=== PATIENT | male | born 1945 | race Caucasian/White ===

== ENCOUNTER 2017-04-26 07:20 | Inpatient (IN) | payer MEDICARE, OTHER ==
[~2017-04-26] VITALS: Ht 172.7 cm; Wt 96.2 kg
[~2017-04-26 07:20] MED LIST: AMLO5TAB2 PO; GABA-536 PO; HYDR-548 PO; INSU100C7 SQ; LEVO175T2 PO; LORA10TA7 PO; METO50TA3 PO; TAMS0.4C34 PO
--- NOTE | 2017-04-26 07:20 | NUR ---
PT [id number] FROM HOME: WITNESSED SYNCOPY. BS IN FIELD 231. PLACED ON MONITOR. GOWNED PT . AWAITING MD ORDER
[2017-04-26] MEDS ORDERED: NALOXONE HCL 0.4 MG/ML AMPUL ONE (07:32)
[2017-04-26] MEDS ORDERED: ATOR80TA PO (07:33)
[2017-04-26] MEDS ORDERED: ALFU10TA10 PO (07:33)
[2017-04-26] MEDS ORDERED: AMIL5TAB9 PO (07:33)
[2017-04-26] MEDS ORDERED: ASPI-605 PO (07:33)
--- NOTE | 2017-04-26 07:38 | NUR ---
AMANDA #20 IV ACCESS. BLOOD SAMPLE COLLECTED SENT TO LAB
--- NOTE | 2017-04-26 07:40 | NUR ---
HAND FILER BALANCE WHEEL AT BEDSIDE
--- NOTE | 2017-04-26 07:40 | NUR ---
DR NAYLOR AT BEDSIDE FOR EVAL.
[2017-04-26] MEDS ORDERED: DOCU-170 PO (07:43)
[2017-04-26] MEDS ORDERED: CHOL200026 PO (07:43)
[2017-04-26] MEDS ORDERED: CALC60OI4 TP (07:43)
[2017-04-26] MEDS ORDERED: CARB15DR2 EACHEYE (07:43)
[2017-04-26] MEDS ORDERED: CALC3.8S NS (07:43)
[2017-04-26] MEDS ORDERED: POT473SP TP (07:43)
[2017-04-26] MEDS ORDERED: CLOP75TA2 PO (07:43)
[2017-04-26] MEDS ORDERED: [UNRECOGNIZED DRUG - CODE] TP (07:43)
--- NOTE | 2017-04-26 07:45 | NUR ---
DR JEONG PAGED
[2017-04-26] MEDS ORDERED: ATROPINE SULFATE INJ 1 MG/ML VIAL ONE (07:48)
[2017-04-26] MEDS ORDERED: IV NS 0.9% 1,000 ML ONE (07:48)
[2017-04-26] MEDS ORDERED: IV SET PRIMARY PUMP SET 1 EA INFUS.SET MC ONE ×2 (07:48→11:17)
[2017-04-26 07:50] LABS: ABG BASE EXCESS -0.5 mmol/L; ABG OXYGEN SATURATION 78.2 % (92.0-98.5); ABG PH 7.279 (7.350-7.450); ABG PO2 49.6 mmHg (75.0-100.0); COHb 1.5 % (0.5-1.5); MetHb 0.4 % (0.0-1.5); O2Hb 76.7 % (94.0-97.0); SITE, ABG LEFT ARM; VENT MODE, BG VBG VIA SIMPLE MASK
[2017-04-26 07:54] LABS: BASOPHILS % (AUTO) 0.5 % (0.0-2.0); EOSINOPHILS # (AUTO) 0.3 /CMM (0.0-0.7); EOSINOPHILS % (AUTO) 3.4 % (0.0-6.0); HEMATOCRIT 40 % (39-51); HEMOGLOBIN 13.4 g/dL (13.5-17.5); LYMPHOCYTES # (AUTO) 1.3 /CMM (0.8-4.8); LYMPHOCYTES % (AUTO) 14.2 % (20.0-44.0); MEAN CORPUSCULAR HEMOGLOBIN 32 PG (26.0-33.0); MEAN CORPUSCULAR HGB CONC 34 g/dl (31.0-36.0); MEAN CORPUSCULAR VOLUME 96 fL (80-96); MONOCYTES # (AUTO) 0.6 /CMM (0.1-1.30); MONOCYTES % (AUTO) 6.9 % (2.0-12.0); NEUTROPHILS # (AUTO) 6.6 /CMM (1.8-8.9); PLATELET COUNT (AUTO) 182 /CMM (150-450); RDW COEFFICIENT OF VARIATION 14.4 (11.5-15.0); RED BLOOD CELL COUNT(AUTO) 4.15 MIL/uL (4.5-6.0); WHITE BLOOD COUNT (AUTO) 8.8 K/uL (4.3-11.0)
[2017-04-26] MEDS ORDERED: IV NS 0.9% 1,000 ML BAG IV ONE (08:00)
[2017-04-26] MEDS ORDERED: NALOXONE HCL 0.4 MG/ML AMPUL IV ONE ×2 (08:00→13:00)
[2017-04-26] MEDS ORDERED: ATROPINE SULFATE INJ 1 MG/ML VIAL IV ONE (08:00)
[2017-04-26 08:04] LABS: CALCIUM, SERUM 10.1 mg/dL (8.5-10.1); CARBON DIOXIDE 29 mmol/L (21-32); CHLORIDE 103 mmol/L (98-107); CREATININE 2.2 mg/dL (0.6-1.3); GLUCOSE 260 mg/dL (74-106); POTASSIUM 5.2 mmol/L (3.5-5.1); SODIUM SERUM 142 mmol/L (136-145); UREA NITROGEN, BLOOD 50 mg/dL (7-18)
[2017-04-26 08:12] LABS: TROPONIN I < 0.017 ng/mL (0.00-0.056)
[2017-04-26 08:16] LABS: INR 1.01 (0.87-1.13); PROTHROMBIN TIME 10.8 SECS (9.5-12.7)
[2017-04-26 08:21] LABS: ALANINE AMINOTRANSFERASE 30 U/L (12-78); ALBUMIN 3.6 g/dL (3.4-5.0); ALKALINE PHOSPHATASE 168 U/L (46-116); ASPARTATE AMINOTRANSFERASE 45 U/L (15-37); BILIRUBIN,TOTAL 0.5 mg/dL (0.2-1.0)
--- NOTE | 2017-04-26 08:22 | NUR ---
PT TAKEN TO CT VIA JUDITH
--- NOTE | 2017-04-26 08:22 | NUR ---
HOLLIE ARTEAGA CAREGIVER [phone]
[2017-04-26 08:25] LABS: APPEARANCE,URINE SL CLOUDY (CLEAR); BLOOD, URINE 2+ Ery/uL (NEGATIVE); COLOR,URINE YELLOW (YELLOW); KETONES,URINE NEGATIVE (NEGATIVE); LEUKOCYTE ESTERASE ,URINE NEGATIVE (NEGATIVE); NITRITE, URINE NEGATIVE (NEGATIVE); PROTEIN,URINE 1+ mg/dl (NEGATIVE); UGLUCOSE NEGATIVE (NEGATIVE); UROBILINOGEN,URINE 0.2 EU/dL (0.2)
[2017-04-26 08:32] LABS: THYROID STIMULATING HORMONE 0.838 uIU/mL (0.358-3.74)
[2017-04-26 08:33] LABS: BILIRUBIN,URINE NEGATIVE (NEGATIVE)
[2017-04-26 08:35] LABS: BACTERIA,URINE Rare /HPF (None Seen); MUCUS,URINE Few /LPF (None Seen); RBC,URINE 0-3 /HPF (0-2); SQUAMOUS EPITHELIAL CELL,UR Few /HPF (None Seen); URINE AMORPHOUS URATE Few /HPF (None Seen); WBC,URINE 0-3 /HPF (0-3)
[2017-04-26] MEDS ORDERED: IV NS 0.9% 1,000 ML IV PRN (10:19)
--- NOTE | 2017-04-26 10:20 | NUR ---
CALLED TO GIVE REPORT PER MAKAYLA TECH RN WILL CALL ME BACK . WILL TRY AGAIN
--- NOTE | 2017-04-26 10:24 | NUR ---
TRANSFER PT VIA ACLS PROTOCOL. WILL GIVE REPORT TO KAYA RN AT BEDSIDE ROOM [address] KIRKPATRICK ADMITTING. DX SYNCOPE.
[2017-04-26] MEDS: TAMSULOSIN 0.4 MG CAP.SR.24H PO SCH (10:30)
[2017-04-26] MEDS ORDERED: COAL TAR TP SCH (10:30)
[2017-04-26] MEDS ORDERED: CALCIPOTRIENE TP SCH (10:30)
[2017-04-26 10:48] LABS: THYROID STIMULATING HORMONE 0.79 uIU/mL (0.358-3.74)
[2017-04-26] MEDS ORDERED: MAGNESIUM HYDROXIDE 30 ML UDC PO PRN (11:00)
[2017-04-26] MEDS ORDERED: ONDANSETRON HCL/PF 4 MG/2 ML VIAL IVP PRN (11:00)
[2017-04-26] MEDS ORDERED: ZOLPIDEM TARTRATE 5 MG TABLET PO PRN (11:00)
[2017-04-26] MEDS ORDERED: ENOXAPARIN SODIUM 40 MG/0.4 ML DISP.SYRIN SQ SCH (11:00)
[2017-04-26] MEDS: METOPROLOL TARTRATE 50 MG TABLET PO SCH ×2 (11:00→18:08)
[2017-04-26] MEDS ORDERED: MAG HYDROX/AL HYDROX/SIMETH 30 ML UDC PO PRN (11:00)
[2017-04-26] MEDS ORDERED: ACETAMINOPHEN 325 MG TABLET PO PRN (11:00)
--- NOTE | 2017-04-26 11:00 | NUR ---
sericulture teacher received pt from er stretcher, pt is lethargic, vs stable ao x1, pt is on 2l nc sat 96%, vs stable pt on monitor 1st degree av block hr 60s epi given for low hr held metoprolol p/md LOZA order, will follow md orders and continue to monitor, pt is on bed low position sr up x3 bed alarm data collection associate light w/ in reach.
[2017-04-26] MEDS ORDERED: SECONDARY IV SET 1 EA INFUS.SET MC ONE (11:17)
[2017-04-26] MEDS: AMLODIPINE BESYLATE 5 MG TABLET PO SCH (11:24)
[2017-04-26] MEDS: DOCUSATE SODIUM 250 MG CAPSULE PO SCH (11:25)
[2017-04-26] MEDS: CHOLECALCIFEROL 1,000 UNIT TABLET (VIT D3) PO SCH (11:25)
[2017-04-26] MEDS: ASPIRIN EC 81 MG TABLET.DR PO SCH (11:25)
[2017-04-26] MEDS: LORATADINE 10 MG TABLET PO SCH ×2 (11:25→18:07)
[2017-04-26] MEDS: LEVOTHYROXINE SODIUM 175 MCG TABLET PO SCH (11:25)
[2017-04-26] MEDS: CLOPIDOGREL BISULFATE 75 MG TABLET PO SCH (11:25)
[2017-04-26] MEDS: ENOXAPARIN SODIUM 30 MG/0.3 ML DISP.SYRIN SQ SCH (11:26)
[2017-04-26] MEDS: AMILORIDE HCL 5 MG TABLET PO SCH (11:26)
[2017-04-26] MEDS: INSULIN DETEMIR 100 UNIT/ML CARTRIDGE SQ SCH (11:27)
[2017-04-26 11:29] LABS: ABG BASE EXCESS 0.7 mmol/L; ABG OXYGEN SATURATION 93.4 % (92.0-98.5); ABG PO2 77.8 mmHg (75.0-100.0); AaDO2 54.6 mmHg; COHb 2.3 % (0.5-1.5); MetHb 0.5 % (0.0-1.5); O2Hb 90.8 % (94.0-97.0); SITE, ABG Right Radial; VENT MODE, BG 2L NASAL CANNULA
[2017-04-26] MEDS: IV 1/2NS 1000 ML 1,000 ML IV PRN (11:29)
[2017-04-26] MEDS ORDERED: NALOXONE HCL 2 MG in IV D5W 245 ML IV PRN (11:30)
[2017-04-26] MEDS: CALCITONIN,SALMON,SYNTHETIC 3.7 ML SPRAY.PUMP NS SCH (11:55)
[2017-04-26 12:00] VITALS: BP 165/75
[2017-04-26] MEDS ORDERED: Z GUARD REMEDY 4 OZ OINT TP PRN (12:30)
[2017-04-26] MEDS: GABAPENTIN 400 MG CAPSULE PO SCH ×2 (12:46→18:08)
[2017-04-26] MEDS: CARBOXYMETHYLCELLULOSE SODIUM 0.4 ML DROPERETTE EACHEYE SCH ×3 (13:00→21:00)
[2017-04-26] MEDS ORDERED: DEXTROSE 50%-WATER 50 ML DISP.SYRIN IV PRN (13:30)
[2017-04-26 16:00] VITALS: BP 103/55
[2017-04-26] MEDS ORDERED: ANASTROZOLE 1 MG TABLET PO SCH (17:00)
[2017-04-26] MEDS: BLOOD SUGAR DIAGNOSTIC 1 EACH STRIP IN SCH ×2 (18:08→22:53)
[2017-04-26] MEDS: INSULIN REGULAR, HUMAN 100 UNIT/ML 3 ML VIAL SQ PRN (18:09)
--- NOTE | 2017-04-26 19:20 | NUR ---
RN INITIAL NOTE RECEIVED PT IN NO ACUTE DISTRESS IN BED. PT IS A/O X 2 WITH PERIODS OF CONFUSION. PT IS ON O2 VIA NC @ 2LPM AND TOLERATING WELL WITH O2 SAT @ 98%. PT DOES NOT C/O ANY SOB, DIFFICULTY BREATHING OR PAIN AT THIS TIME. PT IS ON TELE WITH SB ON THE MONITOR. PT HAS F/C THAT IS CLEAN DRY INTACT AND PATENT WITH NAIN COLOR URINE DRAINING. PT HAS RAC 20G THAT IS CLEAN DRY INTACT AND PATENT WITH 1/2 NS @ 75ML/HR. PT HAS R HAND 20G THAT IS CLEAN DRY INTACT AND PATENT WITH SALINE LOCK. BED IN LOW LOCK POSITION WITH RIALS UP X 2. CALL LIGHT WITHIN REACH AND ALL SAFETY MEASURES ENSURED AND CARRIED OUT. WILL CONTINUE TO MONITOR FOR ANY CHANGES IN CONDITION.
[2017-04-26 20:37] VITALS: BP 129/58
[2017-04-27] VITALS: BP 116/56
[2017-04-27] MEDS: IV 1/2NS 1000 ML 1,000 ML IV PRN ×2 (03:46→20:28)
[2017-04-27 04:00] VITALS: BP 121/65
[2017-04-27] MEDS: PANTOPRAZOLE 40 MG TABLET.DR PO SCH (06:27)
[2017-04-27] MEDS: BLOOD SUGAR DIAGNOSTIC 1 EACH STRIP IN SCH ×4 (06:27→21:29)
[2017-04-27] MEDS: LEVOTHYROXINE SODIUM 175 MCG TABLET PO SCH (06:27)
--- NOTE | 2017-04-27 06:37 | NUR ---
RN CLOSING NOTE PT REMAINS IN NO ACUTE DISTRESS IN BED. PT DID NOT HAVE ANY SIGNIFICANT CHANGE IN CONDITION DURING SHIFT. ALL NEEDS MET ALL ORDERS CARRIED OUT. WILL CONTINUE TO MONITOR FOR ANY CHANGES IN CONDITION.
[2017-04-27 07:33] LABS: CALCIUM, SERUM 9.1 mg/dL (8.5-10.1); CARBON DIOXIDE 31 mmol/L (21-32); CHLORIDE 107 mmol/L (98-107); CREATININE 1.3 mg/dL (0.6-1.3); GLUCOSE 114 mg/dL (74-106); MAGNESIUM 1.7 mg/dL (1.8-2.4); PHOSPHORUS 3.6 mg/dL (2.5-4.9); POTASSIUM 4.4 mmol/L (3.5-5.1); SODIUM SERUM 145 mmol/L (136-145); UREA NITROGEN, BLOOD 38 mg/dL (7-18)
[2017-04-27 07:59] LABS: EOSINOPHILS # (AUTO) 0.7 /CMM (0.0-0.7); EOSINOPHILS % (AUTO) 8.4 % (0.0-6.0); HEMATOCRIT 35 % (39-51); HEMOGLOBIN 11.9 g/dL (13.5-17.5); LYMPHOCYTES # (AUTO) 1.2 /CMM (0.8-4.8); LYMPHOCYTES % (AUTO) 13.8 % (20.0-44.0); MEAN CORPUSCULAR HEMOGLOBIN 33 PG (26.0-33.0); MEAN CORPUSCULAR HGB CONC 34 g/dl (31.0-36.0); MEAN CORPUSCULAR VOLUME 96 fL (80-96); MONOCYTES # (AUTO) 0.9 /CMM (0.1-1.30); MONOCYTES % (AUTO) 10.5 % (2.0-12.0); NEUTROPHILS # (AUTO) 5.6 /CMM (1.8-8.9); NEUTROPHILS % (AUTO) 67.3 % (43.0-81.0); PLATELET COUNT (AUTO) 148 /CMM (150-450); RDW COEFFICIENT OF VARIATION 13.5 (11.5-15.0); RED BLOOD CELL COUNT(AUTO) 3.65 MIL/uL (4.5-6.0); WHITE BLOOD COUNT (AUTO) 8.4 K/uL (4.3-11.0)
[2017-04-27 08:00] VITALS: BP 135/69
[2017-04-27] MEDS: ASPIRIN EC 81 MG TABLET.DR PO SCH (08:22)
[2017-04-27] MEDS: CHOLECALCIFEROL 1,000 UNIT TABLET (VIT D3) PO SCH (08:22)
[2017-04-27] MEDS: DOCUSATE SODIUM 250 MG CAPSULE PO SCH (08:23)
[2017-04-27] MEDS: AMLODIPINE BESYLATE 5 MG TABLET PO SCH (08:23)
[2017-04-27] MEDS: ATORVASTATIN 40 MG TABLET PO SCH (08:23)
[2017-04-27] MEDS: GABAPENTIN 400 MG CAPSULE PO SCH ×3 (08:24→17:11)
[2017-04-27] MEDS: TAMSULOSIN 0.4 MG CAP.SR.24H PO SCH (08:24)
[2017-04-27] MEDS: LORATADINE 10 MG TABLET PO SCH ×2 (08:24→17:11)
[2017-04-27] MEDS: CLOPIDOGREL BISULFATE 75 MG TABLET PO SCH (08:24)
[2017-04-27] MEDS: METOPROLOL TARTRATE 50 MG TABLET PO SCH ×2 (09:00→17:11)
[2017-04-27] MEDS: CARBOXYMETHYLCELLULOSE SODIUM 0.4 ML DROPERETTE EACHEYE SCH ×4 (09:00→20:44)
[2017-04-27] MEDS: AMILORIDE HCL 5 MG TABLET PO SCH (10:13)
[2017-04-27] MEDS: CALCITONIN,SALMON,SYNTHETIC 3.7 ML SPRAY.PUMP NS SCH (10:14)
[2017-04-27] MEDS: INSULIN DETEMIR 100 UNIT/ML CARTRIDGE SQ SCH (10:15)
[2017-04-27] MEDS: LEVETIRACETAM (250 MG) 250 MG TABLET PO SCH ×2 (11:02→20:28)
[2017-04-27] MEDS: ENOXAPARIN SODIUM 30 MG/0.3 ML DISP.SYRIN SQ SCH (11:03)
[2017-04-27] MEDS ORDERED: SECONDARY IV SET 1 EA INFUS.SET MC ONE (11:57)
[2017-04-27 12:00] VITALS: BP 126/61
[2017-04-27] MEDS: Magnesium 1GM/D5W 100ML PREMIX 100 ML IV SCH ×2 (12:03→12:58)
[2017-04-27 16:00] VITALS: BP 116/60
[2017-04-27] MEDS: INSULIN REGULAR, HUMAN 100 UNIT/ML 3 ML VIAL SQ PRN ×2 (17:20→21:31)
--- NOTE | 2017-04-27 19:30 | NUR ---
MS RN INITIAL NOTES RECEIVED PATIENT AWAKE A/OX3, C/O 6/10 BLE PAIN, STATES TYLENOL ISN'T WORKING FOR HIM AND REQUESTS FOR STRONGER MEDICATION. DENIES SOB. RESPIRATIONS EVEN AND UNLABORED WITH 2LPMO2 VIA NC. SKIN WARM AND DRY TO TOUCH. NOTED WITH LEFT LOWER EXTREMITY RASH, PER PATIENT IT IS PSORIASIS. WITH F/C PATENT AND INTACT, DRAINING BY GRAVITY. HOB KEPT ELEVATED. SIDE RAILS UP AND LOCKED. BED KEPT AT LOWEST POSITION. CALL LIGHT KEPT WITHIN EASY REACH. WILL CONTINUE TO MONITOR.
[2017-04-27 20:00] VITALS: BP 126/53
[2017-04-27] MEDS ORDERED: HYDROCODONE/APAP 5/325MG 1 EACH TABLET ONE (20:17)
[2017-04-27] MEDS: HYDROCODONE/APAP 5/325MG 1 EACH TABLET PO PRN (20:28)
[2017-04-28 04:00] VITALS: BP 141/73
[2017-04-28 06:58] LABS: BASOPHILS % (AUTO) 0.3 % (0.0-2.0); EOSINOPHILS # (AUTO) 0.1 /CMM (0.0-0.7); EOSINOPHILS % (AUTO) 1.1 % (0.0-6.0); HEMATOCRIT 37 % (39-51); HEMOGLOBIN 12.4 g/dL (13.5-17.5); LYMPHOCYTES # (AUTO) 0.7 /CMM (0.8-4.8); LYMPHOCYTES % (AUTO) 6.6 % (20.0-44.0); MEAN CORPUSCULAR HEMOGLOBIN 33 PG (26.0-33.0); MEAN CORPUSCULAR HGB CONC 34 g/dl (31.0-36.0); MEAN CORPUSCULAR VOLUME 96 fL (80-96); MONOCYTES # (AUTO) 0.7 /CMM (0.1-1.30); MONOCYTES % (AUTO) 6.5 % (2.0-12.0); NEUTROPHILS # (AUTO) 9.6 /CMM (1.8-8.9); NEUTROPHILS % (AUTO) 85.5 % (43.0-81.0); PLATELET COUNT (AUTO) 158 /CMM (150-450); RDW COEFFICIENT OF VARIATION 14.4 (11.5-15.0); WHITE BLOOD COUNT (AUTO) 11.2 K/uL (4.3-11.0)
[2017-04-28] MEDS: BLOOD SUGAR DIAGNOSTIC 1 EACH STRIP IN SCH ×4 (07:00→22:19)
[2017-04-28] MEDS: INSULIN REGULAR, HUMAN 100 UNIT/ML 3 ML VIAL SQ PRN ×3 (07:03→22:20)
[2017-04-28 07:05] LABS: ALANINE AMINOTRANSFERASE 31 U/L (12-78); ALBUMIN 2.8 g/dL (3.4-5.0); ALKALINE PHOSPHATASE 153 U/L (46-116); ASPARTATE AMINOTRANSFERASE 44 U/L (15-37); BILIRUBIN,TOTAL 0.7 mg/dL (0.2-1.0); CALCIUM, SERUM 9.1 mg/dL (8.5-10.1); CARBON DIOXIDE 32 mmol/L (21-32); CHLORIDE 102 mmol/L (98-107); CREATININE 1.3 mg/dL (0.6-1.3); GLUCOSE 204 mg/dL (74-106); MAGNESIUM 1.6 mg/dL (1.8-2.4); PHOSPHORUS 2.7 mg/dL (2.5-4.9); POTASSIUM 4.5 mmol/L (3.5-5.1); SODIUM SERUM 140 mmol/L (136-145); TOTAL PROTEIN, SERUM 6.7 g/dL (6.4-8.2); UREA NITROGEN, BLOOD 30 mg/dL (7-18)
--- NOTE | 2017-04-28 07:05 | NUR ---
RN INITIAL NOTES RECEIVED PT AWAKE, A/OX1 WITH PERIODS OF CONFUSION. ON AT 2LPM VIA NC. NO RESPIRATORY DISTRESS NOTED. NO SOB NOTED. DENIES ANY PAIN. IV LINES IN PLACE. ON 11/25 NS AT 75ML/HR. FC IN PLACE. NO HEMATURIA NOR SEDIMENTS NOTED. BLE ELEVATED. PT COMFORTABLE. CALL LIGHT WITHIN REACH. WILL MONITOR.
--- NOTE | 2017-04-28 07:19 | NUR ---
MS RN CLOSING NOTES NO SIGNIFICANT CHANGES OVERNIGHT. MORE CONFUSED THIS MORNING, NOTED REMOVING CLOTHES, HANDS RESTLESS, REORIENTED, STATES HES FINE. NO RESPIRATORY DISTRESS NOTED, ON 2LPMO2 VIA NC. IVF RUNNING . WITH F/C PATENT AND INTACT, DRAINING BY GRAVITY. PATIENT KEPT CLEAN AND DRY. TURNED AND REPOSITIONED Q2 AND PRN. SIDE RAILS UP AND LOCKED. BED KEPT AT LOWEST POSITION. CALL LIGHT KEPT WITHIN EASY REACH. WILL ENDORSE CONTINUITY OF CARE TO AM NURSE.
[2017-04-28 08:00] VITALS: BP_SYST 151; BP_SYST 154; BP_DIAS 47; BP_DIAS 55
[2017-04-28] MEDS: AMILORIDE HCL 5 MG TABLET PO SCH (08:28)
[2017-04-28] MEDS: LORATADINE 10 MG TABLET PO SCH ×2 (08:29→16:11)
[2017-04-28] MEDS: ATORVASTATIN 40 MG TABLET PO SCH (08:29)
[2017-04-28] MEDS: LEVETIRACETAM (250 MG) 250 MG TABLET PO SCH ×2 (08:29→22:19)
[2017-04-28] MEDS: TAMSULOSIN 0.4 MG CAP.SR.24H PO SCH (08:29)
[2017-04-28] MEDS: CARBOXYMETHYLCELLULOSE SODIUM 0.4 ML DROPERETTE EACHEYE SCH ×4 (08:29→22:18)
[2017-04-28] MEDS: ASPIRIN EC 81 MG TABLET.DR PO SCH (08:29)
[2017-04-28] MEDS: CLOPIDOGREL BISULFATE 75 MG TABLET PO SCH (08:29)
[2017-04-28] MEDS: LEVOTHYROXINE SODIUM 175 MCG TABLET PO SCH (08:29)
[2017-04-28] MEDS: PANTOPRAZOLE 40 MG TABLET.DR PO SCH (08:29)
[2017-04-28] MEDS: AMLODIPINE BESYLATE 5 MG TABLET PO SCH (08:29)
[2017-04-28] MEDS: CHOLECALCIFEROL 1,000 UNIT TABLET (VIT D3) PO SCH (08:29)
[2017-04-28] MEDS: DOCUSATE SODIUM 250 MG CAPSULE PO SCH (08:30)
[2017-04-28] MEDS: CALCITONIN,SALMON,SYNTHETIC 3.7 ML SPRAY.PUMP NS SCH (08:30)
[2017-04-28] MEDS: GABAPENTIN 400 MG CAPSULE PO SCH ×3 (08:30→16:11)
[2017-04-28] MEDS: METOPROLOL TARTRATE 50 MG TABLET PO SCH ×2 (08:30→16:12)
[2017-04-28] MEDS: INSULIN DETEMIR 100 UNIT/ML CARTRIDGE SQ SCH (08:38)
[2017-04-28] MEDS ORDERED: SECONDARY IV SET 1 EA INFUS.SET MC ONE (11:10)
[2017-04-28] MEDS: ENOXAPARIN SODIUM 30 MG/0.3 ML DISP.SYRIN SQ SCH (11:25)
[2017-04-28] MEDS: Magnesium 1GM/D5W 100ML PREMIX 100 ML IV SCH ×2 (11:33→12:28)
[2017-04-28] MEDS: IV 1/2NS 1000 ML 1,000 ML IV PRN (11:33)
--- NOTE | 2017-04-28 12:05 | NUR ---
RN NOTES SEEN AND EXAMINED BY DR. KAYA KEYS. AWARE OF CURRENT LAB VALUES: WBC 11.2, HGB 12.4, HCT 37, PLATELET 158. SODIUM 140, POTASSIUM 4.5, BUN 30, CREA 1.3, MAGNESIUM 1.6, REPLACED. PT A/OX1-2 WITH PERIODS OF CONFUSION. MD ORDERED DC IVF, DC FC AND CXR TODAY. NOTED AND CARRIED OUT. PT AWARE.
--- NOTE | 2017-04-28 12:10 | NUR ---
RN NOTES FC REMOVED ORDERED BY DR. KAYA KEYS. WILL MONITOR FOR SIGNS OF BLADDER DISTENTION/URINARY RETENTION.
--- NOTE | 2017-04-28 12:46 | NUR ---
WOUND CARE CONSULT: PT PRESENTS WITH RED PATCHES OF SKIN ON LEFT LEG, GROIN, SACRAL/BUTTOCKS AREA AND ELBOWS, PRESENT ON ADMISSION. PT STATES HAS PSORIASIS. DEFER TO MD. PT ABLE TO ASSIST WITH TURNING AND REPOSITIONING IN BED. ALL SKIN PROTECTION MEASURES IN PLACE. DISCUSSED WITH NURSING STAFF. PT ON [facility] BED. WILL SEE PRN. Addendum: 04/28/17 at 1248 by CALEB CONWAY WNDNU Amended: Links added.
[2017-04-28 16:00] VITALS: BP 107/60
--- NOTE | 2017-04-28 19:15 | NUR ---
RN INITIAL NOTES RECEIVED PATIENT IN BED, PATIENT OBSERVED TO BE CONFUSED, ALERT TO NAME ONLY. PATIENT OBSERVED TO BE RESTLESS IN BED. REPOSITIONED PATIENT SAFELY IN BED, COMFORT ENSURED. BED ALARM IN PLACE, BED IN LOW AND LOCKED POSITION. PATIENT REORIENTED NEEDED. ENCOURAGED COMPLIANCE WITH O2 THERAPY, 2LPM OF O2 VIA NC, PATIENT IS OBSERVED TO BE TACHYPNEIC, SATURATION KEPT AT 97%, DENIES ANY DISCOMFORT AND PAIN, HOB ELEVATED TOLERATED. WILL CONTINUE TO MONITOR.
[2017-04-28 20:00] VITALS: BP 155/53
--- NOTE | 2017-04-28 20:30 | NUR ---
RN NOTES PATIENT RESTLESS IN BED, REPOSITIONED FOR SAFETY. PATIENT CONFUSED AND REQUIRING CONSTANT REORIENTATION. PATIENT INSISTING ON LOOKING FOR HIS SHOES AND GOING HOME. REORIENTED NEEDED, MINIMAL HELP. ROOM CHANGED CLOSE TO NURSE'S STATION FOR CLOSE MONITORING. WILL MONITOR.
[2017-04-28] MEDS: HYDROCODONE/APAP 5/325MG 1 EACH TABLET PO PRN (22:22)
--- NOTE | 2017-04-29 | NUR ---
RN NOTES PATIENT WAS MEDICATED WITH NORCO PRN ORDERED FOR C/O GENERALIZED PAIN, WITH HELP FOR THE PATIENT. ALSO WAS MEDICATED WITH AMBIEN PRN. PATIENT AT THIS TIME IS STILL AWAKE ALTHOUGH LETHARGIC, RESTLESS IN BED AND CONSTANTLY TALKING. ATTEMPTED TO REORIENT AND REDIRECT, MINIMAL HELP. AMBIEN WITH NO HELP. ON CLOSE VISUAL MONITORING. BED ALARM IN PLACE.
--- NOTE | 2017-04-29 03:27 | NUR ---
RN NOTES PATIENT ATTEMPTING TO GET OUT FROM BED, ASSISTED BACK TO BED WITH SAFETY AND COMFORT ENSURED. PATIENT REORIENTED AND REASSURED. NEEDS ANTICIPATED AND MET. ON CLOSE MONITORING BY STAFF AT ALL TIMES. BED ALARM IN PLACE.
[2017-04-29 04:00] VITALS: BP 165/77
--- NOTE | 2017-04-29 04:00 | NUR ---
RN NOTES PATIENT IN BED, AWAKE, ALERT TO NAME. PATIENT IS RESTLESS IN BED, CONSTANTLY TRYING TO MOVE HIS LEGS OFF THE BED, FREQUENTLY REPOSITIONED PATIENT FOR COMFORT AND SAFETY. PATIENT ALSO ALWAYS REMOVING HIS BLANKETS AND GOWN AND THROWING PILLOWS TO THE FLOOR. CONSTANT REORIENTATION PROVIDED, SAFETY AND COMFORT ENSURED. BED ALARM IN PLACE, BED IN LOW AND LOCKED POSITION. CLOSELY MONITORED BY STAFF AT ALL TIMES. PAGED [employer] FOR ORDERS.
[2017-04-29] MEDS ORDERED: LORAZEPAM INJ 2 MG/ML VIAL ONE (04:21)
[2017-04-29] MEDS ORDERED: LORAZEPAM INJ 2 MG/ML VIAL IV ONE (04:30)
--- NOTE | 2017-04-29 04:39 | NUR ---
RN NOTES PATIENT IN BED, AWAKE AND CONFUSED. ALERT TO NAME. PATIENT OBSERVED TO BE TALKING TO SELF. INQUIRED TO PATIENT WHO HE IS TALKING TO, PATIENT NOTED TO BE HALLUCINATING, POINTING AT THE CEILING AND STATES, "I AM TALKING TO THE 2 DESK LADIES AT [place]. I AM MAKING AN APPOINTMENT, EVERYTHING IS SET." PROVIDED PATIENT WITH REALITY ORIENTATION, PATIENT JUST SHRUGGED OFF AND LAUGHED. REORIENTED NEEDED. SAFETY AND COMFORT ENSURED. ATIVAN 1MG IV X1 GIVEN ORDERED. ON CLOSE MONITORING.
--- NOTE | 2017-04-29 06:52 | NUR ---
RN CLOSING NOTES PATIENT IN BED, AWAKE AND CONFUSED, ALERT TO NAME ONLY. PATIENT MANAGED TO SLEEP FOR APPROXIMATELY 1 HOUR POST ADMINISTRATION OF ATIVAN X1 ORDER. CONSTANT REORIENTATION AND REDIRECTION PROVIDED. REASSURANCE PROVIDED NEEDED. PATIENT KEPT CLEAN AND DRY. SAFETY AND COMFORT ENSURED. ON CLOSE MONITORING AT ALL TIMES. BED IN LOW AND LOCKED POSITION. BED ALARM IN PLACE. WILL ENDORSE ACCORDINGLY FOR CONTINUITY OF CARE. AM LABS DRAWN, ALL DUE MEDS GIVEN ORDERED.
[2017-04-29 07:08] LABS: BASOPHILS % (AUTO) 0.4 % (0.0-2.0); EOSINOPHILS # (AUTO) 0.2 /CMM (0.0-0.7); HEMATOCRIT 40 % (39-51); HEMOGLOBIN 13.8 g/dL (13.5-17.5); LYMPHOCYTES # (AUTO) 1.2 /CMM (0.8-4.8); MEAN CORPUSCULAR HEMOGLOBIN 33 PG (26.0-33.0); MEAN CORPUSCULAR HGB CONC 34 g/dl (31.0-36.0); MEAN CORPUSCULAR VOLUME 95 fL (80-96); MONOCYTES % (AUTO) 8.4 % (2.0-12.0); NEUTROPHILS # (AUTO) 9.2 /CMM (1.8-8.9); NEUTROPHILS % (AUTO) 79.2 % (43.0-81.0); PLATELET COUNT (AUTO) 176 /CMM (150-450); RDW COEFFICIENT OF VARIATION 14.5 (11.5-15.0); RED BLOOD CELL COUNT(AUTO) 4.24 MIL/uL (4.5-6.0); WHITE BLOOD COUNT (AUTO) 11.6 K/uL (4.3-11.0)
--- NOTE | 2017-04-29 07:15 | NUR ---
RN INITIAL NOTE PT RECEIVED IN BED, AWAKE, ALERT, CONFUSED. DENIES PAIN AT THIS TIME. RESPIRATIONS ARE EVEN AND UNLABORED. NO S/S OF RESPIRATORY DISTRESS OR SOB. SATING WELL ON 2L VIA NASAL CANULA. SKIN IS WARM AND DRY TO TOUCH. RIGHT HAND AND RIGHT AC IV SITE FLUSHED, PATENT. DRESSING C/D/I. SAFETY PRECAUTIONS IN PLACE. BED IN LOCKED, LOW POSITIONS WITH TWO SIDE RAILS UP. CALL LIGHT AND BELONGINGS WITHIN EASY REACH. SITTER AT BEDSIDE. WILL CONTINUE TO MONITOR.
[2017-04-29 08:00] VITALS: BP 156/88
[2017-04-29 08:23] LABS: CALCIUM, SERUM 10.1 mg/dL (8.5-10.1); CARBON DIOXIDE 31 mmol/L (21-32); CHLORIDE 102 mmol/L (98-107); CREATININE 1.1 mg/dL (0.6-1.3); GLUCOSE 168 mg/dL (74-106); MAGNESIUM 1.5 mg/dL (1.8-2.4); POTASSIUM 4.5 mmol/L (3.5-5.1); SODIUM SERUM 141 mmol/L (136-145); UREA NITROGEN, BLOOD 24 mg/dL (7-18)
[2017-04-29] MEDS: AMLODIPINE BESYLATE 5 MG TABLET PO SCH (08:47)
[2017-04-29] MEDS: CALCITONIN,SALMON,SYNTHETIC 3.7 ML SPRAY.PUMP NS SCH (08:47)
[2017-04-29] MEDS: CLOPIDOGREL BISULFATE 75 MG TABLET PO SCH (08:48)
[2017-04-29] MEDS: CHOLECALCIFEROL 1,000 UNIT TABLET (VIT D3) PO SCH (08:48)
[2017-04-29] MEDS: ATORVASTATIN 40 MG TABLET PO SCH (08:48)
[2017-04-29] MEDS: ASPIRIN EC 81 MG TABLET.DR PO SCH (08:48)
[2017-04-29] MEDS: LEVETIRACETAM (250 MG) 250 MG TABLET PO SCH ×2 (08:48→21:09)
[2017-04-29] MEDS: METOPROLOL TARTRATE 50 MG TABLET PO SCH ×2 (08:48→18:02)
[2017-04-29] MEDS: PANTOPRAZOLE 40 MG TABLET.DR PO SCH (08:49)
[2017-04-29] MEDS: DOCUSATE SODIUM 250 MG CAPSULE PO SCH (08:49)
[2017-04-29] MEDS: TAMSULOSIN 0.4 MG CAP.SR.24H PO SCH (08:49)
[2017-04-29] MEDS: GABAPENTIN 400 MG CAPSULE PO SCH ×3 (08:49→17:54)
[2017-04-29] MEDS: LEVOTHYROXINE SODIUM 175 MCG TABLET PO SCH (08:49)
[2017-04-29] MEDS: AMILORIDE HCL 5 MG TABLET PO SCH (08:49)
[2017-04-29] MEDS: INSULIN DETEMIR 100 UNIT/ML CARTRIDGE SQ SCH (08:53)
[2017-04-29] MEDS: LORATADINE 10 MG TABLET PO SCH ×2 (08:57→17:54)
[2017-04-29] MEDS: BLOOD SUGAR DIAGNOSTIC 1 EACH STRIP IN SCH ×4 (08:57→21:16)
[2017-04-29] MEDS: FUROSEMIDE 40 MG/4 ML VIAL IV SCH ×2 (08:57→17:54)
[2017-04-29] MEDS: CARBOXYMETHYLCELLULOSE SODIUM 0.4 ML DROPERETTE EACHEYE SCH ×4 (09:00→21:14)
[2017-04-29] MEDS ORDERED: IV SET PRIMARY PUMP SET 1 EA INFUS.SET MC ONE (09:10)
[2017-04-29] MEDS ORDERED: IV NS 0.9% 250 ML IV ONE (09:10)
[2017-04-29] MEDS ORDERED: SECONDARY IV SET 1 EA INFUS.SET MC ONE (09:10)
[2017-04-29] MEDS: Magnesium 1GM/D5W 100ML PREMIX 100 ML IV SCH ×2 (09:24→10:57)
[2017-04-29] MEDS: ENOXAPARIN SODIUM 30 MG/0.3 ML DISP.SYRIN SQ SCH (11:00)
[2017-04-29 12:00] VITALS: BP 120/60
[2017-04-29] MEDS: QUETIAPINE FUMARATE 25 MG TABLET PO SCH ×2 (12:17→17:54)
[2017-04-29] MEDS: INSULIN REGULAR, HUMAN 100 UNIT/ML 3 ML VIAL SQ PRN (12:22)
[2017-04-29] MEDS: HYDROCODONE/APAP 5/325MG 1 EACH TABLET PO PRN (14:21)
[2017-04-29] MEDS: IPRATROPIUM NEB FS 0.5 MG/2.5 ML AMPUL.NEB NEB SCH ×2 (15:00→20:13)
[2017-04-29] MEDS: ALBUTEROL FS 2.5 MG/0.5 ML VIAL.NEB NEB SCH ×2 (15:00→20:13)
[2017-04-29 16:00] VITALS: BP 135/75
--- NOTE | 2017-04-29 18:48 | NUR ---
RN CLOSING NOTE ALL MD ORDERS CARRIED OUT. PATIENT KEPT CLEAN AND DRY. SAFETY PRECAUTIONS IN PLACE AT ALL TIMES. REPORT WILL BE GIVEN TO PM RN FOR BERNA.
[2017-04-29 20:00] VITALS: BP 121/58
[2017-04-30] MEDS: HYDROCODONE/APAP 5/325MG 1 EACH TABLET PO PRN ×2 (00:21→09:08)
[2017-04-30] MEDS: IPRATROPIUM NEB FS 0.5 MG/2.5 ML AMPUL.NEB NEB SCH ×4 (01:07→19:17)
[2017-04-30 04:00] VITALS: BP 148/53
[2017-04-30] MEDS: ALBUTEROL FS 2.5 MG/0.5 ML VIAL.NEB NEB SCH ×3 (07:02→19:17)
[2017-04-30] MEDS: BLOOD SUGAR DIAGNOSTIC 1 EACH STRIP IN SCH ×4 (07:03→21:43)
[2017-04-30 07:18] LABS: BASOPHILS % (AUTO) 0.3 % (0.0-2.0); EOSINOPHILS # (AUTO) 0.2 /CMM (0.0-0.7); EOSINOPHILS % (AUTO) 2.1 % (0.0-6.0); HEMATOCRIT 38 % (39-51); LYMPHOCYTES # (AUTO) 0.8 /CMM (0.8-4.8); LYMPHOCYTES % (AUTO) 8.1 % (20.0-44.0); MEAN CORPUSCULAR HEMOGLOBIN 33 PG (26.0-33.0); MEAN CORPUSCULAR HGB CONC 34 g/dl (31.0-36.0); MEAN CORPUSCULAR VOLUME 96 fL (80-96); MONOCYTES # (AUTO) 0.9 /CMM (0.1-1.30); MONOCYTES % (AUTO) 9.7 % (2.0-12.0); NEUTROPHILS # (AUTO) 7.7 /CMM (1.8-8.9); NEUTROPHILS % (AUTO) 79.8 % (43.0-81.0); PLATELET COUNT (AUTO) 179 /CMM (150-450); RDW COEFFICIENT OF VARIATION 13.9 (11.5-15.0); RED BLOOD CELL COUNT(AUTO) 3.99 MIL/uL (4.5-6.0); WHITE BLOOD COUNT (AUTO) 9.6 K/uL (4.3-11.0)
--- NOTE | 2017-04-30 07:40 | NUR ---
RN M/S CLOSING NOTES NO SIGNIFICANT CHANGES OVERNIGHT, PT IS CONFUSED, WITH A SITTER AT BEDSIDE. CONSTANT REORIENTATION AND REDIRECTION PROVIDED. ALL SAFETY MEASURES MET. ASSISTED PT WITH ADLS WITH MAXIMUM ASSIST. BED LOCKED AND IN LOWEST POSITION. IV SITE IS PATENT, NO S/SX OF INFECTION/INFILTRATION NOTED. ALL MEDS GIVEN ORDERED AND PT TOLERATED IT WELL. ENDORSED TO AM NURSE FOR CONTINUITY OF CARE.
[2017-04-30 07:43] LABS: ALANINE AMINOTRANSFERASE 27 U/L (12-78); ALBUMIN 2.8 g/dL (3.4-5.0); ALKALINE PHOSPHATASE 131 U/L (46-116); ASPARTATE AMINOTRANSFERASE 28 U/L (15-37); CALCIUM, SERUM 9.6 mg/dL (8.5-10.1); CARBON DIOXIDE 28 mmol/L (21-32); CHLORIDE 102 mmol/L (98-107); CREATININE 1.6 mg/dL (0.6-1.3); GLUCOSE 150 mg/dL (74-106); MAGNESIUM 1.9 mg/dL (1.8-2.4); PHOSPHORUS 3.2 mg/dL (2.5-4.9); POTASSIUM 4.1 mmol/L (3.5-5.1); SODIUM SERUM 142 mmol/L (136-145); TOTAL PROTEIN, SERUM 7.3 g/dL (6.4-8.2); UREA NITROGEN, BLOOD 38 mg/dL (7-18)
[2017-04-30 08:00] VITALS: BP 147/70
[2017-04-30] MEDS: LEVOTHYROXINE SODIUM 175 MCG TABLET PO SCH (09:06)
[2017-04-30] MEDS: ATORVASTATIN 40 MG TABLET PO SCH (09:06)
[2017-04-30] MEDS: TAMSULOSIN 0.4 MG CAP.SR.24H PO SCH (09:06)
[2017-04-30] MEDS: GABAPENTIN 400 MG CAPSULE PO SCH ×3 (09:06→17:39)
[2017-04-30] MEDS: PANTOPRAZOLE 40 MG TABLET.DR PO SCH (09:06)
[2017-04-30] MEDS: METOPROLOL TARTRATE 50 MG TABLET PO SCH ×2 (09:07→17:39)
[2017-04-30] MEDS: DOCUSATE SODIUM 250 MG CAPSULE PO SCH (09:07)
[2017-04-30] MEDS: LORATADINE 10 MG TABLET PO SCH ×2 (09:07→17:39)
[2017-04-30] MEDS: ASPIRIN EC 81 MG TABLET.DR PO SCH (09:07)
[2017-04-30] MEDS: LEVETIRACETAM (250 MG) 250 MG TABLET PO SCH ×2 (09:07→21:43)
[2017-04-30] MEDS: CHOLECALCIFEROL 1,000 UNIT TABLET (VIT D3) PO SCH (09:08)
[2017-04-30] MEDS: AMLODIPINE BESYLATE 5 MG TABLET PO SCH (09:08)
[2017-04-30] MEDS: CLOPIDOGREL BISULFATE 75 MG TABLET PO SCH (09:08)
[2017-04-30] MEDS: QUETIAPINE FUMARATE 25 MG TABLET PO SCH ×2 (09:10→17:00)
[2017-04-30] MEDS: INSULIN DETEMIR 100 UNIT/ML CARTRIDGE SQ SCH (09:12)
[2017-04-30] MEDS: INSULIN REGULAR, HUMAN 100 UNIT/ML 3 ML VIAL SQ PRN ×4 (09:13→21:53)
[2017-04-30] MEDS: CALCITONIN,SALMON,SYNTHETIC 3.7 ML SPRAY.PUMP NS SCH (09:14)
[2017-04-30] MEDS: FUROSEMIDE 40 MG/4 ML VIAL IV SCH (09:14)
[2017-04-30] MEDS: Z GUARD REMEDY 2 OZ OINT TP PRN (11:58)
[2017-04-30] MEDS: AMILORIDE HCL 5 MG TABLET PO SCH (11:58)
[2017-04-30] MEDS: ENOXAPARIN SODIUM 30 MG/0.3 ML DISP.SYRIN SQ SCH (11:59)
[2017-04-30] MEDS: CARBOXYMETHYLCELLULOSE SODIUM 0.4 ML DROPERETTE EACHEYE SCH ×4 (12:13→21:43)
[2017-04-30 16:00] VITALS: BP 126/60
--- NOTE | 2017-04-30 19:30 | NUR ---
MS/RN OPENING NOTES PT ASLEEP, AROUSABLE TO NAME/TOUCH. ON 2LPM O2 VIA NC. PT IS CONFUSED AND IS DIFFICULT TO UNDERSTAND. BREATHING EVEN AND UNLABORED. NO S/S OF DISTRESS, SOB OR PAIN NOTED. SITTER AT BEDSIDE. IV TO RIGHT HAND PATENT AND INTACT. BED IN LOW/LOCKED POSITION WITH CALL LIGHT IN REACH. BED RAILS UPX2 AND ALARM ON. WILL CONTINUE TO MONITOR
[2017-04-30 20:00] VITALS: BP 132/63
--- NOTE | 2017-04-30 21:57 | NUR ---
MS/RN NOTES BLOOD XFFDR=646, 3 UNITS OF INSULIN ADMINISTERED PER SLIDING SCALE. SNACKS PROVIDED AT BEDSIDE. ENCOURAGED PO INTAKE PRIOR TO ADMINISTRATION. WILL MONITOR FOR S/S OR HYPOGLYCEMIA
[2017-05-01] MEDS: IPRATROPIUM NEB FS 0.5 MG/2.5 ML AMPUL.NEB NEB SCH ×4 (02:03→20:46)
[2017-05-01 04:00] VITALS: BP 125/66
[2017-05-01] MEDS: PANTOPRAZOLE 40 MG TABLET.DR PO SCH (06:40)
[2017-05-01] MEDS: LEVOTHYROXINE SODIUM 175 MCG TABLET PO SCH ×2 (06:41→08:13)
--- NOTE | 2017-05-01 06:59 | NUR ---
MS/RN CLOSING NOTES PT ASLEEP, AROUSABLE TO TOUGH/LIGHT PAIN. PT REMAINED CALM AND PLEASANT THROUGHOUT SHIFT. EXPERIENCED HALLUCINATIONS WHICH PATIENT WAS REACHING UP TO THE CEILING. REORIENTED PRN. REMAINS ON 2LPM O2 VIA NC, BREATHING EVEN AND UNLABORED. NO S/S OF DISTRESS NOTED. DENIES PAIN. IV TO RIGHT HAND PATENT AND INTACT. MADE PT COMFORTABLE THROUGHOUT SHIFT. ALL NEEDS MET AND ATTENDED. ENCOURAGED PO INTAKE WHILE AWAKE. BED IN LOW/LOCKED POSITION WITH CALL LIGHT IN REACH. SITTER AT BEDSIDE. BED ALARM ON AND SIDE RAILS UPX2. TURNED/REPOSITIONED Q2H, EXTREMITIES OFFLOADED. WILL ENDORSE TO AM SHIFT BERNA.
--- NOTE | 2017-05-01 07:00 | NUR ---
RN INITIAL NOTE REPORT RECEIVED FROM VALE CUENCA NURSE. PT A/O X1 SLEEPING COMFORTABLY IN BED. SITTER @ BEDSIDE. PT MS. NC 2L NO S/S SOB. R HAND #20G TKO. WILL CONTINUE TO MONITOR CLOSELY. ALL SAFETY MEASURES IN PLACE.
[2017-05-01 07:03] LABS: BASOPHILS % (AUTO) 0.3 % (0.0-2.0); EOSINOPHILS # (AUTO) 0.5 /CMM (0.0-0.7); EOSINOPHILS % (AUTO) 6.5 % (0.0-6.0); HEMATOCRIT 36 % (39-51); HEMOGLOBIN 12.1 g/dL (13.5-17.5); LYMPHOCYTES # (AUTO) 0.9 /CMM (0.8-4.8); LYMPHOCYTES % (AUTO) 10.8 % (20.0-44.0); MEAN CORPUSCULAR HEMOGLOBIN 33 PG (26.0-33.0); MEAN CORPUSCULAR HGB CONC 34 g/dl (31.0-36.0); MEAN CORPUSCULAR VOLUME 96 fL (80-96); MONOCYTES # (AUTO) 1.2 /CMM (0.1-1.30); MONOCYTES % (AUTO) 14.4 % (2.0-12.0); NEUTROPHILS # (AUTO) 5.5 /CMM (1.8-8.9); PLATELET COUNT (AUTO) 165 /CMM (150-450); RDW COEFFICIENT OF VARIATION 14.3 (11.5-15.0); RED BLOOD CELL COUNT(AUTO) 3.69 MIL/uL (4.5-6.0); WHITE BLOOD COUNT (AUTO) 8.1 K/uL (4.3-11.0)
[2017-05-01 07:32] LABS: CALCIUM, SERUM 9.6 mg/dL (8.5-10.1); CARBON DIOXIDE 33 mmol/L (21-32); CHLORIDE 105 mmol/L (98-107); CREATININE 1.9 mg/dL (0.6-1.3); GLUCOSE 142 mg/dL (74-106); MAGNESIUM 2.1 mg/dL (1.8-2.4); PHOSPHORUS 4.4 mg/dL (2.5-4.9); POTASSIUM 3.8 mmol/L (3.5-5.1); SODIUM SERUM 144 mmol/L (136-145); UREA NITROGEN, BLOOD 52 mg/dL (7-18)
[2017-05-01] MEDS: ALBUTEROL FS 2.5 MG/0.5 ML VIAL.NEB NEB SCH ×3 (07:35→20:46)
[2017-05-01 08:00] VITALS: BP 118/95
[2017-05-01] MEDS: BLOOD SUGAR DIAGNOSTIC 1 EACH STRIP IN SCH ×4 (08:11→21:41)
[2017-05-01] MEDS: LEVETIRACETAM (250 MG) 250 MG TABLET PO SCH ×2 (08:12→21:36)
[2017-05-01] MEDS: TAMSULOSIN 0.4 MG CAP.SR.24H PO SCH (08:13)
[2017-05-01] MEDS: DOCUSATE SODIUM 250 MG CAPSULE PO SCH (08:13)
[2017-05-01] MEDS: QUETIAPINE FUMARATE 25 MG TABLET PO SCH ×2 (08:13→17:18)
[2017-05-01] MEDS: GABAPENTIN 400 MG CAPSULE PO SCH ×3 (08:13→17:18)
[2017-05-01] MEDS: FUROSEMIDE 40 MG TABLET PO SCH (08:13)
[2017-05-01] MEDS: CHOLECALCIFEROL 1,000 UNIT TABLET (VIT D3) PO SCH (08:13)
[2017-05-01] MEDS: ATORVASTATIN 40 MG TABLET PO SCH (08:14)
[2017-05-01] MEDS: AMLODIPINE BESYLATE 5 MG TABLET PO SCH (08:14)
[2017-05-01] MEDS: CLOPIDOGREL BISULFATE 75 MG TABLET PO SCH (08:14)
[2017-05-01] MEDS: CALCITONIN,SALMON,SYNTHETIC 3.7 ML SPRAY.PUMP NS SCH (08:15)
[2017-05-01] MEDS: Z GUARD REMEDY 2 OZ OINT TP PRN (08:15)
[2017-05-01] MEDS: CARBOXYMETHYLCELLULOSE SODIUM 0.4 ML DROPERETTE EACHEYE SCH ×4 (08:16→21:37)
[2017-05-01] MEDS: AMILORIDE HCL 5 MG TABLET PO SCH (08:17)
[2017-05-01] MEDS: INSULIN REGULAR, HUMAN 100 UNIT/ML 3 ML VIAL SQ PRN ×3 (08:20→17:47)
[2017-05-01] MEDS: INSULIN DETEMIR 100 UNIT/ML CARTRIDGE SQ SCH (08:23)
[2017-05-01] MEDS: ASPIRIN EC 81 MG TABLET.DR PO SCH (08:25)
[2017-05-01] MEDS: LORATADINE 10 MG TABLET PO SCH ×2 (08:25→17:18)
[2017-05-01] MEDS: METOPROLOL TARTRATE 50 MG TABLET PO SCH ×2 (08:28→17:44)
--- NOTE | 2017-05-01 11:00 | NUR ---
RN NOTE PT SLEEPING COMFORTABLE SITTER @ BEDSIDE.
[2017-05-01] MEDS: ENOXAPARIN SODIUM 30 MG/0.3 ML DISP.SYRIN SQ SCH (11:18)
[2017-05-01 16:00] VITALS: BP 124/55
--- NOTE | 2017-05-01 19:00 | NUR ---
RN CLOSING NOTE REPORT GIVEN TO CATHIE NURSE FOR BERNA. PT A/O X1 SLEEPING COMFORTABLY IN BED. SITTER @ BEDSIDE. PT MS. NC 2L NO S/S SOB. R HAND #20G TKO. ALL MEDICATIONS GIVEN ALL ORDERS CARRIED. ALL SAFETY MEASURES IN PLACE
--- NOTE | 2017-05-01 19:31 | NUR ---
RN INITIAL NOTES RECEIVED PT ASLEEP ON NC @ 2L, WITH SITTER BY BED SIDE, APPEARS COMFORTABLE, NO SIGN OF FACIAL GRIMACING NOTED, CLEAN AND DRY, ALL NEEDS ATTENDED AT THIS TIME, CLEAN AND DRY.
[2017-05-01 20:00] VITALS: BP 133/60
[2017-05-02] VITALS: BP 135/66
[2017-05-02] MEDS: HYDROCODONE/APAP 5/325MG 1 EACH TABLET PO PRN (00:42)
[2017-05-02] MEDS: IPRATROPIUM NEB FS 0.5 MG/2.5 ML AMPUL.NEB NEB SCH ×3 (02:15→13:29)
[2017-05-02 04:00] VITALS: BP 133/60
[2017-05-02] MEDS: PANTOPRAZOLE 40 MG TABLET.DR PO SCH ×2 (06:45→08:16)
[2017-05-02] MEDS: BLOOD SUGAR DIAGNOSTIC 1 EACH STRIP IN SCH ×3 (06:53→17:30)
--- NOTE | 2017-05-02 07:00 | NUR ---
RN CLOSING NOTE ENDORSED PT TO AM NURSE FOR BERNA. PT A/O X1 SLEEPING COMFORTABLY IN BED. SITTER @ BEDSIDE. PT MS. NC 2L NO S/S SOB. R HAND #20G TKO. ALL MEDICATIONS GIVEN ALL ORDERS CARRIED. ALL SAFETY MEASURES IN PLACE
--- NOTE | 2017-05-02 07:15 | NUR ---
RN INITIAL NOTE PT RECEIVED IN BED, SLEEPING, ABLE TO AROUSE EASILY. PT IS CONFUSED. NO S/S OF PAIN OR DISCOMFORT. SATING WELL ON 2L NASAL CANULA. RESPIRATIONS ARE EVEN AND UNLABORED. NO S/S OF RESPIRATORY DISTRESS OR DISCOMFORT. SITTER AT BEDSIDE. RIGHT HAND IV SITE FLUSHED AND PATENT. SAFETY PRECAUTIONS IN PLACE, BED IN LOCKED LOW POSITION WITH TWO SIDE RAILS UP. CALL LIGHT WITHIN EASY REACH. WILL CONTINUE TO MONITOR CLOSELY.
[2017-05-02 08:00] VITALS: BP 115/60
[2017-05-02] MEDS: ALBUTEROL FS 2.5 MG/0.5 ML VIAL.NEB NEB SCH ×2 (08:00→13:29)
[2017-05-02] MEDS: CLOPIDOGREL BISULFATE 75 MG TABLET PO SCH (08:14)
[2017-05-02] MEDS: ATORVASTATIN 40 MG TABLET PO SCH (08:15)
[2017-05-02] MEDS: LEVETIRACETAM (250 MG) 250 MG TABLET PO SCH ×2 (08:15→20:39)
[2017-05-02] MEDS: DOCUSATE SODIUM 250 MG CAPSULE PO SCH (08:15)
[2017-05-02] MEDS: GABAPENTIN 400 MG CAPSULE PO SCH ×3 (08:15→17:00)
[2017-05-02] MEDS: CHOLECALCIFEROL 1,000 UNIT TABLET (VIT D3) PO SCH (08:15)
[2017-05-02] MEDS: CALCITONIN,SALMON,SYNTHETIC 3.7 ML SPRAY.PUMP NS SCH (08:16)
[2017-05-02] MEDS: LEVOTHYROXINE SODIUM 175 MCG TABLET PO SCH (08:16)
[2017-05-02] MEDS: ASPIRIN EC 81 MG TABLET.DR PO SCH (08:16)
[2017-05-02] MEDS: FUROSEMIDE 40 MG TABLET PO SCH (08:16)
[2017-05-02] MEDS: LORATADINE 10 MG TABLET PO SCH ×2 (08:16→17:00)
[2017-05-02] MEDS: METOPROLOL TARTRATE 50 MG TABLET PO SCH ×2 (08:17→17:00)
[2017-05-02] MEDS: AMLODIPINE BESYLATE 5 MG TABLET PO SCH (08:17)
[2017-05-02] MEDS: TAMSULOSIN 0.4 MG CAP.SR.24H PO SCH (08:17)
[2017-05-02] MEDS: AMILORIDE HCL 5 MG TABLET PO SCH (08:17)
[2017-05-02] MEDS: QUETIAPINE FUMARATE 25 MG TABLET PO SCH ×2 (08:18→17:00)
[2017-05-02] MEDS ORDERED: IV NS 0.9% 250 ML IV ONE (08:32)
[2017-05-02] MEDS: INSULIN DETEMIR 100 UNIT/ML CARTRIDGE SQ SCH (08:42)
[2017-05-02] MEDS: CARBOXYMETHYLCELLULOSE SODIUM 0.4 ML DROPERETTE EACHEYE SCH ×4 (09:00→20:44)
[2017-05-02] MEDS: ENOXAPARIN SODIUM 30 MG/0.3 ML DISP.SYRIN SQ SCH (11:03)
[2017-05-02 12:00] VITALS: BP 130/51
[2017-05-02] MEDS: INSULIN REGULAR, HUMAN 100 UNIT/ML 3 ML VIAL SQ PRN (13:18)
[2017-05-02 16:00] VITALS: BP 128/65
[2017-05-02] MEDS ORDERED: LEVE250T2 PO (16:10)
[2017-05-02] MEDS ORDERED: IPRA0.2S9 NEB (16:10)
[2017-05-02] MEDS ORDERED: ALBU2.5V13 NEB (16:10)
[2017-05-02] MEDS ORDERED: QUET25TA PO (16:10)
--- NOTE | 2017-05-02 17:00 | NUR ---
RN NOTE PATIENT BEING DISCHARGED TO [facility]. REPORT CALLED IN TO [facility]. ETA FOR CABLE INSTALLER REPAIRER IS FIVE THIRTY. HELD F[facility]
--- NOTE | 2017-05-02 19:13 | NUR ---
RN CLOSING NOTE ALL MD ORDERS CARRIED OUT. PATIENT KEPT CLEAN AND DRY. REPORT WILL BE GIVEN TO PM RN FOR BERNA
--- NOTE | 2017-05-02 19:30 | NUR ---
MS RN INITIAL NOTES RECEIVED PATIENT A/OX2, ABLE TO MAKE NEEDS KNOWN, WITH PERIODS OF CONFUSION. DENIES PAIN OR DISCOMFORT. RESPIRATIONS EVEN AND UNLABORED ON 2LPMO2 VIA NC. DENIES SOB. SKIN WARM AND DRY TO TOUCH. PER REPORT PATIENT TO BE D/C TO [facility] AND ALL D/C PAPER WORK DONE, REPORT GIVEN, AND TEACHINGS PROVIDED. PENDING TRANSPORT. HOB ELEVATED. SIDE RAILS UP AND LOCKED. BED KEPT AT LOWEST POSITION. CALL LIGHT KEPT WITHIN EASY REACH. WILL CONTINUE TO MONITOR.
--- NOTE | 2017-05-02 20:44 | NUR ---
MS RN NOTES EMT AT BEDSIDE FOR TRANSFER. PATIENT IN STABLE CONDITION. VS: 133/74,97.8, 20, 74, 20 SPO2 97% ON 2LPMO2 VIA NC. ALL BELONGINGS WITH PATIENT. IV LINE REMOVED, NO COMPLICATIONS NOTED. ID BAND REMOVED.
== END 2017-05-02 23:13 | DRG 682 ==
LOC: ER 07:24 → TELE1 10:34 → MEDSG1 04-27 10:06
DX: N17.0 Acute kidney failure with tubular necrosis (principal); J96.01 Acute respiratory failure with hypoxia; G92 Toxic encephalopathy; J96.02 Acute respiratory failure with hypercapnia; E87.4 Mixed disorder of acid-base balance; N18.9 Chronic kidney disease, unspecified; Z86.73 Personal history of transient ischemic attack (TIA), and cerebral infarction without residual deficits; Z95.1 Presence of aortocoronary bypass graft; E78.5 Hyperlipidemia, unspecified; E83.42 Hypomagnesemia; E87.5 Hyperkalemia; G40.909 Epilepsy, unspecified, not intractable, without status epilepticus; I25.10 Atherosclerotic heart disease of native coronary artery without angina pectoris; E11.9 Type 2 diabetes mellitus without complications; K21.9 Gastro-esophageal reflux disease without esophagitis; I95.89 Other hypotension; R00.1 Bradycardia, unspecified; T40.4X5A Adverse effect of other synthetic narcotics, initial encounter; Y92.009 Unspecified place in unspecified non-institutional (private) residence as the place of occurrence of the external cause; R55 Syncope and collapse; I12.9 Hypertensive chronic kidney disease with stage 1 through stage 4 chronic kidney disease, or unspecified chronic kidney disease; F29 Unspecified psychosis not due to a substance or known physiological condition
CPT/HCPCS: 36415; 36600; 70450-TC; 71010-TC; 80048-TC; 80053-TC; 80061-TC; 81000-TC; 82306; 82962-TC; 83605-TC; 83735-TC; 84100-TC; 84439-TC; 84443-TC; 84484-TC; 85025-TC; 85730-TC; 87040-TC; 87081-TC; 93307-TC; 94799-TC; 97001-TC; 97110-TC; 97112-TC; 97530-TC; A4606; J0461; J1650; J1815; J1940; J2060; J2310; J3475; J3490; J7030; J7050; J7060; Z7610

== ENCOUNTER 2017-11-20 12:39 | Inpatient (IN) | payer MEDICARE ==
[~2017-11-20] VITALS: Ht 182.9 cm; Wt 90.7 kg
[~2017-11-20 12:39] MED LIST changes: +ALBU2.5V13 NEB; +AMIL5TAB9 PO; +ASPI-605 PO; +ATOR80TA PO; +CALC3.8S NS; +CALC60OI4 TP; +CARB15DR2 EACHEYE; +CHOL200026 PO; +CLOP75TA15 PO; +DOCU100C36 PO; +IPRA0.2S9 NEB; +LEVE250T2 PO; +METO50TA16 PO; -METO50TA3 PO; +POT473SP TP; +QUET25TA PO; +[UNRECOGNIZED DRUG - CODE] TP
--- NOTE | 2017-11-20 12:45 | NUR ---
BBPA FROM HOME: LOW BLOOD PRESSURE. NAD NOTED, VSS, RESP EVEN AND UNLABORED. WAITING FOR MD SOSA.
[2017-11-20] MEDS ORDERED: MORPHINE SULFATE INJ 4 MG/ML DISP.SYRIN ONE ×3 (13:25→14:21)
[2017-11-20] MEDS ORDERED: CEFTRIAXONE 1GM BAG (ER ONLY) 50 ML IV ONE (13:30)
[2017-11-20] MEDS ORDERED: MORPHINE SULFATE INJ 2 MG/ML DISP.SYRIN IV ONE ×2 (13:30→14:30)
[2017-11-20] MEDS ORDERED: VANCOMYCIN 1 GM in IV D5W 250 ML IV ONE (13:30)
[2017-11-20] MEDS ORDERED: IV NS 0.9% 1,000 ML BAG IV ONE (13:30)
[2017-11-20 13:31] LABS: BASOPHILS % (AUTO) 0.5 % (0.0-2.0); EOSINOPHILS # (AUTO) 0.1 /CMM (0.0-0.7); EOSINOPHILS % (AUTO) 1.5 % (0.0-6.0); HEMATOCRIT 32 % (39-51); LYMPHOCYTES # (AUTO) 0.7 /CMM (0.8-4.8); LYMPHOCYTES % (AUTO) 8.5 % (20.0-44.0); MEAN CORPUSCULAR HEMOGLOBIN 32 PG (26.0-33.0); MEAN CORPUSCULAR HGB CONC 35 g/dl (31.0-36.0); MEAN CORPUSCULAR VOLUME 93 fL (80-96); MONOCYTES # (AUTO) 0.5 /CMM (0.1-1.30); MONOCYTES % (AUTO) 5.8 % (2.0-12.0); NEUTROPHILS # (AUTO) 6.9 /CMM (1.8-8.9); NEUTROPHILS % (AUTO) 83.7 % (43.0-81.0); PLATELET COUNT (AUTO) 120 /CMM (150-450); RDW COEFFICIENT OF VARIATION 15.9 (11.5-15.0); RED BLOOD CELL COUNT(AUTO) 3.43 MIL/uL (4.5-6.0); WHITE BLOOD COUNT (AUTO) 8.2 K/uL (4.3-11.0)
[2017-11-20 13:48] LABS: INR 1.06 (0.87-1.13)
[2017-11-20 13:52] LABS: ALANINE AMINOTRANSFERASE 42 U/L (12-78); ALBUMIN 2.7 g/dL (3.4-5.0); ALKALINE PHOSPHATASE 128 U/L (46-116); ASPARTATE AMINOTRANSFERASE 44 U/L (15-37); BILIRUBIN,DIRECT 0.4 mg/dL (0.0-0.2); CALCIUM, SERUM 9.3 mg/dL (8.5-10.1); CHLORIDE 100 mmol/L (98-107); CREATININE 1.7 mg/dL (0.6-1.3); GLUCOSE 119 mg/dL (74-106); POTASSIUM 3.5 mmol/L (3.5-5.1); SODIUM SERUM 141 mmol/L (136-145); TOTAL PROTEIN, SERUM 5.9 g/dL (6.4-8.2); UREA NITROGEN, BLOOD 33 mg/dL (7-18)
[2017-11-20 13:53] LABS: CARBON DIOXIDE 40 mmol/L (21-32)
[2017-11-20] MEDS ORDERED: Z GUARD REMEDY 2 OZ OINT TP STA (14:02)
--- NOTE | 2017-11-20 14:22 | NUR ---
CALLED NURSING SUP. FOR TELE BED
--- NOTE | 2017-11-20 14:23 | NUR ---
EPIC PAGED, ADMINISTRATIVE SERVICES DIRECTOR
--- NOTE | 2017-11-20 15:28 | NUR ---
TELE [id number]
[2017-11-20] MEDS ORDERED: IV NS 0.9% 1,000 ML IV PRN (16:05)
[2017-11-20] MEDS ORDERED: HYDROCODONE/APAP 5/325MG 1 EACH TABLET PO PRN (16:30)
[2017-11-20] MEDS ORDERED: MAG HYDROX/AL HYDROX/SIMETH 30 ML UDC PO PRN (16:30)
[2017-11-20] MEDS ORDERED: MAGNESIUM HYDROXIDE 30 ML UDC PO PRN (16:30)
[2017-11-20] MEDS ORDERED: ONDANSETRON HCL/PF 4 MG/2 ML VIAL IVP PRN (16:30)
[2017-11-20] MEDS ORDERED: ACETAMINOPHEN 325 MG TABLET PO PRN (16:30)
[2017-11-20] MEDS ORDERED: ZOLPIDEM TARTRATE 5 MG TABLET PO PRN (16:30)
--- NOTE | 2017-11-20 16:30 | NUR ---
HYDRO PLANT SITE MANAGER OPENING NOTES. RECEIVED PT A&0X3 WITH CARER AT BEDSIDE. PT WITH O2 VIA NC AT 3L/PM, NO REPORTED SOB, LUNGS AUSCULTATED DIMINISHED IN LOWER LOBES WITH UPPER CONGESTION AND RHONCHI. PT WITHOUT S/S OF RESP DISTRESS. PT REPORTING 9/10 PAIN TO SACRAL WOUNDS. WOUNDS DOCUMENTED, PHOTOGRAPHED AND CHARTED, CLEANED AND MEPELEX APPLIED AND WOUND CONSULT REQUESTED. PT WITH IVC AT L AC INTACT AND OPERATIONAL. PT BRIEFED ON TODAY'S POC AND IS WITHOUT CONCERN OR COMPLAINT AT THIS TIME. WILL CONTINUE TO MONITOR CLOSELY.
[2017-11-20] MEDS ORDERED: METOPROLOL TARTRATE 50 MG TABLET PO SCH (17:00)
[2017-11-20] MEDS ORDERED: GABAPENTIN 400 MG CAPSULE PO SCH (17:00)
[2017-11-20] MEDS ORDERED: MORPHINE SULFATE INJ 2 MG/ML DISP.SYRIN IV PRN (17:00)
[2017-11-20 17:51] VITALS: BP 96/63
--- NOTE | 2017-11-20 18:38 | NUR ---
TOE STAPLER CLOSING NOTES PT A&0X3 RESTING IN BED BUT EASILY AWOKEN BY NAME. TELE: AFIB. PT WITH O2 VIA NC AT 3L/PM, SOME SOB ON EXERTION. PT OTHERWISE WITHOUT S/S OF RESP DISTRESS. PT REPORTING PAIN TO SACRAL WOUNDS AND AWAITING MEDICATION VERIFICATION FROM PHARMACY. PT WITH IVC AT L AC INTACT AND OPERATIONAL. BED IN LOWEST LOCKED POSITION WITH HANDRAILSX3 AND CALL STILES WITHIN REACH. DAY DAY NURSE DUTIES ATTENDED TO, PT IS WITHOUT CONCERN OR COMPLAINT AT THIS TIME. WILL ENDORSE TO NIGHT NURSE.
--- NOTE | 2017-11-20 19:40 | NUR ---
HEAD PIECE ASSEMBLER NOTE: PATIENT RESTING IN BED, NO ACUTE DISTRESS NOTED. BREATHING EVEN AND UNLABORED, NO SOB NOTED. IV TO LAC IN PLACE. BED LOCKED AND IN LOWEST POSITION, CALL LIGHT IN REACH. WILL CONTINUE TO MONITOR.
[2017-11-20] MEDS ORDERED: ATORVASTATIN 40 MG TABLET PO SCH (20:00)
[2017-11-20 20:41] VITALS: BP 104/72
[2017-11-20] MEDS: IPRATROPIUM NEB FS 0.5 MG/2.5 ML AMPUL.NEB NEB SCH (20:50)
[2017-11-20] MEDS: ALBUTEROL FS 2.5 MG/0.5 ML VIAL.NEB NEB SCH (20:51)
[2017-11-20] MEDS ORDERED: PIPERACILLIN /TAZOBACTAM 4.5 G in IV D5W 50 ML IV SCH (21:00)
[2017-11-20] MEDS: METOPROLOL TARTRATE 50 MG TABLET PO SCH (21:00)
--- NOTE | 2017-11-20 21:20 | NUR ---
STAGE BUILDER NOTE: PATIENT SITTING UP IN BED, NO ACUTE DISTRESS NOTED. REPORT GIVEN TO MAYE HART TO CONTINUE WITH PLAN OF CARE.
--- NOTE | 2017-11-20 21:30 | NUR ---
TELERN AWAKE, BACK PAIN RE POSITIONED. NO SOB, V/S MONITORED. WILL NEED TO START PATIENT ON IVF AND OTHER MEDS.SR ON THE MONITOR. ALL NEEDS MADE.
[2017-11-20] MEDS: QUETIAPINE FUMARATE 25 MG TABLET PO SCH (22:24)
[2017-11-20] MEDS: LEVETIRACETAM (250 MG) 250 MG TABLET PO SCH (22:24)
[2017-11-20] MEDS: ATORVASTATIN 40 MG TABLET PO SCH (22:25)
[2017-11-20] MEDS: GABAPENTIN 400 MG CAPSULE PO SCH (22:25)
[2017-11-20] MEDS: INSULIN DETEMIR 100 UNIT/ML CARTRIDGE SQ SCH (22:33)
[2017-11-20] MEDS: Z GUARD REMEDY 2 OZ OINT TP PRN (22:53)
[2017-11-20] MEDS: PIPERACILLIN /TAZOBACTAM 3.375 G in IV D5W 50 ML IV SCH (23:11)
[2017-11-20] MEDS: HYDROCODONE/APAP 10/325MG 1 EA TABLET PO SCH (23:13)
--- NOTE | 2017-11-20 23:30 | NUR ---
TELERN PERINEAL REDNESS, STATED BURNING AND ITCHING. REMEDY CREAM APPLIED OVER AFFECTED AREAS. REPOSITIONED FOR COMFORT. BS WAS 150, LEVEMIR GIVEN, REFUSED TO HAVE SNACKS.
[2017-11-21] VITALS: BP 101/53
[2017-11-21] MEDS ORDERED: DEXTROSE 50%-WATER 50 ML DISP.SYRIN IV PRN
[2017-11-21] MEDS: HYDROCODONE/APAP 10/325MG 1 EA TABLET PO SCH ×3 (00:30→12:17)
[2017-11-21] MEDS: IPRATROPIUM NEB FS 0.5 MG/2.5 ML AMPUL.NEB NEB SCH ×4 (01:40→19:54)
[2017-11-21 04:56] VITALS: BP 101/58
--- NOTE | 2017-11-21 05:20 | NUR ---
MSRN SLEPT WELL REMAINS SR ON THE MONITOR. CLOSELY MONITORED.
[2017-11-21] MEDS: PIPERACILLIN /TAZOBACTAM 3.375 G in IV D5W 50 ML IV SCH ×4 (06:05→23:28)
--- NOTE | 2017-11-21 06:07 | NUR ---
TELERN ZOSYN ADMINISTERED. NORCO NOT GIVEN PATIENT ASLEEPING. EASILY AROUSABLE, 97% ON 3L02
--- NOTE | 2017-11-21 06:25 | NUR ---
TELERN BS 116. NO COVERAGE
[2017-11-21 06:40] LABS: BASOPHILS % (AUTO) 0.4 % (0.0-2.0); EOSINOPHILS # (AUTO) 0.2 /CMM (0.0-0.7); EOSINOPHILS % (AUTO) 3.1 % (0.0-6.0); HEMATOCRIT 28 % (39-51); HEMOGLOBIN 9.1 g/dL (13.5-17.5); LYMPHOCYTES # (AUTO) 0.5 /CMM (0.8-4.8); MEAN CORPUSCULAR HEMOGLOBIN 30 PG (26.0-33.0); MEAN CORPUSCULAR HGB CONC 33 g/dl (31.0-36.0); MEAN CORPUSCULAR VOLUME 93 fL (80-96); MONOCYTES # (AUTO) 0.3 /CMM (0.1-1.30); MONOCYTES % (AUTO) 5.3 % (2.0-12.0); NEUTROPHILS # (AUTO) 4.9 /CMM (1.8-8.9); NEUTROPHILS % (AUTO) 83.2 % (43.0-81.0); PLATELET COUNT (AUTO) 94 /CMM (150-450); RDW COEFFICIENT OF VARIATION 16.4 (11.5-15.0); WHITE BLOOD COUNT (AUTO) 5.9 K/uL (4.3-11.0)
[2017-11-21 07:08] LABS: TROPONIN I 0.058 ng/mL (0.00-0.056)
--- NOTE | 2017-11-21 07:15 | NUR ---
MS RN OPENING NOTES RECEIVED PT FROM NIGHTSHIFT NURSE IN STABLE CONDITION. PT IS A/O 2-3. NO SOB OR SIGNS OF DISTRESS NOTED. BREATHING IS EVEN AND UNLABORED. PT IS ON 3L VIA NC AND SATING WELL @95%. PT FATOUMATA ANY PAIN AT THIS TIME. IV NOTED TO BE PATENT AND INTACT. NO REDNESS OR SIGNS OF DISTRESS NOTED. BED IN LOW LOCKED POSITION, SIDE RAILS UP X3, CALL LIGHT WITHIN REACH. WILL CONTINUE TO MONITOR
[2017-11-21 07:19] LABS: CHOLESTEROL 143 mg/dL (<200); HDL CHOLESTEROL 53 mg/dL (40-60); LDL 75 mg/dL (0-99); TRIGLYCERIDES 91 mg/dL (30-150)
[2017-11-21 07:23] LABS: ALANINE AMINOTRANSFERASE 39 U/L (12-78); ALBUMIN 2.2 g/dL (3.4-5.0); ALKALINE PHOSPHATASE 101 U/L (46-116); ASPARTATE AMINOTRANSFERASE 33 U/L (15-37); BILIRUBIN,TOTAL 0.5 mg/dL (0.2-1.0); CALCIUM, SERUM 8.1 mg/dL (8.5-10.1); CARBON DIOXIDE 32 mmol/L (21-32); CHLORIDE 108 mmol/L (98-107); CREATININE 1.4 mg/dL (0.6-1.3); GLUCOSE 112 mg/dL (74-106); POTASSIUM 3.6 mmol/L (3.5-5.1); SODIUM SERUM 145 mmol/L (136-145); TOTAL PROTEIN, SERUM 5.2 g/dL (6.4-8.2); UREA NITROGEN, BLOOD 29 mg/dL (7-18)
[2017-11-21 07:34] LABS: MAGNESIUM 1.1 mg/dL (1.8-2.4)
[2017-11-21] MEDS: ALBUTEROL FS 2.5 MG/0.5 ML VIAL.NEB NEB SCH ×3 (07:35→19:53)
[2017-11-21 08:00] VITALS: BP 98/57
--- NOTE | 2017-11-21 08:00 | NUR ---
MS RN NOTES PT'S MG IS 1.1. DR. NULL NOTIFIED. 5G OF MG WAS ORDERED. WILL ADMINISTER MEDICATION
[2017-11-21] MEDS: BLOOD SUGAR DIAGNOSTIC 1 EACH STRIP IN SCH ×4 (08:54→21:36)
[2017-11-21] MEDS ORDERED: Medication Not On Formulary EA (Atorvastatin Calcium (Lipitor) 1 TAB) PO SCH (09:00)
[2017-11-21] MEDS: METOPROLOL TARTRATE 50 MG TABLET PO SCH ×2 (09:00→17:00)
[2017-11-21] MEDS: AMLODIPINE BESYLATE 5 MG TABLET PO SCH (09:00)
[2017-11-21] MEDS: AMILORIDE HCL 5 MG TABLET PO SCH (09:00)
--- NOTE | 2017-11-21 10:18 | NUR ---
WOUND CARE CONSULT: PT PRESENTS WITH RASH TO GROIN AND PERINEUM AND STAGE 3 ULCERS TO SACRUM AND BILAT BUTTOCKS, PRESENT ON ADMISSION. RECOMMENDATIONS MADE FOR SKIN PROTECTION AND WOUND CARE. DISCUSSED WITH NURSING STAFF. RECOMMEND SURGICAL CONSULT. PT ON NARCISO ISOFLEX LOW AIRLOSS BED. ALL SKIN PROTECTION MEASURES IN PLACE. WILL SEE PRN. ZARAGOZA IN AGREEMENT WITH PLAN OF CARE. Addendum: 11/21/17 at 1023 by CALEB CONAWY WNDNU Amended: Links added.
[2017-11-21] MEDS ORDERED: Magnesium 1GM/D5W 100ML PREMIX PIGGYBACK IV ONE (10:30)
[2017-11-21] MEDS: ATORVASTATIN 40 MG TABLET PO SCH (10:36)
[2017-11-21] MEDS: Magnesium 1GM/D5W 100ML PREMIX 100 ML IV SCH ×5 (10:36→15:41)
[2017-11-21] MEDS: QUETIAPINE FUMARATE 25 MG TABLET PO SCH ×2 (10:37→17:26)
[2017-11-21] MEDS: LEVETIRACETAM (250 MG) 250 MG TABLET PO SCH ×2 (10:37→21:33)
[2017-11-21] MEDS: TAMSULOSIN 0.4 MG CAP.SR.24H PO SCH (10:37)
[2017-11-21] MEDS: LEVOTHYROXINE SODIUM 175 MCG TABLET PO SCH (10:37)
[2017-11-21] MEDS: LORATADINE 10 MG TABLET PO SCH (10:37)
[2017-11-21] MEDS: GABAPENTIN 400 MG CAPSULE PO SCH ×3 (10:38→17:00)
[2017-11-21] MEDS: DOCUSATE SODIUM 100 MG CAPSULE PO SCH (10:38)
[2017-11-21] MEDS: ASPIRIN EC 81 MG TABLET.DR PO SCH (10:38)
[2017-11-21] MEDS: CLOPIDOGREL BISULFATE 75 MG TABLET PO SCH (10:38)
[2017-11-21] MEDS: CALCITONIN,SALMON,SYNTHETIC 3.7 ML SPRAY.PUMP NS SCH (10:39)
[2017-11-21] MEDS: HYDROGEL DRESSING 90 GM TUBE TP SCH (11:34)
[2017-11-21] MEDS: CLOTRIMAZOLE 1% 15 GM TUBE TP SCH ×2 (11:34→17:26)
[2017-11-21] MEDS: INSULIN REGULAR, HUMAN 100 UNIT/ML 3 ML VIAL SQ PRN ×3 (12:14→21:43)
--- NOTE | 2017-11-21 15:03 | NUR ---
MS RN NOTES PER DR. NULL, "CHANGE PT'S SCHEDULED NORCO DOSE FROM 10-325 TO 5-325". WILL CARRY OUT ORDER
[2017-11-21 16:00] VITALS: BP 107/60
[2017-11-21 16:11] LABS: EOSINOPHILS % (MANUAL) 1 % (0-4); LYMPHOCYTES % (MANUAL) 8 % (16-48); MONOCYTES % (MANUAL) 2 % (0-11.0); NEUTROPHILS % (MANUAL) 89 (42-76)
[2017-11-21] MEDS: HYDROCODONE/APAP 5/325MG 1 EACH TABLET PO SCH ×2 (17:27→23:30)
--- NOTE | 2017-11-21 18:51 | NUR ---
MS RN CLOSING NOTES PT REMAINS IN STABLE CONDITION .MAGNESIUM REPLACED DURING SHIFT. PT WAS KEPT CLEAN AND DRY THROUGHOUT SHIFT. HE WAS REPOSITIONED PER PROTOCOL. WOUND AND SKIN CARE RENDERED ORDERED. ALL NEEDS WERE MET DURING SHIFT AND ORDERS CARRIED OUT ACCORDINGLY. WILL ENDORSE TO NIGHTSHIFT NURSE FOR BERNA
--- NOTE | 2017-11-21 19:00 | NUR ---
RN NOTES A/O X 3, IN BED RESTING COMFORTABLY PT IN STABLE CONDITION, NO S/S OF DISTRESS. SAFETY MEASURES ARE IN PLACE, CALL LIGHT IS IN REACH. WILL CONTINUE TO MONITOR.
[2017-11-21 20:00] VITALS: BP 101/53
[2017-11-21] MEDS: INSULIN DETEMIR 100 UNIT/ML CARTRIDGE SQ SCH (21:39)
[2017-11-22] MEDS: IPRATROPIUM NEB FS 0.5 MG/2.5 ML AMPUL.NEB NEB SCH ×5 (01:15→19:56)
[2017-11-22] MEDS: HYDROCODONE/APAP 5/325MG 1 EACH TABLET PO SCH ×3 (05:01→18:10)
[2017-11-22] MEDS: PIPERACILLIN /TAZOBACTAM 3.375 G in IV D5W 50 ML IV SCH ×3 (05:01→18:15)
[2017-11-22] MEDS: BLOOD SUGAR DIAGNOSTIC 1 EACH STRIP IN SCH ×4 (05:03→20:57)
[2017-11-22] MEDS: INSULIN REGULAR, HUMAN 100 UNIT/ML 3 ML VIAL SQ PRN ×3 (05:06→20:52)
[2017-11-22 06:27] LABS: BASOPHILS % (AUTO) 0.4 % (0.0-2.0); EOSINOPHILS # (AUTO) 0.2 /CMM (0.0-0.7); EOSINOPHILS % (AUTO) 2.9 % (0.0-6.0); HEMATOCRIT 29 % (39-51); HEMOGLOBIN 9.7 g/dL (13.5-17.5); LYMPHOCYTES # (AUTO) 0.5 /CMM (0.8-4.8); LYMPHOCYTES % (AUTO) 7.8 % (20.0-44.0); MEAN CORPUSCULAR HEMOGLOBIN 31 PG (26.0-33.0); MEAN CORPUSCULAR HGB CONC 34 g/dl (31.0-36.0); MEAN CORPUSCULAR VOLUME 92 fL (80-96); MONOCYTES # (AUTO) 0.4 /CMM (0.1-1.30); MONOCYTES % (AUTO) 6.8 % (2.0-12.0); NEUTROPHILS # (AUTO) 4.8 /CMM (1.8-8.9); NEUTROPHILS % (AUTO) 82.1 % (43.0-81.0); PLATELET COUNT (AUTO) 86 /CMM (150-450); RDW COEFFICIENT OF VARIATION 16.5 (11.5-15.0); RED BLOOD CELL COUNT(AUTO) 3.12 MIL/uL (4.5-6.0); WHITE BLOOD COUNT (AUTO) 5.9 K/uL (4.3-11.0)
--- NOTE | 2017-11-22 06:27 | NUR ---
MS RN CLOSING NOTES COMFORTABLY ASLEEP IN BED AND EASILY AWAKEN, ON 2LPM VIA NC 02 SAT 96% RESPIRATIONS EVEN AND UNLABORED. NOT IN S/S DISTRESS. STABLE CONDITION. KEPT CLEAN AND DRY AND COMFORTABLE, GOOD SKIN CARE PROVIDED. ALL NURSING CARE RENDERED. NEEDS ATTENDED AND ANTICIPATED, FREQUENT VISUAL CHECK DONE FOR SAFETY EVERY 2 HOURS. ASSISTED REPOSITION Q2H. ON LOW BED AT ALL TIMES TO ENSURE SAFETY. SAFE HAZARD FREE ENVIRONMENT PROVIDED. CALL LIGHT WITHIN EASY TO REACH. WILL ENDORSE NEXT SHIFT CONTINUITY OF CARE.
[2017-11-22 06:39] LABS: CALCIUM, SERUM 8.4 mg/dL (8.5-10.1); CARBON DIOXIDE 35 mmol/L (21-32); CHLORIDE 103 mmol/L (98-107); CREATININE 1.2 mg/dL (0.6-1.3); GLUCOSE 163 mg/dL (74-106); MAGNESIUM 1.8 mg/dL (1.8-2.4); PHOSPHORUS 2.2 mg/dL (2.5-4.9); POTASSIUM 3.9 mmol/L (3.5-5.1); SODIUM SERUM 139 mmol/L (136-145); UREA NITROGEN, BLOOD 22 mg/dL (7-18)
[2017-11-22] MEDS: ALBUTEROL FS 2.5 MG/0.5 ML VIAL.NEB NEB SCH ×4 (07:35→19:56)
[2017-11-22 08:00] VITALS: BP 97/57
--- NOTE | 2017-11-22 08:00 | NUR ---
MS RN RECEIVED ON BED, AWAKE,ALERT,ORIENTED X4,NOT IN ANY FORM OF DISTRESS,RESPIRATION EVEN AND UNLABORED,NO SOB NOTED, LUNGS ARE CLEAR,ABDOMEN SOFT,POSITIVE BOWEL SOUNDS, DENIES PAIN AT THIS TIME, WILL MONITOR PATIENT.
[2017-11-22] MEDS: AMILORIDE HCL 5 MG TABLET PO SCH (09:00)
[2017-11-22] MEDS: METOPROLOL TARTRATE 50 MG TABLET PO SCH ×2 (09:00→17:00)
[2017-11-22] MEDS: HYDROGEL DRESSING 90 GM TUBE TP SCH (09:00)
[2017-11-22] MEDS: AMLODIPINE BESYLATE 5 MG TABLET PO SCH (09:00)
--- NOTE | 2017-11-22 09:30 | NUR ---
MS VILLAVICENCIO BREAKFAST SERVED,DUE MEDS GIVEN, TOLERATED WELL.
[2017-11-22 09:46] LABS: IRON, SERUM 21 ug/dl (50-175); TOTAL IRON BINDING CAPACITY 186 ug/dl (250-450)
[2017-11-22 09:50] LABS: FERRITIN 221 ng/mL (8-388)
--- NOTE | 2017-11-22 10:00 | NUR ---
MS RN WAS SEEN BY DR. CHAKA Cha/ ORDERS MADE AND CARIED OUT.
[2017-11-22] MEDS: LORATADINE 10 MG TABLET PO SCH (10:30)
[2017-11-22] MEDS: LEVOTHYROXINE SODIUM 175 MCG TABLET PO SCH (10:30)
[2017-11-22] MEDS: ATORVASTATIN 40 MG TABLET PO SCH (10:30)
[2017-11-22] MEDS: QUETIAPINE FUMARATE 25 MG TABLET PO SCH ×2 (10:31→18:09)
[2017-11-22] MEDS: ASPIRIN EC 81 MG TABLET.DR PO SCH (10:31)
[2017-11-22] MEDS: LEVETIRACETAM (250 MG) 250 MG TABLET PO SCH ×2 (10:31→20:57)
[2017-11-22] MEDS: CLOPIDOGREL BISULFATE 75 MG TABLET PO SCH (10:31)
[2017-11-22] MEDS: POTASSIUM CHLORIDE 20 MEQ TAB.PRT.SR PO SCH ×3 (10:31→18:08)
[2017-11-22] MEDS: GABAPENTIN 400 MG CAPSULE PO SCH ×3 (10:31→18:08)
[2017-11-22] MEDS: DOCUSATE SODIUM 100 MG CAPSULE PO SCH (10:32)
[2017-11-22] MEDS: FUROSEMIDE 40 MG/4 ML VIAL IV SCH ×3 (10:32→18:13)
[2017-11-22] MEDS: TAMSULOSIN 0.4 MG CAP.SR.24H PO SCH (10:34)
[2017-11-22] MEDS: CLOTRIMAZOLE 1% 15 GM TUBE TP SCH ×2 (10:35→18:15)
[2017-11-22] MEDS: HYDROGEL DRESSING 90 GM TUBE TP PRN (10:35)
[2017-11-22] MEDS: CALCITONIN,SALMON,SYNTHETIC 3.7 ML SPRAY.PUMP NS SCH (10:56)
--- NOTE | 2017-11-22 11:00 | NUR ---
MS VILLAVICENCIO WAS SEEN BY [place]OUND CITY CLERK, W/ ORDERS MADE AND CARRIED OUT
[2017-11-22 11:34] LABS: BAND % (MANUAL) 1 % (0.0-5.0); EOSINOPHILS % (MANUAL) 1 % (0-4); LYMPHOCYTES % (MANUAL) 10 % (16-48); MONOCYTES % (MANUAL) 3 % (0-11.0); NEUTROPHILS % (MANUAL) 85 (42-76)
--- NOTE | 2017-11-22 12:00 | NUR ---
MS RN REFUSED BS AT LUNCH TIME, PT ALREADY EAT.
[2017-11-22] MEDS ORDERED: K PHOS NEUTRAL 250 MG TABLET PO ONE ×3 (13:30→19:00)
[2017-11-22 16:00] VITALS: BP 106/59
--- NOTE | 2017-11-22 18:00 | NUR ---
MS VILLAVICENCIO BS - 233 - 4 UNITS OF REGULAR INSULIN GIVEN.
--- NOTE | 2017-11-22 19:22 | NUR ---
MS RN ON BED, NO CHANGE OF CONDITION.
[2017-11-22 20:00] VITALS: BP 107/55
[2017-11-22] MEDS: INSULIN DETEMIR 100 UNIT/ML CARTRIDGE SQ SCH (20:54)
[2017-11-23] MEDS: PIPERACILLIN /TAZOBACTAM 3.375 G in IV D5W 50 ML IV SCH ×4 (00:02→17:33)
[2017-11-23] MEDS: HYDROCODONE/APAP 5/325MG 1 EACH TABLET PO SCH ×4 (00:27→17:29)
[2017-11-23] MEDS: IPRATROPIUM NEB FS 0.5 MG/2.5 ML AMPUL.NEB NEB SCH ×4 (01:54→20:17)
[2017-11-23 06:35] LABS: BASOPHILS % (AUTO) 0.4 % (0.0-2.0); EOSINOPHILS # (AUTO) 0.1 /CMM (0.0-0.7); EOSINOPHILS % (AUTO) 2.9 % (0.0-6.0); HEMATOCRIT 31 % (39-51); HEMOGLOBIN 10.6 g/dL (13.5-17.5); LYMPHOCYTES # (AUTO) 0.5 /CMM (0.8-4.8); LYMPHOCYTES % (AUTO) 9.7 % (20.0-44.0); MEAN CORPUSCULAR HEMOGLOBIN 32 PG (26.0-33.0); MEAN CORPUSCULAR HGB CONC 34 g/dl (31.0-36.0); MEAN CORPUSCULAR VOLUME 93 fL (80-96); MONOCYTES # (AUTO) 0.5 /CMM (0.1-1.30); MONOCYTES % (AUTO) 9.8 % (2.0-12.0); NEUTROPHILS # (AUTO) 3.9 /CMM (1.8-8.9); NEUTROPHILS % (AUTO) 77.2 % (43.0-81.0); PLATELET COUNT (AUTO) 97 /CMM (150-450); RDW COEFFICIENT OF VARIATION 16.2 (11.5-15.0); RED BLOOD CELL COUNT(AUTO) 3.33 MIL/uL (4.5-6.0)
[2017-11-23] MEDS: BLOOD SUGAR DIAGNOSTIC 1 EACH STRIP IN SCH ×4 (06:48→22:01)
[2017-11-23 06:58] LABS: ALANINE AMINOTRANSFERASE 33 U/L (12-78); ALBUMIN 2.2 g/dL (3.4-5.0); ALKALINE PHOSPHATASE 130 U/L (46-116); ASPARTATE AMINOTRANSFERASE 28 U/L (15-37); BILIRUBIN,TOTAL 0.6 mg/dL (0.2-1.0); CALCIUM, SERUM 8.4 mg/dL (8.5-10.1); CARBON DIOXIDE 37 mmol/L (21-32); CHLORIDE 101 mmol/L (98-107); CREATININE 1.3 mg/dL (0.6-1.3); GLUCOSE 109 mg/dL (74-106); MAGNESIUM 1.3 mg/dL (1.8-2.4); PHOSPHORUS 3.1 mg/dL (2.5-4.9); POTASSIUM 3.6 mmol/L (3.5-5.1); SODIUM SERUM 143 mmol/L (136-145); TOTAL PROTEIN, SERUM 5.7 g/dL (6.4-8.2); UREA NITROGEN, BLOOD 20 mg/dL (7-18)
[2017-11-23 08:00] VITALS: BP 107/68
--- NOTE | 2017-11-23 08:00 | NUR ---
MS RN RECEIVED ON BED, AWAKE,ALERT,ORIENTED X4,NOT IN ANY FORM OF DISTRESS, RESPIRATIONS EVEN AND UNLABORED,NO SOB NOTED.LUNGS ARE DIMINISHED NO SOB NOTED, WILL MONITOR PATIENT'S CONDITION.
[2017-11-23] MEDS: ALBUTEROL FS 2.5 MG/0.5 ML VIAL.NEB NEB SCH ×3 (08:38→20:17)
[2017-11-23] MEDS: AMILORIDE HCL 5 MG TABLET PO SCH (09:00)
[2017-11-23] MEDS: HYDROGEL DRESSING 90 GM TUBE TP SCH (09:00)
[2017-11-23] MEDS: METOPROLOL TARTRATE 50 MG TABLET PO SCH ×2 (09:00→17:00)
[2017-11-23] MEDS: AMLODIPINE BESYLATE 5 MG TABLET PO SCH (09:00)
--- NOTE | 2017-11-23 09:30 | NUR ---
MS VILLAVICENCIO BREAKFAST SERVED,DUE MEDS GIVEN,TOLERATED WELL.
[2017-11-23] MEDS: GABAPENTIN 400 MG CAPSULE PO SCH ×3 (09:54→17:28)
[2017-11-23] MEDS: ASPIRIN EC 81 MG TABLET.DR PO SCH (09:54)
[2017-11-23] MEDS: ATORVASTATIN 40 MG TABLET PO SCH (09:54)
[2017-11-23] MEDS: LEVOTHYROXINE SODIUM 175 MCG TABLET PO SCH (09:54)
[2017-11-23] MEDS: LORATADINE 10 MG TABLET PO SCH (09:54)
[2017-11-23] MEDS: CLOPIDOGREL BISULFATE 75 MG TABLET PO SCH (09:54)
[2017-11-23] MEDS: TAMSULOSIN 0.4 MG CAP.SR.24H PO SCH (09:54)
[2017-11-23] MEDS: LEVETIRACETAM (250 MG) 250 MG TABLET PO SCH ×2 (09:54→22:02)
[2017-11-23] MEDS: DOCUSATE SODIUM 100 MG CAPSULE PO SCH (09:54)
[2017-11-23] MEDS: QUETIAPINE FUMARATE 25 MG TABLET PO SCH ×2 (09:55→17:00)
[2017-11-23] MEDS: CLOTRIMAZOLE 1% 15 GM TUBE TP SCH ×2 (09:55→17:30)
[2017-11-23] MEDS: HYDROGEL DRESSING 90 GM TUBE TP PRN (09:55)
[2017-11-23] MEDS: Z GUARD REMEDY 2 OZ OINT TP PRN (09:55)
[2017-11-23] MEDS: Magnesium 1GM/D5W 100ML PREMIX 100 ML IV SCH ×2 (09:57→13:35)
[2017-11-23] MEDS: CALCITONIN,SALMON,SYNTHETIC 3.7 ML SPRAY.PUMP NS SCH (09:59)
[2017-11-23 11:48] LABS: EOSINOPHILS % (MANUAL) 7 % (0-4); LYMPHOCYTES % (MANUAL) 4 % (16-48); MONOCYTES % (MANUAL) 3 % (0-11.0); NEUTROPHILS % (MANUAL) 86 (42-76)
[2017-11-23] MEDS: INSULIN REGULAR, HUMAN 100 UNIT/ML 3 ML VIAL SQ PRN ×3 (13:39→22:08)
[2017-11-23 16:00] VITALS: BP 91/56
--- NOTE | 2017-11-23 16:20 | NUR ---
MS RN PM CARE DONE W/ JIGMAN, CHANGED DRESSING TO BOTH BUTTOKS
[2017-11-23] MEDS: FUROSEMIDE 20 MG/2 ML VIAL IV SCH (17:28)
--- NOTE | 2017-11-23 18:00 | NUR ---
MS VILLAVICENCIO BS - 178 -M 3 UNITS GIVEN SQ.
--- NOTE | 2017-11-23 19:09 | NUR ---
MS RN ON BED, NO DISTRESS NOTED,ALL NEEDS ATTENDED.
--- NOTE | 2017-11-23 19:35 | NUR ---
MS RN OPENING NOTES RECEIVED PATIENT RESTING IN BED, A & O X 3, TALKATIVE, NO C/O SOB, IN SEMI DOS SANTOS POSITION. HAS C/O MILD PAIN TO THE BACK, TOLERABLE @ THIS TIME & PER PT WOULD LET THE NURSE KNOW WHEN PAIN MED IS NEEDED. NO FEVER @ THIS TIME. IV ACCESS TO LAC, SL, INTACT PATENT. CALL LIGHT WITHIN REACH. BED IN LOW LOCKED POSITION. WILL CONTINUE TO MONITOR CLOSELY.
[2017-11-23 20:11] VITALS: BP 88/46
[2017-11-23 20:45] VITALS: BP 103/62
[2017-11-23] MEDS: INSULIN DETEMIR 100 UNIT/ML CARTRIDGE SQ SCH (22:04)
[2017-11-24] MEDS: HYDROCODONE/APAP 5/325MG 1 EACH TABLET PO SCH ×3 (00:50→12:11)
[2017-11-24] MEDS: PIPERACILLIN /TAZOBACTAM 3.375 G in IV D5W 50 ML IV SCH ×4 (00:52→17:38)
[2017-11-24] MEDS: IPRATROPIUM NEB FS 0.5 MG/2.5 ML AMPUL.NEB NEB SCH ×4 (01:32→19:29)
[2017-11-24 04:00] VITALS: BP 96/58
[2017-11-24 06:20] LABS: BASOPHILS % (AUTO) 0.4 % (0.0-2.0); EOSINOPHILS # (AUTO) 0.2 /CMM (0.0-0.7); EOSINOPHILS % (AUTO) 3.8 % (0.0-6.0); HEMATOCRIT 29 % (39-51); LYMPHOCYTES # (AUTO) 0.5 /CMM (0.8-4.8); LYMPHOCYTES % (AUTO) 11.6 % (20.0-44.0); MEAN CORPUSCULAR HEMOGLOBIN 32 PG (26.0-33.0); MEAN CORPUSCULAR HGB CONC 35 g/dl (31.0-36.0); MEAN CORPUSCULAR VOLUME 91 fL (80-96); MONOCYTES # (AUTO) 0.5 /CMM (0.1-1.30); MONOCYTES % (AUTO) 11.1 % (2.0-12.0); NEUTROPHILS % (AUTO) 73.1 % (43.0-81.0); PLATELET COUNT (AUTO) 123 /CMM (150-450); RDW COEFFICIENT OF VARIATION 16.3 (11.5-15.0); RED BLOOD CELL COUNT(AUTO) 3.13 MIL/uL (4.5-6.0); WHITE BLOOD COUNT (AUTO) 4.2 K/uL (4.3-11.0)
[2017-11-24 07:04] LABS: CALCIUM, SERUM 8.9 mg/dL (8.5-10.1); CARBON DIOXIDE 38 mmol/L (21-32); CHLORIDE 97 mmol/L (98-107); CREATININE 1.3 mg/dL (0.6-1.3); GLUCOSE 137 mg/dL (74-106); MAGNESIUM 1.6 mg/dL (1.8-2.4); PHOSPHORUS 2.7 mg/dL (2.5-4.9); POTASSIUM 3.7 mmol/L (3.5-5.1); SODIUM SERUM 137 mmol/L (136-145); UREA NITROGEN, BLOOD 20 mg/dL (7-18)
[2017-11-24] MEDS: BLOOD SUGAR DIAGNOSTIC 1 EACH STRIP IN SCH ×4 (07:10→21:53)
[2017-11-24] MEDS: INSULIN REGULAR, HUMAN 100 UNIT/ML 3 ML VIAL SQ PRN ×4 (07:15→22:44)
--- NOTE | 2017-11-24 07:30 | NUR ---
MS RN CLOSING NOTES PT SLEPT INTERMITTENTLY, A & O X 3, TALKATIVE, NO C/O SOB, IN SEMI DOS SANTOS POSITION. HAD C/O PAIN TO THE BACK, SCHEDULED NORCO GIVEN & WAS EFFECTIVE. NO FEVER @ THIS TIME. IV ACCESS TO LAC, SL, INTACT PATENT. CALL LIGHT WITHIN REACH. BED IN LOW LOCKED POSITION. ASSISTED WITH ALL ADL'S, KEPT CLEAN & DRY. TURNED/REPOSITIONED PER PROTOCOL. ENDORSED TO AM RN FOR CONTINUITY OF CARE.
[2017-11-24 08:00] VITALS: BP 98/51
[2017-11-24] MEDS: AMILORIDE HCL 5 MG TABLET PO SCH (09:00)
[2017-11-24] MEDS: METOPROLOL TARTRATE 50 MG TABLET PO SCH ×2 (09:00→16:12)
[2017-11-24] MEDS: AMLODIPINE BESYLATE 5 MG TABLET PO SCH (09:00)
[2017-11-24] MEDS: CLOTRIMAZOLE 1% 15 GM TUBE TP SCH ×2 (09:01→16:12)
[2017-11-24] MEDS: HYDROGEL DRESSING 90 GM TUBE TP SCH (09:01)
[2017-11-24] MEDS: LEVETIRACETAM (250 MG) 250 MG TABLET PO SCH ×2 (09:02→21:46)
[2017-11-24] MEDS: ATORVASTATIN 40 MG TABLET PO SCH (09:02)
[2017-11-24] MEDS: FUROSEMIDE 20 MG/2 ML VIAL IV SCH ×2 (09:03→16:11)
[2017-11-24] MEDS: CLOPIDOGREL BISULFATE 75 MG TABLET PO SCH (09:03)
[2017-11-24] MEDS: QUETIAPINE FUMARATE 25 MG TABLET PO SCH ×2 (09:03→16:11)
[2017-11-24] MEDS: LEVOTHYROXINE SODIUM 175 MCG TABLET PO SCH (09:03)
[2017-11-24] MEDS: LORATADINE 10 MG TABLET PO SCH (09:03)
[2017-11-24] MEDS: TAMSULOSIN 0.4 MG CAP.SR.24H PO SCH (09:03)
[2017-11-24] MEDS: ASPIRIN EC 81 MG TABLET.DR PO SCH (09:03)
[2017-11-24] MEDS: GABAPENTIN 400 MG CAPSULE PO SCH ×3 (09:03→16:11)
[2017-11-24] MEDS: CALCITONIN,SALMON,SYNTHETIC 3.7 ML SPRAY.PUMP NS SCH (09:03)
[2017-11-24] MEDS: ALBUTEROL FS 2.5 MG/0.5 ML VIAL.NEB NEB SCH ×3 (09:07→19:29)
[2017-11-24] MEDS: DOCUSATE SODIUM 250 MG CAPSULE PO SCH (09:45)
[2017-11-24] MEDS ORDERED: POTASSIUM CHLORIDE 20 MEQ POWDER PACKET PO ONE (12:30)
[2017-11-24] MEDS: Magnesium 1GM/D5W 100ML PREMIX 100 ML IV SCH ×2 (12:43→14:01)
[2017-11-24 16:00] VITALS: BP 96/50
--- NOTE | 2017-11-24 18:48 | NUR ---
RN NOTES PATIENT ALERT AND ORIENTED X3, WITH EPISODE OF FORGETFULNESS AND SLIGHT CONFUSION, ABLE TO RE-ORIENT PATIENT. BREATHING EVEN AND UNLABORED, NO S/SX OF DISTRESS NOTED, NEEDS ATTENDED AND MET, WOUND TREATMENT RENDERED, TURNED AND REPOSITIONED EVERY FEW HOURS PATIENT PERMITS, ALL DUE MEDS GIVEN EXCEPT FOR BP MEDS, HELD D/T LOW BP. CALL LIGHT WITHIN REACH, BED ALARM ON, SAFETY MEASURES IN PLACED, WILL ENDORSE TO MANAGER NURSING HOME FOR BERNA.
--- NOTE | 2017-11-24 19:30 | NUR ---
PROBATION AND PATROL AGENT NOTE, RECEIVED PATIENT AWAKE AND IN BED, NO S/S OR COMPLAINTS OF PAIN AT THIS TIME. PATIENT BREATHING IS UNLABORED WITH EQUAL RISE AND FALL OF THE CHEST. PATIENT IS ALERT AND ORIENTED X 3 ON 2 LITERS OF O2 VIA NASAL CANNULA WITH A SPOO2 95%. PATIENT HAS LEFT AC 20 GAUGE SALINE LOCK THAT IS INTACT, PATENT, AND FLUSHING WELL WITH NO S/S OF INFILTRATION. PATIENT ASSISTED WITH TURNING AND REPOSITIONING Q2HR AND PRN FOR COMFORT AND CIRCULATION. PATIENT HAS NO NEEDS AT THIS TIME. PATIENT EDUCATED ON THE USE OF THE CALL LIGHT. PATIENT BED SIDE RAILS UP X 2 FOR SAFETY. PATIENT BED IS LOCKED AND LOW WILL CONTINUE TO MONITOR AND MAINTAIN SAFETY Q15 MIN WITH THE HELP OF STAFF.
[2017-11-24 20:00] VITALS: BP 114/58
[2017-11-24 20:57] VITALS: BP 114/58
--- NOTE | 2017-11-24 21:53 | NUR ---
CAR PARKER NOTE, PERFORMED ACCU CHECK ON PATIENT WITH A BLOOD SUGAR RESULT OF 185. GAVE 3 UNITS OF REGULAR INSULIN PER SLIDING SCALE AND 20 UNITS OF LEVEMIR ORDERED. PATIENT HAD PUDDING AND GRAM CRACKER A SNACK. WILL CONTINUE TO MONITOR THIS PATIENT.
[2017-11-24] MEDS: INSULIN DETEMIR 100 UNIT/ML CARTRIDGE SQ SCH (22:43)
[2017-11-25] MEDS: PIPERACILLIN /TAZOBACTAM 3.375 G in IV D5W 50 ML IV SCH ×5 (00:43→23:02)
[2017-11-25] MEDS: IPRATROPIUM NEB FS 0.5 MG/2.5 ML AMPUL.NEB NEB SCH ×4 (01:30→20:11)
--- NOTE | 2017-11-25 02:00 | NUR ---
AUTOMOTIVE ACCESSORY INSTALLER NOTE, PATIENT IS A SLEEP IN BED EASILY AROUSES, ALL SCHEDULED PM MEDS GIVEN. PATIENT HAS NO S/S OR COMPLAINT OF PAIN AT THIS TIME. PATIENT IS DISPLAYING NO S/S OF APPARENT DISTRESS AT THIS TIME. PATIENT BREATHING IS UNLABORED WITH EQUAL RISE AND FALL OF THE CHEST. ALL PATIENT NEEDS ANTICIPATED AND MET. PATIENT KEPT CLEAN, DRY, AND COMFORTABLE. PATIENT BED IS LOW AND LOCKED, CALL LIGHT IN REACH WITH TWO SIDE RAILS UP FOR SAFETY. WILL CONTINUE TO MONITOR AND MAINTAIN SAFETY FOR THIS PATIENT.
[2017-11-25] MEDS: BLOOD SUGAR DIAGNOSTIC 1 EACH STRIP IN SCH ×4 (06:42→22:00)
[2017-11-25] MEDS: INSULIN REGULAR, HUMAN 100 UNIT/ML 3 ML VIAL SQ PRN ×3 (06:46→17:32)
[2017-11-25 06:50] LABS: BASOPHILS % (AUTO) 0.6 % (0.0-2.0); EOSINOPHILS # (AUTO) 0.1 /CMM (0.0-0.7); EOSINOPHILS % (AUTO) 3.1 % (0.0-6.0); HEMATOCRIT 27 % (39-51); HEMOGLOBIN 9.4 g/dL (13.5-17.5); LYMPHOCYTES # (AUTO) 0.4 /CMM (0.8-4.8); LYMPHOCYTES % (AUTO) 10.6 % (20.0-44.0); MEAN CORPUSCULAR HEMOGLOBIN 32 PG (26.0-33.0); MEAN CORPUSCULAR HGB CONC 35 g/dl (31.0-36.0); MEAN CORPUSCULAR VOLUME 92 fL (80-96); MONOCYTES # (AUTO) 0.5 /CMM (0.1-1.30); MONOCYTES % (AUTO) 14.3 % (2.0-12.0); NEUTROPHILS # (AUTO) 2.7 /CMM (1.8-8.9); NEUTROPHILS % (AUTO) 71.4 % (43.0-81.0); PLATELET COUNT (AUTO) 141 /CMM (150-450); RDW COEFFICIENT OF VARIATION 16.4 (11.5-15.0); RED BLOOD CELL COUNT(AUTO) 2.95 MIL/uL (4.5-6.0); WHITE BLOOD COUNT (AUTO) 3.7 K/uL (4.3-11.0)
--- NOTE | 2017-11-25 06:54 | NUR ---
ROCKET ENGINE MECHANIC NOTE, PATIENT AWAKE AND IN BED, NO S/S OR COMPLAINTS OF PAIN AT THIS TIME. PATIENT BREATHING IS UNLABORED WITH EQUAL RISE AND FALL OF THE CHEST. PATIENT IS ALERT AND ORIENTED X 3 ON 2 LITERS OF O2 VIA NASAL CANNULA WITH A SPOO2 95%. PATIENT HAS LEFT AC 20 GAUGE SALINE LOCK THAT IS INTACT, PATENT, AND FLUSHING WELL WITH NO S/S OF INFILTRATION. PATIENT ASSISTED WITH TURNING AND REPOSITIONING Q2HR AND PRN FOR COMFORT AND CIRCULATION. ALL PATIENTS NEEDS ANTICIPATED AND MET. PATIENT BED SIDE RAILS UP X 2 FOR SAFETY. PATIENT BED IS LOCKED AND LOW WILL ENDORSE TO AM SHIFT NURSE FOR CONTINUATION OF CARE.
[2017-11-25 07:36] LABS: CALCIUM, SERUM 9.2 mg/dL (8.5-10.1); CHLORIDE 95 mmol/L (98-107); CREATININE 1.4 mg/dL (0.6-1.3); GLUCOSE 224 mg/dL (74-106); MAGNESIUM 1.6 mg/dL (1.8-2.4); PHOSPHORUS 2.3 mg/dL (2.5-4.9); POTASSIUM 3.7 mmol/L (3.5-5.1); SODIUM SERUM 135 mmol/L (136-145); UREA NITROGEN, BLOOD 20 mg/dL (7-18)
[2017-11-25 07:46] LABS: CARBON DIOXIDE 40 mmol/L (21-32)
[2017-11-25 08:00] VITALS: BP 92/52
[2017-11-25] MEDS: ALBUTEROL FS 2.5 MG/0.5 ML VIAL.NEB NEB SCH ×3 (08:08→20:11)
[2017-11-25] MEDS: METOPROLOL TARTRATE 50 MG TABLET PO SCH ×2 (09:00→17:00)
[2017-11-25] MEDS: AMLODIPINE BESYLATE 5 MG TABLET PO SCH (09:00)
[2017-11-25] MEDS: AMILORIDE HCL 5 MG TABLET PO SCH (09:00)
[2017-11-25] MEDS: CLOTRIMAZOLE 1% 15 GM TUBE TP SCH ×2 (09:00→17:00)
[2017-11-25] MEDS: FUROSEMIDE 20 MG/2 ML VIAL IV SCH (09:00)
[2017-11-25] MEDS: CALCITONIN,SALMON,SYNTHETIC 3.7 ML SPRAY.PUMP NS SCH (09:18)
[2017-11-25] MEDS: LEVOTHYROXINE SODIUM 175 MCG TABLET PO SCH (09:19)
[2017-11-25] MEDS: LEVETIRACETAM (250 MG) 250 MG TABLET PO SCH ×2 (09:19→20:56)
[2017-11-25] MEDS: ATORVASTATIN 40 MG TABLET PO SCH (09:19)
[2017-11-25] MEDS: QUETIAPINE FUMARATE 25 MG TABLET PO SCH ×2 (09:19→17:53)
[2017-11-25] MEDS: CLOPIDOGREL BISULFATE 75 MG TABLET PO SCH (09:20)
[2017-11-25] MEDS: DOCUSATE SODIUM 250 MG CAPSULE PO SCH (09:20)
[2017-11-25] MEDS: LORATADINE 10 MG TABLET PO SCH (09:21)
[2017-11-25] MEDS: GABAPENTIN 400 MG CAPSULE PO SCH ×3 (09:21→17:53)
[2017-11-25] MEDS: TAMSULOSIN 0.4 MG CAP.SR.24H PO SCH (09:21)
[2017-11-25] MEDS: ASPIRIN EC 81 MG TABLET.DR PO SCH (09:22)
[2017-11-25] MEDS ORDERED: Magnesium 1GM/D5W 100ML PREMIX 100 ML IV SCH ×2 (10:30→14:00)
--- NOTE | 2017-11-25 10:40 | NUR ---
- Dr. Goodman said " OK ' after he was told of holding the anti-HTN meds due to decreased blood pressure, BP: 92/82, PHARMACY Darlin Rosa was also informed.
[2017-11-25] MEDS ORDERED: SOD FERRIC GLUC 125 MG in IV NS 0.9% 100 ML IV SCH (14:00)
[2017-11-25] MEDS: HYDROGEL DRESSING 90 GM TUBE TP SCH (14:42)
--- NOTE | 2017-11-25 14:52 | NUR ---
PATIENT just had physical therapy of range of motion done at bedside , continously on O2 at 3l/min, non-labored respirations, also had breathing treatments this AM , able to eat & tolerate meals , & was cooperative with ADLS.
[2017-11-25] MEDS ORDERED: K PHOS NEUTRAL 250 MG TABLET PO ONE (15:30)
[2017-11-25 16:00] VITALS: BP 102/50
--- NOTE | 2017-11-25 19:20 | NUR ---
RN OPENING NOTES PT AWAKE AND RESTING IN BED. NO COMPLAINTS OF PAIN, DISTRESS OR SOB. PT HAS A L AC #20, PATENT AND INTACT. PT IS ON 2L OF O2. SAFETY PRECAUTIONS IN PLACE. BED IN LOWEST POSITION, LOCKED, AND X2 SIDERAILS UP. CALL LIGHT WITHIN REACH. WILL CONTINUE TO MONITOR PATIENT.
[2017-11-25 20:00] VITALS: BP 118/57
[2017-11-25] MEDS: INSULIN DETEMIR 100 UNIT/ML CARTRIDGE SQ SCH (23:08)
[2017-11-26] MEDS: IPRATROPIUM NEB FS 0.5 MG/2.5 ML AMPUL.NEB NEB SCH ×2 (03:44→08:56)
[2017-11-26] MEDS: PIPERACILLIN /TAZOBACTAM 3.375 G in IV D5W 50 ML IV SCH (05:48)
[2017-11-26 06:48] LABS: BASOPHILS % (AUTO) 0.4 % (0.0-2.0); EOSINOPHILS % (AUTO) 1.1 % (0.0-6.0); HEMATOCRIT 26 % (39-51); HEMOGLOBIN 8.9 g/dL (13.5-17.5); LYMPHOCYTES # (AUTO) 0.5 /CMM (0.8-4.8); LYMPHOCYTES % (AUTO) 15.1 % (20.0-44.0); MEAN CORPUSCULAR HEMOGLOBIN 32 PG (26.0-33.0); MEAN CORPUSCULAR HGB CONC 34 g/dl (31.0-36.0); MEAN CORPUSCULAR VOLUME 93 fL (80-96); MONOCYTES # (AUTO) 0.6 /CMM (0.1-1.30); MONOCYTES % (AUTO) 18.1 % (2.0-12.0); NEUTROPHILS # (AUTO) 2.1 /CMM (1.8-8.9); NEUTROPHILS % (AUTO) 65.3 % (43.0-81.0); PLATELET COUNT (AUTO) 175 /CMM (150-450); RDW COEFFICIENT OF VARIATION 17.6 (11.5-15.0); RED BLOOD CELL COUNT(AUTO) 2.78 MIL/uL (4.5-6.0); WHITE BLOOD COUNT (AUTO) 3.2 K/uL (4.3-11.0)
[2017-11-26] MEDS: BLOOD SUGAR DIAGNOSTIC 1 EACH STRIP IN SCH (06:54)
[2017-11-26 07:03] LABS: CALCIUM, SERUM 8.9 mg/dL (8.5-10.1); CARBON DIOXIDE 39 mmol/L (21-32); CHLORIDE 98 mmol/L (98-107); CREATININE 1.1 mg/dL (0.6-1.3); GLUCOSE 88 mg/dL (74-106); POTASSIUM 3.3 mmol/L (3.5-5.1); SODIUM SERUM 141 mmol/L (136-145); UREA NITROGEN, BLOOD 15 mg/dL (7-18)
--- NOTE | 2017-11-26 07:38 | NUR ---
MS RN OPENING NOTE RECEIVED BEDSIDE SBAR REPORT ON THE PATIENT. PATIENT IS A/O X3,FORGETFUL, AWAKE AND RESPONSIVE TO NAME AND TOUCH. PATIENT IS IN BED. BED IS LOCKED IN LOWEST POSITION, SIDE RAILS UP X3, BED ALARM IS ON. CALL LIGHT WITHIN REACH. EDUCATED TO USE THE CALL LIGHT TO CALL FOR ASSISTANCE. PATIENT DENIES PAIN/DISCOMFORT AT THIS TIME. CHEST IS RISING EQUALLY BILATERALLY. SPO2 97% ON RA. ALL NEEDS ARE MET AT THIS TIME. WILL CONTINUE TO ASSESS/MONITOR THROUGHOUT THE SHIFT.
--- NOTE | 2017-11-26 07:39 | NUR ---
RN CLOSING NOTES PT IS SLEEPING IN BED. EASILY AROUSABLE. NO COMPLAINTS OF PAIN, DISTRESS OR SOB OVERNIGHT. PT HAS A L AC #20, PATENT AND INTACT. PT IS ON 2L OF O2. SAFETY PRECAUTIONS IN PLACE. BED IN LOWEST POSITION, LOCKED, AND X2 SIDERAILS UP. CALL LIGHT WITHIN REACH. WILL ENDORSE TO DAY SHIFT NURSE FOR CONTINUITY OF CARE.
[2017-11-26 08:00] VITALS: BP 118/57
--- NOTE | 2017-11-26 08:26 | NUR ---
RN NOTES MEDICATIONS REMOVED BY MAYE HUGHES AND GIVEN TO MAYE WELSH TO ADMINISTER. MAYE HUGHES DID NOT ADMINISTER MEDICATIONS BUT REMOVED FROM [facility] BY ACCIDENT DUE TO PATIENT ASSIGNMENT CONFUSION. WILL NOTIFY PHARMACY.
[2017-11-26] MEDS: ALBUTEROL FS 2.5 MG/0.5 ML VIAL.NEB NEB SCH (08:56)
[2017-11-26 09:00] VITALS: BP 90/50
[2017-11-26] MEDS: AMLODIPINE BESYLATE 5 MG TABLET PO SCH (09:00)
[2017-11-26] MEDS: METOPROLOL TARTRATE 50 MG TABLET PO SCH (09:00)
[2017-11-26] MEDS ORDERED: FUROSEMIDE 20 MG TABLET PO SCH (09:00)
[2017-11-26] MEDS: CLOPIDOGREL BISULFATE 75 MG TABLET PO SCH (09:42)
[2017-11-26] MEDS: TAMSULOSIN 0.4 MG CAP.SR.24H PO SCH (09:45)
[2017-11-26] MEDS: LEVETIRACETAM (250 MG) 250 MG TABLET PO SCH (09:45)
[2017-11-26] MEDS: LEVOTHYROXINE SODIUM 175 MCG TABLET PO SCH (09:45)
[2017-11-26] MEDS: ATORVASTATIN 40 MG TABLET PO SCH (09:45)
[2017-11-26] MEDS: DOCUSATE SODIUM 250 MG CAPSULE PO SCH (09:45)
[2017-11-26] MEDS: GABAPENTIN 400 MG CAPSULE PO SCH (09:45)
[2017-11-26] MEDS: LORATADINE 10 MG TABLET PO SCH (09:46)
[2017-11-26] MEDS: QUETIAPINE FUMARATE 25 MG TABLET PO SCH (09:46)
[2017-11-26] MEDS: AMILORIDE HCL 5 MG TABLET PO SCH (09:48)
[2017-11-26] MEDS: ASPIRIN EC 81 MG TABLET.DR PO SCH (09:50)
[2017-11-26] MEDS: CALCITONIN,SALMON,SYNTHETIC 3.7 ML SPRAY.PUMP NS SCH (09:54)
[2017-11-26] MEDS: HYDROGEL DRESSING 90 GM TUBE TP SCH (09:55)
[2017-11-26] MEDS: CLOTRIMAZOLE 1% 15 GM TUBE TP SCH (09:55)
[2017-11-26] MEDS ORDERED: ATOR40TA PO (10:14)
[2017-11-26] MEDS ORDERED: FURO20TA4 PO (10:14)
[2017-11-26] MEDS ORDERED: POTASSIUM CHLORIDE 20 MEQ TAB.PRT.SR PO SCH (11:30)
--- NOTE | 2017-11-26 11:55 | NUR ---
PATIENT IS BEING DISCHARGED TO [place]. TELEPHONE SBAR GIVEN TO MAYE SILVA AT [place].
--- NOTE | 2017-11-26 12:48 | NUR ---
DISCHARGE EDUCATION PROVIDED. IC CATHETER REMOVED WITH THE TIP INTACT. OCLUSIVE DRESSING APPLIED. WOUND CAER PROVIDED ORDERED. SKIN ASSESSMENT COMPLETED. PICTURES TAKEN AND PLACED INTO [facility] CHART. ALL BELONGING ACCOUNTED FOR. PATIENT LEFT THE UNIT IN STABLE CONDITION ACCOMPANIED BY THE AMBULANCE STAFF.
== END 2017-11-26 12:50 | DRG 871 ==
LOC: ER 12:40 → TELE 15:35 → MED 11-21 08:10
PROVIDERS: ADMIT Internal Medicine; ATTEND Internal Medicine
DX: A41.9 Sepsis, unspecified organism (principal); N17.0 Acute kidney failure with tubular necrosis; I21.A1 Myocardial infarction type 2; I50.33 Acute on chronic diastolic (congestive) heart failure; E44.0 Moderate protein-calorie malnutrition; E87.3 Alkalosis; L89.153 Pressure ulcer of sacral region, stage 3; J96.10 Chronic respiratory failure, unspecified whether with hypoxia or hypercapnia; L89.93 Pressure ulcer of unspecified site, stage 3; R53.2 Functional quadriplegia; L89.323 Pressure ulcer of left buttock, stage 3; L89.313 Pressure ulcer of right buttock, stage 3; L03.119 Cellulitis of unspecified part of limb; I95.9 Hypotension, unspecified; D69.2 Other nonthrombocytopenic purpura; D69.6 Thrombocytopenia, unspecified; Z88.8 Allergy status to other drugs, medicaments and biological substances; D63.8 Anemia in other chronic diseases classified elsewhere; Z95.1 Presence of aortocoronary bypass graft; Z86.73 Personal history of transient ischemic attack (TIA), and cerebral infarction without residual deficits; Z79.4 Long term (current) use of insulin; K21.9 Gastro-esophageal reflux disease without esophagitis; I25.10 Atherosclerotic heart disease of native coronary artery without angina pectoris; Z79.899 Other long term (current) drug therapy; E03.9 Hypothyroidism, unspecified; E11.9 Type 2 diabetes mellitus without complications; E78.5 Hyperlipidemia, unspecified; E83.42 Hypomagnesemia; F03.90 Unspecified dementia, unspecified severity, without behavioral disturbance, psychotic disturbance, mood disturbance, and anxiety; G62.9 Polyneuropathy, unspecified; L89.621 Pressure ulcer of left heel, stage 1; L89.611 Pressure ulcer of right heel, stage 1; E61.1 Iron deficiency; L98.9 Disorder of the skin and subcutaneous tissue, unspecified; I70.0 Atherosclerosis of aorta; I35.0 Nonrheumatic aortic (valve) stenosis; I48.91 Unspecified atrial fibrillation; Z79.82 Long term (current) use of aspirin; L30.4 Erythema intertrigo; I11.0 Hypertensive heart disease with heart failure; E66.9 Obesity, unspecified; Z68.27 Body mass index [BMI] 27.0-27.9, adult
CPT/HCPCS: 36415; 71010-TC; 80048-TC; 80053-TC; 80061-TC; 80076-TC; 82728-TC; 82962-TC; 83540-TC; 83605-TC; 83735-TC; 84100-TC; 84484-TC; 85025-TC; 85730-TC; 87040-TC; 87081-TC; 93307-TC; 94799-TC; 97110-TC; A4606; A6248; J0696; J1815; J1940; J2270; J2543; J2916; J3370; J3475; J7030; J7050; J7060; Z7610

== ENCOUNTER 2017-12-08 09:08 | Inpatient (IN) | payer MEDICARE ==
[~2017-12-08] VITALS: Ht 180.3 cm; Wt 94.3 kg
[~2017-12-08 09:08] MED LIST changes: +ATOR40TA PO; -ATOR80TA PO; +FURO20TA4 PO
[2017-12-08 09:30] LABS: BASOPHILS # (AUTO) 0.1 /CMM (0.0-0.2); BASOPHILS % (AUTO) 0.4 % (0.0-2.0); EOSINOPHILS % (AUTO) 0.1 % (0.0-6.0); HEMATOCRIT 29 % (39-51); HEMOGLOBIN 9.5 g/dL (13.5-17.5); LYMPHOCYTES # (AUTO) 0.8 /CMM (0.8-4.8); LYMPHOCYTES % (AUTO) 6.4 % (20.0-44.0); MEAN CORPUSCULAR HEMOGLOBIN 31 PG (26.0-33.0); MEAN CORPUSCULAR HGB CONC 33 g/dl (31.0-36.0); MEAN CORPUSCULAR VOLUME 93 fL (80-96); MONOCYTES # (AUTO) 1.6 /CMM (0.1-1.30); MONOCYTES % (AUTO) 12.2 % (2.0-12.0); NEUTROPHILS # (AUTO) 10.7 /CMM (1.8-8.9); NEUTROPHILS % (AUTO) 80.9 % (43.0-81.0); PLATELET COUNT (AUTO) 272 /CMM (150-450); RDW COEFFICIENT OF VARIATION 17.6 (11.5-15.0); RED BLOOD CELL COUNT(AUTO) 3.09 MIL/uL (4.5-6.0); WHITE BLOOD COUNT (AUTO) 13.2 K/uL (4.3-11.0)
[2017-12-08] MEDS ORDERED: IV NS 0.9% 1,000 ML BAG IV ONE (09:30)
[2017-12-08 09:41] LABS: CALCIUM, SERUM 9.4 mg/dL (8.5-10.1); CARBON DIOXIDE 36 mmol/L (21-32); CHLORIDE 98 mmol/L (98-107); CREATININE 1.5 mg/dL (0.6-1.3); GLUCOSE 131 mg/dL (74-106); POTASSIUM 5.7 mmol/L (3.5-5.1); SODIUM SERUM 136 mmol/L (136-145); UREA NITROGEN, BLOOD 52 mg/dL (7-18)
[2017-12-08] MEDS ORDERED: FURO-145 PO (09:41)
[2017-12-08] MEDS ORDERED: ACET-868 PO (09:41)
[2017-12-08] MEDS ORDERED: ALBU2.5V13 IH (09:41)
[2017-12-08] MEDS ORDERED: MULT-213 PO (09:41)
[2017-12-08] MEDS ORDERED: LEVE250T4 PO (09:41)
[2017-12-08] MEDS ORDERED: ASCO500T10 PO (09:41)
[2017-12-08] MEDS ORDERED: INSU100V3 SQ (09:41)
[2017-12-08] MEDS ORDERED: ZINC220T PO (09:41)
[2017-12-08] MEDS ORDERED: CRAN425C6 PO (09:41)
[2017-12-08] MEDS ORDERED: QUET25TA PO (09:41)
[2017-12-08] MEDS ORDERED: BISA10SU8 RC (09:41)
[2017-12-08] MEDS ORDERED: MAGN400O6 PO (09:41)
[2017-12-08] MEDS ORDERED: IPRA0.2S49 IH (09:41)
[2017-12-08] MEDS ORDERED: NA P133E RC (09:41)
[2017-12-08] MEDS ORDERED: ATOR40TA PO (09:41)
[2017-12-08 09:45] LABS: INR 1.14 (0.87-1.13)
[2017-12-08 09:46] LABS: ALANINE AMINOTRANSFERASE 1325 U/L (12-78); ALBUMIN 2.2 g/dL (3.4-5.0); ALKALINE PHOSPHATASE 333 U/L (46-116); ASPARTATE AMINOTRANSFERASE 580 U/L (15-37); BILIRUBIN,DIRECT 0.8 mg/dL (0.0-0.2); BILIRUBIN,TOTAL 1.2 mg/dL (0.2-1.0); TOTAL PROTEIN, SERUM 6.8 g/dL (6.4-8.2)
[2017-12-08 09:50] LABS: TROPONIN I < 0.017 ng/mL (0.00-0.056)
[2017-12-08] MEDS ORDERED: IPRATROPIUM NEB FS 0.5 MG/2.5 ML AMPUL.NEB ONE (09:55)
[2017-12-08] MEDS ORDERED: ALBUTEROL FS 2.5 MG/3 ML VIAL.NEB ONE (09:55)
[2017-12-08] MEDS ORDERED: IPRATROPIUM NEB FS 0.5 MG/2.5 ML AMPUL.NEB NEB ONE (10:00)
[2017-12-08] MEDS ORDERED: ALBUTEROL FS 2.5 MG/3 ML VIAL.NEB CONTNEB ONE (10:00)
[2017-12-08 10:19] LABS: APPEARANCE,URINE Slightly Cloudy (CLEAR); BILIRUBIN,URINE Negative (NEGATIVE); BLOOD, URINE Trace-intact Ery/uL (NEGATIVE); KETONES,URINE Negative (NEGATIVE); LEUKOCYTE ESTERASE ,URINE Trace (NEGATIVE); NITRITE, URINE Negative (NEGATIVE); PH,URINE 5.5 (5.0-8.0); PROTEIN,URINE 30 mg/dl (NEGATIVE); UGLUCOSE Negative (NEGATIVE)
[2017-12-08 10:21] LABS: COLOR,URINE Dark Yellow (YELLOW)
[2017-12-08] MEDS ORDERED: CEFTRIAXONE 1GM BAG (ER ONLY) 50 ML IV ONE (10:30)
[2017-12-08] MEDS ORDERED: AZITHROMYCIN 500 MG in IV D5W 250 ML IV ONE (10:30)
[2017-12-08 10:36] LABS: BACTERIA,URINE None seen /HPF (None Seen); SQUAMOUS EPITHELIAL CELL,UR Few /HPF (None Seen)
[2017-12-08 10:37] LABS: URINE AMORPHOUS URATE Moderate /HPF (None Seen)
[2017-12-08 11:40] VITALS: BP 101/56
[2017-12-08] MEDS ORDERED: ONDANSETRON HCL/PF 4 MG/2 ML VIAL IVP PRN (14:30)
[2017-12-08] MEDS ORDERED: PIPERACILLIN /TAZOBACTAM 4.5 G in IV D5W 50 ML IV SCH (14:30)
[2017-12-08] MEDS ORDERED: Z GUARD REMEDY 2 OZ OINT TP PRN (14:30)
[2017-12-08] MEDS ORDERED: FEE PK DOSING 1 MIN EA MC ONE (14:35)
[2017-12-08 15:00] VITALS: BP 101/59
[2017-12-08 16:00] VITALS: BP 101/51
[2017-12-08] MEDS: PANTOPRAZOLE 40 MG VIAL IV SCH (16:41)
[2017-12-08] MEDS: VANCOMYCIN 1 GM in IV D5W 250 ML IV SCH (16:42)
[2017-12-08] MEDS: ALBUTEROL FS 2.5 MG/0.5 ML VIAL.NEB NEB SCH ×3 (16:58→23:52)
[2017-12-08] MEDS: IPRATROPIUM NEB FS 0.5 MG/2.5 ML AMPUL.NEB NEB SCH ×3 (16:58→23:52)
[2017-12-08] MEDS ORDERED: HYDROGEL DRESSING 90 GM TUBE TP PRN (17:00)
[2017-12-08] MEDS ORDERED: Z GUARD REMEDY 4 OZ OINT TP PRN (17:00)
[2017-12-08] MEDS: PIPERACILLIN /TAZOBACTAM 3.375 G in IV D5W 50 ML IV SCH ×2 (18:01→22:10)
[2017-12-08 20:00] VITALS: BP 104/70
[2017-12-08 20:07] VITALS: BP 104/70
[2017-12-08] MEDS ORDERED: LACTULOSE 10 G/15 ML UDC (PYXIS) PO PRN (21:00)
[2017-12-08] MEDS ORDERED: SODIUM POLYSTYRENE SULFONATE 15 G/60 ML BOTTLE PO ONE (21:00)
[2017-12-08] MEDS: Z GUARD REMEDY 2 OZ OINT TP SCH (22:10)
[2017-12-08 23:42] VITALS: BP 96/56
[2017-12-09] VITALS (7 sets, daily range): BP systolic 95–107; BP diastolic 49–59
[2017-12-09] MEDS: IPRATROPIUM NEB FS 0.5 MG/2.5 ML AMPUL.NEB NEB SCH ×6 (03:28→23:30)
[2017-12-09] MEDS: ALBUTEROL FS 2.5 MG/0.5 ML VIAL.NEB NEB SCH ×6 (03:28→23:30)
[2017-12-09] MEDS: PIPERACILLIN /TAZOBACTAM 3.375 G in IV D5W 50 ML IV SCH ×4 (05:30→22:05)
[2017-12-09 07:08] LABS: BASOPHILS # (AUTO) 0.1 /CMM (0.0-0.2); BASOPHILS % (AUTO) 0.6 % (0.0-2.0); EOSINOPHILS % (AUTO) 0.3 % (0.0-6.0); HEMATOCRIT 27 % (39-51); HEMOGLOBIN 9.1 g/dL (13.5-17.5); LYMPHOCYTES # (AUTO) 0.5 /CMM (0.8-4.8); MEAN CORPUSCULAR HEMOGLOBIN 32 PG (26.0-33.0); MEAN CORPUSCULAR HGB CONC 33 g/dl (31.0-36.0); MEAN CORPUSCULAR VOLUME 96 fL (80-96); MONOCYTES # (AUTO) 0.8 /CMM (0.1-1.30); NEUTROPHILS # (AUTO) 8.3 /CMM (1.8-8.9); NEUTROPHILS % (AUTO) 86.1 % (43.0-81.0); PLATELET COUNT (AUTO) 208 /CMM (150-450); RDW COEFFICIENT OF VARIATION 19.3 (11.5-15.0); RED BLOOD CELL COUNT(AUTO) 2.83 MIL/uL (4.5-6.0); WHITE BLOOD COUNT (AUTO) 9.6 K/uL (4.3-11.0)
[2017-12-09 07:11] LABS: INR 1.15 (0.87-1.13)
[2017-12-09 07:13] LABS: ALANINE AMINOTRANSFERASE 945 U/L (12-78); ALBUMIN 2.1 g/dL (3.4-5.0); ALKALINE PHOSPHATASE 280 U/L (46-116); ASPARTATE AMINOTRANSFERASE 283 U/L (15-37); B-TYPE NATRIURETIC PEPTIDE 3219 PG/ML (0-125); BILIRUBIN,TOTAL 1.1 mg/dL (0.2-1.0); CALCIUM, SERUM 9.3 mg/dL (8.5-10.1); CARBON DIOXIDE 35 mmol/L (21-32); CHLORIDE 101 mmol/L (98-107); CREATININE 1.5 mg/dL (0.6-1.3); GLUCOSE 126 mg/dL (74-106); MAGNESIUM 1.6 mg/dL (1.8-2.4); PHOSPHORUS 3.5 mg/dL (2.5-4.9); POTASSIUM 4.9 mmol/L (3.5-5.1); SODIUM SERUM 142 mmol/L (136-145); TOTAL PROTEIN, SERUM 6.5 g/dL (6.4-8.2); UREA NITROGEN, BLOOD 37 mg/dL (7-18)
[2017-12-09 07:17] LABS: CHOLESTEROL 111 mg/dL (<200); HDL CHOLESTEROL 29 mg/dL (40-60); LDL 80 mg/dL (0-99); THYROID STIMULATING HORMONE 3.854 uIU/mL (0.358-3.74); TRIGLYCERIDES 78 mg/dL (30-150)
[2017-12-09 07:42] LABS: IRON, SERUM 20 ug/dl (50-175); TOTAL IRON BINDING CAPACITY 191 ug/dl (250-450)
[2017-12-09] MEDS: VANCOMYCIN 1 GM in IV D5W 250 ML IV SCH (08:56)
[2017-12-09] MEDS: PANTOPRAZOLE 40 MG VIAL IV SCH (08:56)
[2017-12-09] MEDS: HYDROGEL DRESSING 90 GM TUBE TP SCH (08:58)
[2017-12-09] MEDS: Z GUARD REMEDY 2 OZ OINT TP SCH ×2 (08:59→20:41)
[2017-12-09] MEDS: Magnesium 1GM/D5W 100ML PREMIX 100 ML IV SCH ×2 (10:40→10:41)
[2017-12-09] MEDS: IV NS 0.9% 1,000 ML IV SCH (17:43)
[2017-12-09] MEDS: ACETAMINOPHEN 325 MG TABLET PO PRN (22:03)
[2017-12-10] VITALS (7 sets, daily range): BP systolic 100–116; BP diastolic 55–71
[2017-12-10] MEDS: VANCOMYCIN 1 GM in IV D5W 250 ML IV SCH ×2 (02:53→21:35)
[2017-12-10] MEDS: PIPERACILLIN /TAZOBACTAM 3.375 G in IV D5W 50 ML IV SCH ×4 (05:20→23:47)
[2017-12-10] MEDS: IV NS 0.9% 1,000 ML IV SCH ×2 (05:20→20:23)
[2017-12-10 07:55] LABS: CALCIUM, SERUM 9.4 mg/dL (8.5-10.1); CARBON DIOXIDE 36 mmol/L (21-32); CHLORIDE 99 mmol/L (98-107); CREATININE 1.3 mg/dL (0.6-1.3); GLUCOSE 183 mg/dL (74-106); MAGNESIUM 1.9 mg/dL (1.8-2.4); POTASSIUM 4.5 mmol/L (3.5-5.1); SODIUM SERUM 138 mmol/L (136-145); UREA NITROGEN, BLOOD 28 mg/dL (7-18)
[2017-12-10] MEDS: ALBUTEROL FS 2.5 MG/0.5 ML VIAL.NEB NEB SCH ×5 (08:19→23:30)
[2017-12-10] MEDS: IPRATROPIUM NEB FS 0.5 MG/2.5 ML AMPUL.NEB NEB SCH ×5 (08:19→23:30)
[2017-12-10] MEDS: PANTOPRAZOLE 40 MG VIAL IV SCH (08:54)
[2017-12-10] MEDS: HYDROGEL DRESSING 90 GM TUBE TP SCH (08:56)
[2017-12-10] MEDS: Z GUARD REMEDY 2 OZ OINT TP SCH ×2 (08:57→20:24)
[2017-12-10] MEDS: ASCORBIC ACID 500 MG TABLET PO SCH ×2 (11:28→17:27)
[2017-12-10] MEDS: MULTIVITAMINS,THERAGRAN 1 UDTAB TABLET PO SCH (11:28)
[2017-12-10 14:13] LABS: ALBUMIN 2.1 g/dL (3.4-5.0); BILIRUBIN,DIRECT 0.5 mg/dL (0.0-0.2); BILIRUBIN,TOTAL 0.9 mg/dL (0.2-1.0); TOTAL PROTEIN, SERUM 6.5 g/dL (6.4-8.2)
[2017-12-11] MEDS: ACETAMINOPHEN 325 MG TABLET PO PRN ×3 (01:48→23:46)
[2017-12-11] MEDS: ALBUTEROL FS 2.5 MG/0.5 ML VIAL.NEB NEB SCH ×6 (03:30→23:54)
[2017-12-11] MEDS: IPRATROPIUM NEB FS 0.5 MG/2.5 ML AMPUL.NEB NEB SCH ×6 (03:30→23:54)
[2017-12-11 04:00] VITALS: BP 130/100
[2017-12-11] MEDS: PIPERACILLIN /TAZOBACTAM 3.375 G in IV D5W 50 ML IV SCH ×4 (04:26→23:46)
[2017-12-11 07:24] LABS: BASOPHILS % (AUTO) 0.3 % (0.0-2.0); EOSINOPHILS # (AUTO) 0.1 /CMM (0.0-0.7); EOSINOPHILS % (AUTO) 0.7 % (0.0-6.0); HEMATOCRIT 27 % (39-51); HEMOGLOBIN 9.1 g/dL (13.5-17.5); LYMPHOCYTES # (AUTO) 0.9 /CMM (0.8-4.8); LYMPHOCYTES % (AUTO) 9.2 % (20.0-44.0); MEAN CORPUSCULAR HEMOGLOBIN 31 PG (26.0-33.0); MEAN CORPUSCULAR HGB CONC 33 g/dl (31.0-36.0); MEAN CORPUSCULAR VOLUME 94 fL (80-96); MONOCYTES # (AUTO) 0.9 /CMM (0.1-1.30); MONOCYTES % (AUTO) 8.9 % (2.0-12.0); NEUTROPHILS # (AUTO) 8.2 /CMM (1.8-8.9); NEUTROPHILS % (AUTO) 80.9 % (43.0-81.0); PLATELET COUNT (AUTO) 209 /CMM (150-450); RDW COEFFICIENT OF VARIATION 18.7 (11.5-15.0); RED BLOOD CELL COUNT(AUTO) 2.91 MIL/uL (4.5-6.0); WHITE BLOOD COUNT (AUTO) 10.1 K/uL (4.3-11.0)
[2017-12-11 07:40] LABS: ALANINE AMINOTRANSFERASE 559 U/L (12-78); ALBUMIN 2.2 g/dL (3.4-5.0); ALKALINE PHOSPHATASE 242 U/L (46-116); ASPARTATE AMINOTRANSFERASE 67 U/L (15-37); BILIRUBIN,DIRECT 0.6 mg/dL (0.0-0.2); BILIRUBIN,TOTAL 0.9 mg/dL (0.2-1.0); CALCIUM, SERUM 9.2 mg/dL (8.5-10.1); CARBON DIOXIDE 31 mmol/L (21-32); CHLORIDE 99 mmol/L (98-107); CREATININE 1.3 mg/dL (0.6-1.3); GLUCOSE 218 mg/dL (74-106); POTASSIUM 4.5 mmol/L (3.5-5.1); SODIUM SERUM 137 mmol/L (136-145); TOTAL PROTEIN, SERUM 6.7 g/dL (6.4-8.2); UREA NITROGEN, BLOOD 21 mg/dL (7-18)
[2017-12-11 08:00] VITALS: BP 91/73
[2017-12-11] MEDS: HYDROGEL DRESSING 90 GM TUBE TP SCH (08:42)
[2017-12-11] MEDS: MULTIVITAMINS,THERAGRAN 1 UDTAB TABLET PO SCH (08:42)
[2017-12-11] MEDS: PANTOPRAZOLE 40 MG VIAL IV SCH (08:42)
[2017-12-11] MEDS: ASCORBIC ACID 500 MG TABLET PO SCH ×2 (08:42→16:59)
[2017-12-11] MEDS: Z GUARD REMEDY 2 OZ OINT TP SCH ×2 (08:43→21:10)
[2017-12-11] MEDS: IV NS 0.9% 1,000 ML IV SCH (08:43)
[2017-12-11 14:00] VITALS: BP 111/65
[2017-12-11] MEDS: VANCOMYCIN 1 GM in IV D5W 250 ML IV SCH (14:14)
[2017-12-11 16:00] VITALS: BP_SYST 111; BP_SYST 132; BP_DIAS 65; BP_DIAS 72
[2017-12-11 20:00] VITALS: BP 132/80
[2017-12-12] MEDS: ALBUTEROL FS 2.5 MG/0.5 ML VIAL.NEB NEB SCH ×6 (03:25→23:12)
[2017-12-12] MEDS: IPRATROPIUM NEB FS 0.5 MG/2.5 ML AMPUL.NEB NEB SCH ×6 (03:25→23:12)
[2017-12-12 04:00] VITALS: BP_SYST 124; BP_SYST 128; BP_DIAS 70; BP_DIAS 74
[2017-12-12] MEDS: ACETAMINOPHEN 325 MG TABLET PO PRN ×3 (04:49→19:50)
[2017-12-12] MEDS: PIPERACILLIN /TAZOBACTAM 3.375 G in IV D5W 50 ML IV SCH ×4 (04:49→22:59)
[2017-12-12 07:35] LABS: BASOPHILS % (AUTO) 0.2 % (0.0-2.0); EOSINOPHILS # (AUTO) 0.1 /CMM (0.0-0.7); EOSINOPHILS % (AUTO) 0.8 % (0.0-6.0); HEMATOCRIT 28 % (39-51); HEMOGLOBIN 9.2 g/dL (13.5-17.5); LYMPHOCYTES # (AUTO) 0.8 /CMM (0.8-4.8); LYMPHOCYTES % (AUTO) 6.6 % (20.0-44.0); MEAN CORPUSCULAR HEMOGLOBIN 31 PG (26.0-33.0); MEAN CORPUSCULAR HGB CONC 33 g/dl (31.0-36.0); MEAN CORPUSCULAR VOLUME 95 fL (80-96); NEUTROPHILS # (AUTO) 9.5 /CMM (1.8-8.9); NEUTROPHILS % (AUTO) 83.4 % (43.0-81.0); PLATELET COUNT (AUTO) 194 /CMM (150-450); RDW COEFFICIENT OF VARIATION 19.1 (11.5-15.0); WHITE BLOOD COUNT (AUTO) 11.4 K/uL (4.3-11.0)
[2017-12-12 07:55] LABS: CALCIUM, SERUM 9.4 mg/dL (8.5-10.1); CARBON DIOXIDE 30 mmol/L (21-32); CHLORIDE 100 mmol/L (98-107); CREATININE 1.1 mg/dL (0.6-1.3); GLUCOSE 212 mg/dL (74-106); POTASSIUM 4.3 mmol/L (3.5-5.1); SODIUM SERUM 138 mmol/L (136-145); UREA NITROGEN, BLOOD 18 mg/dL (7-18)
[2017-12-12 08:00] VITALS: BP_SYST 122; BP_DIAS 87; BP_DIAS 97
[2017-12-12 08:04] LABS: ALBUMIN 2.3 g/dL (3.4-5.0); BILIRUBIN,DIRECT 0.5 mg/dL (0.0-0.2)
[2017-12-12] MEDS: PANTOPRAZOLE 40 MG VIAL IV SCH (08:14)
[2017-12-12] MEDS: ASCORBIC ACID 500 MG TABLET PO SCH ×2 (08:14→16:31)
[2017-12-12] MEDS: MULTIVITAMINS,THERAGRAN 1 UDTAB TABLET PO SCH (08:14)
[2017-12-12] MEDS: VANCOMYCIN 1 GM in IV D5W 250 ML IV SCH (08:15)
[2017-12-12] MEDS: Z GUARD REMEDY 2 OZ OINT TP SCH ×2 (08:16→21:58)
[2017-12-12] MEDS: HYDROGEL DRESSING 90 GM TUBE TP SCH (08:16)
[2017-12-12 16:00] VITALS: BP 128/74
[2017-12-12 20:00] VITALS: BP_SYST 148; BP_SYST 159; BP_DIAS 80
[2017-12-13] VITALS: BP 138/80
[2017-12-13] MEDS: IPRATROPIUM NEB FS 0.5 MG/2.5 ML AMPUL.NEB NEB SCH ×4 (02:31→16:35)
[2017-12-13] MEDS: ALBUTEROL FS 2.5 MG/0.5 ML VIAL.NEB NEB SCH ×4 (02:31→16:34)
[2017-12-13] MEDS: VANCOMYCIN 1 GM in IV D5W 250 ML IV SCH (03:00)
[2017-12-13 04:00] VITALS: BP 132/79
[2017-12-13] MEDS: PIPERACILLIN /TAZOBACTAM 3.375 G in IV D5W 50 ML IV SCH ×3 (04:26→16:07)
[2017-12-13 06:49] LABS: BASOPHILS # (AUTO) 0.1 /CMM (0.0-0.2); BASOPHILS % (AUTO) 0.5 % (0.0-2.0); EOSINOPHILS # (AUTO) 0.2 /CMM (0.0-0.7); EOSINOPHILS % (AUTO) 1.8 % (0.0-6.0); HEMATOCRIT 27 % (39-51); HEMOGLOBIN 8.9 g/dL (13.5-17.5); LYMPHOCYTES % (AUTO) 9.5 % (20.0-44.0); MEAN CORPUSCULAR HEMOGLOBIN 31 PG (26.0-33.0); MEAN CORPUSCULAR HGB CONC 33 g/dl (31.0-36.0); MEAN CORPUSCULAR VOLUME 94 fL (80-96); MONOCYTES % (AUTO) 9.8 % (2.0-12.0); NEUTROPHILS # (AUTO) 8.2 /CMM (1.8-8.9); NEUTROPHILS % (AUTO) 78.4 % (43.0-81.0); PLATELET COUNT (AUTO) 195 /CMM (150-450); RDW COEFFICIENT OF VARIATION 19.6 (11.5-15.0); RED BLOOD CELL COUNT(AUTO) 2.92 MIL/uL (4.5-6.0); WHITE BLOOD COUNT (AUTO) 10.5 K/uL (4.3-11.0)
[2017-12-13 08:00] VITALS: BP 133/83
[2017-12-13] MEDS: ASCORBIC ACID 500 MG TABLET PO SCH ×2 (08:01→16:07)
[2017-12-13] MEDS: MULTIVITAMINS,THERAGRAN 1 UDTAB TABLET PO SCH (08:01)
[2017-12-13] MEDS: PANTOPRAZOLE 40 MG VIAL IV SCH (08:01)
[2017-12-13] MEDS: HYDROGEL DRESSING 90 GM TUBE TP SCH (08:02)
[2017-12-13] MEDS: Z GUARD REMEDY 2 OZ OINT TP SCH (08:02)
[2017-12-13 08:13] LABS: CALCIUM, SERUM 9.2 mg/dL (8.5-10.1); CARBON DIOXIDE 32 mmol/L (21-32); CHLORIDE 99 mmol/L (98-107); CREATININE 1.4 mg/dL (0.6-1.3); GLUCOSE 235 mg/dL (74-106); POTASSIUM 4.2 mmol/L (3.5-5.1); SODIUM SERUM 137 mmol/L (136-145); UREA NITROGEN, BLOOD 22 mg/dL (7-18)
[2017-12-13 08:22] LABS: ALBUMIN 2.2 g/dL (3.4-5.0); BILIRUBIN,DIRECT 0.4 mg/dL (0.0-0.2); BILIRUBIN,TOTAL 0.9 mg/dL (0.2-1.0); TOTAL PROTEIN, SERUM 6.7 g/dL (6.4-8.2)
[2017-12-13] MEDS ORDERED: HYDROCODONE/APAP 5/325MG 1 EACH TABLET PO PRN (11:30)
[2017-12-13] MEDS ORDERED: VANCOMYCIN 1 GM in IV D5W 250 ML IV SCH ×2 (12:00→18:00)
[2017-12-13 16:00] VITALS: BP 130/73
== END 2017-12-13 18:17 | disposition home health service (06) | DRG 853 ==
LOC: ER 09:10 → TELE 11:11 → TELE1 16:05 → TELE-TD 19:07 → MEDSG1 12-10 10:44
PROVIDERS: ADMIT Internal Medicine; ATTEND Internal Medicine
PROC: 0JB70ZZ Excision of Back Subcutaneous Tissue and Fascia, Open Approach (ICD-10-PCS; principal; 2017-12-11)
PROC: 0JB90ZZ Excision of Buttock Subcutaneous Tissue and Fascia, Open Approach (ICD-10-PCS; 2017-12-11)
PROC: 0JB90ZZ Excision of Buttock Subcutaneous Tissue and Fascia, Open Approach (ICD-10-PCS; 2017-12-11)
DX: A41.9 Sepsis, unspecified organism (principal); J15.6 Pneumonia due to other Gram-negative bacteria; N17.0 Acute kidney failure with tubular necrosis; K72.00 Acute and subacute hepatic failure without coma; E43 Unspecified severe protein-calorie malnutrition; L89.153 Pressure ulcer of sacral region, stage 3; G92 Toxic encephalopathy; L89.323 Pressure ulcer of left buttock, stage 3; L89.313 Pressure ulcer of right buttock, stage 3; D69.2 Other nonthrombocytopenic purpura; E11.42 Type 2 diabetes mellitus with diabetic polyneuropathy; R53.2 Functional quadriplegia; D69.6 Thrombocytopenia, unspecified; E88.09 Other disorders of plasma-protein metabolism, not elsewhere classified; D63.8 Anemia in other chronic diseases classified elsewhere; E78.5 Hyperlipidemia, unspecified; F03.90 Unspecified dementia, unspecified severity, without behavioral disturbance, psychotic disturbance, mood disturbance, and anxiety; G40.909 Epilepsy, unspecified, not intractable, without status epilepticus; I10 Essential (primary) hypertension; I25.10 Atherosclerotic heart disease of native coronary artery without angina pectoris; K21.9 Gastro-esophageal reflux disease without esophagitis; Z79.4 Long term (current) use of insulin; Z86.73 Personal history of transient ischemic attack (TIA), and cerebral infarction without residual deficits; Z95.1 Presence of aortocoronary bypass graft; M62.50 Muscle wasting and atrophy, not elsewhere classified, unspecified site; L89.621 Pressure ulcer of left heel, stage 1; L89.611 Pressure ulcer of right heel, stage 1; R74.0 Nonspecific elevation of levels of transaminase and lactic acid dehydrogenase [LDH]; M21.371 Foot drop, right foot; Z68.29 Body mass index [BMI] 29.0-29.9, adult; Z79.899 Other long term (current) drug therapy
CPT/HCPCS: 36415; 70450-TC; 71045-TC; 76705-TC; 78226; 80048-TC; 80053-TC; 80061-TC; 80076-TC; 80202-TC; 81000-TC; 82140-TC; 83540-TC; 83605-TC; 83735-TC; 83880; 84100-TC; 84443-TC; 84484-TC; 85025-TC; 85610-TC; 85730-TC; 87040-TC; 87081-TC; 87086-TC; 92611-TC; 94799-TC; A4606; A6248; A6402; A9537; C9113; J0456; J0696; J2543; J3370; J3475; J7030; J7050; J7060; Z7610

== ENCOUNTER 2017-12-16 15:33 | Inpatient (IN) | payer MEDICARE ==
[~2017-12-16] VITALS: Ht 180.3 cm; Wt 91.2 kg
[~2017-12-16 15:33] MED LIST changes: +ACET-868 PO; +ALBU2.5V13 IH; -ALBU2.5V13 NEB; +ASCO500T10 PO; +BISA10SU8 RC; -CALC3.8S NS; -CALC60OI4 TP; -CARB15DR2 EACHEYE; +CRAN425C6 PO; +FURO-145 PO; -FURO20TA4 PO; +INSU100V3 SQ; +IPRA0.2S49 IH; -IPRA0.2S9 NEB; -LEVE250T2 PO; +LEVE250T4 PO; +MAGN400O6 PO; -METO50TA16 PO; +MULT-213 PO; +NA P133E RC; -POT473SP TP; -TAMS0.4C34 PO; +ZINC220T PO; -[UNRECOGNIZED DRUG - CODE] TP
--- NOTE | 2017-12-16 15:48 | NUR ---
MARCOS FROM HOME DT LOW BLOOD PRESSURE. PATIENT RECEIVED AWAKE AND ALERT. NO APPARENT DISTRESS. SKIN IS WARM TO TOUCH AND NON DIAPHORETIC,. AFEBRILE. IV NS 500 GIVEN IN FIELD. GOWNED PT AND PLACED ON TELE MONITOR. VSS
[2017-12-16] MEDS ORDERED: IV NS 0.9% 500 ML BAG IV ONE (16:00)
--- NOTE | 2017-12-16 16:15 | NUR ---
SLEEP MANAGER AT BEDSIDE, BLOOD KAYALE SENT TO LAB
[2017-12-16 16:24] LABS: BASOPHILS # (AUTO) 0.1 /CMM (0.0-0.2); BASOPHILS % (AUTO) 0.6 % (0.0-2.0); EOSINOPHILS # (AUTO) 0.1 /CMM (0.0-0.7); HEMATOCRIT 27 % (39-51); HEMOGLOBIN 8.9 g/dL (13.5-17.5); LYMPHOCYTES # (AUTO) 1.2 /CMM (0.8-4.8); LYMPHOCYTES % (AUTO) 8.4 % (20.0-44.0); MEAN CORPUSCULAR HEMOGLOBIN 30 PG (26.0-33.0); MEAN CORPUSCULAR HGB CONC 33 g/dl (31.0-36.0); MEAN CORPUSCULAR VOLUME 94 fL (80-96); MONOCYTES # (AUTO) 0.5 /CMM (0.1-1.30); MONOCYTES % (AUTO) 3.5 % (2.0-12.0); NEUTROPHILS # (AUTO) 12.2 /CMM (1.8-8.9); NEUTROPHILS % (AUTO) 86.5 % (43.0-81.0); PLATELET COUNT (AUTO) 237 /CMM (150-450); RDW COEFFICIENT OF VARIATION 18.6 (11.5-15.0); RED BLOOD CELL COUNT(AUTO) 2.91 MIL/uL (4.5-6.0); WHITE BLOOD COUNT (AUTO) 14.1 K/uL (4.3-11.0)
[2017-12-16 16:28] LABS: APPEARANCE,URINE Cloudy (CLEAR); BILIRUBIN,URINE LARGE (NEGATIVE); BLOOD, URINE Large Ery/uL (NEGATIVE); COLOR,URINE Red (YELLOW); KETONES,URINE 15 (NEGATIVE); LEUKOCYTE ESTERASE ,URINE Large (NEGATIVE); NITRITE, URINE Positive (NEGATIVE); PROTEIN,URINE >=300 mg/dl (NEGATIVE); UGLUCOSE 100 MG/DL mg/dL (NEGATIVE)
[2017-12-16 16:34] LABS: CALCIUM, SERUM 9.3 mg/dL (8.5-10.1); CARBON DIOXIDE 30 mmol/L (21-32); CHLORIDE 104 mmol/L (98-107); CREATININE 3.4 mg/dL (0.6-1.3); GLUCOSE 107 mg/dL (74-106); POTASSIUM 4.9 mmol/L (3.5-5.1); SODIUM SERUM 141 mmol/L (136-145); UREA NITROGEN, BLOOD 45 mg/dL (7-18)
[2017-12-16 16:40] LABS: ALANINE AMINOTRANSFERASE 166 U/L (12-78); ALBUMIN 2.4 g/dL (3.4-5.0); ALKALINE PHOSPHATASE 192 U/L (46-116); ASPARTATE AMINOTRANSFERASE 27 U/L (15-37); BILIRUBIN,DIRECT 0.5 mg/dL (0.0-0.2); BILIRUBIN,TOTAL 1.1 mg/dL (0.2-1.0); TOTAL PROTEIN, SERUM 6.5 g/dL (6.4-8.2)
--- NOTE | 2017-12-16 16:41 | NUR ---
MD ALBERT AT BEDSIDE.
[2017-12-16 16:44] LABS: INR 1.38 (0.85-1.15)
[2017-12-16 16:58] LABS: RBC,URINE TOO NUMEROUS TO COUN /HPF (0-2); WBC,URINE 21-50 /HPF (0-3)
[2017-12-16 16:59] LABS: BACTERIA,URINE Few /HPF (None Seen); SQUAMOUS EPITHELIAL CELL,UR Moderate /HPF (None Seen)
[2017-12-16] MEDS ORDERED: IV NS 0.9% 1,000 ML BAG IV ONE ×2 (17:00→18:30)
--- NOTE | 2017-12-16 17:49 | NUR ---
ICU 251
--- NOTE | 2017-12-16 17:50 | NUR ---
PT ACCIDENTALLY PULLED OUT IV ACCESS. NEW IV ACCESS PLACED, REFUSES SECOND ACCESS.
--- NOTE | 2017-12-16 18:28 | NUR ---
[facility] FOR [place]
[2017-12-16] MEDS ORDERED: PIPERACILLIN /TAZOBACTAM 3.375 G in IV D5W 50 ML IV ONE (18:30)
[2017-12-16] MEDS ORDERED: LEVOFLOXACIN 750 MG /D5W 150ML 150 ML IV ONE ×2 (18:30→18:58)
--- NOTE | 2017-12-16 19:02 | NUR ---
PATIENT ACCIDENTALLY PULLED OUT FIRST IV-- IV INSERTED ON RIGHT WRSIT 20. REFUSED SECND LINE
--- NOTE | 2017-12-16 19:02 | NUR ---
TRANSPORTED PT TO ICU
--- NOTE | 2017-12-16 19:20 | NUR ---
SUPERVISOR GAS METER REPAIR RCD PT FROM ER WITH DX SEPSIS; PT IS A/Ox2 WITH UNCLEAR SPEECH AND LEFT SIDED WEAKNESS; HX OF CVA. AFIB ON MONITOR. BP 90s. LEVAQUIN INFUSING FROM ER TO RIGHT FOREARM 20 G. DIEZ CATH WITH SCANT AMOUNT OF BLOOD TINGED URINE. SACRAL EXCORIATION NOTED; APPLIED ZGUARD AND MEPILEX; INITIATED WOUND CARE CONSULT.
[2017-12-16] MEDS ORDERED: ONDANSETRON HCL/PF 4 MG/2 ML VIAL IVP PRN (19:30)
--- NOTE | 2017-12-16 19:45 | NUR ---
PORTER SAMPLE CASE DR SESAY AT BEDSIDE EVALUATING PT. ORDERS RECEIVED.
[2017-12-16 20:00] VITALS: BP 113/58
[2017-12-16] MEDS ORDERED: NA PHOS,M-B/NA PHOS,DI-BA 1 EA ENEMA RC PRN (20:00)
[2017-12-16] MEDS ORDERED: INSULIN REGULAR, HUMAN 100 UNIT/ML 3 ML VIAL SQ PRN (20:00)
[2017-12-16] MEDS ORDERED: BISACODYL SUPP (10 MG) 10 MG/SUPP.RECT SUPP.RECT RC PRN (20:00)
[2017-12-16] MEDS ORDERED: IV NS 0.9% 1,000 ML BAG IV PRN (20:30)
[2017-12-16 21:00] VITALS: BP 115/69
[2017-12-16] MEDS ORDERED: CEFTRIAXONE 1 G in IV D5W 50 ML IV SCH (21:00)
[2017-12-16] MEDS: MEROPENEM 500 MG in IV NS 0.9% 50 ML IV SCH (21:02)
[2017-12-16] MEDS: Z GUARD REMEDY 2 OZ OINT TP PRN (21:02)
[2017-12-16] MEDS: IV NS 0.9% 1,000 ML IV PRN (21:03)
[2017-12-16] MEDS: LEVETIRACETAM (250 MG) 250 MG TABLET PO SCH (21:07)
--- NOTE | 2017-12-16 21:08 | NUR ---
STEM SHAPER BLOOD SUGAR 66; NO COVERAGE NEEDED. ORANGE JUICE AND SNACK GIVEN TO PT.
[2017-12-16] MEDS ORDERED: DEXTROSE 50%-WATER 50 ML DISP.SYRIN IV PRN (21:30)
[2017-12-16] MEDS: BLOOD SUGAR DIAGNOSTIC 1 EACH STRIP IN SCH (21:35)
[2017-12-16 21:39] LABS: ALBUMIN 2.2 g/dL (3.4-5.0); BILIRUBIN,DIRECT 0.4 mg/dL (0.0-0.2); BILIRUBIN,TOTAL 1.1 mg/dL (0.2-1.0); TOTAL PROTEIN, SERUM 6.7 g/dL (6.4-8.2)
[2017-12-16 22:00] VITALS: BP 99/53
[2017-12-16 23:00] VITALS: BP 111/54
[2017-12-16] MEDS ORDERED: IPRATROPIUM NEB FS 0.5 MG/2.5 ML AMPUL.NEB IH SCH (23:30)
[2017-12-16] MEDS: ALBUTEROL FS 2.5 MG/0.5 ML VIAL.NEB IH SCH (23:32)
[2017-12-16] MEDS: IPRATROPIUM NEB FS 0.5 MG/2.5 ML AMPUL.NEB IH SCH (23:32)
[2017-12-17] VITALS (15 sets, daily range): BP systolic 92–117; BP diastolic 20–75
[2017-12-17] MEDS ORDERED: HYDROCODONE/APAP 10/325MG 1 EA TABLET PO SCH
[2017-12-17] MEDS: IPRATROPIUM NEB FS 0.5 MG/2.5 ML AMPUL.NEB IH SCH ×6 (03:18→23:59)
[2017-12-17] MEDS: ALBUTEROL FS 2.5 MG/0.5 ML VIAL.NEB IH SCH ×6 (03:18→23:59)
[2017-12-17 05:06] LABS: BASOPHILS % (AUTO) 0.3 % (0.0-2.0); EOSINOPHILS # (AUTO) 0.4 /CMM (0.0-0.7); EOSINOPHILS % (AUTO) 2.8 % (0.0-6.0); HEMATOCRIT 31 % (39-51); HEMOGLOBIN 9.9 g/dL (13.5-17.5); LYMPHOCYTES # (AUTO) 1.5 /CMM (0.8-4.8); LYMPHOCYTES % (AUTO) 11.4 % (20.0-44.0); MEAN CORPUSCULAR HEMOGLOBIN 31 PG (26.0-33.0); MEAN CORPUSCULAR HGB CONC 32 g/dl (31.0-36.0); MEAN CORPUSCULAR VOLUME 96 fL (80-96); MONOCYTES # (AUTO) 0.5 /CMM (0.1-1.30); MONOCYTES % (AUTO) 3.9 % (2.0-12.0); NEUTROPHILS # (AUTO) 10.4 /CMM (1.8-8.9); NEUTROPHILS % (AUTO) 81.6 % (43.0-81.0); PLATELET COUNT (AUTO) 259 /CMM (150-450); RDW COEFFICIENT OF VARIATION 20.2 (11.5-15.0); RED BLOOD CELL COUNT(AUTO) 3.18 MIL/uL (4.5-6.0); WHITE BLOOD COUNT (AUTO) 12.7 K/uL (4.3-11.0)
[2017-12-17 05:31] LABS: CHOLESTEROL 125 mg/dL (<200); HDL CHOLESTEROL 38 mg/dL (40-60); LDL 80 mg/dL (0-99); TRIGLYCERIDES 105 mg/dL (30-150)
[2017-12-17 05:33] LABS: CALCIUM, SERUM 9.4 mg/dL (8.5-10.1); CARBON DIOXIDE 29 mmol/L (21-32); CHLORIDE 104 mmol/L (98-107); CREATININE 3.3 mg/dL (0.6-1.3); GLUCOSE 101 mg/dL (74-106); MAGNESIUM 2.1 mg/dL (1.8-2.4); PHOSPHORUS 4.1 mg/dL (2.5-4.9); POTASSIUM 5.2 mmol/L (3.5-5.1); SODIUM SERUM 140 mmol/L (136-145); UREA NITROGEN, BLOOD 40 mg/dL (7-18)
--- NOTE | 2017-12-17 07:45 | NUR ---
ICU/RN - Initial Notes Received pt in bed, alert and oriented x1-2. Reorientation provided to time and place. Garbled speech noted. On o2 @ 5lpm via nasal cannula. On tele reading Afib 90s. IV patent and intact with IVF infusing well. Mason catheter intact draining urine to gravity, hematuria noted. Safety and comfort measures in place. Will continue to monitor pt closely.
--- NOTE | 2017-12-17 08:12 | NUR ---
WOUND CARE CONSULT: PT PRESENTS WITH STAGE 3 ULCERS TO SACRUM AND BILATERAL BUTTOCKS WELL RASH TO BUTTOCKS, ALL PRESENT ON ADMISSION. SOME PURPLISH DISCOLORATION TO RT LATERAL LOWER LEG NOTED WITH PEELING SKIN TO BILATERAL FEET, PRESENT ON ADMISSION. RECOMMENDATIONS MADE FOR WOUND CARE AND SKIN PROTECTION. DISCUSSED WITH NURSING STAFF. FIRST STEP MATTRESS ORDERED. RECOMMEND SURGICAL CONSULT. ALL SKIN PROTECTION MEASURES IN PLACE. WILL SEE PRN. ZARAGOZA IN AGREEMENT WITH PLAN OF CARE. Addendum: 12/17/17 at 0814 by CALEB CONWAY WNDNU Amended: Links added.
[2017-12-17] MEDS: MEROPENEM 500 MG in IV NS 0.9% 50 ML IV SCH ×2 (08:18→21:11)
[2017-12-17] MEDS: ASCORBIC ACID 500 MG TABLET PO SCH (08:18)
[2017-12-17] MEDS: LEVOTHYROXINE SODIUM 175 MCG TABLET PO SCH (08:19)
[2017-12-17] MEDS: LEVETIRACETAM (250 MG) 250 MG TABLET PO SCH ×2 (08:19→21:11)
[2017-12-17] MEDS: GABAPENTIN 400 MG CAPSULE PO SCH ×3 (08:19→17:05)
[2017-12-17] MEDS: AMLODIPINE BESYLATE 5 MG TABLET PO SCH (08:19)
[2017-12-17] MEDS: CLOPIDOGREL BISULFATE 75 MG TABLET PO SCH (08:19)
[2017-12-17] MEDS: CHOLECALCIFEROL 1,000 UNIT TABLET (VIT D3) PO SCH (08:19)
[2017-12-17] MEDS: ASPIRIN EC 81 MG TABLET.DR PO SCH (08:19)
[2017-12-17] MEDS: QUETIAPINE FUMARATE 25 MG TABLET PO SCH ×2 (08:19→16:58)
[2017-12-17] MEDS: FUROSEMIDE 20 MG TABLET PO SCH (08:19)
[2017-12-17] MEDS: DOCUSATE SODIUM 100 MG CAPSULE PO SCH ×2 (08:19→16:58)
[2017-12-17] MEDS: MULTIVIT, IRON, MIN NO. 8, FA 1 TAB PO SCH (08:19)
[2017-12-17] MEDS: LORATADINE 10 MG TABLET PO SCH ×2 (08:19→16:59)
[2017-12-17] MEDS: ZINC SULFATE 220 MG CAPSULE PO SCH (08:22)
[2017-12-17] MEDS: BLOOD SUGAR DIAGNOSTIC 1 EACH STRIP IN SCH ×4 (08:26→21:15)
[2017-12-17] MEDS: INSULIN DETEMIR 100 UNIT/ML CARTRIDGE SQ SCH (08:28)
[2017-12-17] MEDS ORDERED: HYDROGEL DRESSING 90 GM TUBE TP PRN (08:30)
[2017-12-17] MEDS: IV NS 0.9% 1,000 ML IV PRN (08:38)
[2017-12-17] MEDS ORDERED: Medication Not On Formulary EA (Cranberry Extract (Cranberry) 425 MG) PO SCH (09:00)
[2017-12-17] MEDS ORDERED: IV NS 0.9% 1,000 ML BAG IV SCH (09:00)
--- NOTE | 2017-12-17 09:00 | NUR ---
ICU/RN - Notes Susana held, pt's glucose level 66 earlier, and small appetite noted, ate only 30% of breakfast.
[2017-12-17] MEDS ORDERED: HYDROGEL DRESSING 90 GM TUBE TP SCH (09:30)
[2017-12-17] MEDS ORDERED: CLOTRIMAZOLE 1% 15 GM TUBE TP SCH (09:30)
--- NOTE | 2017-12-17 11:30 | NUR ---
ICU/RN - Notes Dr Goodman at bedside for evaluation. Per MD, pt cleared for MAKAYLA status.
[2017-12-17] MEDS: INSULIN REGULAR, HUMAN 100 UNIT/ML 3 ML VIAL SQ PRN ×2 (11:41→21:14)
[2017-12-17] MEDS: AMILORIDE HCL 5 MG TABLET PO SCH (11:41)
--- NOTE | 2017-12-17 12:10 | NUR ---
ICU/RN - Notes Pt transferred to [facility] via ACLS protocol in stable condition. Report given to Jennifer VILLAVICENCIO for continuity of care. All belongings taken with pt.
--- NOTE | 2017-12-17 12:24 | NUR ---
ICU/RN - Notes Pt's chikis Deluna called and message left notifying of transfer.
--- NOTE | 2017-12-17 12:30 | NUR ---
MAKAYLA VILLAVICENCIO INITIAL NOTE PT TRANSFERED VIA GURNEY RECEIVED REPORT FROM RICHARD VILLAVICENCIO. WILL CONTINUE TO MONITOR PATIENT CLOSELY. ALL SAFETY MEASURES IN PLACE.
[2017-12-17] MEDS ORDERED: IBUPROFEN 600 MG TABLET PO ONE (14:21)
[2017-12-17] MEDS ORDERED: HYDROCODONE/APAP 5/325MG 1 EACH TABLET ONE (14:21)
--- NOTE | 2017-12-17 19:55 | NUR ---
MAKAYLA RN OPENING NOTES RECEIVED REPORT FROM ELVIN VILLAVICENCIO. PATIENT A/A/O X1-2, ABLE TO MAKE SOME NEEDS KNOWN. BREATHING EVEN & UNLABORED W/ O2 @ 5L VIA NC. NO SOB OR DIFFICULTY BREATHING NOTED. ON TELE W/ CONTROLLED A-FIB, HR 99-100. RIGHT FOREARM IV #20 INTACT & W/ DRESSING CDI & IVF NS @ 100 ML/HR. DIEZ CATH DRAINING NAIN-COLORED URINE W/ SOME HEMATURIA. PATIENT RESTING COMFORTABLY IN BED. SAFETY MEASURES IN PLACE. WILL CONTINUE TO MONITOR CLOSELY.
[2017-12-17] MEDS: ATORVASTATIN 40 MG TABLET PO SCH (21:11)
[2017-12-18] VITALS (7 sets, daily range): BP systolic 90–147; BP diastolic 56–67
[2017-12-18] MEDS: IPRATROPIUM NEB FS 0.5 MG/2.5 ML AMPUL.NEB IH SCH ×6 (03:08→23:23)
[2017-12-18] MEDS: ALBUTEROL FS 2.5 MG/0.5 ML VIAL.NEB IH SCH ×6 (03:08→23:23)
[2017-12-18] MEDS: ACETAMINOPHEN 325 MG TABLET PO PRN ×2 (05:47→18:13)
[2017-12-18 06:32] LABS: BASOPHILS % (AUTO) 0.4 % (0.0-2.0); EOSINOPHILS # (AUTO) 0.4 /CMM (0.0-0.7); EOSINOPHILS % (AUTO) 3.7 % (0.0-6.0); HEMATOCRIT 28 % (39-51); LYMPHOCYTES # (AUTO) 1.3 /CMM (0.8-4.8); LYMPHOCYTES % (AUTO) 12.1 % (20.0-44.0); MEAN CORPUSCULAR HEMOGLOBIN 31 PG (26.0-33.0); MEAN CORPUSCULAR HGB CONC 32 g/dl (31.0-36.0); MEAN CORPUSCULAR VOLUME 97 fL (80-96); MONOCYTES # (AUTO) 0.8 /CMM (0.1-1.30); MONOCYTES % (AUTO) 7.5 % (2.0-12.0); NEUTROPHILS # (AUTO) 8.1 /CMM (1.8-8.9); NEUTROPHILS % (AUTO) 76.3 % (43.0-81.0); PLATELET COUNT (AUTO) 225 /CMM (150-450); RDW COEFFICIENT OF VARIATION 20.7 (11.5-15.0); RED BLOOD CELL COUNT(AUTO) 2.89 MIL/uL (4.5-6.0); WHITE BLOOD COUNT (AUTO) 10.6 K/uL (4.3-11.0)
[2017-12-18 07:11] LABS: CARBON DIOXIDE 28 mmol/L (21-32); CHLORIDE 108 mmol/L (98-107); CREATININE 2.5 mg/dL (0.6-1.3); GLUCOSE 139 mg/dL (74-106); POTASSIUM 4.5 mmol/L (3.5-5.1); SODIUM SERUM 144 mmol/L (136-145); UREA NITROGEN, BLOOD 41 mg/dL (7-18)
--- NOTE | 2017-12-18 07:41 | NUR ---
MAKAYLA RN NOTE PATIENT IN BED , RESTING COMFORTABLY IN BED , ON TELE MONITOR AFIB , CONTROLLED , WITH DIEZ CATH TO GRAVITY ,WITH YELLOW COLOR URINE , RT FA HL INTACT NO S[INFECTION NOTED , ON IVF ORDERED , BED IN LOWEST AND LOCKED POSITION , NO SOB NOTED ,ON 3L NC ,WILL CONT TO MONITOR CLOSELY,ON TELE MONITOR SR 77 WITH PAC , NOT IN DISTRESS AT THIS TIME .ON G TUBE FEEDING ORDERED, LT FA HL INTACT, ON IVF ORDERED ,WILL CONT TO MONITOR CLOSELY WITH TRACH TO VENT SETTING ORDERED Y Addendum: 12/18/17 at 0749 by MARISSA GRIMALDO RN WRONG CHART WRONG PATIENT Addendum: 12/18/17 at 0751 by MARISSA GRIMALDO RN PATIENT IN BED ,RESTING COMFORTABLY IN BED , ON TELE MONITOR AFIB CONTROLLED , WITH DIEZ V CATH TO GRAVITY WITH YELLOW COLOR URINE RT FA HL INTACT , ON IVF ORDERED, BED IN LOWEST AND LOCKED POSITION , WILL CONT TO MONITOR CLOSELY
[2017-12-18] MEDS: GABAPENTIN 400 MG CAPSULE PO SCH ×3 (09:26→16:42)
[2017-12-18] MEDS: DOCUSATE SODIUM 100 MG CAPSULE PO SCH ×2 (09:26→16:41)
[2017-12-18] MEDS: MEROPENEM 500 MG in IV NS 0.9% 50 ML IV SCH ×2 (09:26→23:42)
[2017-12-18] MEDS: LORATADINE 10 MG TABLET PO SCH ×2 (09:27→16:42)
[2017-12-18] MEDS: FUROSEMIDE 20 MG TABLET PO SCH (09:27)
[2017-12-18] MEDS: CHOLECALCIFEROL 1,000 UNIT TABLET (VIT D3) PO SCH (09:27)
[2017-12-18] MEDS: ZINC SULFATE 220 MG CAPSULE PO SCH (09:27)
[2017-12-18] MEDS: LEVETIRACETAM (250 MG) 250 MG TABLET PO SCH ×2 (09:27→23:42)
[2017-12-18] MEDS: AMILORIDE HCL 5 MG TABLET PO SCH (09:27)
[2017-12-18] MEDS: QUETIAPINE FUMARATE 25 MG TABLET PO SCH ×2 (09:28→16:42)
[2017-12-18] MEDS: MULTIVIT, IRON, MIN NO. 8, FA 1 TAB PO SCH (09:28)
[2017-12-18] MEDS: ASPIRIN EC 81 MG TABLET.DR PO SCH (09:28)
[2017-12-18] MEDS: CLOPIDOGREL BISULFATE 75 MG TABLET PO SCH (09:29)
[2017-12-18] MEDS: ASCORBIC ACID 500 MG TABLET PO SCH (09:29)
[2017-12-18] MEDS: AMLODIPINE BESYLATE 5 MG TABLET PO SCH (09:29)
[2017-12-18] MEDS: INSULIN REGULAR, HUMAN 100 UNIT/ML 3 ML VIAL SQ PRN ×4 (09:38→23:52)
[2017-12-18] MEDS: INSULIN DETEMIR 100 UNIT/ML CARTRIDGE SQ SCH (09:44)
[2017-12-18] MEDS: IV NS 0.9% 1,000 ML IV PRN ×2 (09:45→23:53)
[2017-12-18] MEDS: LEVOTHYROXINE SODIUM 175 MCG TABLET PO SCH (09:47)
[2017-12-18] MEDS: BLOOD SUGAR DIAGNOSTIC 1 EACH STRIP IN SCH ×4 (09:48→23:42)
--- NOTE | 2017-12-18 12:00 | NUR ---
MAKAYLA RN NOTE ALL NEEDS ATTENDED ASSISTED TO HAVE LUNCH ,NOT IN ACUTE DISTRESS, CONT ON IVF ORDERED, KEEP CLEAN DRY , REPOSITION Q 2 HOUR
--- NOTE | 2017-12-18 13:21 | NUR ---
MAKAYLA RN NOTE SEEN BY DR SESAY NEW ORDER WITH LABS GIVEN , WILL F\U
--- NOTE | 2017-12-18 15:00 | NUR ---
MAKAYLA RN NOTE ALL NEEDS ATTENDED, KEEP CLEAN DRY CONT ,ON IVF ORDERED, TURN REPOSITION, WILL CONT TO MONITOR CLOSELY
--- NOTE | 2017-12-18 18:59 | NUR ---
MAKAYLA RN NOTE PATIENT WANTS TO SPEAK TO SCHOOL LIBRARIAN ABOUT FINANCIAL , ORDER REQUESTED TO CASE MANGER , ALSO SEEN BY OPAL RN ID WITH ORDER CHEST X RAY
--- NOTE | 2017-12-18 19:40 | NUR ---
MAKAYLA RN INITIAL NOTE PT RECEIVED SLEEPING IN BED. NOTED TO BE LETHARGIC BUT AROUSABLE TO NAME. A/O X2 AND ABLE TO VERBALIZE SOME NEEDS. ON 3L OF O2 VIA NC AND SATURATING 94%. BREATHING REGULAR AND UNLABORED. TELE- A-FIB CONTROLLED 98. HOB ELEVATED. IV RFA #20 CLEAN AND PATENT WITH FLUIDS INFUSING. DIEZ CATHETER IN PLACE AND DRAINING BY GRAVITY. CALL LIGHT WITHIN REACH. WILL CONTINUE TO MONITOR.
[2017-12-18] MEDS: ATORVASTATIN 40 MG TABLET PO SCH (23:42)
[2017-12-18] MEDS: HYDROCODONE/APAP 5/325MG 1 EACH TABLET PO PRN (23:53)
[2017-12-19] VITALS: BP 108/67
[2017-12-19] MEDS: ALBUTEROL FS 2.5 MG/0.5 ML VIAL.NEB IH SCH ×6 (03:28→23:38)
[2017-12-19] MEDS: IPRATROPIUM NEB FS 0.5 MG/2.5 ML AMPUL.NEB IH SCH ×6 (03:29→23:38)
[2017-12-19 04:00] VITALS: BP_SYST 106; BP_SYST 116; BP_DIAS 67; BP_DIAS 69
[2017-12-19 07:28] LABS: BASOPHILS # (AUTO) 0.1 /CMM (0.0-0.2); BASOPHILS % (AUTO) 0.5 % (0.0-2.0); EOSINOPHILS # (AUTO) 0.3 /CMM (0.0-0.7); EOSINOPHILS % (AUTO) 3.1 % (0.0-6.0); HEMATOCRIT 29 % (39-51); HEMOGLOBIN 9.4 g/dL (13.5-17.5); LYMPHOCYTES # (AUTO) 1.4 /CMM (0.8-4.8); LYMPHOCYTES % (AUTO) 12.8 % (20.0-44.0); MEAN CORPUSCULAR HEMOGLOBIN 31 PG (26.0-33.0); MEAN CORPUSCULAR HGB CONC 32 g/dl (31.0-36.0); MEAN CORPUSCULAR VOLUME 96 fL (80-96); MONOCYTES # (AUTO) 0.9 /CMM (0.1-1.30); NEUTROPHILS # (AUTO) 8.2 /CMM (1.8-8.9); NEUTROPHILS % (AUTO) 75.6 % (43.0-81.0); PLATELET COUNT (AUTO) 237 /CMM (150-450); RDW COEFFICIENT OF VARIATION 20.1 (11.5-15.0); RED BLOOD CELL COUNT(AUTO) 3.01 MIL/uL (4.5-6.0); WHITE BLOOD COUNT (AUTO) 10.9 K/uL (4.3-11.0)
--- NOTE | 2017-12-19 07:32 | NUR ---
MAKAYLA RN CLOSING NOTE PT REMAINED STABLE DURING SHIFT. NO ACUTE DISTRESS NOTED. ALL DUE MEDS GIVEN ORDERED. KEPT CLEAN AND DRY. CURRENTLY ON 3L OF O2 AND SATURATING WELL. HOB ELEVATION. ALL NEEDS ATTENDED TO AND MET PROMPTLY. CALL LIGHT WITHIN REACH. WILL ENDORSE TO NEXT SHIFT FOR CONTINUITY OF CARE.
[2017-12-19 07:38] LABS: CALCIUM, SERUM 9.1 mg/dL (8.5-10.1); CHLORIDE 108 mmol/L (98-107); CREATININE 1.6 mg/dL (0.6-1.3); GLUCOSE 170 mg/dL (74-106); POTASSIUM 4.8 mmol/L (3.5-5.1); SODIUM SERUM 143 mmol/L (136-145); UREA NITROGEN, BLOOD 35 mg/dL (7-18)
[2017-12-19 07:47] LABS: CARBON DIOXIDE 28 mmol/L (21-32)
[2017-12-19 08:00] VITALS: BP 133/67
--- NOTE | 2017-12-19 08:10 | NUR ---
RN NOTES: PATIENT RECEIVED ALERT AWAKE ORIENTED. ABLE TO MAKE NEEDS KNOWN. RESPONSIVE TO VERBAL & TACTILE STIMULI. ON TELE MONITOR A-FIB CONTROLLED. ON OXYGEN 3LPM VIA NC, NO BREATHING DIFFICULTY NOTED. IV SITE INTACT, RUNNING WITH IV FLUIDS ORDERED. F/C INTACT, DRAINING WITH GRAVITY. CONTINUE TO MONITOR. SAFETY MEASURES OBSERVED. CALL LIGHT WITHIN REACH.
[2017-12-19] MEDS: BLOOD SUGAR DIAGNOSTIC 1 EACH STRIP IN SCH ×4 (09:51→21:29)
[2017-12-19] MEDS: MULTIVIT, IRON, MIN NO. 8, FA 1 TAB PO SCH (09:52)
[2017-12-19] MEDS: GABAPENTIN 400 MG CAPSULE PO SCH ×3 (09:52→16:41)
[2017-12-19] MEDS: ZINC SULFATE 220 MG CAPSULE PO SCH (09:52)
[2017-12-19] MEDS: ASPIRIN EC 81 MG TABLET.DR PO SCH (09:52)
[2017-12-19] MEDS: QUETIAPINE FUMARATE 25 MG TABLET PO SCH ×2 (09:52→16:42)
[2017-12-19] MEDS: CHOLECALCIFEROL 1,000 UNIT TABLET (VIT D3) PO SCH (09:52)
[2017-12-19] MEDS: ASCORBIC ACID 500 MG TABLET PO SCH (09:52)
[2017-12-19] MEDS: LORATADINE 10 MG TABLET PO SCH ×2 (09:52→16:41)
[2017-12-19] MEDS: MEROPENEM 500 MG in IV NS 0.9% 50 ML IV SCH (09:52)
[2017-12-19] MEDS: LEVETIRACETAM (250 MG) 250 MG TABLET PO SCH ×2 (09:52→21:00)
[2017-12-19] MEDS: CLOPIDOGREL BISULFATE 75 MG TABLET PO SCH (09:52)
[2017-12-19] MEDS: DOCUSATE SODIUM 100 MG CAPSULE PO SCH ×2 (09:52→16:41)
[2017-12-19] MEDS: AMILORIDE HCL 5 MG TABLET PO SCH (09:52)
[2017-12-19] MEDS: AMLODIPINE BESYLATE 5 MG TABLET PO SCH (09:53)
[2017-12-19] MEDS: INSULIN DETEMIR 100 UNIT/ML CARTRIDGE SQ SCH (09:54)
[2017-12-19] MEDS: LEVOTHYROXINE SODIUM 175 MCG TABLET PO SCH (09:56)
[2017-12-19] MEDS: HYDROCODONE/APAP 5/325MG 1 EACH TABLET PO PRN ×2 (10:57→17:06)
--- NOTE | 2017-12-19 11:43 | NUR ---
RN NOTES: (INSULIN COVERAGE) RECEIVED REPORT REGARDING INSULIN VIAL NOT AVAILABLE, INSPECTOR CRYSTAL RN CALLED PHARMACY TO REPLACE. 3 TIMES FOLLOWED UP WITH PHARMACY REGARDING INSULIN VIAL DELIVERY. AT 1125: LAST TIME SPOKE WITH RENÉE AT PHARMACY, ACC. TO HER ITS REPLACED ALREADY. EXPLAINED HER AGAIN THAT I AM NOT ABLE TO FIND IN PATIENT CASEATE AND CHECKED IN MEDICATION ROOM. REQUEST TO SEND NEW VIAL. WILL CONTINUE TO MONITOR, AM DOSE IS MISSED. WILL MONITOR & ADMINISTER AFTERNOON DOSE, ITS TOO LATE TO ADMINISTER AM DOSE NOW. WILL CONTINUE TO MONITOR.
[2017-12-19 12:00] VITALS: BP 147/69
[2017-12-19] MEDS: INSULIN REGULAR, HUMAN 100 UNIT/ML 3 ML VIAL SQ PRN ×3 (12:16→21:35)
[2017-12-19] MEDS: IV NS 0.9% 1,000 ML IV PRN (14:14)
--- NOTE | 2017-12-19 15:04 | NUR ---
Social service consult requested by MAYE Barillas for financial and insurance related issues. SANJUANA consulted with social work case manager Ernie who informed SANJUANA that Ines spoke with pt. Pt. was recently admitted to [facility] and discharged back home. Prior to previous admission, pt. was residing at [facility]. According to social work case manager Ernie pt. was readmitted in not good condition and will require SNF placement instead of going home with caregiver.
[2017-12-19 16:00] VITALS: BP 106/69
[2017-12-19 20:00] VITALS: BP 131/69
[2017-12-19] MEDS: ATORVASTATIN 40 MG TABLET PO SCH (21:00)
[2017-12-19] MEDS: CEFEPIME 1 GM in IV D5W 50 ML IV SCH (21:00)
[2017-12-20] VITALS: BP 119/62
[2017-12-20] MEDS: ALBUTEROL FS 2.5 MG/0.5 ML VIAL.NEB IH SCH ×5 (03:20→23:31)
[2017-12-20] MEDS: IPRATROPIUM NEB FS 0.5 MG/2.5 ML AMPUL.NEB IH SCH ×5 (03:20→23:31)
[2017-12-20 04:00] VITALS: BP 122/68
[2017-12-20] MEDS: IV NS 0.9% 1,000 ML IV PRN (06:51)
--- NOTE | 2017-12-20 07:01 | NUR ---
MAKAYLA RN CLOSING NOTE PT ENDORSED SLEEPING IN BED. NOTED TO BE LETHARGIC BUT AROUSABLE TO NAME. A/O X2 AND ABLE TO VERBALIZE SOME NEEDS. ON 3L OF O2 VIA NC AND SATURATING 94%. BREATHING REGULAR AND UNLABORED. TELE- A-FIB CONTROLLED 95. HOB ELEVATED. IV RFA #20 CLEAN AND PATENT WITH FLUIDS INFUSING. DIEZ CATHETER IN PLACE AND DRAINING BY GRAVITY. CALL LIGHT WITHIN REACH. WILL CONTINUE TO MONITOR.
--- NOTE | 2017-12-20 07:30 | NUR ---
MAKAYLA RN INITIAL NOTE RECEIVED SLEEPING IN BED. A/X 3 ABLE TO VERBALIZE NEEDS. ON 3L OF O2 VIA NC AND SATURATING 94%. BREATHING REGULAR AND UNLABORED. TELE- A-FIB CONTROLLED 91. HOB ELEVATED. IV RFA #20 CLEAN AND PATENT WITH FLUIDS INFUSING. DIEZ CATHETER IN PLACE AND DRAINING BY GRAVITY. CALL LIGHT WITHIN REACH. WILL CONTINUE TO MONITOR.
[2017-12-20 08:00] VITALS: BP 126/62
[2017-12-20] MEDS: BLOOD SUGAR DIAGNOSTIC 1 EACH STRIP IN SCH ×4 (08:42→21:43)
[2017-12-20] MEDS: CEFEPIME 1 GM in IV D5W 50 ML IV SCH ×2 (08:45→21:43)
[2017-12-20] MEDS: INSULIN REGULAR, HUMAN 100 UNIT/ML 3 ML VIAL SQ PRN ×3 (08:46→21:51)
[2017-12-20] MEDS: INSULIN DETEMIR 100 UNIT/ML CARTRIDGE SQ SCH (09:00)
[2017-12-20] MEDS: MULTIVIT, IRON, MIN NO. 8, FA 1 TAB PO SCH (09:29)
[2017-12-20] MEDS: ZINC SULFATE 220 MG CAPSULE PO SCH (09:29)
[2017-12-20] MEDS: GABAPENTIN 400 MG CAPSULE PO SCH ×3 (09:29→16:30)
[2017-12-20] MEDS: DOCUSATE SODIUM 100 MG CAPSULE PO SCH ×2 (09:29→16:30)
[2017-12-20] MEDS: QUETIAPINE FUMARATE 25 MG TABLET PO SCH ×2 (09:29→16:30)
[2017-12-20] MEDS: CHOLECALCIFEROL 1,000 UNIT TABLET (VIT D3) PO SCH (09:29)
[2017-12-20] MEDS: AMLODIPINE BESYLATE 5 MG TABLET PO SCH (09:29)
[2017-12-20] MEDS: CLOPIDOGREL BISULFATE 75 MG TABLET PO SCH (09:30)
[2017-12-20] MEDS: ASCORBIC ACID 500 MG TABLET PO SCH (09:30)
[2017-12-20] MEDS: AMILORIDE HCL 5 MG TABLET PO SCH (09:30)
[2017-12-20] MEDS: ASPIRIN EC 81 MG TABLET.DR PO SCH (09:30)
[2017-12-20] MEDS: LORATADINE 10 MG TABLET PO SCH ×2 (09:30→16:30)
[2017-12-20] MEDS: LEVETIRACETAM (250 MG) 250 MG TABLET PO SCH ×2 (09:30→21:43)
--- NOTE | 2017-12-20 09:30 | NUR ---
MAKAYLA RN NOTES OATIENT DESATURATING DURING EATING, RT CALLED O2 ADJUSTED, PATIENT IS MOUTH BREATHER AND ASPIRATION RISK AT THIS TIME, INSULIN FOR 0900 HELD DUE TO POOR FOOD INTAKE AND DESATURATION. DR SESAY MADE AWARE.
[2017-12-20] MEDS: LEVOTHYROXINE SODIUM 175 MCG TABLET PO SCH (09:33)
--- NOTE | 2017-12-20 09:53 | NUR ---
PT SEEMS TO BE DESATURATING AFTER RECEIVING BREAKFAST AND ORALLY MEDICATION. SPO2 84% ON N/C. PT PLACED ON SIMPLE MASK. BLOCKER AND POLISHER GOLD WHEEL MARTIR NOTIFIED.
[2017-12-20 12:00] VITALS: BP 130/69
[2017-12-20 16:00] VITALS: BP 131/71
--- NOTE | 2017-12-20 16:31 | NUR ---
MOLD YARD CRANE OPERATOR NOTES PATIENT ON NON REBREATHER MASK CURRENTLY AT RISK FOR ASPIRATING MEDICATION. MD MADE AWARE.
--- NOTE | 2017-12-20 18:50 | NUR ---
COLOR DRUM WORKER NOTES PATIENT RESTING IN BED, NONBREATHER MASK ON, INSULIN NOT GIVEN DUE TO NOT BEING ABLE TO EAT FOR ASPIRATION RISK.
[2017-12-20 20:00] VITALS: BP 124/67
--- NOTE | 2017-12-20 20:44 | NUR ---
MS RN INITIAL NOTE RECEIVED SLEEPING IN BED. A/X 3 ABLE TO VERBALIZE NEEDS. ON 3L OF O2 VIA NC AND SATURATING 93%. BREATHING REGULAR AND UNLABORED. MS NOW. HOB ELEVATED. IV RFA #20 CLEAN AND PATENT WITH FLUIDS INFUSING. DIEZ CATHETER IN PLACE AND DRAINING BY GRAVITY. CALL LIGHT WITHIN REACH. WILL CONTINUE TO MONITOR.
[2017-12-20] MEDS: ATORVASTATIN 40 MG TABLET PO SCH (21:43)
--- NOTE | 2017-12-20 21:50 | NUR ---
2150 NOTED PT DESATURATING DOWN TO 70 TO 80% ON MASK, HOB ELEVATED PT AOX2 WITH EPISODE OF CONFUSION, SINCE ADMITION. ABG ORDERED START PH 7.256. OBTAINED BIPAP 18/8, RR 16, 40% TOLERATING WELL O2 SAT @ 92-93%. PT APPEARS COMFORTABLE NO SIGN OF LABORED BREATHING AT THIS TIME.
--- NOTE | 2017-12-20 22:25 | NUR ---
RN NOTE PATIENT IS HYPOXEMIC ON FACIAL MASK WITH INCREASING CONFUSION. SATURATION NOTED TO BE 80s. STAT ABG DONE, RESULTS FOLLOWS: pH=7.254, pCO2=65, p02=62.6, HCO3=28.1. SPOKE AND NOTIFIED AYDEE SOTO TO BE INITIATED. ORDER NOTED AND CARRIED OUT. RT AT BEDSIDE. PRIMARY NURSE AWARE.
--- NOTE | 2017-12-20 22:39 | NUR ---
AT 2150 pt went into respiratory distress, ABG was done results reported to MD, per MDS orders BIPAP was started, settings 11/07, rr16, 40%. PT is stable tolerating current settings, no sob or distress noted. Addendum: 12/20/17 at 2241 by JULISSA TROTTER RT Amended: Links added.
[2017-12-21] VITALS: BP 126/70
[2017-12-21] MEDS: IPRATROPIUM NEB FS 0.5 MG/2.5 ML AMPUL.NEB IH SCH ×6 (03:53→23:55)
[2017-12-21] MEDS: ALBUTEROL FS 2.5 MG/0.5 ML VIAL.NEB IH SCH ×6 (03:53→23:55)
[2017-12-21 04:00] VITALS: BP 114/77
--- NOTE | 2017-12-21 06:22 | NUR ---
RN MAKAYLA NOTES PT ON BIPAP 18/8, RR 16 AND FIO2 OF 40% WELL EVELIO, O2 SAT MAINTAINED @ 95%, HOB ELEVATED, NO EPISODE OF DISTRESS. KEPT CLEAN AND DRY, ALL NEEDS MET, CL IN REACH OF PT.
[2017-12-21 07:23] LABS: BASOPHILS % (AUTO) 0.2 % (0.0-2.0); EOSINOPHILS # (AUTO) 0.1 /CMM (0.0-0.7); EOSINOPHILS % (AUTO) 1.2 % (0.0-6.0); HEMATOCRIT 31 % (39-51); HEMOGLOBIN 9.8 g/dL (13.5-17.5); LYMPHOCYTES % (AUTO) 8.5 % (20.0-44.0); MEAN CORPUSCULAR HEMOGLOBIN 31 PG (26.0-33.0); MEAN CORPUSCULAR HGB CONC 32 g/dl (31.0-36.0); MEAN CORPUSCULAR VOLUME 97 fL (80-96); MONOCYTES # (AUTO) 0.7 /CMM (0.1-1.30); MONOCYTES % (AUTO) 5.7 % (2.0-12.0); NEUTROPHILS # (AUTO) 9.8 /CMM (1.8-8.9); NEUTROPHILS % (AUTO) 84.4 % (43.0-81.0); PLATELET COUNT (AUTO) 197 /CMM (150-450); RDW COEFFICIENT OF VARIATION 21.8 (11.5-15.0); RED BLOOD CELL COUNT(AUTO) 3.15 MIL/uL (4.5-6.0); WHITE BLOOD COUNT (AUTO) 11.6 K/uL (4.3-11.0)
[2017-12-21 07:26] LABS: CALCIUM, SERUM 9.9 mg/dL (8.5-10.1); CARBON DIOXIDE 31 mmol/L (21-32); CHLORIDE 110 mmol/L (98-107); CREATININE 1.1 mg/dL (0.6-1.3); GLUCOSE 130 mg/dL (74-106); POTASSIUM 5.8 mmol/L (3.5-5.1); SODIUM SERUM 144 mmol/L (136-145); UREA NITROGEN, BLOOD 31 mg/dL (7-18)
--- NOTE | 2017-12-21 07:30 | NUR ---
rn note received pt on mask 8 l/min, saturation 97%, aox2, no distress, has weak cough, throat congested, lungs diminished, clear, on tele monitor AFIB uncontrooled up to 120s, IV R forearm running NS at 70 ml/h, liriano catheter dringin yellow urine. bed in locked and low position, on kci mattress, call light within reach. Will monitor.
[2017-12-21 08:00] VITALS: BP 131/66
[2017-12-21] MEDS: CEFEPIME 1 GM in IV D5W 50 ML IV SCH ×2 (08:21→21:02)
[2017-12-21] MEDS: ASPIRIN EC 81 MG TABLET.DR PO SCH (08:23)
--- NOTE | 2017-12-21 08:45 | NUR ---
RN NOTE PT DURING BREAKFAST PUREED DIET BEGAN COUGHING, AND O2 SATURATION BEGAN DECREASING TO LOW 80s, FEEDING STOPPED. PT WAS SUCTIONED OROPHARYNX AREA, MASK WAS PLACED BACK AND SATURATION WENT BACK TO 90S. PT HAS DIFFICULTY CLEARING THROAT DUE TO WEAK COUGH. PT WAS ABLE TO DRINK WATER WITHOUT DIFFICULTY, IMPROTANT MEDS WERE GIVEN AND THE REST HELD. INSULIN LEVEMIR 20 UNITS WERE HELD DUE TO PT BEING NPO FROM NOW ON. WILL NOTIFY MD. WILL MONITOR PT CLOSELY.
[2017-12-21] MEDS: CLOPIDOGREL BISULFATE 75 MG TABLET PO SCH (08:50)
[2017-12-21] MEDS: LEVOTHYROXINE SODIUM 175 MCG TABLET PO SCH (08:51)
[2017-12-21] MEDS: BLOOD SUGAR DIAGNOSTIC 1 EACH STRIP IN SCH ×4 (08:51→21:02)
[2017-12-21] MEDS: AMLODIPINE BESYLATE 5 MG TABLET PO SCH (08:51)
[2017-12-21] MEDS: AMILORIDE HCL 5 MG TABLET PO SCH (08:51)
[2017-12-21] MEDS: ZINC SULFATE 220 MG CAPSULE PO SCH (09:00)
[2017-12-21] MEDS: QUETIAPINE FUMARATE 25 MG TABLET PO SCH ×2 (09:00→17:00)
[2017-12-21] MEDS: CHOLECALCIFEROL 1,000 UNIT TABLET (VIT D3) PO SCH (09:00)
[2017-12-21] MEDS: DOCUSATE SODIUM 100 MG CAPSULE PO SCH ×2 (09:00→17:44)
[2017-12-21] MEDS: MULTIVIT, IRON, MIN NO. 8, FA 1 TAB PO SCH (09:00)
[2017-12-21] MEDS: GABAPENTIN 400 MG CAPSULE PO SCH ×3 (09:00→17:44)
[2017-12-21] MEDS: LORATADINE 10 MG TABLET PO SCH ×2 (09:00→17:44)
[2017-12-21] MEDS: INSULIN DETEMIR 100 UNIT/ML CARTRIDGE SQ SCH (09:00)
[2017-12-21] MEDS: ASCORBIC ACID 500 MG TABLET PO SCH (09:00)
[2017-12-21] MEDS: INSULIN REGULAR, HUMAN 100 UNIT/ML 3 ML VIAL SQ PRN ×4 (09:14→21:11)
[2017-12-21] MEDS: LEVETIRACETAM (250 MG) 250 MG TABLET PO SCH ×3 (09:19→23:04)
[2017-12-21 12:00] VITALS: BP 126/72
[2017-12-21] MEDS ORDERED: SODIUM POLYSTYRENE SULFONATE 15 G/60 ML BOTTLE PO ONE (14:00)
[2017-12-21 16:00] VITALS: BP 135/76
--- NOTE | 2017-12-21 19:00 | NUR ---
RN NOTE PT WAS ABLE TO TOLERATE PO INTAKE AND SWALLOW MEDS WHOLE. AROUND 1700 PT BECAME SOB AND DESATURATED. RT CALLED, HE GAVE BREATHING TREATMENT AND PUT PT ON PARTIAL NONREBREATHER MASK. MEDS GIVEN ORDERED. SEROQUEL HELD NOT TO SEDATE PT TOO MUCH. PT IS CALM. VS STABLE. WILL ENDORSE TO BAKERY DECORATOR.
--- NOTE | 2017-12-21 19:25 | NUR ---
MAKAYLA RN INITIAL NOTE RECEIVED PT RESTING IN BED. A/O X 2 WITH FORGETFULNESS. ABLE TO VERBALIZE NEEDS. ON NON REBREATHER MASK WITH OS 15LPM, SATURATING 95%. BREATHING REGULAR AND UNLABORED. TELE- A-FIB CONTROLLED 94. HOB ELEVATED. IV L HAND, INTACT PATENT WITH FLUIDS INFUSING. DIEZ CATHETER IN PLACE AND DRAINING BY GRAVITY WITH TEA COLOR URINE. CALL LIGHT WITHIN REACH. WILL CONTINUE TO MONITOR
[2017-12-21 20:00] VITALS: BP 132/78
--- NOTE | 2017-12-21 20:25 | NUR ---
pt returned to bipap on previous settings as charted due to decreased spo2 increased rr and increased hr pt slightly agitated at this time, otherwise tolerating bipap settings. bipap plugged into red outlet, Addendum: 12/21/17 at 2026 by MARCO NYE Amended: Links added.
[2017-12-21] MEDS: ATORVASTATIN 40 MG TABLET PO SCH ×2 (21:03→23:02)
[2017-12-21] MEDS: HYDROCODONE/APAP 5/325MG 1 EACH TABLET PO PRN (21:10)
[2017-12-21] MEDS ORDERED: DOXYCYCLINE 100 MG VIAL ONE (21:41)
[2017-12-21] MEDS: DOXYCYCLINE 100 MG in IV D5W 100 ML IV SCH (22:12)
[2017-12-21] MEDS: IV NS 0.9% 1,000 ML IV PRN (22:19)
--- NOTE | 2017-12-21 23:30 | NUR ---
MAKAYLA RN NOTES PATIENT REQUESTED TO GET PAIN MED FOR BACK PAIN & ON PUREED DIET. CRUSHED PRN & SCHEDULED MEDS MIXED WITH APPLE SAUCE & ATTEMPTED TO GIVE TO THE PT BUT HE REFUSED TO TAKE CRUSHED MEDS @ THAT TIME. EXPLAINED HIM RISKS & BENEFITS OF TAKING WHOLE MEDS, BUT ONLY WANTED TO TAKE WHOLE PILLS. CN MADE AWARE & SHE ALSO TRIED TO TALK TO THE PT BUT HE INSISTED TO TAKE WHOLE PILLS BUT REFUSED TO TAKE PAIN MED, STATED HE DOESN'T HAVE PAIN @ THAT TIME. WASTED CRUSHED MEDS WITH CN. ASSESSED BY GIVING SMALL SIPS OF WATER, TOLERATED WELL. WHOLE PILLS GIVEN, SWALLOWED WELL. IN UPRIGHT POSITION. ABLE TO MAKE NEEDS KNOWN. CONTINUING TO MONITOR CLOSELY.
[2017-12-22] VITALS: BP 150/81
[2017-12-22 04:00] VITALS: BP 134/78
[2017-12-22] MEDS: ALBUTEROL FS 2.5 MG/0.5 ML VIAL.NEB IH SCH ×6 (04:19→23:09)
[2017-12-22] MEDS: IPRATROPIUM NEB FS 0.5 MG/2.5 ML AMPUL.NEB IH SCH ×6 (04:19→23:09)
--- NOTE | 2017-12-22 06:45 | NUR ---
MAKAYLA RN CLOSING NOTES PATIENT SLEPT INTERMITTENTLY, A & O X 2 WITH SLIGHT FORGETFULNESS. ON TELE MONITORING WITH A-FIB 107. HAS F/C IN PLACE, DRAINING TEA COLOR URINE WITH SEDIMENTS. IV ACCESS TO L HAND, INTACT, PATENT RUNNING WITH NS @ 70 ML/HR. REMAINED ON BIPAP SETTINGS ORDERED, TOLERATED WELL, SATTING 92-95 %. IN SEMI DOS SANTOS POSITION. ON BED REST. GETS ANXIOUS @ TIMES WITH ADL'S. HAS ORDER FOR MIDLINE, RIG SUPERINTENDENT AWARE, WILL BE DONE IN AM. ALL NEEDS ATTENDED TO & MET. CALL LIGHT WITHIN REACH. BED IN LOW LOCKED POSITION. WILL ENDORSE TO AM RN FOR BERNA.
[2017-12-22 07:25] LABS: BASOPHILS % (AUTO) 0.1 % (0.0-2.0); EOSINOPHILS # (AUTO) 0.2 /CMM (0.0-0.7); EOSINOPHILS % (AUTO) 1.5 % (0.0-6.0); HEMATOCRIT 29 % (39-51); HEMOGLOBIN 9.4 g/dL (13.5-17.5); LYMPHOCYTES % (AUTO) 8.9 % (20.0-44.0); MEAN CORPUSCULAR HEMOGLOBIN 31 PG (26.0-33.0); MEAN CORPUSCULAR HGB CONC 32 g/dl (31.0-36.0); MEAN CORPUSCULAR VOLUME 96 fL (80-96); MONOCYTES # (AUTO) 0.7 /CMM (0.1-1.30); MONOCYTES % (AUTO) 6.9 % (2.0-12.0); NEUTROPHILS # (AUTO) 8.9 /CMM (1.8-8.9); NEUTROPHILS % (AUTO) 82.6 % (43.0-81.0); PLATELET COUNT (AUTO) 191 /CMM (150-450); RDW COEFFICIENT OF VARIATION 21.7 (11.5-15.0); RED BLOOD CELL COUNT(AUTO) 2.99 MIL/uL (4.5-6.0); WHITE BLOOD COUNT (AUTO) 10.8 K/uL (4.3-11.0)
--- NOTE | 2017-12-22 07:51 | NUR ---
MS RN NOTES PATIENT IN BED, SLEEPING, AROUSES EASILY. BIPAP IN PLACE. ON TELE MONITOR AFIB HR 107, SATING 93%. BREATHING NON LABORED. IVC IN LEFT HAND G24 WITH NS INFUSING AT 70ML/HR, FOR MIDLINE INSERTION PER REPORT. DIEZ CATH IN PLACE, URINE CLEAR AND YELLOW. ON FADIA MATTRESS, WILL CONT TO REPOSITION. CALL LIGHT WITHIN REACH. WILL CONT TO MONITOR.
[2017-12-22 08:00] VITALS: BP 119/71
--- NOTE | 2017-12-22 08:00 | NUR ---
RT PLACED PT ON NASAL CANNULA 6L TO EAT BREAKFAST LEFT ON 1H HR AFTER BREAKFAST PLACED BACK ON BIPAP AT 1030 EVELIO WELL PT COMFORTABLE ASLEEP
[2017-12-22 08:06] LABS: CALCIUM, SERUM 9.9 mg/dL (8.5-10.1); CARBON DIOXIDE 30 mmol/L (21-32); CHLORIDE 108 mmol/L (98-107); CREATININE 1.1 mg/dL (0.6-1.3); GLUCOSE 153 mg/dL (74-106); SODIUM SERUM 144 mmol/L (136-145); UREA NITROGEN, BLOOD 28 mg/dL (7-18)
[2017-12-22] MEDS: BLOOD SUGAR DIAGNOSTIC 1 EACH STRIP IN SCH ×4 (08:20→22:19)
[2017-12-22] MEDS: ASPIRIN EC 81 MG TABLET.DR PO SCH (08:28)
[2017-12-22] MEDS: QUETIAPINE FUMARATE 25 MG TABLET PO SCH ×2 (08:28→17:10)
[2017-12-22] MEDS: LORATADINE 10 MG TABLET PO SCH ×2 (08:29→17:10)
[2017-12-22] MEDS: AMILORIDE HCL 5 MG TABLET PO SCH (08:29)
[2017-12-22] MEDS: CLOPIDOGREL BISULFATE 75 MG TABLET PO SCH (08:30)
[2017-12-22] MEDS: LEVETIRACETAM (250 MG) 250 MG TABLET PO SCH ×2 (08:30→21:09)
[2017-12-22] MEDS: MULTIVIT, IRON, MIN NO. 8, FA 1 TAB PO SCH (08:30)
[2017-12-22] MEDS: ZINC SULFATE 220 MG CAPSULE PO SCH (08:30)
[2017-12-22] MEDS: DOCUSATE SODIUM 100 MG CAPSULE PO SCH ×2 (08:30→17:10)
[2017-12-22] MEDS: ASCORBIC ACID 500 MG TABLET PO SCH (08:30)
[2017-12-22] MEDS: AMLODIPINE BESYLATE 5 MG TABLET PO SCH (08:30)
[2017-12-22] MEDS: CHOLECALCIFEROL 1,000 UNIT TABLET (VIT D3) PO SCH (08:30)
[2017-12-22] MEDS: GABAPENTIN 400 MG CAPSULE PO SCH ×3 (08:30→17:10)
[2017-12-22] MEDS: LEVOTHYROXINE SODIUM 175 MCG TABLET PO SCH (08:30)
[2017-12-22] MEDS: INSULIN REGULAR, HUMAN 100 UNIT/ML 3 ML VIAL SQ PRN ×4 (08:37→22:59)
[2017-12-22] MEDS: CEFEPIME 1 GM in IV D5W 50 ML IV SCH ×2 (09:17→20:19)
[2017-12-22] MEDS: INSULIN DETEMIR 100 UNIT/ML CARTRIDGE SQ SCH (09:20)
[2017-12-22] MEDS: DOXYCYCLINE 100 MG in IV D5W 100 ML IV SCH ×2 (09:59→21:09)
--- NOTE | 2017-12-22 11:00 | NUR ---
PATIENT CURRENTLY ON PUREED DIET, ABLE TO SWALLOW MEDICATIONS IN TABLET FORM WITHOUT EPISODE OF COUGHING IN UPRIGHT POSITION. DR. SESAY INFORMED, CONT TO MONITOR.
[2017-12-22 16:00] VITALS: BP_SYST 119; BP_SYST 137; BP_DIAS 71; BP_DIAS 86
[2017-12-22] MEDS: IV NS 0.9% 1,000 ML IV PRN (18:08)
--- NOTE | 2017-12-22 18:29 | NUR ---
MS RN CLOSING NOTES PATIENT IN BED, A/O X2 WITH CONFUSION. ON OXYGEN AT 15L SIMPLE MASK, BEING FOLLOW BY RT DURING THE SHIFT. IVC IN RFA G20 WITH IVF NS INFUSING AT 70ML/HR, BLOOD SUGAR MONITORED WITH ISS COVERAGE GIVEN. DIEZ CATH INTACT, ON ANTIBIOTIC IV. NO C/O BLADDER DISCOMFORT. TURN AND REPOSITION, ON FADIA MATTRESS. CALL LIGHT WITHIN REACH. DC PLANNING, CM TO ARRANGE FOR SNF PLACEMENT. Addendum: 12/22/17 at 1851 by EEF PHIPPS RN CONT BELOW: WILL ENDORSE TO ONCOMING RN.
--- NOTE | 2017-12-22 19:10 | NUR ---
RN OPENING NOTES RECEIVED PATIENT IN BED, ALERT AND ORIENTED X 2, VERBALLY RESPONSIVE, NO SOB, BREATHING EVEN AND UNLABORED, NO C/O PAIN AT THIS TIME, IN NO ACUTE DISTRESS. PATEINT CONTINUES TO RECEIVE IV HYDRATION ORDERED. ALL PATIENT'S NEEDS ATTENDED TO AT THIS TIME, CALL LIGHT PLACED WITHIN EASY REACH. BED LOCKED IN PLACE. WILL CONTINUE TO MONITOR PT.
[2017-12-22 20:00] VITALS: BP 134/81
--- NOTE | 2017-12-22 20:03 | NUR ---
PT PLACED ON BIPAP AT THIS TIME, NO RESPIRATORY DISTRESS NOTED. MAYE WINTERS NOTIFIED. BREATHING TX GIVEN PER MD'S ORDERED.
--- NOTE | 2017-12-22 20:30 | NUR ---
RN NOTES: RT NOVOA AT BEDSIDE, BIPAP APPLIED TO PATIENT WITH FF SETTINGS: IPAP: 18, EPAP: 8, FIO2: 50%. Addendum: 12/24/17 at 0046 by VEE CASTILLO RN PLS DISREGARD, WRONG DATE OF DOCUMENTATION.
[2017-12-22] MEDS: ATORVASTATIN 40 MG TABLET PO SCH (21:09)
[2017-12-23] MEDS: IPRATROPIUM NEB FS 0.5 MG/2.5 ML AMPUL.NEB IH SCH ×6 (02:58→23:17)
[2017-12-23] MEDS: ALBUTEROL FS 2.5 MG/0.5 ML VIAL.NEB IH SCH ×6 (02:58→23:17)
--- NOTE | 2017-12-23 06:32 | NUR ---
RN CLOSING NOTES PATIENT IN BED, CONTINUES TO WEAR BIPAP WITH O2 SAT @ 95%. ASLEEP BUT EASILY AROUSABLE, VERBALLY RESPONSIVE, NOTED WITH NO SOB, BREATHING EVEN AND UNLABORED. ALL PATIENT'S NEEDS ATTENDED TO AT THIS TIME, CALL LIGHT PLACED WITHIN EASY REACH. IVF INFUSING ORDERED. WILL CONTINUE TO MONITOR PATIENT AND ENDORSE TO AM SHIFT NURSE FOR CONTINUITY OF CARE.
--- NOTE | 2017-12-23 07:15 | NUR ---
MS RN OPENING NOTE AAO4. BIPAP. RESTING CALMLY. RFA 20G INFUSING NS @70ML/HR. ARM BRUISING PLAVIX. SACRAL REDNESS. BLOOD SUGARS AC/HS LEVEMIR. PLACEMENT D/C TODAY? CONT IV ABX CEFEPIME, DOXY. AFEBRILE. DIEZ CLOUDY YELLOW ADEQUATE AMT. BED IN LOW LOCKED POSITION. SIDE RAILS UP X 2. CALL LIGHT IN REACH. WILL CONT TO MONITOR.
[2017-12-23 07:43] LABS: BASOPHILS % (AUTO) 0.3 % (0.0-2.0); EOSINOPHILS # (AUTO) 0.3 /CMM (0.0-0.7); HEMATOCRIT 28 % (39-51); LYMPHOCYTES # (AUTO) 1.5 /CMM (0.8-4.8); LYMPHOCYTES % (AUTO) 13.6 % (20.0-44.0); MEAN CORPUSCULAR HEMOGLOBIN 31 PG (26.0-33.0); MEAN CORPUSCULAR HGB CONC 33 g/dl (31.0-36.0); MEAN CORPUSCULAR VOLUME 97 fL (80-96); MONOCYTES # (AUTO) 0.9 /CMM (0.1-1.30); MONOCYTES % (AUTO) 8.4 % (2.0-12.0); NEUTROPHILS # (AUTO) 8.1 /CMM (1.8-8.9); NEUTROPHILS % (AUTO) 74.7 % (43.0-81.0); PLATELET COUNT (AUTO) 176 /CMM (150-450); RDW COEFFICIENT OF VARIATION 21.1 (11.5-15.0); RED BLOOD CELL COUNT(AUTO) 2.87 MIL/uL (4.5-6.0); WHITE BLOOD COUNT (AUTO) 10.8 K/uL (4.3-11.0)
[2017-12-23 08:00] VITALS: BP 126/74
[2017-12-23 08:05] LABS: CALCIUM, SERUM 9.1 mg/dL (8.5-10.1); CARBON DIOXIDE 31 mmol/L (21-32); CHLORIDE 110 mmol/L (98-107); GLUCOSE 144 mg/dL (74-106); POTASSIUM 4.4 mmol/L (3.5-5.1); SODIUM SERUM 147 mmol/L (136-145); UREA NITROGEN, BLOOD 26 mg/dL (7-18)
[2017-12-23] MEDS: BLOOD SUGAR DIAGNOSTIC 1 EACH STRIP IN SCH ×4 (08:24→21:21)
[2017-12-23] MEDS: QUETIAPINE FUMARATE 25 MG TABLET PO SCH ×2 (08:26→16:54)
[2017-12-23] MEDS: LEVOTHYROXINE SODIUM 175 MCG TABLET PO SCH (08:27)
[2017-12-23] MEDS: GABAPENTIN 400 MG CAPSULE PO SCH ×3 (08:28→16:54)
[2017-12-23] MEDS: ASPIRIN EC 81 MG TABLET.DR PO SCH (08:28)
[2017-12-23] MEDS: MULTIVIT, IRON, MIN NO. 8, FA 1 TAB PO SCH (08:28)
[2017-12-23] MEDS: LORATADINE 10 MG TABLET PO SCH ×2 (08:28→16:54)
[2017-12-23] MEDS: LEVETIRACETAM (250 MG) 250 MG TABLET PO SCH ×3 (08:29→21:20)
[2017-12-23] MEDS: ASCORBIC ACID 500 MG TABLET PO SCH (08:29)
[2017-12-23] MEDS: CHOLECALCIFEROL 1,000 UNIT TABLET (VIT D3) PO SCH (08:29)
[2017-12-23] MEDS: ZINC SULFATE 220 MG CAPSULE PO SCH (08:29)
[2017-12-23] MEDS: AMILORIDE HCL 5 MG TABLET PO SCH (08:29)
[2017-12-23] MEDS: CLOPIDOGREL BISULFATE 75 MG TABLET PO SCH (08:30)
[2017-12-23] MEDS: INSULIN DETEMIR 100 UNIT/ML CARTRIDGE SQ SCH (08:30)
[2017-12-23] MEDS: AMLODIPINE BESYLATE 5 MG TABLET PO SCH (08:30)
[2017-12-23] MEDS: INSULIN REGULAR, HUMAN 100 UNIT/ML 3 ML VIAL SQ PRN ×3 (08:31→17:04)
[2017-12-23] MEDS: DOCUSATE SODIUM 100 MG CAPSULE PO SCH ×2 (08:32→16:55)
[2017-12-23] MEDS: CEFEPIME 1 GM in IV D5W 50 ML IV SCH ×2 (08:33→20:32)
[2017-12-23] MEDS: DOXYCYCLINE 100 MG in IV D5W 100 ML IV SCH ×2 (08:33→21:20)
[2017-12-23 16:00] VITALS: BP 107/68
[2017-12-23] MEDS: LACTOBACILLUS RHAMNOSUS GG 1 EACH CAP.SPRINK PO SCH (16:54)
--- NOTE | 2017-12-23 18:05 | NUR ---
MS RN CLOSING NOTE HOB ELEVATED. NO ACUTE EVENTS. SIMPLE FACE MASK 6L/ PER MIN O2 SATS 93%. NS IVF RFA 20G 70ML/HR. DIEZ 450ML CLOUDY ORANGE URINE. AFEBRILE. BLOOD SUGARS 160'S. CALL LIGHT IN REACH. WILL CONT TO MONITOR AND ENDORSE TO ERIS RN.
--- NOTE | 2017-12-23 19:30 | NUR ---
MS RN OPENING NOTES: PATIENT IN BED, AOX2, OPENS EYES SPONTANEOUSLY, ABLE TO FOLLOW COMMANDS. ON O2 VIA SIMPLE FACE MASK AT 8 LPM, BREATHING EVEN AND UNLABORED. APPEARS CALM AND IN NO DISTRESS, BUT SAYS "WORN OUT" WHEN ASKED HOW HE FEELS. NOTED MILD WEAKNESS OVER CHRISTINE UPPER EXTREMITIES AND LEFT LOWER EXT. SEVERE WEAKNESS OVER RLE. PIV OVER RFA G 20 INTACT AND PATENT, INFUSING WELL WITH NS RUNNING AT 70 ML/HR. PROVIDED FOR COMFORT AND SAFETY. BED IN LOWEST AND LOCKED POSITION, SIDERAILS UP X 3. WILL CONT TO MONITOR.
[2017-12-23 20:00] VITALS: BP 119/81
--- NOTE | 2017-12-23 20:30 | NUR ---
RN NOTES: RT NOVOA AT BEDSIDE, BIPAP APPLIED TO PATIENT WITH FF SETTINGS: IPAP: 18, EPAP: 8, FIO2: 50%.
[2017-12-23] MEDS: ATORVASTATIN 40 MG TABLET PO SCH ×2 (21:20→22:00)
[2017-12-23 21:42] VITALS: BP 102/63
--- NOTE | 2017-12-23 21:42 | NUR ---
PATIENT APPEARS LESS RESPONSIVE, EYES NOT OPENING SPONTANEOUSLY, UNABLE TO FF COMMANDS, EXTREMITIES NOT MOVING. PUPILS EQUALLY REACTIVE TO LIGHT. BLLOD SUGAR CHECKED AT 140 MG/DL. O2 SAT AT 92 %, HR: 102 BP : 102/63. NOT APPEARING TO BE SOB, ON BIPAP STILL. RECTAL TEMP TAKEN: 97.9. RT AT BEDSIDE AT THIS TIME. ENROLLMENT ELIGIBILITY REPRESENTATIVE INFORMED, PATIENT ASSESSED. STAT ABG DRAWN. PATIENT STILL APPEARS LETHARGIC, BUT ABLE TO MAKE INCOHERENT SOUNDS. EXTRMITIES NOT MOVING ACTIVELY. RAPID RESPONSE CALLED.
--- NOTE | 2017-12-23 21:50 | NUR ---
PATIENT AFIB, RATE 98 ON TELE MONITOR.
[2017-12-23 21:52] LABS: ABG BASE EXCESS 4.9 mmol/L; ABG OXYGEN SATURATION 91.9 % (92.0-98.5); ABG PCO2 57.8 mmHg (35.0-45.0); ABG PH 7.353 (7.350-7.450); ABG PO2 67.4 mmHg (75.0-100.0); AaDO2 151.3 mmHg; COHb 0.2 % (0.5-1.5); MetHb 0.5 % (0.0-1.5); O2Hb 91.3 % (94.0-97.0); PEEP,BG 8 cm H2O; SITE, ABG Right Radial; VENT MODE, BG BIPAP
[2017-12-23 21:55] VITALS: BP 97/61
--- NOTE | 2017-12-23 21:55 | NUR ---
RR TEAM IN ROOM.
[2017-12-23 22:00] VITALS: BP 102/63
--- NOTE | 2017-12-23 22:00 | NUR ---
DR DOTSON CALLED, INFORMED RE RAPID REPONSE, GAVE HISTORY AND RECENT MEDS GIVEN, WELL CURRENT LOC AND VS. ABG RESULT RELAYED. PER MD, UPGRADE PATIENT TO TELE, DRAW KEPPRA LEVEL, AND CHANGE KEPPRA PO TO KEPPRA IV 250 MG Q 12 HRS. NOTED AND CARRIED OUT.
--- NOTE | 2017-12-23 22:16 | NUR ---
PATIENT AWAKE NOW, ABLE TO RESPOND WHEN NAME WAS CALLED, EYES OPEN SPONTANEOUSLY.
[2017-12-23] MEDS ORDERED: LEVETIRACETAM (500MG) 500 MG/5 ML VIAL IV ONE (22:20)
--- NOTE | 2017-12-23 22:20 | NUR ---
RN NOTES: PER CARL OF LAB, BEVERLY GRANADO IS A SEND OUT, SPECIMEN WILL BE PICKED UP EDISON AT 1600 PM, AND WILL TAKE 4 DAYS FOR RESULTS TO BE AVAILABLE.
[2017-12-23] MEDS ORDERED: LEVETIRACETAM (500MG) 250 MG in IV NS 0.9% 100 ML IV SCH (22:30)
--- NOTE | 2017-12-23 22:36 | NUR ---
BS: 140 MG/DL, NO COVERAGE GIVEN AT THIS TIME SINCE PATIENT STILL APPEARS WEAK, MIGHT NOT BE ABLE TO TOLERATE PO INTAKE AT THIS TIME. KEPT ON BIPAP.
--- NOTE | 2017-12-23 22:48 | NUR ---
DR DOTSON AT BEDSIDE TO ASSESS PATIENT.
[2017-12-23] MEDS ORDERED: ENOXAPARIN SODIUM 40 MG/0.4 ML DISP.SYRIN SQ SCH (23:00)
[2017-12-23] MEDS ORDERED: ENOXAPARIN SODIUM 40 MG/0.4 ML DISP.SYRIN SQ ONE (23:27)
--- NOTE | 2017-12-23 23:59 | NUR ---
RN NOTES: MAYE LION AT BEDSIDE, MIDLINE INSERTED OVER R UPPER ARM.
[2017-12-24] VITALS: BP 92/55
--- NOTE | 2017-12-24 01:00 | NUR ---
RN NOTES: FREQUENT CHECKS MADE TO MONITOR FOR LOC CHANGES, PATIENT ASLEEP, BREATHING EVEN AND UNLABORED, ON BIPAP, O2 SAT AT 95%. AWAKENS TO NAME BEING CALLED. ABLE TO SQUEEZE WITH BOTH HANDS WEAKLY.
[2017-12-24] MEDS: IPRATROPIUM NEB FS 0.5 MG/2.5 ML AMPUL.NEB IH SCH ×6 (03:30→23:19)
[2017-12-24] MEDS: ALBUTEROL FS 2.5 MG/0.5 ML VIAL.NEB IH SCH ×6 (03:30→23:18)
[2017-12-24 04:00] VITALS: BP 102/65
[2017-12-24] MEDS: IV NS 0.9% 1,000 ML IV PRN (04:44)
--- NOTE | 2017-12-24 06:39 | NUR ---
DASHBOARD DEVELOPER CLOSING NOTES: PATIENT IN BED, AWAKE, AOX2, ABLE TO MAKE NEEDS KNOWN, ON O2 VIA BIPAP (IPAP: 18, EPAP: 8 , FIO2: 40%). BREATHING EVEN AND UNLABORED. O2 SAT CONTINUOUSLY BEING MONITORED, O2 SAT AT 92-95%. ON TELE MONITORING: AFIB AT RATE OF 90S. SKIN STILL FEELS COOL TO TOUCH, ROOM MADE WARM AND WARM BLANKETS GIVEN. FAUSTO MIDLINE INTACT AND PATENT, INFUSING WELL WITH NS RUNNING AT 70 ML/HR. DUE MEDS GIVEN, FREQ NEURO CHECKS DONE, PROVIDED FOR COMFORT AND SAFETY. BED IN LOWEST AND LOCKED POSITION, SIDERAILS UP X 3. WILL ENDORSE TO AM RN FOR BERNA.
--- NOTE | 2017-12-24 07:10 | NUR ---
ENGINE INSTALLER OPENING NOTE AAO3. HOB ELEVATED SIMPLE MASK 6L 90% O2 SATS. NO DISTRESS NOTED. FAUSTO MIDLINE INFUSING NS @ 70ML/HR. DIEZ ORANGE SEDIMENT ADEQUATE AMT. SACRAL REDNESS, SPECIALTY BED MEPILEX Z GUARD OINTMENT. LOVENOX, KEPPRA STARTED NOC SEIZURE? DR. MENDIOLA NEURO TO CONSULT. AFIB 90-105 AT PRESENT. BED IN LOW LOCKED POSITION. CALL LIGHT IN REACH. WILL CONT TO MONITOR CLOSELY.
[2017-12-24] MEDS: BLOOD SUGAR DIAGNOSTIC 1 EACH STRIP IN SCH ×4 (07:30→22:06)
[2017-12-24 07:41] LABS: BASOPHILS % (AUTO) 0.5 % (0.0-2.0); EOSINOPHILS # (AUTO) 0.4 /CMM (0.0-0.7); EOSINOPHILS % (AUTO) 5.9 % (0.0-6.0); HEMATOCRIT 28 % (39-51); HEMOGLOBIN 9.1 g/dL (13.5-17.5); LYMPHOCYTES # (AUTO) 0.9 /CMM (0.8-4.8); LYMPHOCYTES % (AUTO) 15.3 % (20.0-44.0); MEAN CORPUSCULAR HEMOGLOBIN 31 PG (26.0-33.0); MEAN CORPUSCULAR HGB CONC 32 g/dl (31.0-36.0); MEAN CORPUSCULAR VOLUME 96 fL (80-96); MONOCYTES # (AUTO) 0.5 /CMM (0.1-1.30); MONOCYTES % (AUTO) 8.4 % (2.0-12.0); NEUTROPHILS # (AUTO) 4.2 /CMM (1.8-8.9); NEUTROPHILS % (AUTO) 69.9 % (43.0-81.0); PLATELET COUNT (AUTO) 141 /CMM (150-450); RDW COEFFICIENT OF VARIATION 20.9 (11.5-15.0); RED BLOOD CELL COUNT(AUTO) 2.93 MIL/uL (4.5-6.0); WHITE BLOOD COUNT (AUTO) 6.1 K/uL (4.3-11.0)
[2017-12-24 07:53] LABS: CALCIUM, SERUM 9.3 mg/dL (8.5-10.1); CARBON DIOXIDE 31 mmol/L (21-32); CHLORIDE 111 mmol/L (98-107); GLUCOSE 97 mg/dL (74-106); MAGNESIUM 1.5 mg/dL (1.8-2.4); PHOSPHORUS 2.3 mg/dL (2.5-4.9); POTASSIUM 4.5 mmol/L (3.5-5.1); SODIUM SERUM 149 mmol/L (136-145); UREA NITROGEN, BLOOD 26 mg/dL (7-18)
[2017-12-24 08:00] VITALS: BP 99/73
[2017-12-24] MEDS: DOXYCYCLINE 100 MG in IV D5W 100 ML IV SCH ×2 (08:20→21:22)
[2017-12-24] MEDS: LEVOTHYROXINE SODIUM 175 MCG TABLET PO SCH (08:20)
[2017-12-24] MEDS: LORATADINE 10 MG TABLET PO SCH ×2 (08:20→15:54)
[2017-12-24] MEDS: LEVETIRACETAM (250 MG) 250 MG TABLET PO SCH ×2 (08:20→21:22)
[2017-12-24] MEDS: CEFEPIME 1 GM in IV D5W 50 ML IV SCH ×2 (08:20→21:22)
[2017-12-24] MEDS: ASPIRIN EC 81 MG TABLET.DR PO SCH (08:20)
[2017-12-24] MEDS: LACTOBACILLUS RHAMNOSUS GG 1 EACH CAP.SPRINK PO SCH ×2 (08:20→15:53)
[2017-12-24] MEDS: QUETIAPINE FUMARATE 25 MG TABLET PO SCH ×2 (08:21→15:53)
[2017-12-24] MEDS: GABAPENTIN 400 MG CAPSULE PO SCH ×3 (08:21→15:53)
[2017-12-24] MEDS: AMILORIDE HCL 5 MG TABLET PO SCH (08:21)
[2017-12-24] MEDS: MULTIVIT, IRON, MIN NO. 8, FA 1 TAB PO SCH (08:21)
[2017-12-24] MEDS: CHOLECALCIFEROL 1,000 UNIT TABLET (VIT D3) PO SCH (08:21)
[2017-12-24] MEDS: ASCORBIC ACID 500 MG TABLET PO SCH (08:21)
[2017-12-24] MEDS: CLOPIDOGREL BISULFATE 75 MG TABLET PO SCH (08:21)
[2017-12-24] MEDS: ZINC SULFATE 220 MG CAPSULE PO SCH (08:21)
[2017-12-24] MEDS: AMLODIPINE BESYLATE 5 MG TABLET PO SCH (08:22)
[2017-12-24] MEDS: DOCUSATE SODIUM 100 MG CAPSULE PO SCH ×2 (08:22→15:49)
[2017-12-24] MEDS: INSULIN DETEMIR 100 UNIT/ML CARTRIDGE SQ SCH (08:23)
--- NOTE | 2017-12-24 10:30 | NUR ---
RT NOTE PLACED PATIENT BACK ON BIPAP AT THIS TIME. SP02 @ 85%. RN, AWARE. INCREASED FI02 TO 50%. MASK IS SECURED AND PATIENT STABLE.
[2017-12-24] MEDS: Magnesium 1GM/D5W 100ML PREMIX 100 ML IV SCH ×2 (10:56→11:42)
[2017-12-24] MEDS: INSULIN REGULAR, HUMAN 100 UNIT/ML 3 ML VIAL SQ PRN ×3 (11:49→22:04)
[2017-12-24 12:00] VITALS: BP 115/84
[2017-12-24] MEDS: HYDROCODONE/APAP 5/325MG 1 EACH TABLET PO PRN (13:57)
[2017-12-24] MEDS ORDERED: K PHOS NEUTRAL 250 MG TABLET PO ONE (14:30)
[2017-12-24] MEDS: IV D5W 1,000 ML IV PRN (15:54)
--- NOTE | 2017-12-24 17:13 | NUR ---
RT NOTE PATIENT REMAINS ON BIPAP 11/07, BUR 16, 50%, MASK IS SECURED. CONTINUOUS PULSE OX AT BEDSIDE, FUNCTIONING WELL. NO SOB NOTED. Addendum: 12/24/17 at 1716 by TAMARA CAMPO RT Amended: Links added.
--- NOTE | 2017-12-24 18:28 | NUR ---
BUSINESS ADMINISTRATOR CLOSING NOTE AAO3. BIPAP ALTERNATING W/ 6L NC FOR MEALS. 50% MEALS EATEN. FAUSTO MIDLINE INTACT PATENT. RG PATENT. NO ACUTE EVENTS. TELE AFIB 90-115. WILL ENDORSE TO ERIS VILLAVICENCIO.
--- NOTE | 2017-12-24 19:06 | NUR ---
RT NOTE PATIENT REMAINS ON BIPAP 18/8, BUR 16, 50%, MASK IS SECURED. CONTINUOUS PULSE OX AT BEDSIDE, FUNCTIONING WELL. ALARMS ARE AUDIBLE. NO SOB NOTED. WILL CONT TO MONITOR PATIENT.
--- NOTE | 2017-12-24 19:58 | NUR ---
RN OPENING NOTE RECEIVED PATIENT IN THE BED AWAKE, ORIENTED X 2, SO2 93%, PATIENT ON BIPAP 18/8, BUR 16, 50%, MASK IS SECURED. CONTINUOUS PULSE OX AT BEDSIDE, FUNCTIONING WELL. NO SOB NOTED, DIEZ CATH IS SECURE AND DRAINING YELLOW URINE, RIGHT UPPER MIDLINE AND RIGHT FOREARM 20 GAUGE, NO PAIN OR DISCOMFORT NOTED, BED IN THE LOW POSITION, CALL LIGHT WITHIN REACH, SIDE RAILS UP X 2, WILL CONTINUE TO MONITOR PATIENT
[2017-12-24 20:00] VITALS: BP 130/70
[2017-12-24] MEDS: ENOXAPARIN SODIUM 40 MG/0.4 ML DISP.SYRIN SQ SCH (21:23)
[2017-12-24] MEDS: ATORVASTATIN 40 MG TABLET PO SCH (21:57)
[2017-12-25] VITALS (21 sets, daily range): BP systolic 104–143; BP diastolic 62–82
[2017-12-25] MEDS: IPRATROPIUM NEB FS 0.5 MG/2.5 ML AMPUL.NEB IH SCH ×6 (04:01→23:38)
[2017-12-25] MEDS: ALBUTEROL FS 2.5 MG/0.5 ML VIAL.NEB IH SCH ×6 (04:01→23:38)
--- NOTE | 2017-12-25 07:33 | NUR ---
RN CLOSING NOTES: PATIENT IS AWAKE, A/OX2, SLEPT WELL DURING THE NIGHT, ON O2 VIA BIPAP (IPAP: 18, EPAP: 8 , FIO2: 50%). NO RESPIRATORY DISTRESS NOTED, SO2 96%. O2 SATURATION IS MONITORED BY THE MACHINE ON TELE MONITORING: AFIB AT RATE OF 95. NO PAIN OR DISCOMFORT NOTED, PROVIDED 3 BLANKETS PER PATIENT REQUEST, AFEBRILE. FAUSTO MIDLINE INTACT AND PATENT, INFUSING WELL WITH D5W RUNNING AT 50ML/HR. DUE MEDS GIVEN, FREQ NEURO CHECKS DONE, ALL NEEDS WERE MET, BED IN THE LOCK POSITION, SIDE RAILS UP X 2, BED IN THE LOWEST POSITION, SIDE RAILS UP X 2, ALL BELONGINGS WITHIN REACH BED, ENDORSED MORNING RN FOR BERNA
[2017-12-25 07:48] LABS: BASOPHILS # (AUTO) 0.1 /CMM (0.0-0.2); BASOPHILS % (AUTO) 1.1 % (0.0-2.0); EOSINOPHILS # (AUTO) 0.3 /CMM (0.0-0.7); EOSINOPHILS % (AUTO) 5.2 % (0.0-6.0); HEMATOCRIT 27 % (39-51); HEMOGLOBIN 8.9 g/dL (13.5-17.5); LYMPHOCYTES # (AUTO) 1.2 /CMM (0.8-4.8); LYMPHOCYTES % (AUTO) 18.5 % (20.0-44.0); MEAN CORPUSCULAR HEMOGLOBIN 31 PG (26.0-33.0); MEAN CORPUSCULAR HGB CONC 33 g/dl (31.0-36.0); MEAN CORPUSCULAR VOLUME 96 fL (80-96); MONOCYTES # (AUTO) 0.6 /CMM (0.1-1.30); MONOCYTES % (AUTO) 8.7 % (2.0-12.0); NEUTROPHILS # (AUTO) 4.5 /CMM (1.8-8.9); NEUTROPHILS % (AUTO) 66.5 % (43.0-81.0); PLATELET COUNT (AUTO) 142 /CMM (150-450); RDW COEFFICIENT OF VARIATION 21.3 (11.5-15.0); RED BLOOD CELL COUNT(AUTO) 2.85 MIL/uL (4.5-6.0); WHITE BLOOD COUNT (AUTO) 6.7 K/uL (4.3-11.0)
--- NOTE | 2017-12-25 08:00 | NUR ---
INSOLE BEVELER NOTE PATENT IN BED ALL NEEDS ATTENDED WITH BIPAP MACHINE AT THIS TIME , WITH DIEZ CATH TO GRAVITY WITH YELLOW COLOR URINE RT AT BEDSIDE FED BY ORDER FILLER, RT UPPER ARM MID LINE IN PLACE ON IVF ORDERED BED IN LOWEST AND LOCKED POSITION , WILL CONT TO MONITOR CLOSELY
--- NOTE | 2017-12-25 08:12 | NUR ---
RT PLACED PT ON 6LPM O2 VIA N/C. PATIENT IS AWAKE AND VERBALLY RESPONSIVE. PT STATES NOT BEING IN ANY DISTRESS. WILL CONTINUE TO MONITOR THE PATIENT CLOSELY.
--- NOTE | 2017-12-25 08:15 | NUR ---
CAMP NURSE NOTE SEEN BY RT PLACED ON 6L NC ,O2 SAT 96% ,ABG DONE BY RT
[2017-12-25 08:50] LABS: CALCIUM, SERUM 9.6 mg/dL (8.5-10.1); CARBON DIOXIDE 32 mmol/L (21-32); CHLORIDE 108 mmol/L (98-107); GLUCOSE 133 mg/dL (74-106); MAGNESIUM 1.5 mg/dL (1.8-2.4); PHOSPHORUS 2.5 mg/dL (2.5-4.9); POTASSIUM 4.2 mmol/L (3.5-5.1); SODIUM SERUM 143 mmol/L (136-145); UREA NITROGEN, BLOOD 28 mg/dL (7-18)
[2017-12-25] MEDS: LEVETIRACETAM (250 MG) 250 MG TABLET PO SCH ×2 (09:30→21:56)
[2017-12-25] MEDS: CLOPIDOGREL BISULFATE 75 MG TABLET PO SCH (09:30)
[2017-12-25] MEDS: LORATADINE 10 MG TABLET PO SCH ×2 (09:32→16:26)
[2017-12-25] MEDS: LEVOTHYROXINE SODIUM 175 MCG TABLET PO SCH (09:32)
[2017-12-25] MEDS: AMLODIPINE BESYLATE 5 MG TABLET PO SCH (09:33)
[2017-12-25] MEDS: ZINC SULFATE 220 MG CAPSULE PO SCH (09:34)
[2017-12-25] MEDS: ASPIRIN EC 81 MG TABLET.DR PO SCH (09:34)
[2017-12-25] MEDS: AMILORIDE HCL 5 MG TABLET PO SCH (09:34)
[2017-12-25] MEDS: QUETIAPINE FUMARATE 25 MG TABLET PO SCH ×2 (09:35→16:26)
[2017-12-25] MEDS: MULTIVIT, IRON, MIN NO. 8, FA 1 TAB PO SCH (09:36)
[2017-12-25] MEDS: ASCORBIC ACID 500 MG TABLET PO SCH (09:36)
[2017-12-25] MEDS: CHOLECALCIFEROL 1,000 UNIT TABLET (VIT D3) PO SCH (09:36)
[2017-12-25 09:37] LABS: ABG BASE EXCESS 1.2 mmol/L; ABG OXYGEN SATURATION 87.7 % (92.0-98.5); ABG PH 7.307 (7.350-7.450); ABG PO2 61.7 mmHg (75.0-100.0); AaDO2 185.9 mmHg; COHb 0.7 % (0.5-1.5); MetHb 0.2 % (0.0-1.5); O2Hb 86.9 % (94.0-97.0); SITE, ABG Left Radial; VENT MODE, BG NC AT 6LPM
[2017-12-25] MEDS: CEFEPIME 1 GM in IV D5W 50 ML IV SCH (09:39)
[2017-12-25] MEDS: LACTOBACILLUS RHAMNOSUS GG 1 EACH CAP.SPRINK PO SCH ×2 (10:01→16:26)
[2017-12-25] MEDS: GABAPENTIN 400 MG CAPSULE PO SCH ×3 (10:02→16:26)
[2017-12-25] MEDS: INSULIN DETEMIR 100 UNIT/ML CARTRIDGE SQ SCH (10:03)
[2017-12-25] MEDS: INSULIN REGULAR, HUMAN 100 UNIT/ML 3 ML VIAL SQ PRN ×4 (10:04→23:03)
[2017-12-25] MEDS: DOCUSATE SODIUM 100 MG CAPSULE PO SCH ×2 (10:04→16:26)
[2017-12-25] MEDS: BLOOD SUGAR DIAGNOSTIC 1 EACH STRIP IN SCH ×4 (10:07→22:56)
[2017-12-25] MEDS: DOXYCYCLINE 100 MG in IV D5W 100 ML IV SCH ×2 (10:41→22:34)
--- NOTE | 2017-12-25 10:58 | NUR ---
CAREER GUIDANCE TECHNICIAN NOTE SEEN BY DR RAVEN RODGERS TO TO ABG AT 1300 RT AWARE .ALSO CHANGED TO SIMPLE MASK 8L ,SAT 91% WILL MONITOR CLOSELY
--- NOTE | 2017-12-25 12:52 | NUR ---
LAUNDRY HOUSEKEEPING AIDE NOTE SEEN BY ST AT BEDSIDE ABUNDIO BORJA Addendum: 12/25/17 at 1315 by MARISSA GRIMALDO RN RT AT BEDSIDE ROMAIN OSORIO
[2017-12-25 13:25] LABS: ABG BASE EXCESS 4.3 mmol/L; ABG OXYGEN SATURATION 81.9 % (92.0-98.5); ABG PCO2 69.3 mmHg (35.0-45.0); ABG PH 7.287 (7.350-7.450); ABG PO2 53.5 mmHg (75.0-100.0); AaDO2 188.5 mmHg; COHb 0.6 % (0.5-1.5); MetHb 0.5 % (0.0-1.5); SITE, ABG Right Radial; VENT MODE, BG SIMPLE MASK
--- NOTE | 2017-12-25 14:42 | NUR ---
HUMAN RESOURCES TRAINER NOTE PER DR CARBAJAL OK TO TRANSFER TO ICU DR CARBAJAL AWARE OF ABG RESULT Addendum: 12/25/17 at 1640 by MARISSA GRIMALDO RN [id number] CARBAJAL TRANSFER TO ICU WITH BIPAP 15/5 ACOSTA NYE AWARE
--- NOTE | 2017-12-25 15:00 | NUR ---
STONE LAYER NOTE TRANSFERRED TO ICU WITH ACLS PROTOCOL REPORT GIVEN TO MANJINDER Addendum: 12/25/17 at 1641 by MARISSA GRIMALDO RN SPOKE WITH MANJINDER RN NOTIFIED THAT PER DR RAVEN BARRIOS RATE1 03/28
--- NOTE | 2017-12-25 15:07 | NUR ---
DR. CARBAJAL NOW ON THE UNIT (ICU) ADJUSTS THE BIPAP SETTINGS TO 22/10 BACKUP RATE 18 50% FIO2, ABG IN 1 HOUR.
--- NOTE | 2017-12-25 15:10 | NUR ---
RT PLACED PT ON BiPAP / BUR 18, FiO2 50% PER DR. CARBAJAL. MANJINDER RN AWARE OF SETTINGS. PT REMAINS STABLE. SpO2 90-91%. WILL CONTINUE TO MONITOR THE PATIENT CLOSELY FOR ANY CHANGE OF CONDITION.
[2017-12-25] MEDS ORDERED: Magnesium 1GM/D5W 100ML PREMIX PIGGYBACK IV ONE (16:00)
[2017-12-25] MEDS: GUAIFENESIN LA 600 MG TABLET.SA PO SCH ×2 (16:25→22:39)
[2017-12-25] MEDS: methylPREDNISolone SOD SUCC 125 MG/2ML VIAL IV SCH (16:26)
[2017-12-25 16:27] LABS: ABG BASE EXCESS 2.5 mmol/L; ABG PCO2 56.5 mmHg (35.0-45.0); ABG PH 7.331 (7.350-7.450); AaDO2 230.9 mmHg; COHb 0.5 % (0.5-1.5); MetHb 0.4 % (0.0-1.5); O2Hb 88.2 % (94.0-97.0); SITE, ABG Right Radial; VENT MODE, BG BIPAP 22/10
[2017-12-25] MEDS: ACETYLCYSTEINE 10% SOLN 400 MG/4 ML VIAL NEB SCH ×2 (16:30→23:30)
[2017-12-25] MEDS: IV D5W 1,000 ML IV PRN (16:45)
--- NOTE | 2017-12-25 17:28 | NUR ---
DR. CARBAJAL SHOWN THE FOLLOW UP ABG, NO NEW ORDERS KEEP CURRENT BIPAP SETTINGS, OKAY TO TAKE OFF FOR MEDICATIONS AND MEALS IF PT CAN SUSTAIN SPO2 AT LEAST 90%. PT AGREES TO BIPAP AT THIS TIME, TOOK 1700 MEDICATIONS WITH NON REBREATHER IN PLACE. SATS DROP TO 85% AND THEN BACK UP TO 90-95% WITH NON REBREATHER BUT BREATHS ARE SHALLOW.
--- NOTE | 2017-12-25 18:24 | NUR ---
MUCOMYST TX NOT GIVEN. RT UNAWARE OF TX.
--- NOTE | 2017-12-25 19:30 | NUR ---
ALTERATION HAND: RECEIVED PT A/O X 3, ON BIPAP WT SETTINGS ORDERED. NO ACUTE DISTRESS, NO EVIDENCE OF DISCOMFORT OR C/O PAIN. COOPERATIVE WT PLAN OF CARE. UNCONTROLLED A. FIB ON QUALITY CONTROL SPECIALIST WT HR IN LOW 100s. AFEBRILE FAUSTO MIDLINE INFUSING D5W AT 50ML/HR. F/C PATENT AND INTACT DRAINING YELLOW URINE BY GRAVITY. HOB AT 45 DEGREES. SAFETY PRECAUTION NOTED. WILL CONTINUE TO MONITOR.
--- NOTE | 2017-12-25 21:39 | NUR ---
Received pt on bipap, pt stable on current settings, no SOB or respiratory distress noted, bipap is plugged into red outlet, alarms audible and on. Ambu bag at bedside, will continue monitoring per MDS orders. Addendum: 12/25/17 at 2139 by JULISSA TROTTER RT Amended: Links added.
[2017-12-25] MEDS: CEFEPIME 1 GM in IV NS 0.9% 50 ML IV SCH (21:55)
[2017-12-25] MEDS: ATORVASTATIN 40 MG TABLET PO SCH (21:56)
[2017-12-25] MEDS: ENOXAPARIN SODIUM 40 MG/0.4 ML DISP.SYRIN SQ SCH (21:58)
--- NOTE | 2017-12-25 22:30 | NUR ---
EQUITY HOLDER: ABLE TO TAKE WHOLE PILLS (ONE AT A TIME) WT THIN LIQUIDS. NO S/S OF ASPIRATION. HOB ON HIGH DOS SANTOS'S AT ALL TIMES.
[2017-12-26] VITALS (31 sets, daily range): BP systolic 94–151; BP diastolic 45–100
[2017-12-26] MEDS: IPRATROPIUM NEB FS 0.5 MG/2.5 ML AMPUL.NEB IH SCH ×6 (03:24→23:08)
[2017-12-26] MEDS: ALBUTEROL FS 2.5 MG/0.5 ML VIAL.NEB IH SCH ×6 (03:24→23:08)
--- NOTE | 2017-12-26 04:00 | NUR ---
AIDS NURSE: BED BATH GIVEN AND TOLERATED WELL. STILL ON BIPAP WT SAME SETTINGS WT NO ACUTE DISTRESS. NO C/O PAIN OR EVIDENCE OF DISCOMFORT. WILL CONTINUE TO MONITOR.
[2017-12-26 04:45] LABS: BASOPHILS % (AUTO) 0.1 % (0.0-2.0); HEMATOCRIT 28 % (39-51); HEMOGLOBIN 9.1 g/dL (13.5-17.5); LYMPHOCYTES # (AUTO) 0.3 /CMM (0.8-4.8); LYMPHOCYTES % (AUTO) 9.5 % (20.0-44.0); MEAN CORPUSCULAR HEMOGLOBIN 31 PG (26.0-33.0); MEAN CORPUSCULAR HGB CONC 33 g/dl (31.0-36.0); MEAN CORPUSCULAR VOLUME 95 fL (80-96); MONOCYTES % (AUTO) 0.8 % (2.0-12.0); NEUTROPHILS # (AUTO) 2.9 /CMM (1.8-8.9); NEUTROPHILS % (AUTO) 89.6 % (43.0-81.0); PLATELET COUNT (AUTO) 150 /CMM (150-450); RDW COEFFICIENT OF VARIATION 21.1 (11.5-15.0); RED BLOOD CELL COUNT(AUTO) 2.92 MIL/uL (4.5-6.0); WHITE BLOOD COUNT (AUTO) 3.2 K/uL (4.3-11.0)
[2017-12-26 04:58] LABS: CALCIUM, SERUM 9.8 mg/dL (8.5-10.1); CARBON DIOXIDE 33 mmol/L (21-32); CHLORIDE 104 mmol/L (98-107); CREATININE 1.2 mg/dL (0.6-1.3); GLUCOSE 282 mg/dL (74-106); MAGNESIUM 1.5 mg/dL (1.8-2.4); POTASSIUM 4.9 mmol/L (3.5-5.1); SODIUM SERUM 140 mmol/L (136-145); UREA NITROGEN, BLOOD 29 mg/dL (7-18)
--- NOTE | 2017-12-26 06:45 | NUR ---
THERAPIST PHYS: REMAINED A/O X 3. CONTINUE ON BIPAP AND TOLERATING WELL. NO ACUTE DISTRESS, NO C/O PAIN. ALL NEEDS MET. HOB ON HIGH-DOS SANTOS'S AT ALL TIMES.
[2017-12-26] MEDS: ACETYLCYSTEINE 10% SOLN 400 MG/4 ML VIAL NEB SCH ×3 (07:35→23:08)
--- NOTE | 2017-12-26 07:45 | NUR ---
ICU/RN: Pt received in bed, on BiPAP, tolerating current settings, A&Ox3, follows commands with bilat lower ext weakness. RFA IV HL leaking d/c'd, pressure applied. FAUSTO ML flushed, patent and intact with good blood return. FC draining well to gravity. Alarm sounds audible. Will cont to monitor pt.
--- NOTE | 2017-12-26 08:09 | NUR ---
RT NOTE PT FOUND ON BIPAP. SETTINGS PRESCRIBED ST 14/09 50%. ALARMS SET PER PROTOCOL AND AUDIBLE. BIPAP PLUGGED IN TO RED OUTLET. AMBU BAG AT BED SIDE. NO DISTRESS NOTED. WILL CONTINUE TO MONITOR. Addendum: 12/26/17 at 0812 by JOSE TAMEZ RT Amended: Links added.
[2017-12-26] MEDS: methylPREDNISolone SOD SUCC 125 MG/2ML VIAL IV SCH ×2 (08:22→16:36)
[2017-12-26] MEDS: BLOOD SUGAR DIAGNOSTIC 1 EACH STRIP IN SCH ×4 (08:22→21:55)
[2017-12-26] MEDS: CHOLECALCIFEROL 1,000 UNIT TABLET (VIT D3) PO SCH (08:22)
[2017-12-26] MEDS: ASCORBIC ACID 500 MG TABLET PO SCH (08:23)
[2017-12-26] MEDS: LACTOBACILLUS RHAMNOSUS GG 1 EACH CAP.SPRINK PO SCH ×2 (08:23→16:36)
[2017-12-26] MEDS: ZINC SULFATE 220 MG CAPSULE PO SCH (08:23)
[2017-12-26] MEDS: MULTIVIT, IRON, MIN NO. 8, FA 1 TAB PO SCH (08:23)
[2017-12-26] MEDS: QUETIAPINE FUMARATE 25 MG TABLET PO SCH ×2 (08:23→16:36)
[2017-12-26] MEDS: LORATADINE 10 MG TABLET PO SCH ×2 (08:23→16:36)
[2017-12-26] MEDS: DOCUSATE SODIUM 100 MG CAPSULE PO SCH ×2 (08:23→16:36)
[2017-12-26] MEDS: GUAIFENESIN LA 600 MG TABLET.SA PO SCH ×2 (08:23→21:51)
[2017-12-26] MEDS: LEVETIRACETAM (250 MG) 250 MG TABLET PO SCH ×2 (08:23→21:51)
[2017-12-26] MEDS: ASPIRIN EC 81 MG TABLET.DR PO SCH (08:23)
[2017-12-26] MEDS: GABAPENTIN 400 MG CAPSULE PO SCH ×3 (08:23→16:36)
[2017-12-26] MEDS: LEVOTHYROXINE SODIUM 175 MCG TABLET PO SCH (08:23)
[2017-12-26] MEDS: CLOPIDOGREL BISULFATE 75 MG TABLET PO SCH (08:23)
[2017-12-26] MEDS: AMLODIPINE BESYLATE 5 MG TABLET PO SCH (08:24)
[2017-12-26] MEDS: CEFEPIME 1 GM in IV NS 0.9% 50 ML IV SCH ×2 (08:27→20:02)
[2017-12-26] MEDS: INSULIN DETEMIR 100 UNIT/ML CARTRIDGE SQ SCH (08:29)
--- NOTE | 2017-12-26 09:07 | NUR ---
RT NOTE PT PLACED ON NRB AT 15 L FLOW. PT AWAKE AND ALERT. NO DISTRESS NOTED. RN NOTIFIED. WILL CONTINUE TO MONITOR.
[2017-12-26] MEDS: DOXYCYCLINE 100 MG in IV D5W 100 ML IV SCH ×2 (09:10→21:51)
[2017-12-26 09:38] LABS: ABG OXYGEN SATURATION 97.1 % (92.0-98.5); ABG PH 7.335 (7.350-7.450); ABG PO2 125.5 mmHg (75.0-100.0); AaDO2 385.1 mmHg; COHb 0.3 % (0.5-1.5); MetHb 1.2 % (0.0-1.5); O2Hb 95.6 % (94.0-97.0); SITE, ABG Left Radial; VENT MODE, BG NRB 15L
[2017-12-26] MEDS: INSULIN REGULAR, HUMAN 100 UNIT/ML 3 ML VIAL SQ PRN ×4 (10:23→21:57)
[2017-12-26] MEDS ORDERED: FUROSEMIDE 40 MG/4 ML VIAL IV ONE (10:30)
--- NOTE | 2017-12-26 10:40 | NUR ---
ICU/RN: Placed pt on O2 via NC at 6L/min, pt with labored breathing, c/o difficulty catching breath, O2 sat at 82%. Placed on FM at 12L/min; O2 sat maintained at 88-90% pt states increased comfort. Dr Alexander at bedside and aware.
[2017-12-26] MEDS: Magnesium 1GM/D5W 100ML PREMIX 100 ML IV SCH ×2 (11:12→12:31)
[2017-12-26] MEDS: AMILORIDE HCL 5 MG TABLET PO SCH (11:12)
[2017-12-26] MEDS: Z GUARD REMEDY 2 OZ OINT TP PRN (12:04)
[2017-12-26] MEDS: FUROSEMIDE 40 MG/4 ML VIAL IV SCH ×2 (13:19→19:58)
[2017-12-26 14:13] LABS: ABG BASE EXCESS 3.6 mmol/L; ABG OXYGEN SATURATION 90.5 % (92.0-98.5); ABG PCO2 65.1 mmHg (35.0-45.0); ABG PH 7.298 (7.350-7.450); AaDO2 213.3 mmHg; COHb 0.3 % (0.5-1.5); MetHb 0.3 % (0.0-1.5); SITE, ABG Left Radial; VENT MODE, BG SM 10L
--- NOTE | 2017-12-26 15:20 | NUR ---
ICU/RN: Dr Arrington at bedside, updated on status, labs and urine output. New orders noted and carried out.
--- NOTE | 2017-12-26 19:15 | NUR ---
ICU/RN: Pt sitting in bed high fowlers, pt did not tolerate dinner and started coughing while being fed by DENTAL EQUIPMENT REPAIRER. Suction equipment at bedside. O2 sat maintained greater than 88% per MD order. Denies pain and discomfort. FC draining well to gravity. Care endorsed to PM RN for BERNA.
--- NOTE | 2017-12-26 19:40 | NUR ---
PENS AND PENCILS REPAIRER NOTE PATIENT RECEIVED ON FACE MASK AT 8LPM, PATIENT OBSERVED WITH INCREASED WORK OF BREATHING AND COUGHING EPISODES, REFUSED DEEP SUCTIONING. PATIENT ABLE TO EXPECTORATE SMALL TO MODERATE AMOUNT OF THICK, FROTHY WHITE SPUTUM. PATIENT ALSO NOTED TO HAVE DESATURATED IN THE HIGH 80s, PATIENT'S O2 TITRATED TO 10LPM PER PATIENT'S TOLERANCE. CLOSELY MONITORED. PATIENT IS ALERT AND ORIENTED X2-3, ORIENTED NEEDED. AFIB IN THE MONITOR WITH HR AT 105. FAUSTO MIDLINE, FLUSHED AND INTACT, GOOD BLOOD RETURN. F/C INTACT AND DRAINING WELL WITH YELLOW URINE. SAFETY AND COMFORT ENSURED. BED IN LOW AND LOCKED POSITION. WILL COORDINATE WITH RT ACCORDINGLY FOR BIPAP USE.
--- NOTE | 2017-12-26 20:10 | NUR ---
MAINTENANCE SHOP LABORER NOTE RT AT BEDSIDE. CPT PERFORMED FOR THE PATIENT. PATIENT TOLERATED PROCEDURE WELL. PATIENT PLACED ON BIPAP FOR OBSERVED SUSTAINED DESATURATION. PATIENT'S SATURATION IMPROVED TO 94-96%. SAFETY AND COMFORT ENSURED. ON CLOSE MONITORING.
[2017-12-26] MEDS: ATORVASTATIN 40 MG TABLET PO SCH (21:51)
[2017-12-26] MEDS: ENOXAPARIN SODIUM 40 MG/0.4 ML DISP.SYRIN SQ SCH (21:52)
--- NOTE | 2017-12-26 22:30 | NUR ---
BOX STAMPER NOTE ATTEMPTED TO PLACE PATIENT ON FACE MASK AT 12LPM TO GIVE PO HS MEDS. PATIENT ABLE TO SWALLOW, ASPIRATION PRECAUTION OBSERVED AT ALL TIMES, HOWEVER PATIENT DESATURATES TO THE 80s EASILY WITH FACE MASK. NO COUGHING EPISODE NOTED WITH PO MEDS GIVEN. PATIENT PLACED BACK ON BIPAP IMMEDIATELY FOR RESPIRATORY SUPPORT, WITH HELP. CLOSELY MONITORED.
[2017-12-27] VITALS (32 sets, daily range): BP systolic 94–142; BP diastolic 33–76
[2017-12-27] MEDS: FUROSEMIDE 40 MG/4 ML VIAL IV SCH (01:41)
[2017-12-27] MEDS: ALBUTEROL FS 2.5 MG/0.5 ML VIAL.NEB IH SCH ×6 (03:51→23:02)
[2017-12-27] MEDS: IPRATROPIUM NEB FS 0.5 MG/2.5 ML AMPUL.NEB IH SCH ×6 (03:51→23:02)
[2017-12-27 05:07] LABS: HEMATOCRIT 26 % (39-51); HEMOGLOBIN 8.5 g/dL (13.5-17.5); LYMPHOCYTES # (AUTO) 0.3 /CMM (0.8-4.8); LYMPHOCYTES % (AUTO) 8.7 % (20.0-44.0); MEAN CORPUSCULAR HEMOGLOBIN 31 PG (26.0-33.0); MEAN CORPUSCULAR HGB CONC 33 g/dl (31.0-36.0); MEAN CORPUSCULAR VOLUME 95 fL (80-96); MONOCYTES # (AUTO) 0.2 /CMM (0.1-1.30); MONOCYTES % (AUTO) 4.8 % (2.0-12.0); NEUTROPHILS # (AUTO) 3.4 /CMM (1.8-8.9); NEUTROPHILS % (AUTO) 86.5 % (43.0-81.0); PLATELET COUNT (AUTO) 141 /CMM (150-450); RDW COEFFICIENT OF VARIATION 21.9 (11.5-15.0); RED BLOOD CELL COUNT(AUTO) 2.71 MIL/uL (4.5-6.0)
[2017-12-27 05:18] LABS: CALCIUM, SERUM 9.4 mg/dL (8.5-10.1); CARBON DIOXIDE 33 mmol/L (21-32); CHLORIDE 104 mmol/L (98-107); CREATININE 1.2 mg/dL (0.6-1.3); GLUCOSE 208 mg/dL (74-106); MAGNESIUM 1.7 mg/dL (1.8-2.4); PHOSPHORUS 2.8 mg/dL (2.5-4.9); POTASSIUM 4.6 mmol/L (3.5-5.1); SODIUM SERUM 143 mmol/L (136-145); UREA NITROGEN, BLOOD 31 mg/dL (7-18)
--- NOTE | 2017-12-27 06:29 | NUR ---
ICU CLOSING NOTE PATIENT WITH NO CHANGE IN CONDITION OBSERVED OVERNIGHT. PATIENT KEPT ON BIPAP OVERNIGHT WITH GOOD HELP, SATURATION >94% WITH NO DISTRESS. EASILY AROUSABLE WITH VERBAL AND TACTILE STIMULI, REMAINS ALERT AND ORIENTED. F/C INTACT. DIURESING WELL. WOUND CARE RENDERED. ALL DUE MEDS GIVEN ORDERED. SAFETY AND COMFORT ENSURED. BED IN LOW AND LOCKED POSITION. WILL ENDORSE ACCORDINGLY FOR CONTINUITY OF CARE.
[2017-12-27] MEDS: ACETYLCYSTEINE 10% SOLN 400 MG/4 ML VIAL NEB SCH ×3 (07:35→23:30)
[2017-12-27] MEDS: AMILORIDE HCL 5 MG TABLET PO SCH (08:23)
[2017-12-27] MEDS: CEFEPIME 1 GM in IV NS 0.9% 50 ML IV SCH ×2 (08:23→21:01)
[2017-12-27] MEDS: ZINC SULFATE 220 MG CAPSULE PO SCH (08:24)
[2017-12-27] MEDS: ASPIRIN EC 81 MG TABLET.DR PO SCH (08:24)
[2017-12-27] MEDS: LACTOBACILLUS RHAMNOSUS GG 1 EACH CAP.SPRINK PO SCH ×2 (08:24→17:16)
[2017-12-27] MEDS: methylPREDNISolone SOD SUCC 125 MG/2ML VIAL IV SCH ×2 (08:24→17:17)
[2017-12-27] MEDS: QUETIAPINE FUMARATE 25 MG TABLET PO SCH ×2 (08:24→17:17)
[2017-12-27] MEDS: CHOLECALCIFEROL 1,000 UNIT TABLET (VIT D3) PO SCH (08:24)
[2017-12-27] MEDS: MULTIVIT, IRON, MIN NO. 8, FA 1 TAB PO SCH (08:24)
[2017-12-27] MEDS: LEVETIRACETAM (250 MG) 250 MG TABLET PO SCH ×2 (08:24→21:01)
[2017-12-27] MEDS: AMLODIPINE BESYLATE 5 MG TABLET PO SCH (08:24)
[2017-12-27] MEDS: GABAPENTIN 400 MG CAPSULE PO SCH ×3 (08:24→17:17)
[2017-12-27] MEDS: LEVOTHYROXINE SODIUM 175 MCG TABLET PO SCH (08:24)
[2017-12-27] MEDS: GUAIFENESIN LA 600 MG TABLET.SA PO SCH ×2 (08:24→21:01)
[2017-12-27] MEDS: LORATADINE 10 MG TABLET PO SCH ×2 (08:24→17:17)
[2017-12-27] MEDS: ASCORBIC ACID 500 MG TABLET PO SCH (08:24)
[2017-12-27] MEDS: DOCUSATE SODIUM 100 MG CAPSULE PO SCH ×2 (08:24→17:17)
[2017-12-27] MEDS: CLOPIDOGREL BISULFATE 75 MG TABLET PO SCH (08:24)
[2017-12-27] MEDS: BLOOD SUGAR DIAGNOSTIC 1 EACH STRIP IN SCH ×4 (08:25→21:08)
[2017-12-27] MEDS: INSULIN DETEMIR 100 UNIT/ML CARTRIDGE SQ SCH (08:26)
[2017-12-27] MEDS: INSULIN REGULAR, HUMAN 100 UNIT/ML 3 ML VIAL SQ PRN ×4 (08:26→21:08)
--- NOTE | 2017-12-27 09:00 | NUR ---
ICU/RN: Placed pt on NC at 6L/min, pt desaturated to 70-80's. Placed back on simple mask with improvement in saturation to 94%. HOB elevated. Will cont to monitor pt
--- NOTE | 2017-12-27 09:34 | NUR ---
ICU/RN: Dr Arrington rounds; labs, resp status dw . Per ok to downgrade to [facility] if cleared by pulmonology.
[2017-12-27] MEDS: DOXYCYCLINE 100 MG in IV D5W 100 ML IV SCH ×2 (09:35→22:03)
[2017-12-27] MEDS: ACETAMINOPHEN 325 MG TABLET PO PRN (09:37)
[2017-12-27 12:22] LABS: ABG BASE EXCESS 3.1 mmol/L; ABG OXYGEN SATURATION 92.1 % (92.0-98.5); ABG PCO2 63.6 mmHg (35.0-45.0); ABG PH 7.303 (7.350-7.450); ABG PO2 74.5 mmHg (75.0-100.0); COHb 0.5 % (0.5-1.5); MetHb 0.3 % (0.0-1.5); O2Hb 91.4 % (94.0-97.0); SITE, ABG Right Radial; VENT MODE, BG SIMPLE MASK
[2017-12-27] MEDS: Magnesium 1GM/D5W 100ML PREMIX 100 ML IV SCH ×2 (12:33→13:44)
--- NOTE | 2017-12-27 12:45 | NUR ---
ICU/RN: Dr Sunny mccall. ABG results dw . Per , cont to monitor pt in ICU. Pt currently back on [place]. Pt educated and verbalized understanding.
--- NOTE | 2017-12-27 15:00 | NUR ---
ICU/RN: Pt placed on BiPAP on ordered settings; noted with periods of desaturation on NC. FIO2 at 35%. Addendum: 12/27/17 at 1907 by BERONICA WING RN pt with periods of apnea during sleep - applied to keep O2 sat>88%
--- NOTE | 2017-12-27 19:30 | NUR ---
LIVE STUDY MANAGER NOTE RECEIVED PATIENT ON 6LPM OF O2 VIA NC, PATIENT WITH NO DISTRESS. ALERT AND ORIENTED X3. PATIENT DENIES ANY PAIN AND DISCOMFORT. SATURATION AT 95%. AFIB AT 89. F/C INTACT, DRAINING WITH CLOUDY, YELLOW URINE. FAUSTO MIDLINE INTACT AND PATENT. SAFETY AND COMFORT ENSURED. WILL CONTINUE TO MONITOR.
--- NOTE | 2017-12-27 21:00 | NUR ---
MARTIAL ARTS INSTRUCTOR NOTE PATIENT NOTED TO BE DESATURATING AT 88-89%, ASSESSED THE PATIENT AND PATIENT IS OBSERVED TO BE RESTING AND FALLING ASLEEP. PATIENT COMPLIANT WITH USE OF BIPAP FOR HX OF SLEEP APNEA, COORDINATED WITH RT. PATIENT PLACED ON BIPAP WITH SETTINGS OF 22/10, RATE 18, FiO2 35%. PATIENT'S SATURATION WENT UP TO 94%. PATIENT WITH NO DISTRESS. WILL MONITOR.
[2017-12-27] MEDS: ATORVASTATIN 40 MG TABLET PO SCH (21:01)
[2017-12-27] MEDS: ENOXAPARIN SODIUM 40 MG/0.4 ML DISP.SYRIN SQ SCH (21:02)
[2017-12-28] VITALS (20 sets, daily range): BP systolic 91–131; BP diastolic 49–74
[2017-12-28] MEDS: MAGNESIUM HYDROXIDE 30 ML UDC PO PRN (02:23)
--- NOTE | 2017-12-28 02:41 | NUR ---
ICU NOTE PATIENT REQUESTED FOR LAXATIVE, PATIENT C/O CONSTIPATION. NO BM FOR 3 DAYS, MOM ADMINISTERED. Addendum: 12/28/17 at 0518 by CLIFFORD HERNANDEZ RN STILL WITH NO BM. PATIENT IS AWAKE, REFUSED TO BE TURNED AND REPOSITIONED. REFUSED AM CARE/BEDBATH. EXPLAINED RISKS AND BENEFITS, PATIENT STRONGLY REFUSES, SAYS HE IS COMFORTABLE AT THIS TIME. PATIENT'S RIGHTS OBSERVED.
[2017-12-28] MEDS: IPRATROPIUM NEB FS 0.5 MG/2.5 ML AMPUL.NEB IH SCH ×6 (02:47→23:37)
[2017-12-28] MEDS: ALBUTEROL FS 2.5 MG/0.5 ML VIAL.NEB IH SCH ×6 (02:47→23:37)
[2017-12-28 05:02] LABS: HEMATOCRIT 26 % (39-51); HEMOGLOBIN 8.5 g/dL (13.5-17.5); LYMPHOCYTES # (AUTO) 0.4 /CMM (0.8-4.8); LYMPHOCYTES % (AUTO) 7.3 % (20.0-44.0); MEAN CORPUSCULAR HEMOGLOBIN 31 PG (26.0-33.0); MEAN CORPUSCULAR HGB CONC 33 g/dl (31.0-36.0); MEAN CORPUSCULAR VOLUME 94 fL (80-96); MONOCYTES # (AUTO) 0.3 /CMM (0.1-1.30); MONOCYTES % (AUTO) 5.6 % (2.0-12.0); NEUTROPHILS # (AUTO) 4.3 /CMM (1.8-8.9); NEUTROPHILS % (AUTO) 87.1 % (43.0-81.0); PLATELET COUNT (AUTO) 146 /CMM (150-450); RDW COEFFICIENT OF VARIATION 21.3 (11.5-15.0); RED BLOOD CELL COUNT(AUTO) 2.75 MIL/uL (4.5-6.0); WHITE BLOOD COUNT (AUTO) 4.9 K/uL (4.3-11.0)
[2017-12-28 05:24] LABS: CALCIUM, SERUM 9.5 mg/dL (8.5-10.1); CARBON DIOXIDE 31 mmol/L (21-32); CHLORIDE 101 mmol/L (98-107); CREATININE 1.2 mg/dL (0.6-1.3); GLUCOSE 222 mg/dL (74-106); MAGNESIUM 1.8 mg/dL (1.8-2.4); POTASSIUM 4.5 mmol/L (3.5-5.1); SODIUM SERUM 139 mmol/L (136-145); UREA NITROGEN, BLOOD 34 mg/dL (7-18)
--- NOTE | 2017-12-28 06:27 | NUR ---
PLATINUMSMITH NOTE NO ACUTE CHANGE IN CONDITION OBSERVED OVERNIGHT. ON NOCTURNAL BIPAP, PATIEN'S O2 SATURATION KEPT AT 94%. PATIENT IN NO DISTRESS. NO BM STILL, MOM GIVEN PRN. PATIENT RESTING COMFORTABLY IN BED. NEEDS ANTICIPATED AND MET. SAFETY AND COMFORT ENSURED. CALL LIGHT IN REACH. WILL ENDORSE ACCORDINGLY FOR CONTINUITY OF CARE.
[2017-12-28] MEDS: ACETYLCYSTEINE 10% SOLN 400 MG/4 ML VIAL NEB SCH ×3 (07:35→23:30)
--- NOTE | 2017-12-28 07:40 | NUR ---
RN INITIAL NOTE PATIENT RECEIVED RESTING IN BED, TRANSFER CARE FROM MELYSSA: ICU NURSE. PATIENT IS AWAKE, ALERT AND ORIENTED. ABLE TO MAKE NEEDS KNOWN. NO S/S OF PAIN OR DISCOMFORT. PATIENT ABLE TO MAKE NEEDS KNOWN. AFIB ON TELE MONITOR. HEART RATE: 96. RESPIRATIONS ARE EVEN AND UNLABORED. SATING WELL ON 5L NASAL CANULA. DIEZ CATHETER DRAINING TO GRAVITY. SKIN IS WARM AND DRY TO TOUCH. IV SITE FLUSHED, PATENT. SAFETY PRECAUTIONS IMPLEMENTED: BED IN LOCKED, LOW POSITION WITH TWO SIDE RAILS UP. CALL LIGHT AND BELONGINGS WITHIN EASY REACH. WILL CONTINUE TO MONITOR.
[2017-12-28] MEDS: BLOOD SUGAR DIAGNOSTIC 1 EACH STRIP IN SCH ×4 (07:53→21:16)
[2017-12-28] MEDS: INSULIN REGULAR, HUMAN 100 UNIT/ML 3 ML VIAL SQ PRN ×4 (08:00→21:26)
[2017-12-28] MEDS: LEVOTHYROXINE SODIUM 175 MCG TABLET PO SCH (08:19)
[2017-12-28] MEDS: LACTOBACILLUS RHAMNOSUS GG 1 EACH CAP.SPRINK PO SCH ×2 (09:00→18:06)
[2017-12-28] MEDS: AMLODIPINE BESYLATE 5 MG TABLET PO SCH (09:00)
[2017-12-28] MEDS: LEVETIRACETAM (250 MG) 250 MG TABLET PO SCH ×2 (09:01→21:11)
[2017-12-28] MEDS: CHOLECALCIFEROL 1,000 UNIT TABLET (VIT D3) PO SCH (09:01)
[2017-12-28] MEDS: GABAPENTIN 400 MG CAPSULE PO SCH ×3 (09:01→18:06)
[2017-12-28] MEDS: ASCORBIC ACID 500 MG TABLET PO SCH (09:02)
[2017-12-28] MEDS: MULTIVIT, IRON, MIN NO. 8, FA 1 TAB PO SCH (09:02)
[2017-12-28] MEDS: methylPREDNISolone SOD SUCC 125 MG/2ML VIAL IV SCH ×2 (09:02→18:07)
[2017-12-28] MEDS: GUAIFENESIN LA 600 MG TABLET.SA PO SCH ×2 (09:02→21:11)
[2017-12-28] MEDS: ASPIRIN EC 81 MG TABLET.DR PO SCH (09:02)
[2017-12-28] MEDS: QUETIAPINE FUMARATE 25 MG TABLET PO SCH ×2 (09:02→18:06)
[2017-12-28] MEDS: DOCUSATE SODIUM 100 MG CAPSULE PO SCH ×2 (09:02→18:06)
[2017-12-28] MEDS: LORATADINE 10 MG TABLET PO SCH ×2 (09:02→18:06)
[2017-12-28] MEDS: CLOPIDOGREL BISULFATE 75 MG TABLET PO SCH (09:03)
[2017-12-28] MEDS: INSULIN DETEMIR 100 UNIT/ML CARTRIDGE SQ SCH (09:05)
[2017-12-28] MEDS: ZINC SULFATE 220 MG CAPSULE PO SCH (09:05)
[2017-12-28] MEDS: AMILORIDE HCL 5 MG TABLET PO SCH (09:07)
[2017-12-28] MEDS: CEFEPIME 1 GM in IV NS 0.9% 50 ML IV SCH ×2 (09:08→20:14)
--- NOTE | 2017-12-28 09:37 | NUR ---
RT NOTE PT PLACED ON NC AT 4L FLOW. PT AWAKE AND ALERT. NO DISTRESS NOTED. AYDEE BARRAGAN AT BED SIDE. Addendum: 12/28/17 at 0938 by JOSE TAMEZ RT Amended: Links added.
[2017-12-28] MEDS: ACETAMINOPHEN 325 MG TABLET PO PRN ×2 (10:27→18:30)
[2017-12-28] MEDS: DOXYCYCLINE 100 MG in IV D5W 100 ML IV SCH ×2 (10:28→21:11)
--- NOTE | 2017-12-28 12:00 | NUR ---
DIGITAL FORENSIC EXAMINER CLOSING NOTE PATIENT TRANSFERRED TO [facility] FLOOR. REPORT CALLED IN TO YURIDIA. CALLED KITCHEN TO HAVE FOOD SENT TO NEW LOCATION.
--- NOTE | 2017-12-28 12:15 | NUR ---
TD RN NOTES RECEIVED PT ENDORSED BY CECY VILLAVICENCIO. ON NASAL CANNULA 5L. SATURATING 92%. WILL CONTINUE TO MONITOR PT CLOSELY.
--- NOTE | 2017-12-28 18:55 | NUR ---
TD RN NOTES PATIENT STILL ON [facility] VENT SETTING SATURATING WELL. PATIENT WAS AFIB DOCTOR NOTIFIED, DR HOYOS ORDERED AMIODARONE DRIP PER PROTOCOL, CONVERTED AROUND 10 06 TO SR HR 72. PATIENT ON DIALYSIS, VITAL SIGNS ARE STABLE UPON ENDORSING TO THE PM NURSE. DUE MEDS GIVEN. HEAD OF BED ELEVATED. SIDE RAILS UP. WILL ENDORSED PT TO PM NURSE. Addendum: 12/28/17 at 1858 by YURIDIA MAZARIEGOS RN WRONG PT.
--- NOTE | 2017-12-28 18:59 | NUR ---
TD RN NOTES NO ACUTE CHANGES NOTED DURING THE SHIFT. ON NC 8LPM, SATURATING WELL AROUND 97%. ON TELE MONITOR AFIB CONTROLLED. IV ACCESS ON FAUSTO MIDLINE. DUE MEDS GIVEN. SIDE RAILS UP. HEAD OF BED ELEVATED. WILL ENDORSED TO THE PM NURSE FOR BERNA.
--- NOTE | 2017-12-28 19:30 | NUR ---
MAKAYLA RN INITIAL NOTES RECEIVED PATIENT AWAKE A/OX4, ABLE TO MAKE NEEDS KNOWN. STATES HE'S FEELING MUCH BETTER. DENIES OB. STATES HE HAS 6/10 SACRAL PAIN, BUT TOLERABLE. RESPIRATIONS EVEN AND UNLABORED, ON 8LPMO2 VIA NC. ON TELE MONITOR AFIB UNCONTROLLED 103. SKIN WARM AND DRY TO TOUCH. WITH FAUSTO MIDLINE PATENT AND INTACT, DRAINING BY GRAVITY. WITH F/C PATENT AND INTACT, DRAINING BY GRAVITY. HOB ELEVATED. SIDE RAILS UP AND LOCKED. BED KEPT AT LOWEST POSITION. CALL LIGHT KEPT WITHIN EASY REACH. WILL CONTINUE TO MONITOR.
[2017-12-28] MEDS: ATORVASTATIN 40 MG TABLET PO SCH (21:11)
[2017-12-28] MEDS: ENOXAPARIN SODIUM 40 MG/0.4 ML DISP.SYRIN SQ SCH (21:12)
--- NOTE | 2017-12-28 21:30 | NUR ---
MAKAYLA RN NOTES PATIENT PLACED ON BIPAP
--- NOTE | 2017-12-28 21:44 | NUR ---
PT PLACED ON NOC BIPAP. RN NOTIFIED. WILL CONTINUE TO MONITOR. Addendum: 12/28/17 at 2145 by YURIDIA PEREZ RT Amended: Links added.
--- NOTE | 2017-12-28 23:27 | NUR ---
MAKAYLA RN NOTES PATIENT IN STABLE CONDITION. CONTINUITY OF CARE ENDORSED TO
--- NOTE | 2017-12-28 23:30 | NUR ---
RN NOTES RECEIVED PATIENT AND REPORT FROM MAYE KAUR
[2017-12-29] VITALS: BP 119/51
[2017-12-29] MEDS: ALBUTEROL FS 2.5 MG/0.5 ML VIAL.NEB IH SCH ×6 (03:14→23:47)
[2017-12-29] MEDS: IPRATROPIUM NEB FS 0.5 MG/2.5 ML AMPUL.NEB IH SCH ×6 (03:14→23:47)
[2017-12-29 04:00] VITALS: BP 123/72
[2017-12-29] MEDS: ACETAMINOPHEN 325 MG TABLET PO PRN (04:34)
--- NOTE | 2017-12-29 05:44 | NUR ---
PT TAKEN OFF BIPAP AND PLACED ON 3L NC. RN NOTIFIED Addendum: 12/29/17 at 0545 by YURIDIA PEREZ RT Amended: Links added.
[2017-12-29 06:44] LABS: HEMATOCRIT 29 % (39-51); HEMOGLOBIN 9.2 g/dL (13.5-17.5); LYMPHOCYTES # (AUTO) 0.3 /CMM (0.8-4.8); LYMPHOCYTES % (AUTO) 3.6 % (20.0-44.0); MEAN CORPUSCULAR HEMOGLOBIN 31 PG (26.0-33.0); MEAN CORPUSCULAR HGB CONC 32 g/dl (31.0-36.0); MEAN CORPUSCULAR VOLUME 96 fL (80-96); MONOCYTES # (AUTO) 0.4 /CMM (0.1-1.30); MONOCYTES % (AUTO) 4.8 % (2.0-12.0); NEUTROPHILS # (AUTO) 6.8 /CMM (1.8-8.9); NEUTROPHILS % (AUTO) 91.6 % (43.0-81.0); PLATELET COUNT (AUTO) 183 /CMM (150-450); RDW COEFFICIENT OF VARIATION 22.6 (11.5-15.0); RED BLOOD CELL COUNT(AUTO) 2.99 MIL/uL (4.5-6.0); WHITE BLOOD COUNT (AUTO) 7.4 K/uL (4.3-11.0)
[2017-12-29 06:54] LABS: CALCIUM, SERUM 10.1 mg/dL (8.5-10.1); CARBON DIOXIDE 32 mmol/L (21-32); CHLORIDE 101 mmol/L (98-107); CREATININE 1.4 mg/dL (0.6-1.3); GLUCOSE 253 mg/dL (74-106); PHOSPHORUS 2.8 mg/dL (2.5-4.9); POTASSIUM 5.1 mmol/L (3.5-5.1); SODIUM SERUM 140 mmol/L (136-145); UREA NITROGEN, BLOOD 39 mg/dL (7-18)
[2017-12-29 07:13] LABS: BAND % (MANUAL) 1 % (0.0-5.0); LYMPHOCYTES % (MANUAL) 8 % (16-48); MONOCYTES % (MANUAL) 3 % (0-11.0); NEUTROPHILS % (MANUAL) 88 (42-76)
[2017-12-29] MEDS: ACETYLCYSTEINE 10% SOLN 400 MG/4 ML VIAL NEB SCH ×3 (07:27→23:30)
--- NOTE | 2017-12-29 07:30 | NUR ---
MAKAYLA RN AM NOTES PATIENT IN BED, AAO X 4, ON 5L O2 NC, PER MARINE PIPEFITTER HELPER, PT WAS TAKEN OFF FROM BIPAP, ABLE TO MAKE NEEDS KNOWN. NOT IN ANY DISTRESS, BREATHING UNLABORED, TELEMETRY READS AFIB CONTROLLED HR 97 , NO S/S OF PAIN OR DISCOMFORT. FAUSTO MIDLINE FLUSHES WELL, SITE CLEAR. DIEZ CATHETER DRAINING TO GRAVITY. SKIN IS WARM AND DRY TO TOUCH. SEE NURSING FLOWSHEET FOR SKIN ISSUES, SAFETY PRECAUTIONS IMPLEMENTED: BED IN LOCKED, LOW POSITION WITH TWO SIDE RAILS UP. CALL LIGHT AND BELONGINGS WITHIN EASY REACH. WILL CONTINUE TO MONITOR.
[2017-12-29 08:00] VITALS: BP 115/66
[2017-12-29] MEDS: LEVOTHYROXINE SODIUM 175 MCG TABLET PO SCH (08:16)
[2017-12-29] MEDS: BLOOD SUGAR DIAGNOSTIC 1 EACH STRIP IN SCH ×4 (08:16→21:54)
--- NOTE | 2017-12-29 08:16 | NUR ---
MAKAYLA RN NOTES ACCUCHECK DONE. BS 254 MG/DL, HUM R 6 UNITS GIVEN PER SS.
[2017-12-29] MEDS: CEFEPIME 1 GM in IV NS 0.9% 50 ML IV SCH (08:23)
[2017-12-29] MEDS: methylPREDNISolone SOD SUCC 125 MG/2ML VIAL IV SCH ×2 (09:01→16:51)
[2017-12-29] MEDS: QUETIAPINE FUMARATE 25 MG TABLET PO SCH ×2 (09:02→16:51)
[2017-12-29] MEDS: ASPIRIN EC 81 MG TABLET.DR PO SCH (09:02)
[2017-12-29] MEDS: LORATADINE 10 MG TABLET PO SCH ×2 (09:02→16:51)
[2017-12-29] MEDS: LEVETIRACETAM (250 MG) 250 MG TABLET PO SCH ×2 (09:02→21:41)
[2017-12-29] MEDS: MULTIVIT, IRON, MIN NO. 8, FA 1 TAB PO SCH (09:02)
[2017-12-29] MEDS: AMILORIDE HCL 5 MG TABLET PO SCH (09:02)
[2017-12-29] MEDS: ZINC SULFATE 220 MG CAPSULE PO SCH (09:02)
[2017-12-29] MEDS: LACTOBACILLUS RHAMNOSUS GG 1 EACH CAP.SPRINK PO SCH ×2 (09:02→16:50)
[2017-12-29] MEDS: ASCORBIC ACID 500 MG TABLET PO SCH (09:02)
[2017-12-29] MEDS: GABAPENTIN 400 MG CAPSULE PO SCH ×3 (09:02→16:50)
[2017-12-29] MEDS: GUAIFENESIN LA 600 MG TABLET.SA PO SCH ×2 (09:02→21:41)
[2017-12-29] MEDS: AMLODIPINE BESYLATE 5 MG TABLET PO SCH (09:03)
[2017-12-29] MEDS: DOCUSATE SODIUM 100 MG CAPSULE PO SCH ×2 (09:03→16:51)
[2017-12-29] MEDS: CLOPIDOGREL BISULFATE 75 MG TABLET PO SCH (09:03)
[2017-12-29] MEDS: INSULIN REGULAR, HUMAN 100 UNIT/ML 3 ML VIAL SQ PRN ×4 (09:04→22:03)
[2017-12-29] MEDS: INSULIN DETEMIR 100 UNIT/ML CARTRIDGE SQ SCH (09:05)
[2017-12-29] MEDS: CHOLECALCIFEROL 1,000 UNIT TABLET (VIT D3) PO SCH (09:23)
--- NOTE | 2017-12-29 09:30 | NUR ---
MAKAYLA RN NOTES DUE MEDS GIVE. MAXIPIME IV ADMINISTERED AT 0823
[2017-12-29] MEDS: DOXYCYCLINE 100 MG in IV D5W 100 ML IV SCH (10:02)
--- NOTE | 2017-12-29 10:02 | NUR ---
MAKAYLA VILLAVICENCIO OTES VIBRAMYCIN IV STARTED.
[2017-12-29 12:00] VITALS: BP 136/72
--- NOTE | 2017-12-29 12:22 | NUR ---
MAKAYLA RN NOTES ACCUCHECK DONE. BS 274 MG/DL, HUM R 6 UNITS GIVEN PER SS.
--- NOTE | 2017-12-29 13:08 | NUR ---
MAKAYLA RN NOTES PER DR. KIRKPATRICK TO KEEP O2 SAT AT 90 % AND ABOVE.
[2017-12-29 16:00] VITALS: BP 113/57
--- NOTE | 2017-12-29 16:59 | NUR ---
HUB BANDER NOTES ACCUCHECK DONE. BS 259 MG/DL, HUM R 6 UNITS GIVEN PER SS.
--- NOTE | 2017-12-29 18:31 | NUR ---
MAK[facility] RN CLOSING NOTES PATIENT IN BED, AAO X 4, ON 8L O2 MASK, TO KEEP O2 SAT [address] KIRKPATR[address] BIPAP AT [facility]. ABLE TO MAKE NEEDS KNOWN. NOT IN ANY DISTRESS, BREATHING UNLABORED, TELEMETRY READS AFIB CONTROLLED HR 101 , NO S/S OF PAIN OR DISCOMFORT. FAUSTO MIDLINE FLUSHES WELL, SITE CLEAR. DIEZ CATHETER CHANGED, DRAINING TO GRAVITY TOTAL OUTPUT OF 1100 ML.. SKIN IS WARM AND DRY TO TOUCH. SAFETY PRECAUTIONS IMPLEMENTED: BED IN LOCKED, LOW POSITION WITH TWO SIDE RAILS UP. CALL LIGHT AND BELONGINGS WITHIN EASY REACH. TURNED AND REPOSITIONED. PRESCRIBED WOUND TREATMENT AND PM CARE DONE. ALL NEEDS MET. NO OTHER SIGNIFICANT CHANGE IN CONDITION. WILL ENDORSE TO NEXT SHIFT FOR BERNA.
[2017-12-29 20:00] VITALS: BP 136/72
--- NOTE | 2017-12-29 20:00 | NUR ---
MAKAYLA RN NOTE PT IN BED ASLEEP, ON BIPAP. TOLERATING IT WELL, EASILY AROUSABLE. NO DISTRESS OR DISCOMFORT NOTED. DENIES PAIN. FAUSTO MIDLINE INTACT AND PATENT. NO S/S OF INFILTRATION NOTED. NO S/S OF HYPO OR HYPERGLYCEMIA NOTED. ON TELE A FIB HR 106 CONTROLLED. SIDE RAILS UP X 3 AND CALL LIGHT WITHIN REACH. VSS. CONTINUE TO MONITOR HIM.
[2017-12-29] MEDS: ATORVASTATIN 40 MG TABLET PO SCH (21:41)
[2017-12-29] MEDS: ENOXAPARIN SODIUM 40 MG/0.4 ML DISP.SYRIN SQ SCH (21:42)
[2017-12-30] VITALS: BP 142/77
[2017-12-30 04:00] VITALS: BP 120/81
[2017-12-30] MEDS: IPRATROPIUM NEB FS 0.5 MG/2.5 ML AMPUL.NEB IH SCH ×6 (04:13→22:45)
[2017-12-30] MEDS: ALBUTEROL FS 2.5 MG/0.5 ML VIAL.NEB IH SCH ×6 (04:13→22:45)
[2017-12-30 06:48] LABS: HEMATOCRIT 27 % (39-51); HEMOGLOBIN 8.8 g/dL (13.5-17.5); LYMPHOCYTES # (AUTO) 0.4 /CMM (0.8-4.8); LYMPHOCYTES % (AUTO) 6.4 % (20.0-44.0); MEAN CORPUSCULAR HEMOGLOBIN 31 PG (26.0-33.0); MEAN CORPUSCULAR HGB CONC 32 g/dl (31.0-36.0); MEAN CORPUSCULAR VOLUME 96 fL (80-96); MONOCYTES # (AUTO) 0.5 /CMM (0.1-1.30); MONOCYTES % (AUTO) 7.1 % (2.0-12.0); NEUTROPHILS # (AUTO) 5.7 /CMM (1.8-8.9); NEUTROPHILS % (AUTO) 86.5 % (43.0-81.0); PLATELET COUNT (AUTO) 141 /CMM (150-450); RDW COEFFICIENT OF VARIATION 22.2 (11.5-15.0); RED BLOOD CELL COUNT(AUTO) 2.84 MIL/uL (4.5-6.0); WHITE BLOOD COUNT (AUTO) 6.6 K/uL (4.3-11.0)
[2017-12-30 07:03] LABS: CALCIUM, SERUM 9.8 mg/dL (8.5-10.1); CARBON DIOXIDE 34 mmol/L (21-32); CHLORIDE 103 mmol/L (98-107); CREATININE 1.1 mg/dL (0.6-1.3); GLUCOSE 179 mg/dL (74-106); POTASSIUM 5.4 mmol/L (3.5-5.1); SODIUM SERUM 140 mmol/L (136-145); UREA NITROGEN, BLOOD 41 mg/dL (7-18)
--- NOTE | 2017-12-30 07:09 | NUR ---
MAKAYLA RN NOTE PT IN BED ASLEEP, ON BIPAP, AROUSABLE. NO DISTRESS OR DISCOMFORT NOTED. DENIES PAIN. ON TELE A FIB CONTROLLED. SIDE RAILS UP X 3 AND CALL LIGHT WITHIN REACH. ENDORSE TO DAY SHIFT NURSE FOR CONTINUE TO CARE.
--- NOTE | 2017-12-30 07:10 | NUR ---
RN INITIAL NOTES: REC'D PT AWAKE ON BED, NOT IN ANY DISTRESS, A/O X 3-4. ON BIPAP AT THIS TIME, SATING AT 95%. ON TELEMONITOR, AFIB CONTROLLED. HAS FAUSTO MIDLINE, SL, FLUSHING WELL, PATENT & INTACT W/ NO S/SX OF INFECTION/INFILTRATION NOTED. HAS FC PATENT & INTACT. PROVIDED COMFORT & SAFETY MEASURES. BED KEPT LOW & IN LOCKED POS. CALL LIGHT PLACED W/IN REACH. WILL CONTINUE TO MONITOR & ATTEND PT'S NEEDS.
[2017-12-30] MEDS: ACETYLCYSTEINE 10% SOLN 400 MG/4 ML VIAL NEB SCH ×3 (07:21→23:30)
[2017-12-30 08:00] VITALS: BP 125/79
[2017-12-30] MEDS: BLOOD SUGAR DIAGNOSTIC 1 EACH STRIP IN SCH ×4 (08:29→21:26)
[2017-12-30] MEDS: CHOLECALCIFEROL 1,000 UNIT TABLET (VIT D3) PO SCH (08:31)
[2017-12-30] MEDS: LACTOBACILLUS RHAMNOSUS GG 1 EACH CAP.SPRINK PO SCH ×2 (08:31→16:39)
[2017-12-30] MEDS: ZINC SULFATE 220 MG CAPSULE PO SCH (08:31)
[2017-12-30] MEDS: CLOPIDOGREL BISULFATE 75 MG TABLET PO SCH (08:31)
[2017-12-30] MEDS: GABAPENTIN 400 MG CAPSULE PO SCH ×3 (08:32→16:39)
[2017-12-30] MEDS: GUAIFENESIN LA 600 MG TABLET.SA PO SCH ×2 (08:32→21:25)
[2017-12-30] MEDS: methylPREDNISolone SOD SUCC 125 MG/2ML VIAL IV SCH ×2 (08:32→16:39)
[2017-12-30] MEDS: LEVOTHYROXINE SODIUM 175 MCG TABLET PO SCH (08:32)
[2017-12-30] MEDS: DOCUSATE SODIUM 100 MG CAPSULE PO SCH ×2 (08:32→16:39)
[2017-12-30] MEDS: LEVETIRACETAM (250 MG) 250 MG TABLET PO SCH ×2 (08:32→21:25)
[2017-12-30] MEDS: QUETIAPINE FUMARATE 25 MG TABLET PO SCH ×2 (08:33→16:39)
[2017-12-30] MEDS: MULTIVIT, IRON, MIN NO. 8, FA 1 TAB PO SCH (08:33)
[2017-12-30] MEDS: ASPIRIN EC 81 MG TABLET.DR PO SCH (08:33)
[2017-12-30] MEDS: ASCORBIC ACID 500 MG TABLET PO SCH (08:33)
[2017-12-30] MEDS: AMILORIDE HCL 5 MG TABLET PO SCH (08:33)
[2017-12-30] MEDS: LORATADINE 10 MG TABLET PO SCH ×2 (08:33→16:39)
[2017-12-30] MEDS: AMLODIPINE BESYLATE 5 MG TABLET PO SCH (08:34)
[2017-12-30] MEDS: INSULIN DETEMIR 100 UNIT/ML CARTRIDGE SQ SCH (08:35)
[2017-12-30] MEDS: Z GUARD REMEDY 2 OZ OINT TP PRN (08:37)
[2017-12-30] MEDS: INSULIN REGULAR, HUMAN 100 UNIT/ML 3 ML VIAL SQ PRN ×4 (08:37→21:31)
[2017-12-30] MEDS: MAG HYDROX/AL HYDROX/SIMETH 30 ML UDC PO PRN (10:13)
--- NOTE | 2017-12-30 11:00 | NUR ---
RN NOTES: PT SEEN & EXAMINED BY DR. FAROOQ.
[2017-12-30 12:00] VITALS: BP 140/76
[2017-12-30 14:07] LABS: LYMPHOCYTES % (MANUAL) 12 % (16-48); MONOCYTES % (MANUAL) 2 % (0-11.0); NEUTROPHILS % (MANUAL) 86 (42-76)
[2017-12-30 16:00] VITALS: BP 145/80
--- NOTE | 2017-12-30 18:46 | NUR ---
RN CLOSING NOTES: PT PLACED ON BIPAP D/T DESATURATION 78%, C/O SLIGHT SOB. ON TELEMONITOR, STILL AFIB CONTROLLED. FAUSTO MIDLINE, SL, KEPT PATENT & INTACT W/ NO S/SX OF INFECTION/INFILTRATION NOTED. FC KEPT PATENT & INTACT. KEPT WELL RESTED. NEEDS ATTENDED. BED KEPT LOW & IN LOCKED POS. CALL LIGHT PLACED W/IN REACH. WILL ENDORSE TO PM RN FOR BERNA. DR. FAROOQ IS AWARE OF K 5.4, NO ORDER HAS BEEN MADE.
[2017-12-30 20:00] VITALS: BP 118/63
--- NOTE | 2017-12-30 20:00 | NUR ---
WEB KNITTER NOTE RECEIVED PT IN BED AWAKE. ON BIPAP / RATE 18 O2 8L O2 SAT 98%. TOLERATING THE SETTINGS WELL. NO DISTRESS OR DISCOMFORT NOTED. DENIES PAIN. ON TELE A FIB CONTROLLED HR 102. FAUSTO MIDLINE INTACT AND PATENT. F/C INTACT AND PATENT DRAINING YELLOWISH COLOR URINE. SIDE RAILS UP X 3 AND CALL LIGHT WITHIN REACH. VSS. CONTINUE TO MONITOR HIM.
--- NOTE | 2017-12-30 20:39 | NUR ---
PT RECEIVED ON BIPAP. NO RESP DISTRESS. TOLERATING SETTINGS. WILL CONTINUE TO MONITOR. Addendum: 12/30/17 at 2039 by YURIDIA PEREZ RT Amended: Links added.
[2017-12-30] MEDS: ATORVASTATIN 40 MG TABLET PO SCH (21:25)
[2017-12-30] MEDS: ENOXAPARIN SODIUM 40 MG/0.4 ML DISP.SYRIN SQ SCH (21:26)
[2017-12-31] VITALS: BP 117/68
[2017-12-31] MEDS: IPRATROPIUM NEB FS 0.5 MG/2.5 ML AMPUL.NEB IH SCH ×6 (02:48→23:52)
[2017-12-31] MEDS: ALBUTEROL FS 2.5 MG/0.5 ML VIAL.NEB IH SCH ×6 (02:48→23:52)
[2017-12-31 04:00] VITALS: BP 119/73
--- NOTE | 2017-12-31 05:22 | NUR ---
PT OFF BIPAP. PLACED ON NC 4L. RN NOTIFIED. Addendum: 12/31/17 at 0522 by YURIDIA PEREZ RT Amended: Links added.
[2017-12-31 06:18] LABS: CARBON DIOXIDE 33 mmol/L (21-32); CHLORIDE 104 mmol/L (98-107); CREATININE 1.1 mg/dL (0.6-1.3); GLUCOSE 206 mg/dL (74-106); POTASSIUM 5.6 mmol/L (3.5-5.1); SODIUM SERUM 140 mmol/L (136-145); UREA NITROGEN, BLOOD 42 mg/dL (7-18)
[2017-12-31 06:27] LABS: EOSINOPHILS % (AUTO) 0.4 % (0.0-6.0); HEMATOCRIT 28 % (39-51); HEMOGLOBIN 8.8 g/dL (13.5-17.5); LYMPHOCYTES # (AUTO) 0.6 /CMM (0.8-4.8); LYMPHOCYTES % (AUTO) 10.4 % (20.0-44.0); MEAN CORPUSCULAR HEMOGLOBIN 31 PG (26.0-33.0); MEAN CORPUSCULAR HGB CONC 32 g/dl (31.0-36.0); MEAN CORPUSCULAR VOLUME 96 fL (80-96); MONOCYTES # (AUTO) 0.4 /CMM (0.1-1.30); MONOCYTES % (AUTO) 7.2 % (2.0-12.0); PLATELET COUNT (AUTO) 148 /CMM (150-450); RDW COEFFICIENT OF VARIATION 22.3 (11.5-15.0); RED BLOOD CELL COUNT(AUTO) 2.87 MIL/uL (4.5-6.0); WHITE BLOOD COUNT (AUTO) 6.1 K/uL (4.3-11.0)
--- NOTE | 2017-12-31 06:36 | NUR ---
SUPERVISOR CLEANING AND ANNEALING NOTE PT IN BED AWAKE. NO DISTRESS OR DISCOMFORT NOTED. DENIES PAIN. ON TELE A FIB CONTROLLED 98. SIDE RAILS UP AND CALL LIGHT WITHIN REACH. WILL ENDORSE TO DAY SHIFT NURSE FOR CONTINUE TO CARE.
--- NOTE | 2017-12-31 07:30 | NUR ---
INTERMODAL CUSTOMER SERVICE AM NOTES PATIENT IN BED, AAO X 4, ON 8L O2 MASK, ON BIPAP AT [facility], ABLE TO MAKE NEEDS KNOWN. NOT IN ANY DISTRESS, BREATHING UNLABORED, TELEMETRY READS AFIB CONTROLLED HR 101 , NO S/S OF PAIN OR DISCOMFORT. FAUSTO MIDLINE FLUSHES WELL, SITE CLEAR. DIEZ CATHETER DRAINING TO GRAVITY. SKIN IS WARM AND DRY TO TOUCH. SEE NURSING FLOWSHEET FOR SKIN ISSUES, SAFETY PRECAUTIONS IMPLEMENTED: BED IN LOCKED, LOW POSITION WITH TWO SIDE RAILS UP. CALL LIGHT AND BELONGINGS WITHIN EASY REACH. WILL CONTINUE TO MONITOR.
[2017-12-31 08:00] VITALS: BP 113/76
[2017-12-31] MEDS: LEVOTHYROXINE SODIUM 175 MCG TABLET PO SCH (08:31)
[2017-12-31] MEDS: BLOOD SUGAR DIAGNOSTIC 1 EACH STRIP IN SCH ×4 (08:31→21:45)
--- NOTE | 2017-12-31 08:31 | NUR ---
CLINICAL SUPPORT ASSOCIATE NOTES ACCUCHECK DONE. BS 221 MG/DL. 4 UNITS HUM R PER SS GIVEN
[2017-12-31] MEDS: GABAPENTIN 400 MG CAPSULE PO SCH ×3 (08:33→16:40)
[2017-12-31] MEDS: LEVETIRACETAM (250 MG) 250 MG TABLET PO SCH ×2 (08:33→21:46)
[2017-12-31] MEDS: CLOPIDOGREL BISULFATE 75 MG TABLET PO SCH (08:34)
[2017-12-31] MEDS: AMILORIDE HCL 5 MG TABLET PO SCH (08:34)
[2017-12-31] MEDS: ASCORBIC ACID 500 MG TABLET PO SCH (08:35)
[2017-12-31] MEDS: DOCUSATE SODIUM 100 MG CAPSULE PO SCH ×2 (08:35→16:40)
[2017-12-31] MEDS: CHOLECALCIFEROL 1,000 UNIT TABLET (VIT D3) PO SCH (08:35)
[2017-12-31] MEDS: ZINC SULFATE 220 MG CAPSULE PO SCH (08:35)
[2017-12-31] MEDS: LORATADINE 10 MG TABLET PO SCH ×2 (08:35→16:40)
[2017-12-31] MEDS: MULTIVIT, IRON, MIN NO. 8, FA 1 TAB PO SCH (08:35)
[2017-12-31] MEDS: LACTOBACILLUS RHAMNOSUS GG 1 EACH CAP.SPRINK PO SCH ×2 (08:35→16:40)
[2017-12-31] MEDS: QUETIAPINE FUMARATE 25 MG TABLET PO SCH ×2 (08:35→16:40)
[2017-12-31] MEDS: GUAIFENESIN LA 600 MG TABLET.SA PO SCH ×2 (08:36→21:46)
[2017-12-31] MEDS: ASPIRIN EC 81 MG TABLET.DR PO SCH (08:36)
[2017-12-31] MEDS: AMLODIPINE BESYLATE 5 MG TABLET PO SCH (08:37)
[2017-12-31] MEDS: methylPREDNISolone SOD SUCC 125 MG/2ML VIAL IV SCH ×2 (08:37→16:40)
[2017-12-31] MEDS: ACETYLCYSTEINE 10% SOLN 400 MG/4 ML VIAL NEB SCH ×3 (08:45→23:30)
--- NOTE | 2017-12-31 08:45 | NUR ---
RT NOTE ABG DRAWN ON LEFT RADIAL ON 40% NASAL CANNULA, 5LPM. NURSE, RAS, NOTIFIED OF RESULTS.
[2017-12-31] MEDS: INSULIN DETEMIR 100 UNIT/ML CARTRIDGE SQ SCH (08:48)
[2017-12-31] MEDS: INSULIN REGULAR, HUMAN 100 UNIT/ML 3 ML VIAL SQ PRN ×4 (08:48→21:48)
[2017-12-31 08:54] LABS: ABG OXYGEN SATURATION 80.5 % (92.0-98.5); ABG PCO2 60.3 mmHg (35.0-45.0); ABG PO2 50.3 mmHg (75.0-100.0); AaDO2 165.6 mmHg; COHb 0.3 % (0.5-1.5); MetHb 0.4 % (0.0-1.5); O2Hb 79.9 % (94.0-97.0); SITE, ABG Left Radial
--- NOTE | 2017-12-31 09:30 | NUR ---
SOFTWARE SALES EXECUTIVE NOTES DUE MEDS GIVEN
[2017-12-31 12:00] VITALS: BP 126/74
--- NOTE | 2017-12-31 12:15 | NUR ---
RT NOTE ABG DRAWN. CHARGE NURSE, MONTRELL, AWARE AND WILL CARRY OUT RESULTS. PLACED PATIENT ON SIMPLE MASK @ 6LPM. SP02 INCREASED TO 94% HR 99 BPM. NO SOB NOTED.
[2017-12-31 12:18] LABS: ABG BASE EXCESS 6.7 mmol/L; ABG OXYGEN SATURATION 78.3 % (92.0-98.5); ABG PCO2 58.9 mmHg (35.0-45.0); ABG PH 7.369 (7.350-7.450); ABG PO2 48.3 mmHg (75.0-100.0); AaDO2 241.9 mmHg; COHb 0.5 % (0.5-1.5); MetHb 0.3 % (0.0-1.5); O2Hb 77.7 % (94.0-97.0); SITE, ABG Left Radial; VENT MODE, BG Venturi Mask @ 50%
--- NOTE | 2017-12-31 12:50 | NUR ---
SINGE MACHINE OPERATOR NOTES ACCUCHECK DONE. BS 243 MG/DL. 4 UNITS HUM R PER SS GIVEN
[2017-12-31] MEDS: MAG HYDROX/AL HYDROX/SIMETH 30 ML UDC PO PRN (14:50)
--- NOTE | 2017-12-31 15:23 | NUR ---
MANAGER STRATEGY & ACCOUNT NOTES DR. FAROOQ NOTIFIED, PT'S COUGH OUT DARK BLOODY PHLEGM POST MAALOX AND PM CARE. NO NEW ORDER.
[2017-12-31 16:00] VITALS: BP 144/88
--- NOTE | 2017-12-31 16:39 | NUR ---
ANTIQUE CLOCK REPAIRER NOTES ACCUCHECK DONE. BS 215 MG/DL. 4 UNITS HUM R PER SS GIVEN
[2017-12-31] MEDS: BOOST GLUCOSE CONTROL VANILLA 237 ML BOX PO SCH (18:21)
--- NOTE | 2017-12-31 18:27 | NUR ---
AQUATIC LIFE LABORER CLOSING NOTES PATIENT IN BED, AAO X 4, ON 8L O2 MASK, BIPAP AT [facility]. ABLE TO MAKE NEEDS KNOWN. NOT IN ANY DISTRESS, BREATHING UNLABORED, TELEMETRY READS AFIB CONTROLLED HR 103 , NO S/S OF PAIN OR DISCOMFORT. FAUSTO MIDLINE FLUSHES WELL, SITE CLEAR. DIEZ CATHETER CHANGED, DRAINING TO GRAVITY TOTAL OUTPUT OF 600 ML. SKIN IS WARM AND DRY TO TOUCH. SAFETY PRECAUTIONS IMPLEMENTED: BED IN LOCKED, LOW POSITION WITH TWO SIDE RAILS UP. CALL LIGHT AND BELONGINGS WITHIN EASY REACH. TURNED AND REPOSITIONED. PRESCRIBED WOUND TREATMENT AND PM CARE DONE. ALL NEEDS MET. NO OTHER SIGNIFICANT CHANGE IN CONDITION. WILL ENDORSE TO NEXT SHIFT FOR BERNA.
[2017-12-31 20:00] VITALS: BP 136/68
[2017-12-31] MEDS: ATORVASTATIN 40 MG TABLET PO SCH (21:46)
[2017-12-31] MEDS: ENOXAPARIN SODIUM 40 MG/0.4 ML DISP.SYRIN SQ SCH (21:46)
[2018-01-01] VITALS (16 sets, daily range): BP systolic 120–147; BP diastolic 53–98
[2018-01-01] MEDS: IPRATROPIUM NEB FS 0.5 MG/2.5 ML AMPUL.NEB IH SCH ×6 (04:02→23:42)
[2018-01-01] MEDS: ALBUTEROL FS 2.5 MG/0.5 ML VIAL.NEB IH SCH ×6 (04:02→23:42)
--- NOTE | 2018-01-01 07:15 | NUR ---
RN NOTES PT IS RESTING IN BED, NO SIGNS OF DISTRESS NOTED. PT ON 8L O2 VIA MASK, RESPIRATIONS ARE EVEN AND UNLABORED. FAUSTO MIDLINE IS INTACT AND SL. DIEZ CATHETER IS INTACT AND DRAINING. SAFETY MEASURES ARE IN PLACE, CALL LIGHT IS IN REACH. WILL CONTINUE TO MONITOR.
[2018-01-01] MEDS: ACETYLCYSTEINE 10% SOLN 400 MG/4 ML VIAL NEB SCH ×3 (07:35→23:30)
[2018-01-01] MEDS: LEVOTHYROXINE SODIUM 175 MCG TABLET PO SCH (07:59)
[2018-01-01] MEDS: DOCUSATE SODIUM 100 MG CAPSULE PO SCH ×2 (08:00→17:00)
[2018-01-01] MEDS: ASPIRIN EC 81 MG TABLET.DR PO SCH (08:00)
[2018-01-01] MEDS: methylPREDNISolone SOD SUCC 125 MG/2ML VIAL IV SCH ×2 (08:00→17:09)
[2018-01-01] MEDS: LACTOBACILLUS RHAMNOSUS GG 1 EACH CAP.SPRINK PO SCH ×2 (08:00→17:00)
[2018-01-01] MEDS: BOOST GLUCOSE CONTROL VANILLA 237 ML BOX PO SCH ×3 (08:00→17:00)
[2018-01-01] MEDS: LORATADINE 10 MG TABLET PO SCH ×2 (08:00→17:00)
[2018-01-01] MEDS: AMILORIDE HCL 5 MG TABLET PO SCH (08:01)
[2018-01-01] MEDS: LEVETIRACETAM (250 MG) 250 MG TABLET PO SCH ×2 (08:01→21:26)
[2018-01-01] MEDS: AMLODIPINE BESYLATE 5 MG TABLET PO SCH (08:01)
[2018-01-01] MEDS: CLOPIDOGREL BISULFATE 75 MG TABLET PO SCH (08:01)
[2018-01-01] MEDS: GABAPENTIN 400 MG CAPSULE PO SCH ×3 (08:01→17:00)
[2018-01-01] MEDS: GUAIFENESIN LA 600 MG TABLET.SA PO SCH ×2 (08:01→21:26)
[2018-01-01] MEDS: CHOLECALCIFEROL 1,000 UNIT TABLET (VIT D3) PO SCH (08:02)
[2018-01-01] MEDS: QUETIAPINE FUMARATE 25 MG TABLET PO SCH ×2 (08:02→17:00)
[2018-01-01] MEDS: MULTIVIT, IRON, MIN NO. 8, FA 1 TAB PO SCH (08:02)
[2018-01-01] MEDS: ZINC SULFATE 220 MG CAPSULE PO SCH (08:02)
[2018-01-01] MEDS: ASCORBIC ACID 500 MG TABLET PO SCH (08:02)
[2018-01-01] MEDS: INSULIN REGULAR, HUMAN 100 UNIT/ML 3 ML VIAL SQ PRN ×2 (08:21→12:02)
[2018-01-01] MEDS: INSULIN DETEMIR 100 UNIT/ML CARTRIDGE SQ SCH (08:21)
[2018-01-01] MEDS: BLOOD SUGAR DIAGNOSTIC 1 EACH STRIP IN SCH ×4 (08:24→21:26)
[2018-01-01 10:12] LABS: ABG BASE EXCESS 4.4 mmol/L; ABG OXYGEN SATURATION 87.7 % (92.0-98.5); ABG PCO2 56.8 mmHg (35.0-45.0); ABG PH 7.353 (7.350-7.450); ABG PO2 62.2 mmHg (75.0-100.0); COHb 0.2 % (0.5-1.5); MetHb 0.4 % (0.0-1.5); O2Hb 87.2 % (94.0-97.0); SITE, ABG Left Radial; VENT MODE, BG 6lpm MASK
[2018-01-01] MEDS: ACETAMINOPHEN 325 MG TABLET PO PRN (11:56)
[2018-01-01 16:28] LABS: ABG BASE EXCESS 7.3 mmol/L; ABG OXYGEN SATURATION 81.7 % (92.0-98.5); ABG PCO2 64.2 mmHg (35.0-45.0); ABG PH 7.347 (7.350-7.450); ABG PO2 52.4 mmHg (75.0-100.0); AaDO2 304.8 mmHg; COHb 0.1 % (0.5-1.5); MetHb 0.7 % (0.0-1.5); SITE, ABG Left Radial; VENT MODE, BG SM
--- NOTE | 2018-01-01 16:30 | NUR ---
RN NOTES PT IS ON 6L O2, SATURATING IN THE MID 80'S. BREATHING TREATMENT RECENTLY GIVEN. PT IS BECOMING LESS RESPONSIVE.
--- NOTE | 2018-01-01 16:40 | NUR ---
RN NOTES PT IS LETHARGIC AND SATING IN THE MID TO LOW 80'S. STERNAL RUB DONE, MINIMAL RESPONSE BY PATIENT. PT OPENS EYES AFTER YELLING NAME MULTIPLE TIMES. WILL TRANSFER PT TO ICU.
--- NOTE | 2018-01-01 16:45 | NUR ---
ICU/RN: Pt received from tele floor on SM 10L/min; pt O2 sat 85%, lethargic, only opens eyes to sternal rub and deep pain. Pt placed on BiPAP 15/5, R 18, FIO2 70%. A-fib 106 on monitor within pt baseline. FC draining clear yellow urine to gravity, Dr Alexander at bedside and updated on pt status. New orders noted and carried out.
[2018-01-01] MEDS: FUROSEMIDE 40 MG/4 ML VIAL IV SCH ×2 (17:09→23:16)
[2018-01-01 17:41] LABS: HEMATOCRIT 28 % (39-51); HEMOGLOBIN 8.8 g/dL (13.5-17.5); LYMPHOCYTES # (AUTO) 0.3 /CMM (0.8-4.8); LYMPHOCYTES % (AUTO) 2.7 % (20.0-44.0); MEAN CORPUSCULAR HEMOGLOBIN 31 PG (26.0-33.0); MEAN CORPUSCULAR HGB CONC 32 g/dl (31.0-36.0); MEAN CORPUSCULAR VOLUME 97 fL (80-96); MONOCYTES # (AUTO) 0.3 /CMM (0.1-1.30); MONOCYTES % (AUTO) 2.4 % (2.0-12.0); NEUTROPHILS # (AUTO) 10.2 /CMM (1.8-8.9); NEUTROPHILS % (AUTO) 94.9 % (43.0-81.0); PLATELET COUNT (AUTO) 166 /CMM (150-450); RDW COEFFICIENT OF VARIATION 23.2 (11.5-15.0); RED BLOOD CELL COUNT(AUTO) 2.85 MIL/uL (4.5-6.0); WHITE BLOOD COUNT (AUTO) 10.7 K/uL (4.3-11.0)
[2018-01-01 18:01] LABS: CALCIUM, SERUM 10.1 mg/dL (8.5-10.1); CARBON DIOXIDE 37 mmol/L (21-32); CHLORIDE 103 mmol/L (98-107); CREATININE 1.4 mg/dL (0.6-1.3); GLUCOSE 211 mg/dL (74-106); SODIUM SERUM 139 mmol/L (136-145); UREA NITROGEN, BLOOD 55 mg/dL (7-18)
[2018-01-01 18:11] LABS: POTASSIUM 6.4 mmol/L (3.5-5.1)
[2018-01-01 18:21] LABS: ABG BASE EXCESS 4.5 mmol/L; ABG OXYGEN SATURATION 98.5 % (92.0-98.5); ABG PCO2 45.3 mmHg (35.0-45.0); ABG PO2 162.9 mmHg (75.0-100.0); AaDO2 287.5 mmHg; COHb 0.3 % (0.5-1.5); MetHb 0.5 % (0.0-1.5); O2Hb 97.7 % (94.0-97.0); SITE, ABG Left Radial; VENT MODE, BG 15/5 bur 18
[2018-01-01] MEDS ORDERED: INSULIN REGULAR, HUMAN 100 UNIT/ML 10 ML VIAL IV ONE (18:30)
[2018-01-01] MEDS ORDERED: DEXTROSE 50%-WATER 50 ML DISP.SYRIN IVP ONE (18:30)
--- NOTE | 2018-01-01 19:00 | NUR ---
ICU/RN: Orders received from Dr Hernandez regarding critical lab value of K. Administered D50 and 10units insulin IVP, completed at 1900. Initial blood glucose 216mg/dl. Pt awake, alert and follows commands while on BiPAP with periods of drowsiness. A-fib 104 on surveillance monitor. TKO running through FAUSTO ML. FC draining well to gravity. Care endorsed and f/u blood glucose check endorsed to PM RN for BERNA.
[2018-01-01] MEDS: ATORVASTATIN 40 MG TABLET PO SCH (21:26)
[2018-01-01] MEDS: ENOXAPARIN SODIUM 40 MG/0.4 ML DISP.SYRIN SQ SCH (21:30)
--- NOTE | 2018-01-01 22:01 | NUR ---
RT FIO2 DECREASED FROM 60% TO 50%. RN MADE AWARE. Addendum: 01/01/18 at 2202 by JOVANI DANIELS RT Amended: Links added.
[2018-01-02] VITALS (30 sets, daily range): BP systolic 91–141; BP diastolic 53–90
[2018-01-02] MEDS: IPRATROPIUM NEB FS 0.5 MG/2.5 ML AMPUL.NEB IH SCH ×6 (03:44→23:53)
[2018-01-02] MEDS: ALBUTEROL FS 2.5 MG/0.5 ML VIAL.NEB IH SCH ×6 (03:44→23:53)
[2018-01-02 05:05] LABS: HEMATOCRIT 26 % (39-51); HEMOGLOBIN 8.4 g/dL (13.5-17.5); LYMPHOCYTES # (AUTO) 0.3 /CMM (0.8-4.8); LYMPHOCYTES % (AUTO) 3.8 % (20.0-44.0); MEAN CORPUSCULAR HEMOGLOBIN 31 PG (26.0-33.0); MEAN CORPUSCULAR HGB CONC 32 g/dl (31.0-36.0); MEAN CORPUSCULAR VOLUME 96 fL (80-96); MONOCYTES # (AUTO) 0.3 /CMM (0.1-1.30); MONOCYTES % (AUTO) 3.3 % (2.0-12.0); NEUTROPHILS # (AUTO) 8.1 /CMM (1.8-8.9); NEUTROPHILS % (AUTO) 92.9 % (43.0-81.0); PLATELET COUNT (AUTO) 150 /CMM (150-450); RDW COEFFICIENT OF VARIATION 23.5 (11.5-15.0); RED BLOOD CELL COUNT(AUTO) 2.71 MIL/uL (4.5-6.0); WHITE BLOOD COUNT (AUTO) 8.7 K/uL (4.3-11.0)
[2018-01-02 05:23] LABS: CARBON DIOXIDE 36 mmol/L (21-32); CHLORIDE 100 mmol/L (98-107); CREATININE 1.2 mg/dL (0.6-1.3); GLUCOSE 197 mg/dL (74-106); MAGNESIUM 1.9 mg/dL (1.8-2.4); PHOSPHORUS 2.8 mg/dL (2.5-4.9); POTASSIUM 5.6 mmol/L (3.5-5.1); SODIUM SERUM 140 mmol/L (136-145); UREA NITROGEN, BLOOD 53 mg/dL (7-18)
--- NOTE | 2018-01-02 06:03 | NUR ---
RT PT RECEIVED ON BIPAP AWAKE/ALERT. PT TOLERATING SETTING WELL WITH NO SOB OR DISTRESS ON SHIFT. AMBU BAG AT [facility]. BIPAP TO RED OUTLET. ALARMS SET AND AUDIBLE. Addendum: 01/02/18 at 0604 by JOVANI DANIELS RT Amended: Links added.
[2018-01-02] MEDS: ACETYLCYSTEINE 10% SOLN 400 MG/4 ML VIAL NEB SCH ×3 (07:35→23:30)
--- NOTE | 2018-01-02 07:36 | NUR ---
SNELLER HAND RECEIVE PATIENT FROM THE PREVIOUS SHIFT. PATIENT IS IN BED. RESTING COMFORTABLY. NO DISTRESS. STABLE VITAL SINGS. BIPAP SETTINGS REVIEWED. MACHINERY MECHANIC AT BEDSIDE. WILL CONTINUE TO MONITOR AND PROVIDE CARE.
[2018-01-02] MEDS: BLOOD SUGAR DIAGNOSTIC 1 EACH STRIP IN SCH ×4 (08:22→21:38)
[2018-01-02] MEDS: CHOLECALCIFEROL 1,000 UNIT TABLET (VIT D3) PO SCH (08:33)
[2018-01-02] MEDS: QUETIAPINE FUMARATE 25 MG TABLET PO SCH ×2 (08:33→16:09)
[2018-01-02] MEDS: LACTOBACILLUS RHAMNOSUS GG 1 EACH CAP.SPRINK PO SCH ×2 (08:33→16:09)
[2018-01-02] MEDS: GUAIFENESIN LA 600 MG TABLET.SA PO SCH ×2 (08:34→21:18)
[2018-01-02] MEDS: methylPREDNISolone SOD SUCC 125 MG/2ML VIAL IV SCH ×2 (08:34→16:09)
[2018-01-02] MEDS: DOCUSATE SODIUM 100 MG CAPSULE PO SCH ×2 (08:34→16:09)
[2018-01-02] MEDS: GABAPENTIN 400 MG CAPSULE PO SCH ×3 (08:34→16:09)
[2018-01-02] MEDS: ZINC SULFATE 220 MG CAPSULE PO SCH (08:34)
[2018-01-02] MEDS: ASPIRIN EC 81 MG TABLET.DR PO SCH (08:34)
[2018-01-02] MEDS: LORATADINE 10 MG TABLET PO SCH ×2 (08:34→16:09)
[2018-01-02] MEDS: LEVETIRACETAM (250 MG) 250 MG TABLET PO SCH ×2 (08:34→21:18)
[2018-01-02] MEDS: CLOPIDOGREL BISULFATE 75 MG TABLET PO SCH (08:34)
[2018-01-02] MEDS: ASCORBIC ACID 500 MG TABLET PO SCH (08:34)
[2018-01-02] MEDS: AMLODIPINE BESYLATE 5 MG TABLET PO SCH (08:35)
[2018-01-02] MEDS: MULTIVIT, IRON, MIN NO. 8, FA 1 TAB PO SCH (08:37)
[2018-01-02] MEDS: LEVOTHYROXINE SODIUM 175 MCG TABLET PO SCH (08:39)
[2018-01-02] MEDS: INSULIN REGULAR, HUMAN 100 UNIT/ML 3 ML VIAL SQ PRN ×4 (08:45→21:52)
[2018-01-02] MEDS: INSULIN DETEMIR 100 UNIT/ML CARTRIDGE SQ SCH (08:49)
[2018-01-02] MEDS: BOOST GLUCOSE CONTROL VANILLA 237 ML BOX PO SCH ×3 (09:00→16:09)
[2018-01-02] MEDS: ACETAMINOPHEN 325 MG TABLET PO PRN (09:07)
[2018-01-02] MEDS: NAPROXEN 250 MG TABLET PO PRN ×2 (10:47→16:09)
[2018-01-02] MEDS: AMILORIDE HCL 5 MG TABLET PO SCH (11:10)
[2018-01-02] MEDS ORDERED: FUROSEMIDE 40 MG/4 ML VIAL IV ONE ×2 (11:30→14:30)
[2018-01-02 12:31] LABS: ABG PCO2 57.9 mmHg (35.0-45.0); ABG PH 7.445 (7.350-7.450); ABG PO2 52.9 mmHg (75.0-100.0); AaDO2 165.7 mmHg; COHb 0.8 % (0.5-1.5); MetHb 0.3 % (0.0-1.5); O2Hb 84.1 % (94.0-97.0); SITE, ABG Right Radial
[2018-01-02] MEDS: Z GUARD REMEDY 2 OZ OINT TP SCH ×2 (16:05→16:09)
--- NOTE | 2018-01-02 18:05 | NUR ---
COMBINATION PRESSER NOTES Received patient awake,alert,not in distress,converses,coherent and appropriate.On NC saturating 88-89 %,will placed on BIPAP tonight while asleep.Denies any diffficulty of breathing,breathing regular and nonlabored but is mouthbreathing.Comfort care done,needs attended,Bilateral lower extremities + edema ,and + scrotal edema.Midline via FAUSTO. 2000 Placed on BIPAP 15/5,rate=18,/50% by RT.
--- NOTE | 2018-01-02 19:22 | NUR ---
PT REC'D ON 5LNC. PLACED PT ON BIPAP. NO RESP DISTRESS NOTED. ALARMS ARE SET AND AUDIBLE. BIPAP PLUGGED INTO RED OUTLET. AMBU BAG BEDSIDE. WILL CONTINUE TO MONITOR Addendum: 01/02/18 at 2033 by MARCELINO MEDINA RT Amended: Links added.
[2018-01-02] MEDS: ATORVASTATIN 40 MG TABLET PO SCH (21:18)
[2018-01-02] MEDS: ENOXAPARIN SODIUM 40 MG/0.4 ML DISP.SYRIN SQ SCH (21:20)
[2018-01-03] VITALS (31 sets, daily range): BP systolic 93–152; BP diastolic 48–102
--- NOTE | 2018-01-03 | NUR ---
AMPLIFIER MECHANIC NOTES 12 am Remains stable,asleep but easily awakens,alert,coherent .Continue to monitor resp .status.Tolearting BIPAP,very compliant with BIPAP.
[2018-01-03] MEDS: ALBUTEROL FS 2.5 MG/0.5 ML VIAL.NEB IH SCH ×6 (04:00→23:57)
[2018-01-03] MEDS: IPRATROPIUM NEB FS 0.5 MG/2.5 ML AMPUL.NEB IH SCH ×6 (04:00→23:56)
[2018-01-03 05:12] LABS: CALCIUM, SERUM 10.1 mg/dL (8.5-10.1); CHLORIDE 100 mmol/L (98-107); CREATININE 1.4 mg/dL (0.6-1.3); GLUCOSE 224 mg/dL (74-106); SODIUM SERUM 140 mmol/L (136-145); UREA NITROGEN, BLOOD 54 mg/dL (7-18)
[2018-01-03 05:40] LABS: CARBON DIOXIDE 42 mmol/L (21-32)
--- NOTE | 2018-01-03 07:00 | NUR ---
RENEWABLE ENERGY BROKER NOTES 0700 Report given to Kameron RN,patient still on BIPAP,stable,No SOB.
[2018-01-03] MEDS: ACETYLCYSTEINE 10% SOLN 400 MG/4 ML VIAL NEB SCH ×3 (07:16→23:30)
--- NOTE | 2018-01-03 07:16 | NUR ---
HEALTH SCIENCE WRITER RECEIVED PATIENT FROM THE PREVIOUS SHIFT. PATIENT IS IN BED. RESTING COMFORTABLY. NO ACUTE DISTRESS NOTED. BIPAP SETTINGS REVIEWED AND VERIFIED. TURNED AND REPOSITIONED FOR COMFORT AND WOUND PREVENTION. WILL CONTINUE TO MONITOR AND PROVIDE CARE.
[2018-01-03] MEDS: BLOOD SUGAR DIAGNOSTIC 1 EACH STRIP IN SCH ×4 (07:45→21:07)
[2018-01-03] MEDS: INSULIN REGULAR, HUMAN 100 UNIT/ML 3 ML VIAL SQ PRN ×4 (07:54→21:09)
[2018-01-03] MEDS: Z GUARD REMEDY 2 OZ OINT TP SCH ×2 (08:40→17:19)
[2018-01-03] MEDS: LEVETIRACETAM (250 MG) 250 MG TABLET PO SCH ×2 (08:45→21:07)
[2018-01-03] MEDS: LACTOBACILLUS RHAMNOSUS GG 1 EACH CAP.SPRINK PO SCH ×2 (08:45→17:16)
[2018-01-03] MEDS: MULTIVIT, IRON, MIN NO. 8, FA 1 TAB PO SCH (08:45)
[2018-01-03] MEDS: DOCUSATE SODIUM 100 MG CAPSULE PO SCH ×2 (08:45→17:16)
[2018-01-03] MEDS: CHOLECALCIFEROL 1,000 UNIT TABLET (VIT D3) PO SCH (08:45)
[2018-01-03] MEDS: QUETIAPINE FUMARATE 25 MG TABLET PO SCH ×2 (08:45→17:16)
[2018-01-03] MEDS: ASCORBIC ACID 500 MG TABLET PO SCH (08:45)
[2018-01-03] MEDS: CLOPIDOGREL BISULFATE 75 MG TABLET PO SCH (08:45)
[2018-01-03] MEDS: ZINC SULFATE 220 MG CAPSULE PO SCH (08:45)
[2018-01-03] MEDS: AMLODIPINE BESYLATE 5 MG TABLET PO SCH (08:46)
[2018-01-03] MEDS: GUAIFENESIN LA 600 MG TABLET.SA PO SCH ×2 (08:46→21:07)
[2018-01-03] MEDS: LORATADINE 10 MG TABLET PO SCH ×2 (08:46→17:16)
[2018-01-03] MEDS: GABAPENTIN 400 MG CAPSULE PO SCH ×3 (09:01→17:16)
[2018-01-03] MEDS: ASPIRIN EC 81 MG TABLET.DR PO SCH (09:01)
[2018-01-03] MEDS: methylPREDNISolone SOD SUCC 125 MG/2ML VIAL IV SCH ×2 (09:01→17:16)
[2018-01-03] MEDS: AMILORIDE HCL 5 MG TABLET PO SCH (09:03)
[2018-01-03] MEDS: LEVOTHYROXINE SODIUM 175 MCG TABLET PO SCH (09:03)
[2018-01-03] MEDS: INSULIN DETEMIR 100 UNIT/ML CARTRIDGE SQ SCH (09:05)
[2018-01-03] MEDS: BOOST GLUCOSE CONTROL VANILLA 237 ML BOX PO SCH ×3 (09:19→17:20)
[2018-01-03] MEDS: NAPROXEN 250 MG TABLET PO PRN ×2 (09:27→15:52)
[2018-01-03] MEDS: FUROSEMIDE 40 MG/4 ML VIAL IV SCH (11:48)
[2018-01-03 16:13] LABS: ABG PCO2 57.4 mmHg (35.0-45.0); ABG PH 7.426 (7.350-7.450); AaDO2 156.2 mmHg; COHb 0.1 % (0.5-1.5); MetHb 0.7 % (0.0-1.5); O2Hb 89.3 % (94.0-97.0); SITE, ABG Left Radial; VENT MODE, BG N/C
--- NOTE | 2018-01-03 19:40 | NUR ---
ICU/HULL AND DECK REMOVER PT REQUESTED TO HAVE PM BIPAP, UPON REPORT NOTICED SATURATION WAS 83% OM 6 LITERS. RT CAME DOWN PLACED PT ON PM BIPAP. PT WAS TURNED AND REPOSITIONED FOR COMFORT AND CARE WITH CALL LIGHT WITHIN REACH.
[2018-01-03] MEDS: ATORVASTATIN 40 MG TABLET PO SCH (21:07)
[2018-01-03] MEDS: ENOXAPARIN SODIUM 40 MG/0.4 ML DISP.SYRIN SQ SCH (21:08)
[2018-01-03] MEDS: MAG HYDROX/AL HYDROX/SIMETH 30 ML UDC PO PRN (21:09)
--- NOTE | 2018-01-03 21:22 | NUR ---
ICU/DRAWER HARDWARE WORKER PT GIVEN MAALOX PRN MEDICATION FOR INDIGESTION, GAS, AND BLOATING. PT WA TURNED AND REPOSITIONED FOR COMFORT AND CARE, CALL LIGHT WITHIN REACH. PT ALSO GIVEN PM MEDIATION, TOLERATED THIS WELL.
[2018-01-04] VITALS (32 sets, daily range): BP systolic 104–126; BP diastolic 53–71
--- NOTE | 2018-01-04 00:10 | NUR ---
ICU/HAIRSPRING INSPECTOR [facility] NOT GIVEN DUE TO HOSPITAL DOES NOT HAVE STOCK OF THIS. PT WILL CONTINUE TO GET OTHER BREATHING TREATMENT.
[2018-01-04] MEDS: ALBUTEROL FS 2.5 MG/0.5 ML VIAL.NEB IH SCH ×6 (03:59→23:37)
[2018-01-04] MEDS: IPRATROPIUM NEB FS 0.5 MG/2.5 ML AMPUL.NEB IH SCH ×6 (03:59→23:37)
[2018-01-04] MEDS: ACETYLCYSTEINE 10% SOLN 400 MG/4 ML VIAL NEB SCH ×3 (07:05→23:30)
--- NOTE | 2018-01-04 07:29 | NUR ---
ICU/PUBLICATIONS SALES REPRESENTATIVE PT PLACED 5 LITERS VIA N/C FROM BIPAP. CALL LIGHT WITHIN REACH.
[2018-01-04] MEDS: INSULIN REGULAR, HUMAN 100 UNIT/ML 3 ML VIAL SQ PRN ×3 (08:34→17:48)
[2018-01-04] MEDS: BLOOD SUGAR DIAGNOSTIC 1 EACH STRIP IN SCH ×4 (08:34→21:14)
[2018-01-04] MEDS: QUETIAPINE FUMARATE 25 MG TABLET PO SCH ×2 (08:48→17:48)
[2018-01-04] MEDS: ZINC SULFATE 220 MG CAPSULE PO SCH (08:48)
[2018-01-04] MEDS: CHOLECALCIFEROL 1,000 UNIT TABLET (VIT D3) PO SCH (08:48)
[2018-01-04] MEDS: ASCORBIC ACID 500 MG TABLET PO SCH (08:48)
[2018-01-04] MEDS: AMLODIPINE BESYLATE 5 MG TABLET PO SCH (08:48)
[2018-01-04] MEDS: LORATADINE 10 MG TABLET PO SCH ×2 (08:48→17:49)
[2018-01-04] MEDS: AMILORIDE HCL 5 MG TABLET PO SCH (08:48)
[2018-01-04] MEDS: MULTIVIT, IRON, MIN NO. 8, FA 1 TAB PO SCH (08:48)
[2018-01-04] MEDS: CLOPIDOGREL BISULFATE 75 MG TABLET PO SCH (08:48)
[2018-01-04] MEDS: GABAPENTIN 400 MG CAPSULE PO SCH ×3 (08:49→17:47)
[2018-01-04] MEDS: GUAIFENESIN LA 600 MG TABLET.SA PO SCH ×2 (08:49→21:01)
[2018-01-04] MEDS: methylPREDNISolone SOD SUCC 125 MG/2ML VIAL IV SCH ×2 (08:49→17:48)
[2018-01-04] MEDS: FUROSEMIDE 40 MG/4 ML VIAL IV SCH (08:49)
[2018-01-04] MEDS: LACTOBACILLUS RHAMNOSUS GG 1 EACH CAP.SPRINK PO SCH ×2 (08:49→17:47)
[2018-01-04] MEDS: LEVETIRACETAM (250 MG) 250 MG TABLET PO SCH ×2 (08:49→21:01)
[2018-01-04] MEDS: INSULIN DETEMIR 100 UNIT/ML CARTRIDGE SQ SCH (08:51)
[2018-01-04] MEDS: DOCUSATE SODIUM 100 MG CAPSULE PO SCH ×2 (08:54→17:48)
[2018-01-04] MEDS: BOOST GLUCOSE CONTROL VANILLA 237 ML BOX PO SCH ×3 (08:54→17:47)
[2018-01-04] MEDS: ASPIRIN EC 81 MG TABLET.DR PO SCH (08:54)
[2018-01-04] MEDS: LEVOTHYROXINE SODIUM 175 MCG TABLET PO SCH (08:54)
[2018-01-04] MEDS: Z GUARD REMEDY 2 OZ OINT TP SCH ×2 (09:55→17:48)
[2018-01-04] MEDS: NAPROXEN 250 MG TABLET PO PRN (15:09)
--- NOTE | 2018-01-04 20:20 | NUR ---
RN NOTES PT ASLEEP WELL ON BED WITH BIPAP ON NO ACUTE RESP DISTRESS, TOLERATED WELL. AOX 3 VERBALIZED UNDERSTANDING OF CARE. DENIES PAIN. WITH FAUSTO MIDLINE INTACT AND PATENT. TELE MONITOR REVEALS A-FIB CONTROLLED .WARMTH TO TOUCH AFEBRILE. F/C DRAINED WITH YELLOW CLEAR COLOR URINE. KEPT CLEAN AND COMFORTABLE IN BED. CALL LIGHT KEPT WITHIN EASY REACH. WILL FREQUENTLY MONITOR.
[2018-01-04] MEDS: ATORVASTATIN 40 MG TABLET PO SCH (21:01)
[2018-01-04] MEDS: ENOXAPARIN SODIUM 40 MG/0.4 ML DISP.SYRIN SQ SCH (21:02)
[2018-01-04] MEDS: *INSULIN REGULAR(HUMULIN R)HUM 100 UNIT/ML VIAL SQ PRN (21:23)
--- NOTE | 2018-01-04 23:30 | NUR ---
RN NOTES PT REQUESTED TO REMOVE THE BIPAP CALLED RT AND REMOVE PT ON BIPAP PLACED PT ON 02 3LPM VIA NC SATING AT 96% WILL CONTINUE TO MONITOR.
[2018-01-05] VITALS (29 sets, daily range): BP systolic 104–128; BP diastolic 45–91
--- NOTE | 2018-01-05 01:00 | NUR ---
RN NOTES PLACED BACK TO BIPAP BY RT
[2018-01-05] MEDS: IPRATROPIUM NEB FS 0.5 MG/2.5 ML AMPUL.NEB IH SCH ×6 (03:41→23:15)
[2018-01-05] MEDS: ALBUTEROL FS 2.5 MG/0.5 ML VIAL.NEB IH SCH ×6 (03:41→23:15)
[2018-01-05 05:08] LABS: HEMATOCRIT 26 % (39-51); HEMOGLOBIN 8.4 g/dL (13.5-17.5); LYMPHOCYTES # (AUTO) 0.5 /CMM (0.8-4.8); LYMPHOCYTES % (AUTO) 4.3 % (20.0-44.0); MEAN CORPUSCULAR HEMOGLOBIN 32 PG (26.0-33.0); MEAN CORPUSCULAR HGB CONC 33 g/dl (31.0-36.0); MEAN CORPUSCULAR VOLUME 97 fL (80-96); MONOCYTES # (AUTO) 0.6 /CMM (0.1-1.30); MONOCYTES % (AUTO) 5.5 % (2.0-12.0); NEUTROPHILS # (AUTO) 10.3 /CMM (1.8-8.9); NEUTROPHILS % (AUTO) 90.2 % (43.0-81.0); PLATELET COUNT (AUTO) 119 /CMM (150-450); RDW COEFFICIENT OF VARIATION 23.8 (11.5-15.0); RED BLOOD CELL COUNT(AUTO) 2.65 MIL/uL (4.5-6.0); WHITE BLOOD COUNT (AUTO) 11.5 K/uL (4.3-11.0)
[2018-01-05 05:24] LABS: CALCIUM, SERUM 9.6 mg/dL (8.5-10.1); CHLORIDE 101 mmol/L (98-107); CREATININE 1.2 mg/dL (0.6-1.3); GLUCOSE 259 mg/dL (74-106); MAGNESIUM 1.6 mg/dL (1.8-2.4); PHOSPHORUS 2.3 mg/dL (2.5-4.9); POTASSIUM 5.1 mmol/L (3.5-5.1); SODIUM SERUM 141 mmol/L (136-145); UREA NITROGEN, BLOOD 49 mg/dL (7-18)
--- NOTE | 2018-01-05 05:30 | NUR ---
RN NOTES OFF TO BIPAP PER PT. REQUESTED. TOLERATED WELL SATING 94%. NO SOB NOTED
[2018-01-05 05:51] LABS: CARBON DIOXIDE 42 mmol/L (21-32)
[2018-01-05] MEDS: ACETYLCYSTEINE 10% SOLN 400 MG/4 ML VIAL NEB SCH ×3 (07:12→23:16)
--- NOTE | 2018-01-05 07:30 | NUR ---
ICU/RN: Pt resting in bed comfortably, no pain and distress noted. Awake and alert, denies pain and discomfort. Dressing to sacrum C/D/I. A-fib on monitor. Will cont to monitor pt.
[2018-01-05] MEDS: BLOOD SUGAR DIAGNOSTIC 1 EACH STRIP IN SCH ×4 (07:54→21:32)
[2018-01-05] MEDS: GUAIFENESIN LA 600 MG TABLET.SA PO SCH ×2 (08:15→21:32)
[2018-01-05] MEDS: CLOPIDOGREL BISULFATE 75 MG TABLET PO SCH (08:16)
[2018-01-05] MEDS: methylPREDNISolone SOD SUCC 125 MG/2ML VIAL IV SCH ×2 (08:16→16:40)
[2018-01-05] MEDS: LORATADINE 10 MG TABLET PO SCH ×2 (08:16→16:39)
[2018-01-05] MEDS: QUETIAPINE FUMARATE 25 MG TABLET PO SCH ×2 (08:16→16:43)
[2018-01-05] MEDS: LACTOBACILLUS RHAMNOSUS GG 1 EACH CAP.SPRINK PO SCH ×2 (08:16→16:39)
[2018-01-05] MEDS: ZINC SULFATE 220 MG CAPSULE PO SCH (08:16)
[2018-01-05] MEDS: FUROSEMIDE 40 MG/4 ML VIAL IV SCH (08:16)
[2018-01-05] MEDS: DOCUSATE SODIUM 100 MG CAPSULE PO SCH ×2 (08:16→16:39)
[2018-01-05] MEDS: ASPIRIN EC 81 MG TABLET.DR PO SCH (08:16)
[2018-01-05] MEDS: CHOLECALCIFEROL 1,000 UNIT TABLET (VIT D3) PO SCH (08:16)
[2018-01-05] MEDS: GABAPENTIN 400 MG CAPSULE PO SCH ×3 (08:16→16:40)
[2018-01-05] MEDS: LEVETIRACETAM (250 MG) 250 MG TABLET PO SCH ×2 (08:16→21:32)
[2018-01-05] MEDS: ASCORBIC ACID 500 MG TABLET PO SCH (08:16)
[2018-01-05] MEDS: LEVOTHYROXINE SODIUM 175 MCG TABLET PO SCH (08:16)
[2018-01-05] MEDS: MULTIVIT, IRON, MIN NO. 8, FA 1 TAB PO SCH (08:16)
[2018-01-05] MEDS: AMLODIPINE BESYLATE 5 MG TABLET PO SCH (08:17)
[2018-01-05] MEDS: INSULIN DETEMIR 100 UNIT/ML CARTRIDGE SQ SCH (08:17)
[2018-01-05] MEDS: Z GUARD REMEDY 2 OZ OINT TP SCH ×2 (08:18→16:43)
[2018-01-05] MEDS: INSULIN REGULAR, HUMAN 100 UNIT/ML 3 ML VIAL SQ PRN ×4 (08:19→21:34)
[2018-01-05] MEDS: AMILORIDE HCL 5 MG TABLET PO SCH (08:21)
[2018-01-05] MEDS: BOOST GLUCOSE CONTROL VANILLA 237 ML BOX PO SCH ×3 (08:22→16:41)
--- NOTE | 2018-01-05 09:00 | NUR ---
ICU/RN: Due meds administered. Pt able to swallow pills whole with no s/s aspiration. HOB elevated.
[2018-01-05] MEDS: Magnesium 1GM/D5W 100ML PREMIX 100 ML IV SCH ×2 (12:50→14:17)
[2018-01-05] MEDS: MAGNESIUM HYDROXIDE 30 ML UDC PO PRN (15:53)
--- NOTE | 2018-01-05 16:00 | NUR ---
ICU/RN: Care endorsed to Rachana VILLAVICENCIO for BERNA. Pt awake, alert in bed, tolerating current O2 flow rate. Denies pain and discomfort. FC draining well to gravity. A-fib 90-100 on monitor.
--- NOTE | 2018-01-05 16:11 | NUR ---
FOUNDATION MAKER. INITIAL ASSESSMENT. RECEIVED THE PT REST ON THE BED. AWAKE, ALERT, FOLLOW COMMANDS. SAWDUST MACHINE OPERATOR SHOWING AFIB. IV RT UPPER ARM PICC LINE TKO @5ML/H. HOB ELEVATED. OXYGEN 3L VIA NASAL CANNULA. SAT 98%. NO ACUTE DISTRESS NOTED. FC PATENT. WILL CONTINUE TO MONITOR VITALS.
[2018-01-05] MEDS ORDERED: NEUTRA PHOS 1 POWD.PACKET PO ONE (18:00)
[2018-01-05] MEDS: NAPROXEN 250 MG TABLET PO PRN (20:22)
[2018-01-05] MEDS: ATORVASTATIN 40 MG TABLET PO SCH (21:32)
[2018-01-05] MEDS: ENOXAPARIN SODIUM 40 MG/0.4 ML DISP.SYRIN SQ SCH (21:33)
[2018-01-06] VITALS (20 sets, daily range): BP systolic 104–145; BP diastolic 42–87
[2018-01-06] MEDS: MAG HYDROX/AL HYDROX/SIMETH 30 ML UDC PO PRN ×3 (01:50→20:18)
[2018-01-06] MEDS: ALBUTEROL FS 2.5 MG/0.5 ML VIAL.NEB IH SCH ×5 (03:45→20:07)
[2018-01-06] MEDS: IPRATROPIUM NEB FS 0.5 MG/2.5 ML AMPUL.NEB IH SCH ×5 (03:45→20:07)
--- NOTE | 2018-01-06 04:08 | NUR ---
IT WEB DEVELOPMENT CONSULTANT. AM CARE, ORAL CARE, BED BATH GIVEN. LINEN CHANGED, REMAINING SAME BIPAP SETTING TOLERATED WELL. SAT 98%, NO ACUTE DISTRESS NOTED, MANAGER LEADERSHIP DEVELOPMENT SHOWING FIB. IV RT UPPER ARM MID LINE. SALINE LOCK. HOB ELEVATED, FC PATENT. AFEBRILE, TURN AND REPOSITION Q2H. WILL CONTINUE TO MONITOR VITALS.
[2018-01-06 05:49] LABS: CALCIUM, SERUM 9.6 mg/dL (8.5-10.1); CHLORIDE 98 mmol/L (98-107); CREATININE 1.1 mg/dL (0.6-1.3); GLUCOSE 227 mg/dL (74-106); MAGNESIUM 1.9 mg/dL (1.8-2.4); PHOSPHORUS 2.6 mg/dL (2.5-4.9); POTASSIUM 5.7 mmol/L (3.5-5.1); SODIUM SERUM 139 mmol/L (136-145); UREA NITROGEN, BLOOD 48 mg/dL (7-18)
[2018-01-06 06:09] LABS: CARBON DIOXIDE 43 mmol/L (21-32)
--- NOTE | 2018-01-06 06:38 | NUR ---
SCHOOL COUNSELLOR. PT BED SCALE NOT WORKING.
[2018-01-06] MEDS: ACETYLCYSTEINE 10% SOLN 400 MG/4 ML VIAL NEB SCH ×3 (07:35→23:30)
--- NOTE | 2018-01-06 07:37 | NUR ---
INITIAL NUT SIFTER NOTE RCVD PT AWAKE AND ALERT, SHOWING NO S/O DISTRESS/PAIN. AFIB ON MONITOR. TOLERATING O2 VIA NC AT THIS TIME. DIEZ TO GRAVITY DRAINING CLOUDY, YELLOW URINE. FAUSTO MIDLINE C/D/I/PATENT. NO S/O INFILTRATION/PHLEBITIS OBSERVED UPON FLUSHING. WILL CONTINUE TO MONITOR PT FOR SAFETY AND COMFORT. CALL LIGHT WITHIN REACH. BED IN LOW AND LOCKED POSITION.
[2018-01-06] MEDS: BLOOD SUGAR DIAGNOSTIC 1 EACH STRIP IN SCH ×4 (07:51→21:14)
[2018-01-06] MEDS: LEVOTHYROXINE SODIUM 175 MCG TABLET PO SCH (07:51)
[2018-01-06] MEDS: INSULIN REGULAR, HUMAN 100 UNIT/ML 3 ML VIAL SQ PRN ×3 (07:53→16:42)
[2018-01-06] MEDS: CLOPIDOGREL BISULFATE 75 MG TABLET PO SCH (08:05)
[2018-01-06] MEDS: GABAPENTIN 400 MG CAPSULE PO SCH ×3 (08:05→16:41)
[2018-01-06] MEDS: ZINC SULFATE 220 MG CAPSULE PO SCH (08:05)
[2018-01-06] MEDS: ASPIRIN EC 81 MG TABLET.DR PO SCH (08:06)
[2018-01-06] MEDS: MULTIVIT, IRON, MIN NO. 8, FA 1 TAB PO SCH (08:06)
[2018-01-06] MEDS: LORATADINE 10 MG TABLET PO SCH ×2 (08:07→16:40)
[2018-01-06] MEDS: GUAIFENESIN LA 600 MG TABLET.SA PO SCH ×2 (08:07→20:18)
[2018-01-06] MEDS: CHOLECALCIFEROL 1,000 UNIT TABLET (VIT D3) PO SCH (08:07)
[2018-01-06] MEDS: LEVETIRACETAM (250 MG) 250 MG TABLET PO SCH ×2 (08:07→20:18)
[2018-01-06] MEDS: NAPROXEN 250 MG TABLET PO PRN ×2 (08:07→18:50)
[2018-01-06] MEDS: QUETIAPINE FUMARATE 25 MG TABLET PO SCH ×2 (08:07→16:40)
[2018-01-06] MEDS: LACTOBACILLUS RHAMNOSUS GG 1 EACH CAP.SPRINK PO SCH ×2 (08:07→16:40)
[2018-01-06] MEDS: FUROSEMIDE 40 MG/4 ML VIAL IV SCH (08:07)
[2018-01-06] MEDS: ASCORBIC ACID 500 MG TABLET PO SCH (08:07)
[2018-01-06] MEDS: methylPREDNISolone SOD SUCC 125 MG/2ML VIAL IV SCH ×2 (08:08→16:41)
[2018-01-06] MEDS: AMLODIPINE BESYLATE 5 MG TABLET PO SCH (08:08)
[2018-01-06] MEDS: AMILORIDE HCL 5 MG TABLET PO SCH (08:08)
[2018-01-06] MEDS: INSULIN DETEMIR 100 UNIT/ML CARTRIDGE SQ SCH (08:09)
[2018-01-06] MEDS: DOCUSATE SODIUM 100 MG CAPSULE PO SCH ×2 (08:09→16:40)
[2018-01-06] MEDS: BOOST GLUCOSE CONTROL VANILLA 237 ML BOX PO SCH ×3 (08:33→16:40)
[2018-01-06] MEDS: Z GUARD REMEDY 2 OZ OINT TP SCH ×2 (08:34→17:00)
--- NOTE | 2018-01-06 09:30 | NUR ---
DISASTER RECOVERY SPECIALIST RECEIVED PATIENT FROM TRISHA VILLAVICENCIO PATIENT IS ON A VENTILATOR, PLACED ON RESTRAINT ON WEANING PROCESS, DIRPIVAN IS OFF MONITORED BLOOD PRESSURE CLOSELY PATIENT IS AWAKE, OPENS EYES WITH TRACKING MONITORED CLOSELY STILL ON AC MODE, WILL CONTINUE TO MONITOR Addendum: 01/06/18 at 1029 by MELYSSA GIRARD RN wrong entry
[2018-01-06] MEDS ORDERED: SODIUM POLYSTYRENE SULFONATE 15 G/60 ML BOTTLE PO ONE (12:00)
[2018-01-06] MEDS ORDERED: INSULIN REGULAR, HUMAN 100 UNIT/ML 3 ML VIAL SQ ONE (13:00)
--- NOTE | 2018-01-06 13:06 | NUR ---
BUTTON MAKER AND INSTALLER NOTE SHAGUFTA CHADWICK CONTACTED REGARDING PT'S ELEVATED BLOOD GLUCOSE 401 THEN 394 ON SECOND CHECK. PT WAS COVERED WITH MAX DOSE OF INSULIN PER SLIDING SCALE AND FARRUKH ADDED 5 UNITS. PT INFORMED. REPORT OVER THE PHONE GIVEN TO MAYE DEVINE PT TO BE TRANSFERRED THIS AFTERNOON. PT INFORMED.
--- NOTE | 2018-01-06 13:48 | NUR ---
INFORMATION MANAGER NOTE PT TRANSFERRED TO [facility] VIA BED PER PROTOCOL. VITAL SIGNS STABLE. PT'S RN AT BEDSIDE TO RECEIVE PT. PT'S BELONGINGS TRANSFERRED WITH PT (DENTURES, CELL PHONE, GALILEA PACK).
--- NOTE | 2018-01-06 13:50 | NUR ---
RN NOTES RECEIVED PT FROM ICU IN ROOM 113-1, A/Ox3, RESPIRATION EVEN AND UNLABORED, ON O2 4 L O2 N/C , O2 SAT 93%, NO SOB NOTED, ON TELE A.FIB HR IN 9O'S , R UPPER ARM MIDLINE CDI, BMX1, SR UP x3, CALL LIGHTS WITHIN EASY REACH, BED LOCKED AND IN LOWEST POSITION , WILL CONTINUE TO MONITOR .
--- NOTE | 2018-01-06 18:00 | NUR ---
RN NOTES PT STABLE , RESPIRATION EVEN AND UNLABORED, SR UP x3, CALL LIGHT WITHIN EASY REACH , NO SIGNIFICANT CHANGES NOTED ON THIS SHIFT , WILL ENDORSE TO RESTROOMS OR LOUNGES MAID NURSE FOR BERNA.
--- NOTE | 2018-01-06 19:30 | NUR ---
RN INITIAL NOTES RECEIVED PATIENT IN BED, AWAKE, ALERT AND ORIENTED X3, WITH PERIODS OF CONFUSION. BREATHING IS EVEN AND NONLABORED WHILE ON O2 VIA NC @ 4LPM, TOLERATING WELL, FREE FROM ANY S/S OF RESPIRATORY DISTRESS. PATIENT REQUESTING TO BE PLACED ON NOCTURNAL BIPAP BETWEEN 9 AND 10 PM. WILL COORDINATE WITH RESPIRATORY THERAPIST. PATIENT ON TELEMETRY MONITORING, REVEALING AFIB, HR = 100BPM AT THIS TIME. FAUSTO MIDLINE PATENT AND INTACT, FLUSHED WITH NS, NOTED WITH GOOD VENOUS RETURN, DRESSING C/D/I, FREE FROM ANY S/S OF INFILTRATION OR PHLEBITIS. CALL LIGHT LEFT WITHIN EASY REACH, BED IN LOWEST AND LOCKED POSITION, WILL CONTINUE TO CLOSELY MONITOR
[2018-01-06] MEDS: ENOXAPARIN SODIUM 40 MG/0.4 ML DISP.SYRIN SQ SCH (20:19)
[2018-01-06] MEDS: ATORVASTATIN 40 MG TABLET PO SCH (21:13)
[2018-01-06] MEDS: INSULIN GLARGINE, 100 UNIT/ML CARTRIDGE SQ SCH (21:19)
[2018-01-06] MEDS: *INSULIN REGULAR(HUMULIN R)HUM 100 UNIT/ML VIAL SQ PRN (21:19)
[2018-01-07] VITALS: BP 123/67
[2018-01-07] MEDS: ALBUTEROL FS 2.5 MG/0.5 ML VIAL.NEB IH SCH ×7 (00:22→23:34)
[2018-01-07] MEDS: IPRATROPIUM NEB FS 0.5 MG/2.5 ML AMPUL.NEB IH SCH ×7 (00:22→23:34)
--- NOTE | 2018-01-07 01:15 | NUR ---
RN NOTES PATIENT TAKEN OFF FROM BIPAP, PLACED ON O2 VIA NC @ 4LPM, TOLERATING WELL, FREE FROM ANY S/S OF RESPIRATORY DISTRESS
--- NOTE | 2018-01-07 02:20 | NUR ---
RN NOTES PATIENT REQUESTED TO BE PLACED BACK ON BIPAP. MASK SECURED, TOLERATING WELL. WILL CONTINUE TO CLOSELY MONITOR
[2018-01-07 04:00] VITALS: BP 126/88
--- NOTE | 2018-01-07 07:00 | NUR ---
RN CLOSING NOTES PATIENT RESTING IN BED, TAKEN OFF BIPAP PER REQUEST AND PLACED ON O2 VIA NC @ 4LPM. PATIENT NOW RESTING COMFORTABLY IN BED. WILL ENDORSE THE PATIENT TO THE AM SHIFT NURSE FOR BERNA Addendum: 01/07/18 at 0812 by VAQSUEZ GONSALEZ RN ENDORSED TO DAY SHIFT NURSE THAT BED SCALE IS BROKEN, UNABLE TO CHECK DAILY WEIGHT
[2018-01-07 07:14] LABS: BASOPHILS # (AUTO) 0.1 /CMM (0.0-0.2); BASOPHILS % (AUTO) 0.2 % (0.0-2.0); HEMATOCRIT 27 % (39-51); HEMOGLOBIN 8.9 g/dL (13.5-17.5); LYMPHOCYTES # (AUTO) 0.4 /CMM (0.8-4.8); LYMPHOCYTES % (AUTO) 1.8 % (20.0-44.0); MEAN CORPUSCULAR HEMOGLOBIN 32 PG (26.0-33.0); MEAN CORPUSCULAR HGB CONC 33 g/dl (31.0-36.0); MEAN CORPUSCULAR VOLUME 98 fL (80-96); MONOCYTES # (AUTO) 0.7 /CMM (0.1-1.30); NEUTROPHILS # (AUTO) 20.9 /CMM (1.8-8.9); PLATELET COUNT (AUTO) 144 /CMM (150-450); RDW COEFFICIENT OF VARIATION 23.7 (11.5-15.0); RED BLOOD CELL COUNT(AUTO) 2.79 MIL/uL (4.5-6.0)
[2018-01-07] MEDS: ACETYLCYSTEINE 10% SOLN 400 MG/4 ML VIAL NEB SCH ×3 (07:35→23:30)
[2018-01-07] MEDS: BLOOD SUGAR DIAGNOSTIC 1 EACH STRIP IN SCH ×4 (07:44→21:48)
--- NOTE | 2018-01-07 07:45 | NUR ---
RN MAKAYLA NOTE: PATIENT IN BED, AWAKE, ALERT AND ABLE TO MAKE NEEDS KNOWN. RESPIRATION EVEN AND UNLABORED. NO SOB NOTED. ON O2 NC 4L/MIN VIA NC SATURATING 94%. DENIED PAIN. HOB ELEVATED. BED ALARM AND LOCKED AT ALL TIMES. CALL LIGHT WITHIN REACH. (R) UA MIDLINE NOTED PATENT AND INTACT W/ DRESSING CLEAN AND DRY. ON MARKET RESEARCH EXECUTIVE, A. FIB 109.
[2018-01-07] MEDS: INSULIN REGULAR, HUMAN 100 UNIT/ML 3 ML VIAL SQ PRN ×3 (07:50→17:50)
[2018-01-07] MEDS: LEVOTHYROXINE SODIUM 175 MCG TABLET PO SCH (07:51)
[2018-01-07 07:53] LABS: CALCIUM, SERUM 9.6 mg/dL (8.5-10.1); CHLORIDE 98 mmol/L (98-107); CREATININE 1.1 mg/dL (0.6-1.3); GLUCOSE 239 mg/dL (74-106); MAGNESIUM 2.1 mg/dL (1.8-2.4); PHOSPHORUS 2.3 mg/dL (2.5-4.9); POTASSIUM 5.7 mmol/L (3.5-5.1); SODIUM SERUM 139 mmol/L (136-145); UREA NITROGEN, BLOOD 53 mg/dL (7-18)
[2018-01-07 08:00] VITALS: BP 136/69
[2018-01-07 08:07] LABS: CARBON DIOXIDE 42 mmol/L (21-32)
[2018-01-07] MEDS: FUROSEMIDE 40 MG/4 ML VIAL IV SCH (09:10)
[2018-01-07] MEDS: DOCUSATE SODIUM 100 MG CAPSULE PO SCH ×2 (09:10→17:00)
[2018-01-07] MEDS: LACTOBACILLUS RHAMNOSUS GG 1 EACH CAP.SPRINK PO SCH ×2 (09:10→17:00)
[2018-01-07] MEDS: LORATADINE 10 MG TABLET PO SCH ×2 (09:10→17:00)
[2018-01-07] MEDS: methylPREDNISolone SOD SUCC 125 MG/2ML VIAL IV SCH ×2 (09:10→17:00)
[2018-01-07] MEDS: GUAIFENESIN LA 600 MG TABLET.SA PO SCH ×2 (09:11→21:31)
[2018-01-07] MEDS: ZINC SULFATE 220 MG CAPSULE PO SCH (09:11)
[2018-01-07] MEDS: CLOPIDOGREL BISULFATE 75 MG TABLET PO SCH (09:11)
[2018-01-07] MEDS: CHOLECALCIFEROL 1,000 UNIT TABLET (VIT D3) PO SCH (09:11)
[2018-01-07] MEDS: GABAPENTIN 400 MG CAPSULE PO SCH ×3 (09:11→17:00)
[2018-01-07] MEDS: LEVETIRACETAM (250 MG) 250 MG TABLET PO SCH ×2 (09:12→21:31)
[2018-01-07] MEDS: QUETIAPINE FUMARATE 25 MG TABLET PO SCH ×2 (09:12→17:02)
[2018-01-07] MEDS: MULTIVIT, IRON, MIN NO. 8, FA 1 TAB PO SCH (09:12)
[2018-01-07] MEDS: ASCORBIC ACID 500 MG TABLET PO SCH (09:12)
[2018-01-07] MEDS: AMLODIPINE BESYLATE 5 MG TABLET PO SCH (09:12)
[2018-01-07] MEDS: ASPIRIN EC 81 MG TABLET.DR PO SCH (09:12)
[2018-01-07 09:25] LABS: BAND % (MANUAL) 1 % (0.0-5.0); LYMPHOCYTES % (MANUAL) 2 % (16-48); MONOCYTES % (MANUAL) 7 % (0-11.0); NEUTROPHILS % (MANUAL) 90 (42-76)
[2018-01-07] MEDS: MAG HYDROX/AL HYDROX/SIMETH 30 ML UDC PO PRN (09:36)
[2018-01-07] MEDS: BOOST GLUCOSE CONTROL VANILLA 237 ML BOX PO SCH ×3 (09:38→17:02)
[2018-01-07] MEDS: Z GUARD REMEDY 2 OZ OINT TP SCH ×2 (09:39→17:02)
[2018-01-07] MEDS: SIMETHICONE 80 MG TAB.CHEW PO PRN ×2 (11:01→15:20)
[2018-01-07 12:00] VITALS: BP 129/68
[2018-01-07] MEDS ORDERED: acetaZOLAMIDE 250 MG TABLET PO SCH (14:00)
[2018-01-07] MEDS ORDERED: NEUTRA PHOS 1 POWD.PACKET PO ONE (14:30)
[2018-01-07 15:48] LABS: ABG BASE EXCESS 17.7 mmol/L; ABG OXYGEN SATURATION 86.8 % (92.0-98.5); ABG PCO2 65.6 mmHg (35.0-45.0); ABG PH 7.446 (7.350-7.450); ABG PO2 55.2 mmHg (75.0-100.0); AaDO2 132.7 mmHg; COHb 1.1 % (0.5-1.5); MetHb 0.7 % (0.0-1.5); O2Hb 85.2 % (94.0-97.0); SITE, ABG Left Brachial; VENT MODE, BG NASAL CANNULA
[2018-01-07 16:00] VITALS: BP 121/69
--- NOTE | 2018-01-07 19:58 | NUR ---
RN MAKAYLA NOTE: PATIENT IN BED, AWAKE, ALERT AND ABLE TO MAKE NEEDS KNOWN. RESPIRATION EVEN AND UNLABORED. NO SOB NOTED. ON O2 NC 4L/MIN VIA NC SATURATING 95%. DENIED PAIN. HOB ELEVATED. BED ALARM AND LOCKED AT ALL TIMES. CALL LIGHT WITHIN REACH. (R) UA MIDLINE NOTED PATENT AND INTACT W/ DRESSING CLEAN AND DRY. ON CLAIM CLERK, A. FIB 101. DIEZ CATHETER IN PLACED DRAINING TO GRAVITY W/ YELLOW URINE. WOUND TREATMENT WAS DONE. REPORT GIVEN TO PM SHIFT FOR CONTINUITY OF CARE.
[2018-01-07 20:00] VITALS: BP 118/54
--- NOTE | 2018-01-07 20:00 | NUR ---
RN INITIAL NOTE: RECEIVED PATIENT IN BED, AWAKE, ALERT AND ABLE TO MAKE NEEDS KNOWN. RESPIRATION EVEN AND UNLABORED. NO SOB NOTED. ON O2 NC 4L. DENIED PAIN. HOB ELEVATED. BED ALARM AND LOCKED AT ALL TIMES. CALL LIGHT WITHIN REACH. (R) UA MIDLINE NOTED PATENT AND INTACT W/ DRESSING CLEAN AND DRY. ON LABORER CHICKEN FARM, A. FIB 101. DIEZ CATHETER IN PLACED DRAINING TO GRAVITY W/ YELLOW URINE. WOUND TREATMENT WAS DONE. WILL CONT TO MONITOR.
[2018-01-07] MEDS: ATORVASTATIN 40 MG TABLET PO SCH (21:31)
[2018-01-07] MEDS: *INSULIN REGULAR(HUMULIN R)HUM 100 UNIT/ML VIAL SQ PRN (21:52)
[2018-01-07] MEDS: INSULIN GLARGINE, 100 UNIT/ML CARTRIDGE SQ SCH (22:03)
[2018-01-08] VITALS (7 sets, daily range): BP systolic 109–143; BP diastolic 55–71
[2018-01-08] MEDS: ALBUTEROL FS 2.5 MG/0.5 ML VIAL.NEB IH SCH ×5 (03:33→19:40)
[2018-01-08] MEDS: IPRATROPIUM NEB FS 0.5 MG/2.5 ML AMPUL.NEB IH SCH ×5 (03:33→19:40)
--- NOTE | 2018-01-08 06:07 | NUR ---
RN CLOSING NOTE: PATIENT IN BED, AWAKE, ALERT AND ABLE TO MAKE NEEDS KNOWN. RESPIRATION EVEN AND UNLABORED. NO SOB NOTED. ON O2 NC 5L. DENIED PAIN. PT USED BIPAP HS. BED ALARM AND LOCKED AT ALL TIMES. CALL LIGHT WITHIN REACH. (R) UA MIDLINE NOTED PATENT AND INTACT W/ DRESSING CLEAN AND DRY. ON APPLICATION TECHNICAL DESIGNER, A. FIB 88. DIEZ CATHETER IN PLACED DRAINING TO GRAVITY W/ YELLOW URINE. WILL ENDORSE TO AM RN.
--- NOTE | 2018-01-08 07:32 | NUR ---
MAKAYLA RNNOTE: PATIENT IN BED, AWAKE, ALERT AND ABLE TO MAKE NEEDS KNOWN. RESPIRATION EVEN AND UNLABORED. NO SOB NOTED. ON O2 NC 5L. NO SOB NOTED PT USED BIPAP HS. BED ALARM AND LOCKED AT ALL TIMES. CALL LIGHT WITHIN REACH. (R) UA MIDLINE NOTED PATENT AND INTACT W/ DRESSING CLEAN AND DRY. ON SMALL BUSINESS SALES REPRESENTATIVE, A. FIB 94. DIEZ CATHETER IN PLACED DRAINING TO GRAVITY W/ YELLOW URINE., ON TELE MONITOR SR , CALL LIGHT WITHIN REACH , BED IN LOWEST AND LOCKED POSITION, WILL CONT TO MONITOR CLOSELY Addendum: 01/08/18 at 0755 by MARISSA GRIMALDO RN ON BREATHING TX BY RT
[2018-01-08] MEDS: ACETYLCYSTEINE 10% SOLN 400 MG/4 ML VIAL NEB SCH ×2 (07:35→15:30)
[2018-01-08 08:03] LABS: CALCIUM, SERUM 9.7 mg/dL (8.5-10.1); CARBON DIOXIDE 39 mmol/L (21-32); CHLORIDE 98 mmol/L (98-107); CREATININE 1.1 mg/dL (0.6-1.3); GLUCOSE 178 mg/dL (74-106); SODIUM SERUM 139 mmol/L (136-145); UREA NITROGEN, BLOOD 52 mg/dL (7-18)
[2018-01-08] MEDS: CHOLECALCIFEROL 1,000 UNIT TABLET (VIT D3) PO SCH (08:25)
[2018-01-08] MEDS: ASCORBIC ACID 500 MG TABLET PO SCH (08:26)
[2018-01-08] MEDS: LEVETIRACETAM (250 MG) 250 MG TABLET PO SCH ×2 (08:26→21:24)
[2018-01-08] MEDS: ZINC SULFATE 220 MG CAPSULE PO SCH (08:26)
[2018-01-08] MEDS: LEVOTHYROXINE SODIUM 175 MCG TABLET PO SCH (08:27)
[2018-01-08] MEDS: LORATADINE 10 MG TABLET PO SCH ×2 (08:27→16:46)
[2018-01-08] MEDS: LACTOBACILLUS RHAMNOSUS GG 1 EACH CAP.SPRINK PO SCH ×2 (08:27→16:47)
[2018-01-08] MEDS: GUAIFENESIN LA 600 MG TABLET.SA PO SCH ×2 (08:28→21:24)
[2018-01-08] MEDS: GABAPENTIN 400 MG CAPSULE PO SCH ×3 (08:28→16:47)
[2018-01-08] MEDS: ASPIRIN EC 81 MG TABLET.DR PO SCH (08:29)
[2018-01-08] MEDS: QUETIAPINE FUMARATE 25 MG TABLET PO SCH ×2 (08:29→16:46)
[2018-01-08] MEDS: MULTIVIT, IRON, MIN NO. 8, FA 1 TAB PO SCH (08:29)
[2018-01-08] MEDS: CLOPIDOGREL BISULFATE 75 MG TABLET PO SCH (08:29)
[2018-01-08] MEDS: AMLODIPINE BESYLATE 5 MG TABLET PO SCH (08:31)
[2018-01-08] MEDS: methylPREDNISolone SOD SUCC 125 MG/2ML VIAL IV SCH ×2 (08:31→16:46)
[2018-01-08] MEDS: FUROSEMIDE 40 MG/4 ML VIAL IV SCH (08:33)
[2018-01-08] MEDS: BOOST GLUCOSE CONTROL VANILLA 237 ML BOX PO SCH ×3 (08:35→16:52)
[2018-01-08] MEDS: DOCUSATE SODIUM 100 MG CAPSULE PO SCH ×2 (08:36→16:46)
[2018-01-08] MEDS: Z GUARD REMEDY 2 OZ OINT TP SCH ×2 (08:38→12:19)
[2018-01-08] MEDS: *INSULIN REGULAR(HUMULIN R)HUM 100 UNIT/ML VIAL SQ PRN ×2 (08:39→21:38)
[2018-01-08] MEDS: BLOOD SUGAR DIAGNOSTIC 1 EACH STRIP IN SCH ×4 (08:42→21:23)
--- NOTE | 2018-01-08 12:00 | NUR ---
MILK TESTER NOTE OMN BREATHING TX ORDERED NOT IN ACUTE DISTRESS
[2018-01-08] MEDS: INSULIN REGULAR, HUMAN 100 UNIT/ML 3 ML VIAL SQ PRN ×2 (12:23→16:52)
--- NOTE | 2018-01-08 15:00 | NUR ---
ASSOCIATE PUBLISHER NOTE PER SHAGUFTA HODGE DNP OK TO DISCHARGE TO SNF CAREGIVER NOTIFIED , SPOKE WITH JOANNE STRADDLE BUGGY OPERATOR NOTIFIED THAT PER DR CARBAJAL STILL NEED AT NIGHT BIPAP NEED
--- NOTE | 2018-01-08 17:59 | NUR ---
OPERATIONS ASST NOTE SPOKE WITH FRANKLIN RN D FROM SNF , N REPORT METAL COATER , NOTIFIED THAT NEED BIPAP AT NIGHT NEEDED
--- NOTE | 2018-01-08 18:30 | NUR ---
TELERADIOLOGIST NOTE AMBULANCE ARRIVED REPORT [facility] ADMINISTRATOR MID LINE REMOVED NO BLEEDING NOTED ,
--- NOTE | 2018-01-08 19:04 | NUR ---
OUTSIDE REPAIRER SPECIAL NOTE PER AMBULANCE PLACED PATIENT BACK TO BED BECAUSE BIPAP MACHINE NOT ARRIVED YET JOANNE REDDY PAYROLL EXAMINER AWARE WILL F]Sonia , CHARGE NURSE AWARE Addendum: 01/08/18 at 1925 by MARISSA GRIMALDO RN FLIGHT/TRANSPORT NURSE JOANNE AWARE THAT BIPAP MACHINE NOT ARRIVED AT SNF
--- NOTE | 2018-01-08 20:00 | NUR ---
RN INITIAL NOTE: RECEIVED PATIENT IN BED, AWAKE, ALERT AND ABLE TO MAKE NEEDS KNOWN. RESPIRATION EVEN AND UNLABORED. NO SOB NOTED. ON O2 NC 5L. DENIED PAIN. BED ALARM AND LOCKED AT ALL TIMES. CALL LIGHT WITHIN REACH. (R) UA MIDLINE WAS REMOVED. DIEZ CATHETER IN PLACED DRAINING TO GRAVITY W/ YELLOW URINE. RECEIVED REPORT THAT PT WILL BE TRANSFERRED BACK TO SNF TONIGHT AFTER BIPAP IS DELIVERED TO FACILITY. WILL CONT TO MONITOR PT.
--- NOTE | 2018-01-08 21:15 | NUR ---
RN NOTES PT COMPLAIN OF BACK PAIN, REPOSITIONED PT AND WILL MEDICATE.
[2018-01-08] MEDS: ATORVASTATIN 40 MG TABLET PO SCH (21:24)
[2018-01-08] MEDS: ACETAMINOPHEN 325 MG TABLET PO PRN (21:24)
[2018-01-08] MEDS: INSULIN GLARGINE, 100 UNIT/ML CARTRIDGE SQ SCH (21:26)
--- NOTE | 2018-01-08 21:30 | NUR ---
RN NOTES ALL PM CARE DONE, ALL MEDS ADMINISTERED ORDERED, BS 356, B/P 109/57, HR 98, TEMP 98.2, RR 20 O2 95 ON 5L NC.PT IN STABLE CONDITION. REPORT GIVEN TO AMBULANCE BY LOOP DRIER OPERATOR ELSA, REPORT GIVEN TO SNF BY LOOP DRIER OPERATOR ELSA. REPORT WAS ALSO GIVEN TO SNF RN BY AM MAYE. PT IS BEING PREP BY AMBULANCE STAFF TO BE TRANSPORTED BACK TO SNF.
--- NOTE | 2018-01-08 21:50 | NUR ---
RN NOTES PT LEFT FLOOR WITH AMBULANCE STAFF/EMT. ALL PERSONAL BELONGING WITH PT.
== END 2018-01-08 21:50 | DRG 177 ==
LOC: ER 15:37 → ICU 18:34 → TELE-TD 12-17 12:13 → MEDSG1 12-20 10:42 → TELE-TD 12-20 22:27 → TELE1 12-21 08:27 → MEDSG1 12-22 10:50 → TELE1 12-23 22:16 → ICU 12-25 14:27 → TELE-TD 12-28 11:46 → TELE1 12-30 12:02 → ICU 01-01 16:36 → TELE-TD 01-06 13:21 → TELE1 01-07 14:50 → TELE-TD 01-07 15:33 → TELE1 01-08 11:25
PROVIDERS: ADMIT Family Medicine; ATTEND Family Medicine
PROC: 05H533Z Insertion of Infusion Device into Right Subclavian Vein, Percutaneous Approach (ICD-10-PCS; principal; 2017-12-21)
PROC: B546ZZA Ultrasonography of Right Subclavian Vein, Guidance (ICD-10-PCS; 2017-12-21)
DX: J69.0 Pneumonitis due to inhalation of food and vomit (principal); J96.21 Acute and chronic respiratory failure with hypoxia; K72.00 Acute and subacute hepatic failure without coma; N17.0 Acute kidney failure with tubular necrosis; E43 Unspecified severe protein-calorie malnutrition; L89.153 Pressure ulcer of sacral region, stage 3; R65.21 Severe sepsis with septic shock; Z93.0 Tracheostomy status; R53.2 Functional quadriplegia; I69.354 Hemiplegia and hemiparesis following cerebral infarction affecting left non-dominant side; L89.323 Pressure ulcer of left buttock, stage 3; D68.59 Other primary thrombophilia; E11.22 Type 2 diabetes mellitus with diabetic chronic kidney disease; J96.22 Acute and chronic respiratory failure with hypercapnia; L89.313 Pressure ulcer of right buttock, stage 3; N39.0 Urinary tract infection, site not specified; I13.0 Hypertensive heart and chronic kidney disease with heart failure and stage 1 through stage 4 chronic kidney disease, or unspecified chronic kidney disease; E87.2 Acidosis; E87.0 Hyperosmolality and hypernatremia; J44.1 Chronic obstructive pulmonary disease with (acute) exacerbation; J44.0 Chronic obstructive pulmonary disease with (acute) lower respiratory infection; J15.6 Pneumonia due to other Gram-negative bacteria; J15.9 Unspecified bacterial pneumonia; I11.0 Hypertensive heart disease with heart failure; D69.6 Thrombocytopenia, unspecified; I50.9 Heart failure, unspecified; E11.65 Type 2 diabetes mellitus with hyperglycemia; E11.69 Type 2 diabetes mellitus with other specified complication; Z79.899 Other long term (current) drug therapy; Z95.1 Presence of aortocoronary bypass graft; Z87.891 Personal history of nicotine dependence; Z79.82 Long term (current) use of aspirin; G40.909 Epilepsy, unspecified, not intractable, without status epilepticus; I25.2 Old myocardial infarction; I25.10 Atherosclerotic heart disease of native coronary artery without angina pectoris; G47.33 Obstructive sleep apnea (adult) (pediatric); G89.29 Other chronic pain; F03.90 Unspecified dementia, unspecified severity, without behavioral disturbance, psychotic disturbance, mood disturbance, and anxiety; E78.5 Hyperlipidemia, unspecified; D63.8 Anemia in other chronic diseases classified elsewhere; E03.9 Hypothyroidism, unspecified; Z88.8 Allergy status to other drugs, medicaments and biological substances; Z79.4 Long term (current) use of insulin; I95.9 Hypotension, unspecified; N18.9 Chronic kidney disease, unspecified; K59.00 Constipation, unspecified; K21.9 Gastro-esophageal reflux disease without esophagitis; L98.9 Disorder of the skin and subcutaneous tissue, unspecified; E87.5 Hyperkalemia; I70.0 Atherosclerosis of aorta; E83.42 Hypomagnesemia; E66.01 Morbid (severe) obesity due to excess calories; Z68.28 Body mass index [BMI] 28.0-28.9, adult
CPT/HCPCS: 36415; 36569; 36600; 71045-TC; 80048-TC; 80061-TC; 80076-TC; 81000-TC; 82542; 82803-TC; 82947-TC; 82962-TC; 83605-TC; 83735-TC; 84100-TC; 84484-TC; 85025-TC; 85730-TC; 87040-TC; 87081-TC; 87086-TC; 87400; 92611-TC; 94660; 94668-TC; 94760-TC; 94762-TC; 94799-TC; 99082-TC; A4216; A4217; A4606; A6248; A6402; J0692; J0696; J1650; J1815; J1940; J1953; J1956; J2185; J2543; J2930; J3475; J3490; J7030; J7050; J7060; J7070; Z7610

== ENCOUNTER 2018-01-12 00:52 | Inpatient (IN) | payer MEDICARE ==
[~2018-01-12] VITALS: Ht 177.8 cm; Wt 96.2 kg
[2018-01-12] VITALS (46 sets, daily range): BP systolic 82–127; BP diastolic 48–75
--- NOTE | 2018-01-12 00:55 | NUR ---
.PT TO ER BED 5. PT MARCOS FROM [facility] C/O SOB. PER PARAMEDICS PT ON BIPAP @5LPM ON ARRIVAL TO SCENE SATING 56%. PT PRESENTS TO THER ER ON CPAP SATING 92%, TACHYPNEIC AT [address] RUFF AT BEDSIDE.
--- NOTE | 2018-01-12 01:04 | NUR ---
XRAY AT THE BEDSIDE FOR CXR.
--- NOTE | 2018-01-12 01:10 | NUR ---
DR RUFF AND RT ANT BEDSIDE FOR INTUBATION. SEE INTUBATION INTERVENTION NOTES.
[2018-01-12] MEDS ORDERED: PROPOFOL 100 ML ONE (01:15)
[2018-01-12] MEDS ORDERED: PROPOFOL 100 ML IV ONE (01:18)
--- NOTE | 2018-01-12 01:25 | NUR ---
XRAY AT BEDSIDE TO CHECK PLACEMENT.
--- NOTE | 2018-01-12 01:26 | NUR ---
PROPOFOL IV TITRATED TO EFFECT.
[2018-01-12] MEDS ORDERED: IV NS 0.9% 500 ML BAG IV ONE (01:30)
[2018-01-12] MEDS ORDERED: LEVOFLOXACIN 750 MG /D5W 150ML 150 ML IV ONE ×2 (01:30→03:27)
[2018-01-12] MEDS ORDERED: AZITHROMYCIN 500 MG in IV D5W 250 ML IV ONE (01:30)
[2018-01-12] MEDS ORDERED: CEFTAZIDIME 1 G in IV D5W 50 ML IV ONE (01:30)
[2018-01-12] MEDS ORDERED: SUCCINYLCHOLINE CHLORIDE 20 MG/ML VIAL IV ONE ×2 (01:30→11:34)
[2018-01-12 01:31] LABS: BASOPHILS % (AUTO) 0.1 % (0.0-2.0); EOSINOPHILS # (AUTO) 0.1 /CMM (0.0-0.7); EOSINOPHILS % (AUTO) 0.5 % (0.0-6.0); HEMATOCRIT 27 % (39-51); HEMOGLOBIN 8.6 g/dL (13.5-17.5); LYMPHOCYTES # (AUTO) 0.5 /CMM (0.8-4.8); LYMPHOCYTES % (AUTO) 3.5 % (20.0-44.0); MEAN CORPUSCULAR HEMOGLOBIN 32 PG (26.0-33.0); MEAN CORPUSCULAR HGB CONC 32 g/dl (31.0-36.0); MEAN CORPUSCULAR VOLUME 99 fL (80-96); MONOCYTES # (AUTO) 0.7 /CMM (0.1-1.30); MONOCYTES % (AUTO) 4.6 % (2.0-12.0); NEUTROPHILS # (AUTO) 14.2 /CMM (1.8-8.9); NEUTROPHILS % (AUTO) 91.3 % (43.0-81.0); PLATELET COUNT (AUTO) 139 /CMM (150-450); RDW COEFFICIENT OF VARIATION 25.9 (11.5-15.0); RED BLOOD CELL COUNT(AUTO) 2.72 MIL/uL (4.5-6.0); WHITE BLOOD COUNT (AUTO) 15.6 K/uL (4.3-11.0)
--- NOTE | 2018-01-12 01:35 | NUR ---
RT PT ORALLY INTUBATED VIA ETT #7.5 23CM @ LIP. PT PLACED ON NOTED VENT SETTING PER DR RUFF. PHYSICAL TRAINER CUFF PRESSURE NOTED. VENT PLUGGED INTO RED OUTLET. ALARMS ARE SET AND AUDIBLE. NEALU BAG BEDSIDE. WILL CONTINUE TO MONITOR. Addendum: 01/12/18 at 0137 by MARCELINO MEDINA RT Amended: Links added.
[2018-01-12 01:37] LABS: APPEARANCE,URINE CLOUDY (CLEAR); BILIRUBIN,URINE NEGATIVE (NEGATIVE); BLOOD, URINE 2+ Ery/uL (NEGATIVE); KETONES,URINE NEGATIVE (NEGATIVE); LEUKOCYTE ESTERASE ,URINE 2+ (NEGATIVE); NITRITE, URINE POSITIVE (NEGATIVE); PROTEIN,URINE TRACE mg/dl (NEGATIVE); UGLUCOSE NEGATIVE (NEGATIVE)
[2018-01-12 01:39] LABS: COLOR,URINE DARK YELLOW (YELLOW)
--- NOTE | 2018-01-12 01:41 | NUR ---
OGT PLACED PER DR. RUFF. 70 CM AT THE LIP
[2018-01-12 01:43] LABS: BACTERIA,URINE Many /HPF (None Seen); SQUAMOUS EPITHELIAL CELL,UR None Seen /HPF (None Seen); WBC,URINE 51-80 /HPF (0-3); YEAST,URINE Hyphal filaments /HPF (None Seen)
[2018-01-12 01:51] LABS: CALCIUM, SERUM 9.7 mg/dL (8.5-10.1); CARBON DIOXIDE 39 mmol/L (21-32); CHLORIDE 100 mmol/L (98-107); CREATININE 1.2 mg/dL (0.6-1.3); GLUCOSE 139 mg/dL (74-106); INR 1.08 (0.87-1.13); POTASSIUM 4.8 mmol/L (3.5-5.1); SODIUM SERUM 140 mmol/L (136-145); UREA NITROGEN, BLOOD 70 mg/dL (7-18)
[2018-01-12 01:54] LABS: TROPONIN I 0.199 ng/mL (0.00-0.056)
[2018-01-12 01:58] LABS: ALANINE AMINOTRANSFERASE 37 U/L (12-78); ALBUMIN 2.6 g/dL (3.4-5.0); ALKALINE PHOSPHATASE 168 U/L (46-116); ASPARTATE AMINOTRANSFERASE 22 U/L (15-37); B-TYPE NATRIURETIC PEPTIDE 5344 PG/ML (0-125); BILIRUBIN,DIRECT 0.4 mg/dL (0.0-0.2); BILIRUBIN,TOTAL 0.9 mg/dL (0.2-1.0); TOTAL PROTEIN, SERUM 6.2 g/dL (6.4-8.2)
--- NOTE | 2018-01-12 02:03 | NUR ---
CONTINUING TO MONITOR PT CLOSELY, VSS.
[2018-01-12 02:04] LABS: ABG BASE EXCESS 9.3 mmol/L; ABG PCO2 49.4 mmHg (35.0-45.0); ABG PH 7.459 (7.350-7.450); ABG PO2 230.8 mmHg (75.0-100.0); AaDO2 432.8 mmHg; COHb 1.4 % (0.5-1.5); MetHb 0.6 % (0.0-1.5); PEEP,BG 0 cm H2O; SITE, ABG Right Radial; VENT MODE, BG AC 16 550 100%
--- NOTE | 2018-01-12 02:10 | NUR ---
ABG RESULTS GIVEN TO DR RUFF. RR DECREASED TO 14 AND FIO2 TO 80% PER DR RUFF REQUEST Addendum: 01/12/18 at 0211 by MARCELINO MEDINA RT Amended: Links added.
[2018-01-12] MEDS ORDERED: CEFTAZIDIME 1 G VIAL ONE (02:14)
[2018-01-12] MEDS ORDERED: AZITHROMYCIN 500 MG VIAL ONE (02:14)
[2018-01-12] MEDS ORDERED: ASPIRIN 300 MG/SUPP.RECT RC ONE ×2 (02:15→02:30)
[2018-01-12] MEDS ORDERED: IV NS 0.9% 1,000 ML BAG IV ONE (02:30)
[2018-01-12] MEDS ORDERED: IV NS 0.9% 1,000 ML IV PRN (02:46)
--- NOTE | 2018-01-12 02:53 | NUR ---
PT TRANSPORTED TO CT VIA STRETCHER ON SENIOR [employer]UT[employer] WORKFLOW CONSULTANT WITH RN AND RT. VSS.
[2018-01-12] MEDS ORDERED: ONDANSETRON HCL/PF 4 MG/2 ML VIAL IVP PRN (03:00)
[2018-01-12] MEDS ORDERED: DEXTROSE 50%-WATER 50 ML DISP.SYRIN IV PRN (03:00)
[2018-01-12] MEDS ORDERED: ACETAMINOPHEN 325 MG TABLET PO PRN (03:00)
[2018-01-12] MEDS ORDERED: MAG HYDROX/AL HYDROX/SIMETH 30 ML UDC PO PRN (03:00)
[2018-01-12] MEDS ORDERED: MAGNESIUM HYDROXIDE 30 ML UDC PO PRN (03:00)
[2018-01-12] MEDS ORDERED: ETOMIDATE 2 MG/ML VIAL IV ONE ×2 (03:00→11:34)
--- NOTE | 2018-01-12 03:00 | NUR ---
REPORT CALLED TO MAYE DEL CASTILLO IN ICU FOR BERNA.
--- NOTE | 2018-01-12 03:06 | NUR ---
PT TRANSPORTED FROM CT VIA STRETCHER ON QUILL MACHINE TENDER WITH RN AND RT TO ICU 260 PER ACLS PROTOCOL. VSS.
[2018-01-12] MEDS ORDERED: VANCOMYCIN 1,500 MG in IV D5W 250 ML IV ONE (03:30)
[2018-01-12] MEDS: IPRATROPIUM NEB FS 0.5 MG/2.5 ML AMPUL.NEB IH SCH ×6 (03:42→23:56)
[2018-01-12] MEDS: ALBUTEROL FS 2.5 MG/0.5 ML VIAL.NEB IH SCH ×6 (03:42→23:57)
[2018-01-12] MEDS ORDERED: LEVOFLOXACIN 750 MG /D5W 150ML 750 MG in PREMIX 1 EA IV SCH (04:00)
--- NOTE | 2018-01-12 04:00 | NUR ---
PT RECEIVED FROM ER INTUBATED ON DIPRIVAN DRIP, PT WAS ADMITTED FOR ACUTE RESPIRATORY FAILURE 2ND TO PNA. PT IS SEDATED. VENT SETTINGS PER ORDER. PT IS IN AFIB, BP WNL. PT HAS A BM, OGT IN PLACE CLAMPED. PT HAS F/C URINE CLEAR YELLOW. PT HAS LEFT EJ 18G AND R WRIST 20G IV. WILL START ON NS @ 75 ML/HR. WILL CONTINUE TO MONITOR
[2018-01-12] MEDS ORDERED: VANCOMYCIN 500 MG VIAL ONE (04:07)
[2018-01-12] MEDS ORDERED: VANCOMYCIN 1 GM VIAL ONE (04:07)
[2018-01-12] MEDS ORDERED: PIPERACILLIN /TAZOBACTAM 3.375 G VIAL IV ONE (05:01)
[2018-01-12] MEDS: PIPERACILLIN /TAZOBACTAM 3.375 G in IV D5W 50 ML IV SCH ×4 (05:07→23:02)
[2018-01-12] MEDS: PROPOFOL 100 ML IV PRN ×3 (06:45→23:04)
--- NOTE | 2018-01-12 07:10 | NUR ---
RN INITIAL NOTES RECEIVED PT INTUBATED, TOLERATING VENT WELL. NO RESPIRATORY DISTRESS NOTES. NO SOB NOTED. NO SIGNS OF PAIN NOTED. PT SEDATED, ON DIPRIVAN AT 10MCG/KG/MIN. IV LINES IN PLACE. ON NS AT 75ML/HR. FC IN PLACE. NO HEMATURIA NOTED. BLE ELEVATED. PT COMFORTABLE. WILL MONITOR.
[2018-01-12] MEDS: CHOLECALCIFEROL 1,000 UNIT TABLET (VIT D3) PO SCH (08:13)
[2018-01-12] MEDS: ASCORBIC ACID 500 MG TABLET PO SCH (08:13)
[2018-01-12] MEDS: PANTOPRAZOLE 40 MG VIAL IV SCH (08:13)
[2018-01-12] MEDS: BLOOD SUGAR DIAGNOSTIC 1 EACH STRIP IN SCH ×4 (08:13→21:44)
[2018-01-12] MEDS: LEVOTHYROXINE SODIUM 175 MCG TABLET PO SCH (08:13)
[2018-01-12] MEDS: LEVETIRACETAM (250 MG) 250 MG TABLET PO SCH ×2 (08:14→20:13)
[2018-01-12] MEDS: ZINC SULFATE 220 MG CAPSULE PO SCH (08:14)
[2018-01-12] MEDS: GABAPENTIN 400 MG CAPSULE PO SCH ×3 (08:14→16:40)
[2018-01-12] MEDS: CLOPIDOGREL BISULFATE 75 MG TABLET PO SCH (08:14)
[2018-01-12] MEDS: LORATADINE 10 MG TABLET PO SCH ×2 (08:14→16:40)
[2018-01-12] MEDS: MULTIVITAMINS,THERAGRAN 1 UDTAB TABLET PO SCH (08:14)
[2018-01-12] MEDS: ASPIRIN EC 81 MG TABLET.DR PO SCH (08:14)
[2018-01-12] MEDS: DOCUSATE SODIUM 100 MG CAPSULE PO SCH ×2 (08:14→16:40)
[2018-01-12] MEDS ORDERED: HYDROGEL DRESSING 90 GM TUBE TP PRN (08:30)
--- NOTE | 2018-01-12 08:32 | NUR ---
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 ALL SKIN PROTECTION AND WOUND RECOMMENDATIONS DISCUSSED WITH NURSING STAFF. CURRENT GABE SCORE IS 9. FIRST STEP MATTRESS ORDERED. PT IS INTUBATED AT THIS TIME. ALL SKIN PROTECTION MEASURES IN PLACE. WILL SEE PRN. ZARAGOZA IN AGREEMENT WITH PLAN OF CARE. Addendum: 01/12/18 at 0834 by CALEB CONWAY WNDNU Amended: Links added.
--- NOTE | 2018-01-12 08:50 | NUR ---
RN NOTES SEEN AND EXAMINED BY DR. LEMUS. AWARE OF CURRENT LAB VALUES: WBC 15.6, HGB 8.6, HCT 27, PLATELET 139, BUN 70, CREA 1.2, TROPONIN 0.215 FROM 0.199. ALSO AWARE OF CXR AND CT HEAD RESULT. CLARIFIED WITH MD IF PT NEEDS ANOTHER CT HEAD WO CONTRAST, LATEST RESULT, NEGATIVE. PER MD, NO NEED TO DO RPT. PT'S PUPIL NOT BLOWN. WITH ORDERS NOTED AND CARRIED OUT. WILL CONTINUE TO MONITOR.
[2018-01-12] MEDS ORDERED: Medication Not On Formulary EA (Cranberry Extract (Cranberry) 425 MG) PO SCH (09:00)
[2018-01-12] MEDS ORDERED: QUETIAPINE FUMARATE 25 MG TABLET PO SCH (09:00)
[2018-01-12] MEDS: HYDROGEL DRESSING 90 GM TUBE TP SCH (09:29)
[2018-01-12] MEDS ORDERED: FUROSEMIDE 20 MG/2 ML VIAL IV ONE (09:30)
--- NOTE | 2018-01-12 09:30 | NUR ---
RN NOTES SEEN AND EXAMINED BY DR. CARBAJAL. AWARE OF H&P, LAB VALUES AND IMAGING STUDIES. PT INTUBATED. NO RESPIRATORY DISTRESS NOTED. NO SOB NOTED. HOB ELEVATED. CURRENTLY ON SEDATION VACATION. OPEN EYES, MOVES TO PAIN AND UNABLE TO FOLLOW COMMANDS. WILL CONTINUE TO MONITOR.
--- NOTE | 2018-01-12 10:40 | NUR ---
RN NOTES SEEN AND EXAMINED BY HUMBERTO MOREJON NP. AWARE OF CURRENT LAB VALUES: WBC 15.6, HGB 8.6, HCT 27, PLATELET 139. BUN 70, CREA 1.2. FOR CONSULT WITH DR. LOZA. AWARE OF TROPONIN 0.215, DR. LEMUS ON THE CASE AND BNP 5344. IVF DC'D BY DR. LEMUS. CRAFT SUPERINTENDENT AWARE OF LATEST CXR AND XT HEAD WO CONTRAST RESULT. WILL CONTINUE TO MONITOR.
--- NOTE | 2018-01-12 11:30 | NUR ---
RN NOTES SEEN AND EXAMINED BY DR. GODFREY LOZA. AWARE OF CURRENT LAB VALUES AND IMAGING STUDIES. PT GIVEN LASIX. ADEQUATE OUTPUT NOTED. ORDERED STOOL FOR OB. WILL CONTINUE TO MONITOR.
[2018-01-12] MEDS ORDERED: FEE PK DOSING 1 MIN EA MC ONE (13:52)
[2018-01-12] MEDS ORDERED: VANCOMYCIN 1.25 GM in IV D5W 500 ML IV SCH (16:00)
[2018-01-12] MEDS: INSULIN REGULAR, HUMAN 100 UNIT/ML 3 ML VIAL SQ PRN ×2 (17:34→21:48)
--- NOTE | 2018-01-12 18:55 | NUR ---
RN CLOSING NOTES PT REMAINS INTUBATED, ON VENT. NO RESPIRATORY DISTRESS NOTED. HOB ELEVATED. NO SIGNS OF PAIN NOTED. PT SEDTAED, DIPRIVAN AT 10MCG/KG/MIN. IV LINES IN PLACE. FC IN PLACE. TX PROVIDED ORDERED. KEPT CLEAN AND DRY. REPOSITIONED Q2. WILL ENDORSED FOR CONTINUITY OF CARE.
--- NOTE | 2018-01-12 20:00 | NUR ---
CART PUSHER - NOTES - RECEIVED PT INTUBATED, TOLERATING VENT WELL. NO RESPIRATORY DISTRESS NOTES. NO SOB NOTED. NO SIGNS OF PAIN NOTED. PT SEDATED, ON DIPRIVAN AT 10MCG/KG/MIN. IV LINES IN PLACE. FC IN PLACE. NO HEMATURIA NOTED. BLE ELEVATED. PT COMFORTABLE. WILL MONITOR.
[2018-01-12] MEDS: FLUCONAZOLE (100 MG) 100 MG TABLET PO SCH (20:13)
[2018-01-12] MEDS: ATORVASTATIN 40 MG TABLET PO SCH (21:34)
--- NOTE | 2018-01-12 22:00 | NUR ---
ATORVASTATIN HELD TONIGHT TO DOUBLE CHECK CROSS ALLERGY TO ROSUVASTATIN, WILL NOTIFY DY SHIFT AND PHARMACY TO DOUBLE CHECK, OPERATIONS MANAGER/COORDINATOR WILLARD ORR NOTIFIED AND AGREED TO HOLD AND DOUBLE CHECK ALLERGY
[2018-01-13] VITALS (41 sets, daily range): BP systolic 82–127; BP diastolic 48–71
[2018-01-13] MEDS: IPRATROPIUM NEB FS 0.5 MG/2.5 ML AMPUL.NEB IH SCH ×6 (03:33→23:52)
[2018-01-13] MEDS: ALBUTEROL FS 2.5 MG/0.5 ML VIAL.NEB IH SCH ×6 (03:33→23:52)
[2018-01-13 05:06] LABS: EOSINOPHILS # (AUTO) 0.2 /CMM (0.0-0.7); EOSINOPHILS % (AUTO) 1.2 % (0.0-6.0); HEMATOCRIT 28 % (39-51); HEMOGLOBIN 9.1 g/dL (13.5-17.5); LYMPHOCYTES # (AUTO) 0.7 /CMM (0.8-4.8); LYMPHOCYTES % (AUTO) 5.1 % (20.0-44.0); MEAN CORPUSCULAR HEMOGLOBIN 32 PG (26.0-33.0); MEAN CORPUSCULAR HGB CONC 33 g/dl (31.0-36.0); MEAN CORPUSCULAR VOLUME 99 fL (80-96); MONOCYTES # (AUTO) 0.5 /CMM (0.1-1.30); NEUTROPHILS # (AUTO) 11.7 /CMM (1.8-8.9); NEUTROPHILS % (AUTO) 89.7 % (43.0-81.0); PLATELET COUNT (AUTO) 105 /CMM (150-450); RDW COEFFICIENT OF VARIATION 24.7 (11.5-15.0); RED BLOOD CELL COUNT(AUTO) 2.83 MIL/uL (4.5-6.0)
[2018-01-13 05:29] LABS: CALCIUM, SERUM 8.7 mg/dL (8.5-10.1); CARBON DIOXIDE 32 mmol/L (21-32); CHLORIDE 98 mmol/L (98-107); GLUCOSE 96 mg/dL (74-106); MAGNESIUM 1.6 mg/dL (1.8-2.4); PHOSPHORUS 2.6 mg/dL (2.5-4.9); POTASSIUM 3.5 mmol/L (3.5-5.1); SODIUM SERUM 139 mmol/L (136-145); UREA NITROGEN, BLOOD 44 mg/dL (7-18)
[2018-01-13] MEDS: PROPOFOL 100 ML IV PRN (05:34)
[2018-01-13] MEDS: PIPERACILLIN /TAZOBACTAM 3.375 G in IV D5W 50 ML IV SCH ×4 (05:34→23:29)
[2018-01-13 05:35] LABS: CHOLESTEROL 138 mg/dL (<200); HDL CHOLESTEROL 47 mg/dL (40-60); LDL 80 mg/dL (0-99); THYROID STIMULATING HORMONE 16.774 uIU/mL (0.358-3.74); TRIGLYCERIDES 104 mg/dL (30-150)
--- NOTE | 2018-01-13 07:10 | NUR ---
RN INITIAL NOTES RECEIVED PT INTUBATED, TOLERATING VENT WELL. NO RESPIRATORY DISTRESS NOTES. NO SOB NOTED. HOB ELEVATED. NO SIGNS OF PAIN NOTED. PT SEDATED, ON DIPRIVAN AT 20MCG/KG/MIN. OG IN PLACE, CLAMPED. IV LINES IN PLACE. FC IN PLACE. NO HEMATURIA NOTED. BLE ELEVATED. PT COMFORTABLE. WILL MONITOR.
[2018-01-13 08:24] LABS: ABG BASE EXCESS 9.9 mmol/L; ABG PCO2 45.4 mmHg (35.0-45.0); ABG PH 7.498 (7.350-7.450); ABG PO2 73.3 mmHg (75.0-100.0); AaDO2 159.7 mmHg; PEEP,BG 0 cm H2O; SITE, ABG Left Radial; VENT MODE, BG AC 16 550 40% +0; VT, ABG 550 mL
[2018-01-13] MEDS: PANTOPRAZOLE 40 MG VIAL IV SCH ×2 (08:28→16:12)
[2018-01-13] MEDS: MULTIVITAMINS,THERAGRAN 1 UDTAB TABLET PO SCH (08:28)
[2018-01-13] MEDS: ASCORBIC ACID 500 MG TABLET PO SCH (08:29)
[2018-01-13] MEDS: CHOLECALCIFEROL 1,000 UNIT TABLET (VIT D3) PO SCH (08:29)
[2018-01-13] MEDS: LEVOTHYROXINE SODIUM 175 MCG TABLET PO SCH (08:29)
[2018-01-13] MEDS: LEVETIRACETAM (250 MG) 250 MG TABLET PO SCH ×2 (08:29→21:18)
[2018-01-13] MEDS: FLUCONAZOLE (100 MG) 100 MG TABLET PO SCH (08:29)
[2018-01-13] MEDS: ZINC SULFATE 220 MG CAPSULE PO SCH (08:29)
[2018-01-13] MEDS: LORATADINE 10 MG TABLET PO SCH ×2 (08:29→16:12)
[2018-01-13] MEDS: HYDROGEL DRESSING 90 GM TUBE TP SCH (08:29)
[2018-01-13] MEDS: ASPIRIN EC 81 MG TABLET.DR PO SCH (08:29)
[2018-01-13] MEDS: CLOPIDOGREL BISULFATE 75 MG TABLET PO SCH (08:29)
[2018-01-13] MEDS: BLOOD SUGAR DIAGNOSTIC 1 EACH STRIP IN SCH ×4 (08:29→21:24)
[2018-01-13] MEDS: GABAPENTIN 400 MG CAPSULE PO SCH ×3 (08:29→16:12)
[2018-01-13] MEDS: DOCUSATE SODIUM 100 MG CAPSULE PO SCH ×2 (08:29→16:12)
[2018-01-13] MEDS ORDERED: DC PROPOFOL WHEN EXTUBATED XX PRN (09:00)
--- NOTE | 2018-01-13 09:05 | NUR ---
RN NOTES SEEN AND EXAMINED BY DR. CARBAJAL. AWARE OF ABG RESULT. PT ON SEDATION VACATION. PT AWAKE, ABLE TO FOLLOW SIMPLE COMMANDS AND TRYING TO MOUTH WORDS. MD ORDERED PLACE PT ON SIMV MODE AND ABG POST 1HR. NOTED AND CARRIED OUT. WILL MONITOR.
[2018-01-13] MEDS ORDERED: Magnesium 1GM/D5W 100ML PREMIX PIGGYBACK IV ONE (10:00)
[2018-01-13] MEDS ORDERED: Magnesium 1GM/D5W 100ML PREMIX 100 ML IV SCH (10:00)
--- NOTE | 2018-01-13 10:00 | NUR ---
RN NOTES SEEN AND EXAMINED BY DR. LOZA. AWARE OF CURRENT LAB VALUES AND CXR RESULT. ORDERED LASIX. NOTED AND CARRIED OUT. WILL MONITOR.
--- NOTE | 2018-01-13 10:15 | NUR ---
RN NOTES SEEN AND EXAMINED BY HUMBERTO MOREJON NP. AWARE OF CURRENT LAB VALUES: WBC13, HGB 9.1, HCT 28, PLATELET 105, BUN 44, CREA 1.0, MAGNESIUM 1.6, REPLACEMENT ORDERED. ALSO AWARE OF CXR RESULT. OG ADVANCED AND PLACEMENT VERIFIED BY ZAN VILLAVICENCIO. PT POSITIVE FOR OCCULT BLOOD. WILL HAVE CONSULT WITH DR. VELAZQUEZ. WILL CONTINUE TO MONITOR.
[2018-01-13 10:22] LABS: ABG BASE EXCESS 6.7 mmol/L; ABG OXYGEN SATURATION 95.8 % (92.0-98.5); ABG PCO2 40.9 mmHg (35.0-45.0); ABG PH 7.491 (7.350-7.450); ABG PO2 88.5 mmHg (75.0-100.0); AaDO2 149.7 mmHg; COHb 1.3 % (0.5-1.5); MetHb 0.4 % (0.0-1.5); O2Hb 94.2 % (94.0-97.0); PEEP,BG 5 cm H2O; SITE, ABG Left Radial; VENT MODE, BG SIMV 4 PS 12 +5; VT, ABG 550 mL
--- NOTE | 2018-01-13 10:30 | NUR ---
RN NOTES SEEN AND EXAMINED BY DR. CARBAJAL. AWARE OF ABG RESULT 1HR AFTER PT PLACED ON SIMV MODE. PT ORDERED EXTUBATION. PT NOTIFIED
--- NOTE | 2018-01-13 10:50 | NUR ---
RN NOTES PT EXTUBATED. PLACED ON 02 AT 3LPM. 02 SAT 95%. HOB ELEVATED. WILL CLOSELY MONITOR.
[2018-01-13] MEDS: FUROSEMIDE 40 MG/4 ML VIAL IV SCH ×2 (11:15→16:13)
--- NOTE | 2018-01-13 11:40 | NUR ---
RN NOTES SEEN AND EXAMINED BY JOSEFINA HAMMONDS NP. AWARE OF CURRENT LAB VALUES AND IMAGING RESULT. AWARE OF POSITIVE OCCULT BLOOD. PT AWAKE, A/0X3-4. AIRPLANE PILOT CHIEF ORDERED EGD. EXPLAINED TO PT RISK AND BENEFITS. PT VERBALIZED UNDERSTANDING. CONSENT OBTAINED FROM PT. WILL KEEP PT NPO. WILL CONTINUE TO MONITOR.
[2018-01-13] MEDS: BISACODYL SUPP (10 MG) 10 MG/SUPP.RECT SUPP.RECT RC PRN (14:10)
[2018-01-13 14:15] LABS: IRON, SERUM 34 ug/dl (50-175); TOTAL IRON BINDING CAPACITY 191 ug/dl (250-450)
[2018-01-13] MEDS: HYDROCODONE/APAP 5/325MG 1 EACH TABLET PO PRN ×2 (15:47→21:18)
--- NOTE | 2018-01-13 18:43 | NUR ---
RN CLOSING NOTES PT AWAKE, A/OX3-4. NO RESPIRATORY DISTRESS NOTED. NO SOB NOTED. NO SIGNS OF PAIN NOTED. PT ON 02 AT 3LPM VIA NC. IV LINES IN PLACE. FC IN PLACE. NO HEMATURIA NOTED. TX PROVIDED ORDERED. REPOSITIONED Q2. KEPT COMFORTABLE. KEPT CLEAN AND DRY. KEPT BLE ELEVATED. PT FOR EGD. AWAITING FOR SCHED. WILL ENDORSE FOR CONTINUITY OF CARE.
--- NOTE | 2018-01-13 19:30 | NUR ---
INSIDE FINISHER INITIAL NOTES RECEIVED PATIENT AWAKE A/OX4, ABLE TO MAKE NEEDS KNOWN. C/O ANAL PAIN / THAT COMES AND GOES. REPOSITIONED PATIENT, STATES IT HELPS ALLEVIATE THE PAIN. DENIES SOB. RESPIRATIONS EVEN AND UNLABORED, ON 3LPMO2 VIA NC. ON TELE MONITOR AFIB UNCONTROLLED 102. WITH F/C PATENT AND INTACT, DRAINING BY GRAVITY. PER REPORT PATIENT FOR POSSIBLE EGD. PATIENT NPO. AT THIS TIME. HOB ELEVATED. SIDE RAILS UP AND LOCKED. BED KEPT AT LOWEST POSITION. CALL LIGHT KEPT WITHIN EASY REACH. WILL CONTINUE TO MONITOR.
--- NOTE | 2018-01-13 20:10 | NUR ---
FINE DINING SERVER NOTES SPOKE WITH DR. MONTEMAYOR, REGARDING EGD, PER DR. MONTEMAYOR HE WILL SEE THE PATIENT TOMORROW. PLACE PATIENT ON LIQUID DIET. THERES NO NEED FOR PATIENT TO BE NPO AT THIS TIME. NOTED AND CARRIED OUT. WILL CONTINUE TO MONITOR.
[2018-01-13] MEDS: ATORVASTATIN 40 MG TABLET PO SCH (21:18)
[2018-01-13] MEDS: INSULIN REGULAR, HUMAN 100 UNIT/ML 3 ML VIAL SQ PRN (21:28)
[2018-01-14] VITALS (26 sets, daily range): BP systolic 84–117; BP diastolic 24–79
[2018-01-14] MEDS: IPRATROPIUM NEB FS 0.5 MG/2.5 ML AMPUL.NEB IH SCH ×6 (03:58→23:31)
[2018-01-14] MEDS: ALBUTEROL FS 2.5 MG/0.5 ML VIAL.NEB IH SCH ×6 (03:58→23:31)
[2018-01-14 04:59] LABS: BASOPHILS % (AUTO) 0.5 % (0.0-2.0); EOSINOPHILS # (AUTO) 0.1 /CMM (0.0-0.7); EOSINOPHILS % (AUTO) 1.2 % (0.0-6.0); HEMATOCRIT 27 % (39-51); HEMOGLOBIN 8.9 g/dL (13.5-17.5); LYMPHOCYTES # (AUTO) 0.5 /CMM (0.8-4.8); LYMPHOCYTES % (AUTO) 5.8 % (20.0-44.0); MEAN CORPUSCULAR HEMOGLOBIN 33 PG (26.0-33.0); MEAN CORPUSCULAR HGB CONC 33 g/dl (31.0-36.0); MEAN CORPUSCULAR VOLUME 99 fL (80-96); MONOCYTES # (AUTO) 0.4 /CMM (0.1-1.30); MONOCYTES % (AUTO) 4.3 % (2.0-12.0); NEUTROPHILS # (AUTO) 8.1 /CMM (1.8-8.9); NEUTROPHILS % (AUTO) 88.2 % (43.0-81.0); PLATELET COUNT (AUTO) 107 /CMM (150-450); RDW COEFFICIENT OF VARIATION 24.6 (11.5-15.0); RED BLOOD CELL COUNT(AUTO) 2.74 MIL/uL (4.5-6.0); WHITE BLOOD COUNT (AUTO) 9.1 K/uL (4.3-11.0)
[2018-01-14 05:06] LABS: CALCIUM, SERUM 9.3 mg/dL (8.5-10.1); CREATININE 1.2 mg/dL (0.6-1.3); GLUCOSE 208 mg/dL (74-106); UREA NITROGEN, BLOOD 40 mg/dL (7-18)
[2018-01-14 05:12] LABS: CHLORIDE 97 mmol/L (98-107); POTASSIUM 4.2 mmol/L (3.5-5.1); SODIUM SERUM 139 mmol/L (136-145)
[2018-01-14 05:33] LABS: CARBON DIOXIDE 40 mmol/L (21-32)
[2018-01-14] MEDS: PIPERACILLIN /TAZOBACTAM 3.375 G in IV D5W 50 ML IV SCH ×3 (05:42→17:14)
--- NOTE | 2018-01-14 07:00 | NUR ---
YARD MANAGER CLOSING NOTES NO SIGNIFICANT CHANGES OVERNIGHT. TOLERATING 5LPMO2 VIA NC. SPO2 98% AT THIS TIME. ALL DUE MEDS GIVEN. PATIENT DENIES SOB. RESTING COMFORTABLY AT THIS TIME. ALL NEEDS ANTICIPATED AND MET. KEPT CLEAN AND DRY. TURNED AND REPOSITIONED Q2 AND PRN . F/C PATENT AND INTACT, DRAINING BY GRAVITY. HOB ELEVATED. SIDE RAILS UP AND LOCKED. BED KEPT AT LOWEST POSITION. CALL LIGHT KEPT WITHIN EASY REACH. WILL ENDORSE CONTINUITY OF CARE TO AM NURSE.
--- NOTE | 2018-01-14 07:51 | NUR ---
MOLD SPRAYER NOTES RELAYED CO2 RESULT OF 40 TO AM NURSE.
--- NOTE | 2018-01-14 07:52 | NUR ---
ICU RNNOTES PATIENT ALERT , ORIENTED X3 TOLERATING 5LPMO2 VIA NC. SPO2 98% AT THIS TIME. ALL DUE MEDS GIVEN. PATIENT DENIES SOB. RESTING COMFORTABLY AT THIS TIME. ALL NEEDS ANTICIPATED AND MET. KEPT CLEAN AND DRY. TURNED AND REPOSITIONED Q2 AND PRN . F/C PATENT AND INTACT, DRAINING BY GRAVITY. HOB ELEVATED. SIDE RAILS UP AND LOCKED. BED KEPT AT LOWEST POSITION. CALL LIGHT KEPT WITHIN EASY REACH. , ON TELE MONITOR SR - ST 101, WILL CONT TO MONITOR CLOSELY
[2018-01-14] MEDS: LEVOTHYROXINE SODIUM 175 MCG TABLET PO SCH (08:02)
[2018-01-14] MEDS: HYDROCODONE/APAP 5/325MG 1 EACH TABLET PO PRN ×3 (08:03→22:24)
[2018-01-14] MEDS: BLOOD SUGAR DIAGNOSTIC 1 EACH STRIP IN SCH ×4 (08:08→22:23)
[2018-01-14] MEDS: MULTIVITAMINS,THERAGRAN 1 UDTAB TABLET PO SCH (08:19)
[2018-01-14] MEDS: FLUCONAZOLE (100 MG) 100 MG TABLET PO SCH (08:19)
[2018-01-14] MEDS: ZINC SULFATE 220 MG CAPSULE PO SCH (08:19)
[2018-01-14] MEDS: ASCORBIC ACID 500 MG TABLET PO SCH (08:19)
[2018-01-14] MEDS: GABAPENTIN 400 MG CAPSULE PO SCH ×3 (08:19→16:30)
[2018-01-14] MEDS: LEVETIRACETAM (250 MG) 250 MG TABLET PO SCH ×2 (08:19→21:07)
[2018-01-14] MEDS: ASPIRIN EC 81 MG TABLET.DR PO SCH (08:20)
[2018-01-14] MEDS: CHOLECALCIFEROL 1,000 UNIT TABLET (VIT D3) PO SCH (08:20)
[2018-01-14] MEDS: LORATADINE 10 MG TABLET PO SCH ×2 (08:20→16:30)
[2018-01-14] MEDS: DOCUSATE SODIUM 100 MG CAPSULE PO SCH ×2 (08:20→16:30)
[2018-01-14] MEDS: CLOPIDOGREL BISULFATE 75 MG TABLET PO SCH (08:20)
[2018-01-14] MEDS: PANTOPRAZOLE 40 MG VIAL IV SCH ×2 (08:20→16:29)
[2018-01-14] MEDS: HYDROGEL DRESSING 90 GM TUBE TP SCH (08:29)
[2018-01-14] MEDS: INSULIN REGULAR, HUMAN 100 UNIT/ML 3 ML VIAL SQ PRN ×4 (08:32→22:28)
--- NOTE | 2018-01-14 09:21 | NUR ---
PER DR RAVEN HOYOS CANCELLED.
--- NOTE | 2018-01-14 10:30 | NUR ---
DIAL PRINTER NOTE SEEN BY STATED PATENT NEED PUREE DIET , ALSO SEEN BY DR MONTEMAYOR GI DOCTOR NOTIFIED THAT PATIENT HAS PAIN IN RECTAL ANUS AREA SEEN AND EXAMINED PATIENT STATED WILL ORDER LIDOCAINE CREAM CREAM FOR RECTAL ARE , WILL F\U ASLO HOLD OFF FOR ENDOSCOPY AT THIS TIME
--- NOTE | 2018-01-14 11:45 | NUR ---
silviculture professor note spoke with dr melgoza notifyed that bp 88/55 stated its o just monitor for map if less then 65
--- NOTE | 2018-01-14 13:30 | NUR ---
DIESEL SERVICE JOURNEYMAN NOTE SPOKE WITH PHARMACIST X4 TO BRING LIDOCAINE GEL FOR PATIENT STILL NOT NOT DELIVERED STATED THAT WILL BRING SOON , WILL F\U
[2018-01-14] MEDS: LIDOCAINE 2% JEL 5 ML TUBE MC PRN (14:09)
--- NOTE | 2018-01-14 14:29 | NUR ---
REAL ESTATE INVESTMENT ANALYST NOTE SPOKE WITH CHELSEA SCOTT FOR DR MARCUS MARIA ,NOTIFIED THAT PER DR PUENTES HOLD EGD AT THIS TIME TILL MORE STABLE , WILL F\U IN AM OK TO HOLD NPO ORDER Addendum: 01/14/18 at 1644 by MARISSA GRIMALDO RN chelsea gould vibration technician for dr levin at bedside seen patient, stated that possible egd on Friday
--- NOTE | 2018-01-14 18:35 | NUR ---
MOVER NOTE FED PATIENT , ALL NEEDS ATTENDED , ON 5L MC SAT 93%, KEEP HOB ELEVATED AT ALL TIME , TURN REPOSITION DONEE, WILL CONT TO MONITOR CLOSELY
--- NOTE | 2018-01-14 19:30 | NUR ---
Patient resting with O2 5L NC O2 saturation down to 85%,Encouraged to cough and deep breath. Moaning verbalized with pain to sacral ulcer.Pain medication not due.Turned and repositioned to comfort.Emotional support rendered.VS stable.Afib 102-107.Continue monitoring.
--- NOTE | 2018-01-14 21:20 | NUR ---
PREVENTIVE MEDICINE PHYSICIAN INITIAL NOTES RECEIVED PATIENT AWAKE A/OX4, REPORT GIVEN BY ICU NURSE JOHAN. PATIENT DENIES SOB. C/O RECTAL PAIN. REPOSITIONED PATIENT STATES IT HELPS. DENIES SOB AT THIS TIME. ON TELE MONITOR AFIB UNCONTROLLED 111. SKIN WARM AND DRY TO TOUCH. F/C PATENT AND INTACT, DRAINING BY GRAVITY. HOB ELEVATED. SIDE RAILS UP AND LOCKED. BED KEPT AT LOWEST POSITION. CALL LIGHT KEPT WITHIN EASY REACH. WILL CONTINUE TO MONITOR.
--- NOTE | 2018-01-14 21:25 | NUR ---
Patient transferred to TELE 102 via bed in stable condition with his medications.Report given to Joe Fragoso RN.No belongings.
[2018-01-14] MEDS: ATORVASTATIN 40 MG TABLET PO SCH (22:23)
[2018-01-15] VITALS: BP 97/51
[2018-01-15] MEDS: PIPERACILLIN /TAZOBACTAM 3.375 G in IV D5W 50 ML IV SCH ×4 (01:05→17:35)
[2018-01-15] MEDS: IPRATROPIUM NEB FS 0.5 MG/2.5 ML AMPUL.NEB IH SCH ×5 (03:17→20:24)
[2018-01-15] MEDS: ALBUTEROL FS 2.5 MG/0.5 ML VIAL.NEB IH SCH ×5 (03:17→20:24)
[2018-01-15 04:00] VITALS: BP 107/62
[2018-01-15] MEDS: HYDROCODONE/APAP 5/325MG 1 EACH TABLET PO PRN ×2 (04:25→09:04)
[2018-01-15 06:25] LABS: EOSINOPHILS # (AUTO) 0.1 /CMM (0.0-0.7); EOSINOPHILS % (AUTO) 1.2 % (0.0-6.0); HEMATOCRIT 25 % (39-51); HEMOGLOBIN 8.3 g/dL (13.5-17.5); LYMPHOCYTES # (AUTO) 0.6 /CMM (0.8-4.8); LYMPHOCYTES % (AUTO) 7.5 % (20.0-44.0); MEAN CORPUSCULAR HEMOGLOBIN 32 PG (26.0-33.0); MEAN CORPUSCULAR HGB CONC 33 g/dl (31.0-36.0); MEAN CORPUSCULAR VOLUME 99 fL (80-96); MONOCYTES # (AUTO) 0.6 /CMM (0.1-1.30); MONOCYTES % (AUTO) 6.7 % (2.0-12.0); NEUTROPHILS % (AUTO) 84.6 % (43.0-81.0); PLATELET COUNT (AUTO) 77 /CMM (150-450); RED BLOOD CELL COUNT(AUTO) 2.57 MIL/uL (4.5-6.0); WHITE BLOOD COUNT (AUTO) 8.2 K/uL (4.3-11.0)
[2018-01-15 06:50] LABS: CALCIUM, SERUM 8.9 mg/dL (8.5-10.1); CARBON DIOXIDE 35 mmol/L (21-32); CHLORIDE 100 mmol/L (98-107); CREATININE 1.1 mg/dL (0.6-1.3); GLUCOSE 141 mg/dL (74-106); POTASSIUM 3.8 mmol/L (3.5-5.1); SODIUM SERUM 141 mmol/L (136-145); UREA NITROGEN, BLOOD 34 mg/dL (7-18)
--- NOTE | 2018-01-15 06:54 | NUR ---
POWDER EXPERT CLOSING NOTES NO SIGNIFICANT CHANGES OVERNIGHT. PATIENT EXPRESSED HE WANTS TO GO HOME AND NOT A PENITENTIARY, STATES HE HAS HELP AT HOME. ALL NEEDS ANTICIPATED AND MET. NO SOB NOTED. PAIN MONITORED AND MANAGED. KEPT CLEAN AND DRY. TURNED AND REPOSITIONED Q2 AND PRN. WOUND TX DONE. HOB ELEVATED. SIDE RAILS UP AND LOCKED. BED KEPT AT LOWEST POSITION. CALL LIGHT KEPT WITHIN EASY REACH. WILL ENDORSE CONTINUITY OF CARE TO AM NURSE.
[2018-01-15 08:00] VITALS: BP 104/51
[2018-01-15 08:36] LABS: LYMPHOCYTES % (MANUAL) 5 % (16-48); MONOCYTES % (MANUAL) 6 % (0-11.0); NEUTROPHILS % (MANUAL) 89 (42-76)
[2018-01-15] MEDS: CHOLECALCIFEROL 1,000 UNIT TABLET (VIT D3) PO SCH (08:49)
[2018-01-15] MEDS: PANTOPRAZOLE 40 MG VIAL IV SCH ×2 (08:49→17:35)
[2018-01-15] MEDS: FLUCONAZOLE (100 MG) 100 MG TABLET PO SCH (08:49)
[2018-01-15] MEDS: CLOPIDOGREL BISULFATE 75 MG TABLET PO SCH (08:49)
[2018-01-15] MEDS: LORATADINE 10 MG TABLET PO SCH ×2 (08:49→17:35)
[2018-01-15] MEDS: ASPIRIN EC 81 MG TABLET.DR PO SCH (08:49)
[2018-01-15] MEDS: LEVETIRACETAM (250 MG) 250 MG TABLET PO SCH ×2 (08:49→21:30)
[2018-01-15] MEDS: MULTIVITAMINS,THERAGRAN 1 UDTAB TABLET PO SCH (08:49)
[2018-01-15] MEDS: LEVOTHYROXINE SODIUM 175 MCG TABLET PO SCH (08:49)
[2018-01-15] MEDS: ZINC SULFATE 220 MG CAPSULE PO SCH (08:50)
[2018-01-15] MEDS: ASCORBIC ACID 500 MG TABLET PO SCH (08:50)
[2018-01-15] MEDS: HYDROGEL DRESSING 90 GM TUBE TP SCH (08:50)
[2018-01-15] MEDS: GABAPENTIN 400 MG CAPSULE PO SCH ×3 (08:50→17:35)
[2018-01-15] MEDS: DOCUSATE SODIUM 100 MG CAPSULE PO SCH ×2 (08:50→17:35)
[2018-01-15] MEDS: INSULIN REGULAR, HUMAN 100 UNIT/ML 3 ML VIAL SQ PRN ×3 (08:51→17:45)
[2018-01-15] MEDS: BLOOD SUGAR DIAGNOSTIC 1 EACH STRIP IN SCH ×4 (09:07→21:31)
--- NOTE | 2018-01-15 09:54 | NUR ---
PERL SOFTWARE ENGINEER INITIAL NOTES RECEIVED PATIENT AWAKE A/OX4, REPORT GIVEN BY PM NURSE. PATIENT DENIES SOB. PT C/O RECTAL PAIN ON AND OFF NORCO GIVEN FOR PAIN . PT DENIES SOB AT THIS TIME. PT SKIN WARM AND DRY TO TOUCH. F/C PATENT AND INTACT, DRAINING BY GRAVITY SEDIMENT NOTED . HOB ELEVATED. SIDE RAILS UP AND LOCKED. PT BED KEPT AT LOWEST POSITION. CALL LIGHT KEPT WITHIN EASY REACH. RN WILL CONTINUE TO MONITOR THROUGHOUT THE DAY .
[2018-01-15 12:00] VITALS: BP_SYST 153; BP_SYST 95; BP_DIAS 54; BP_DIAS 77
[2018-01-15 16:00] VITALS: BP 92/53
--- NOTE | 2018-01-15 19:05 | NUR ---
SCHOOL RESOURCE OFFICER CLOSING NOTES PT REMAINS IN BED NO SIGNIFICANT CHANGES THROUGHOUT THE DAY PATIENT STATES HE WANTS TO GO HOME. LOGISTICS ACCOUNT MANAGER HUMBERTO SPOKE WITH PATIENT IN REGARDS TO THE PLAN OF CARE. PATIENT EXPRESSED HE WANTS TO GO HOME AND NOT A GROUP HOME, STATES HE HAS HELP AT HOME VIA CAREGIVER. ALL NEEDS ANTICIPATED AND MET. NO SOB NOTED. PAIN MONITORED AND MANAGED THROUGHOUT THE SHIFT. PT KEPT CLEAN AND DRY. PT TURNED AND REPOSITIONED Q2 AND PRN. WOUND TX COMPLETED. HOB ELEVATED. SIDE RAILS UP AND LOCKED. BED KEPT AT LOWEST POSITION. CALL LIGHT KEPT WITHIN EASY REACH. RN WILL ENDORSE CONTINUITY OF CARE TO PM RN. PT SCHEDULED FOR THORACENTESIS AND EGD
--- NOTE | 2018-01-15 19:30 | NUR ---
MS RN INITIAL NOTES RECEIVED PATIENT AWAKE, A/OX4 , ABLE TO MAKE NEEDS KNOWN. AWARE OF EGD AND THORACENTESIS IN AM. VERBALIZED UNDERSTANDING HE NEEDS TO BE NPO AT MIDNIGHT. DENIES SOB. DENIES CHEST PAIN. DENIES PAIN OR DISCOMFORT AT THIS TIME. ON 5LPMO2 VIA NC. SKIN WARM AND DRY TO TOUCH. WITH F/C PATENT AND INTACT. DRAINING BY GRAVITY. HOB ELEVATED. SIDE RAILS UP AND LOCKED. BED KEPT AT LOWEST POSITION. CALL LIGHT KEPT WITHIN EASY REACH. WILL CONTINUE TO MONITOR.
[2018-01-15 20:00] VITALS: BP 102/57
[2018-01-15] MEDS: ATORVASTATIN 40 MG TABLET PO SCH (21:30)
[2018-01-16] MEDS: ALBUTEROL FS 2.5 MG/0.5 ML VIAL.NEB IH SCH ×7 (00:22→23:55)
[2018-01-16] MEDS: IPRATROPIUM NEB FS 0.5 MG/2.5 ML AMPUL.NEB IH SCH ×7 (00:22→23:55)
[2018-01-16] MEDS: PIPERACILLIN /TAZOBACTAM 3.375 G in IV D5W 50 ML IV SCH ×4 (00:32→17:10)
[2018-01-16 04:00] VITALS: BP 113/58
--- NOTE | 2018-01-16 04:09 | NUR ---
MS RN NOTES PATIENT C/O SEVERE ANUS PAIN, PATIENT NPO SINCE MIDNIGHT. INFORMED DR. KEYS, WITH ORDERS FOR MORPHINE 2MG Q4H PRN. NOTED AND CARRIED OUT WILL CONTINUE TO MONITOR.
[2018-01-16] MEDS ORDERED: MORPHINE SULFATE INJ 2 MG/ML DISP.SYRIN IV PRN (04:30)
[2018-01-16] MEDS ORDERED: MORPHINE SULFATE INJ 4 MG/ML DISP.SYRIN ONE (04:43)
--- NOTE | 2018-01-16 05:30 | NUR ---
MS RN NOTES CHECKED ON PATIENT, SLEEPING COMFORTABLY, AROUSABLE, STATES MORPHINE WORKS GREAT. WILL CONTINUE TO MONITOR.
[2018-01-16 06:47] LABS: BASOPHILS % (AUTO) 0.3 % (0.0-2.0); EOSINOPHILS # (AUTO) 0.2 /CMM (0.0-0.7); EOSINOPHILS % (AUTO) 2.6 % (0.0-6.0); HEMATOCRIT 25 % (39-51); HEMOGLOBIN 8.3 g/dL (13.5-17.5); LYMPHOCYTES # (AUTO) 0.8 /CMM (0.8-4.8); LYMPHOCYTES % (AUTO) 9.5 % (20.0-44.0); MEAN CORPUSCULAR HEMOGLOBIN 32 PG (26.0-33.0); MEAN CORPUSCULAR HGB CONC 33 g/dl (31.0-36.0); MEAN CORPUSCULAR VOLUME 99 fL (80-96); MONOCYTES # (AUTO) 0.5 /CMM (0.1-1.30); MONOCYTES % (AUTO) 6.3 % (2.0-12.0); NEUTROPHILS # (AUTO) 6.7 /CMM (1.8-8.9); NEUTROPHILS % (AUTO) 81.3 % (43.0-81.0); PLATELET COUNT (AUTO) 75 /CMM (150-450); RDW COEFFICIENT OF VARIATION 23.8 (11.5-15.0); RED BLOOD CELL COUNT(AUTO) 2.55 MIL/uL (4.5-6.0); WHITE BLOOD COUNT (AUTO) 8.3 K/uL (4.3-11.0)
[2018-01-16 06:56] LABS: CALCIUM, SERUM 9.1 mg/dL (8.5-10.1); CARBON DIOXIDE 38 mmol/L (21-32); CHLORIDE 101 mmol/L (98-107); CREATININE 0.9 mg/dL (0.6-1.3); GLUCOSE 183 mg/dL (74-106); POTASSIUM 3.9 mmol/L (3.5-5.1); SODIUM SERUM 140 mmol/L (136-145); UREA NITROGEN, BLOOD 26 mg/dL (7-18)
--- NOTE | 2018-01-16 07:05 | NUR ---
RN NOTES PT IS SITTING UP IN BED, ALERT AND ORIENTED. PT ON 4L MASK, RESPIRATIONS ARE EVEN AND UNLABORED, NO SIGNS OF DISTRESS NOTED. IV ON LEJ AND R WRIST INTACT AND PATENT. DIEZ CATHETER IS INTACT AND DRAINING. SAFETY MEASURES ARE IN PLACE, CALL LIGHT IS IN REACH. WILL CONTINUE TO MONITOR.
--- NOTE | 2018-01-16 07:18 | NUR ---
MS RN CLOSING NOTES NO SIGNIFICANT CHANGES OVERNIGHT. DENIES SOB. DENIES CHEST PAIN. NO RESPIRATORY DISTRESS NOTED, ON 4LPMO2. ALL NEEDS ANTICIPATED AND MET. KEPT CLEAN AND DRY. WOUND TX PROVIDED. F/C PATENT AND INTACT, DRAINING BY GRAVITY. TURNED AND REPOSITIONED Q2 AND PRN. HOB ELEVATED. SIDE RAILS UP AND LOCKED. BED KEPT AT LOWEST POSITION. CALL LIGHT KEPT WITHIN EASY REACH. CONTINUITY OF CARE ENDORSED TO AM NURSE.
[2018-01-16] MEDS: LEVOTHYROXINE SODIUM 175 MCG TABLET PO SCH (07:30)
[2018-01-16 08:00] VITALS: BP 110/63
[2018-01-16] MEDS: ASPIRIN EC 81 MG TABLET.DR PO SCH (08:07)
[2018-01-16] MEDS: PANTOPRAZOLE 40 MG VIAL IV SCH ×2 (08:07→17:10)
[2018-01-16] MEDS: BLOOD SUGAR DIAGNOSTIC 1 EACH STRIP IN SCH ×4 (08:07→21:36)
[2018-01-16] MEDS: HYDROGEL DRESSING 90 GM TUBE TP SCH (08:08)
[2018-01-16] MEDS: LORATADINE 10 MG TABLET PO SCH ×2 (08:08→17:10)
[2018-01-16] MEDS: MULTIVITAMINS,THERAGRAN 1 UDTAB TABLET PO SCH (08:08)
[2018-01-16] MEDS: CHOLECALCIFEROL 1,000 UNIT TABLET (VIT D3) PO SCH (08:08)
[2018-01-16] MEDS: ASCORBIC ACID 500 MG TABLET PO SCH (08:08)
[2018-01-16] MEDS: ZINC SULFATE 220 MG CAPSULE PO SCH (08:08)
[2018-01-16] MEDS: FLUCONAZOLE (100 MG) 100 MG TABLET PO SCH (08:08)
[2018-01-16] MEDS: DOCUSATE SODIUM 100 MG CAPSULE PO SCH ×2 (08:08→17:10)
[2018-01-16] MEDS: LEVETIRACETAM (250 MG) 250 MG TABLET PO SCH ×2 (08:08→21:22)
[2018-01-16] MEDS: GABAPENTIN 400 MG CAPSULE PO SCH ×3 (08:09→17:10)
[2018-01-16] MEDS: CLOPIDOGREL BISULFATE 75 MG TABLET PO SCH (09:00)
[2018-01-16 09:40] LABS: EOSINOPHILS % (MANUAL) 2 % (0-4); LYMPHOCYTES % (MANUAL) 12 % (16-48); MONOCYTES % (MANUAL) 6 % (0-11.0); NEUTROPHILS % (MANUAL) 80 (42-76)
--- NOTE | 2018-01-16 10:21 | NUR ---
INFORMED MAYE CROCKER US GUIDED THORACENTESIS IS CURRENTLY ON HOLD, DUE TO PLAVIX WAS GIVEN ON 01/15/18 AT 9AM. EXPLAINED TO RN PLAVIX MUST BE HELD FOR 5 DAYS PRIOR TO THORACENTESIS.
[2018-01-16 12:30] VITALS: BP 111/51
[2018-01-16] MEDS: MORPHINE SULFATE INJ 4 MG/ML DISP.SYRIN IV PRN ×2 (12:44→21:21)
[2018-01-16] MEDS: INSULIN REGULAR, HUMAN 100 UNIT/ML 3 ML VIAL SQ PRN ×3 (13:10→21:37)
[2018-01-16] MEDS: BOOST GLUCOSE CONTROL VANILLA 237 ML BOX PO SCH (13:37)
[2018-01-16] MEDS: SUCRALFATE 1 G/10 ML UDC PO SCH (17:10)
--- NOTE | 2018-01-16 18:55 | NUR ---
RN NOTES PT IS SITTING UP IN BED, RESTING COMFORTABLY. PT ON 5L O2 VIA MASK, SATING 100%. ALL MEDICATIONS WERE GIVEN ORDERED. IV ON LEJ INTACT AND RUNNING NS TKO. LAST ACCUCHECK WAS 174, 3 UNITS OF INSULIN GIVEN. DIEZ CATHETER IS INTACT AND DRAINING. SKIN CARE AND WOUND CARE PROVIDED FOR PT. PLAVIX TO BE HELD FOR THE NEXT COUPLE DAYS FOR PREPARATION OF THORACENTESIS. SAFETY MEASURES ARE IN PLACE, CALL LIGHT IS IN REACH. WILL ENDORSE TO FOOD SERVER RN FOR CONTINUITY OF CARE.
[2018-01-16 20:00] VITALS: BP 107/64
--- NOTE | 2018-01-16 20:00 | NUR ---
RN NOTES RECEIVED PATIENT AWAKE IN BED, NOTED WITH CONGESTION. NO DIFFICULTY OF BREATHING. ALERT AND ORIENTED. ABLE TO VERBALLY COMMUNICATE NEEDS. FC PATENT AND INTACT DRAINING WITH SEDIMENTS YELLOW URINE WITH NO FOUL ODOR. ON 4L O2 VIA NASAL CANNULA TOLERATING WELL. WILL CONTINUE TO MONITOR.
[2018-01-16] MEDS: ATORVASTATIN 40 MG TABLET PO SCH (21:22)
[2018-01-16 22:00] VITALS: BP 107/64
[2018-01-17] MEDS: SUCRALFATE 1 G/10 ML UDC PO SCH ×5 (00:07→23:52)
[2018-01-17] MEDS: PIPERACILLIN /TAZOBACTAM 3.375 G in IV D5W 50 ML IV SCH ×5 (00:08→23:52)
[2018-01-17] MEDS: IPRATROPIUM NEB FS 0.5 MG/2.5 ML AMPUL.NEB IH SCH ×5 (03:34→19:30)
[2018-01-17] MEDS: ALBUTEROL FS 2.5 MG/0.5 ML VIAL.NEB IH SCH ×5 (03:34→19:30)
[2018-01-17 04:00] VITALS: BP 112/60
[2018-01-17] MEDS: BLOOD SUGAR DIAGNOSTIC 1 EACH STRIP IN SCH ×3 (06:07→17:30)
[2018-01-17] MEDS: INSULIN REGULAR, HUMAN 100 UNIT/ML 3 ML VIAL SQ PRN ×4 (06:11→22:24)
--- NOTE | 2018-01-17 06:24 | NUR ---
RN CLOSING NOTES IN BED RESTING WTIH NO DISTRESS OR SHORTNESS OF BREATH. NO SIGNIFICANT CHANGE OF CONDITION. VITAL SIGNS WNL. KEPT CLEAN AND DRY. WILL ENDORSE TO AM SHIFT FOR CONTINUITY OF CARE
[2018-01-17 06:58] LABS: CALCIUM, SERUM 9.2 mg/dL (8.5-10.1); CARBON DIOXIDE 35 mmol/L (21-32); CHLORIDE 100 mmol/L (98-107); CREATININE 0.9 mg/dL (0.6-1.3); GLUCOSE 172 mg/dL (74-106); POTASSIUM 3.9 mmol/L (3.5-5.1); SODIUM SERUM 139 mmol/L (136-145)
[2018-01-17 07:12] LABS: UREA NITROGEN, BLOOD 23 mg/dL (7-18)
--- NOTE | 2018-01-17 07:18 | NUR ---
RN OPENING NOTES RECEIVED PATIENT IN BED RESTING. NO ACUTE DISTRESS, NO SOB NOTED. DENIES PAIN OR DISCOMFORT AT THIS TIME. IV SITE INTACT AND PATENT. DIEZ IN PLACE, DRAINING CLEAR YELLOW URINE. KEPT PATIENT SAFE AND COMFORTABLE IN BED. BED IN LOW/LOCKED POSITION, SIDERAILS UPX2, CALL LIGHT IN REACH, WILL CONTINUE TO MONITOR ACCORDINGLY.
[2018-01-17 08:00] VITALS: BP 113/61
[2018-01-17] MEDS: MULTIVITAMINS,THERAGRAN 1 UDTAB TABLET PO SCH (08:39)
[2018-01-17] MEDS: DOCUSATE SODIUM 100 MG CAPSULE PO SCH ×2 (08:39→16:16)
[2018-01-17] MEDS: LEVOTHYROXINE SODIUM 175 MCG TABLET PO SCH (08:39)
[2018-01-17] MEDS: ASCORBIC ACID 500 MG TABLET PO SCH (08:40)
[2018-01-17] MEDS: CHOLECALCIFEROL 1,000 UNIT TABLET (VIT D3) PO SCH (08:40)
[2018-01-17] MEDS: ZINC SULFATE 220 MG CAPSULE PO SCH (08:41)
[2018-01-17] MEDS: GABAPENTIN 400 MG CAPSULE PO SCH ×3 (08:41→16:16)
[2018-01-17] MEDS: LEVETIRACETAM (250 MG) 250 MG TABLET PO SCH ×2 (08:41→21:09)
[2018-01-17] MEDS: FLUCONAZOLE (100 MG) 100 MG TABLET PO SCH (08:43)
[2018-01-17] MEDS: LORATADINE 10 MG TABLET PO SCH ×2 (08:43→16:16)
[2018-01-17] MEDS: PANTOPRAZOLE 40 MG VIAL IV SCH ×2 (08:46→16:16)
[2018-01-17] MEDS: BOOST GLUCOSE CONTROL VANILLA 237 ML BOX PO SCH (08:46)
[2018-01-17] MEDS: ASPIRIN EC 81 MG TABLET.DR PO SCH (09:00)
[2018-01-17] MEDS: CLOPIDOGREL BISULFATE 75 MG TABLET PO SCH (09:00)
[2018-01-17] MEDS: HYDROGEL DRESSING 90 GM TUBE TP SCH (09:02)
[2018-01-17 09:45] VITALS: BP 113/61
--- NOTE | 2018-01-17 13:12 | NUR ---
MS RN NOTES PER DR.TIM CHADWICK MAY CHANGE DIET TO MECHANICAL SOFT DIET.
[2018-01-17 16:00] VITALS: BP 109/68
--- NOTE | 2018-01-17 19:22 | NUR ---
RN CLOSING NOTES NO SIGNIFICANT CHANGE IN PATIENT'S CONDITION. NO ACUTE DISTRESS, NO SOB. DENIES PAIN OR DISCOMFORT. ALL NEEDS ATTENDED AND PROVIDED. MECHANICAL SOFT DIET TOLERATED WELL, NO ASPIRATIONS. KEPT PATIENT SAFE AND COMFORTABLE. BED IN LOW/LOCKED POSITION, SIDERAILS UPX2, HOB ELEVATED. CALL LIGHT IN REACH. ENDORSED TO NIGHT RN FOR BERNA.
[2018-01-17 20:00] VITALS: BP 103/64
[2018-01-17] MEDS: ATORVASTATIN 40 MG TABLET PO SCH (21:10)
[2018-01-17] MEDS: MORPHINE SULFATE INJ 4 MG/ML DISP.SYRIN IV PRN (21:12)
[2018-01-17] MEDS: HYDROCODONE/APAP 5/325MG 1 EACH TABLET PO PRN (23:52)
[2018-01-18] MEDS: BLOOD SUGAR DIAGNOSTIC 1 EACH STRIP IN SCH ×5 (00:08→21:20)
[2018-01-18] MEDS: IPRATROPIUM NEB FS 0.5 MG/2.5 ML AMPUL.NEB IH SCH ×7 (01:09→23:31)
[2018-01-18] MEDS: ALBUTEROL FS 2.5 MG/0.5 ML VIAL.NEB IH SCH ×7 (01:09→23:31)
--- NOTE | 2018-01-18 02:30 | NUR ---
RN NOTE PATIENT NOTED TO BE DESATURATING IN THE LOW 80s, CONSISTENT. PATIENT REMAINS ALERT AND ORIENTED. PATIENT PREVIOUSLY WAS ON NOC BIPAP. ORDER TO RESUME NOC BIPAP OBTAINED FROM DR. KIRKPATRICK. ORDER NOTED AND CARRIED OUT. RT NOTIFIED.
--- NOTE | 2018-01-18 02:52 | NUR ---
PT WAS PLACED ON BIPAP 15/5 RR16, 50%, due to desaturation. pt is stable no distress noted. Addendum: 01/18/18 at 0253 by JULISSA TROTTER RT Amended: Links added.
[2018-01-18] MEDS: MORPHINE SULFATE INJ 4 MG/ML DISP.SYRIN IV PRN (03:45)
[2018-01-18 04:00] VITALS: BP 113/64
[2018-01-18] MEDS: PIPERACILLIN /TAZOBACTAM 3.375 G in IV D5W 50 ML IV SCH ×3 (05:51→18:13)
[2018-01-18] MEDS: SUCRALFATE 1 G/10 ML UDC PO SCH ×3 (05:51→17:08)
[2018-01-18 06:43] LABS: CARBON DIOXIDE 37 mmol/L (21-32); CHLORIDE 99 mmol/L (98-107); CREATININE 0.8 mg/dL (0.6-1.3); GLUCOSE 209 mg/dL (74-106); POTASSIUM 3.8 mmol/L (3.5-5.1); SODIUM SERUM 138 mmol/L (136-145); UREA NITROGEN, BLOOD 20 mg/dL (7-18)
--- NOTE | 2018-01-18 07:35 | NUR ---
RN M/S NOTE: RECEIVED PATIENT IN BED, AWAKE, ALERT AND VERBALLY RESPONSIVE. ON BIPAP AND SATURATING 98%. (L) IJ AND (R) WRIST IV PERIPHERAL LINE NOTED INTACT AND PATENT. BED ALARM AND LOCKED AT ALL TIMES. ON SEIZURE PRECAUTION. PER PM SHIFT NURSE, THE PATIENT WILL HAVE A THORACENTESIS THIS FRIDAY (01/20/18) AND ASPIRIN AND PLAVIX WILL BE HELD FOR THE PROCEDURE. NO S/S OF DISCOMFORT. CALL LIGHT WITHIN REACH. NEEDS ANTICIPATED.
[2018-01-18] MEDS: INSULIN REGULAR, HUMAN 100 UNIT/ML 3 ML VIAL SQ PRN ×4 (07:55→21:18)
[2018-01-18] MEDS: PANTOPRAZOLE 40 MG VIAL IV SCH ×2 (08:21→17:07)
[2018-01-18] MEDS: CHOLECALCIFEROL 1,000 UNIT TABLET (VIT D3) PO SCH (08:21)
[2018-01-18] MEDS: LORATADINE 10 MG TABLET PO SCH ×2 (08:22→17:08)
[2018-01-18] MEDS: DOCUSATE SODIUM 100 MG CAPSULE PO SCH ×2 (08:22→17:08)
[2018-01-18] MEDS: FLUCONAZOLE (100 MG) 100 MG TABLET PO SCH (08:22)
[2018-01-18] MEDS: GABAPENTIN 400 MG CAPSULE PO SCH ×3 (08:22→17:08)
[2018-01-18] MEDS: ZINC SULFATE 220 MG CAPSULE PO SCH (08:22)
[2018-01-18] MEDS: ASCORBIC ACID 500 MG TABLET PO SCH (08:22)
[2018-01-18] MEDS: MULTIVITAMINS,THERAGRAN 1 UDTAB TABLET PO SCH (08:22)
[2018-01-18] MEDS: LEVETIRACETAM (250 MG) 250 MG TABLET PO SCH ×2 (08:23→21:17)
[2018-01-18] MEDS: LEVOTHYROXINE SODIUM 175 MCG TABLET PO SCH (08:23)
[2018-01-18] MEDS: BOOST GLUCOSE CONTROL VANILLA 237 ML BOX PO SCH (08:33)
[2018-01-18] MEDS: HYDROGEL DRESSING 90 GM TUBE TP SCH (08:34)
[2018-01-18] MEDS: ASPIRIN EC 81 MG TABLET.DR PO SCH (09:00)
[2018-01-18] MEDS: CLOPIDOGREL BISULFATE 75 MG TABLET PO SCH (09:00)
[2018-01-18] MEDS: HYDROCODONE/APAP 5/325MG 1 EACH TABLET PO PRN ×3 (09:06→21:24)
--- NOTE | 2018-01-18 10:45 | NUR ---
RN M/S NOTE: REPORT GIVEN TO MAYE STONE FOR CONTINUITY OF CARE.
--- NOTE | 2018-01-18 10:48 | NUR ---
MS RN: INITIAL NOTE RECEIVED PT FROM MAYE CORONEL. PT A/OX4. NO DISTRESS NOTED. PAIN CONTROLLED WITH PAIN MEDICATIONS. NO SOB NOTED. ON 5L MASK. USES DIAPER. DIEZ CATH IN PLACE AND DRAINING. SITE CLEAR. L EXTERNAL JUGULAR IV HL. R WRIST IV NO IV FLUIDS RUNNING. SITES CLEAR AND PATENT. RESTING COMFORTABLY IN BED. CALL LIGHT WITHIN REACH.
[2018-01-18 12:00] VITALS: BP 100/63
--- NOTE | 2018-01-18 19:01 | NUR ---
MS RN: CLOSING NOTE PT TOOK ALL MEDICATIONS ON TIME. NO ADVERSE REACTIONS NOTED. NO SOB NOTED. PAIN CONTROLLED WITH PAIN MEDICATIONS. NO DISTRESS NOTED. A/OX4. DIEZ CATH IN PLACE AND DRAINING. ON PUREED DIET. TURNED AND REPOSITIONED Q 2HOURS. L EXTERNAL JUGULAR HL. SITE CLEAR AND PATENT. NO REDNESS OR BLEEDING NOTED. INSULIN GIVEN PER SLIDING SCALE. TO CONTINUE TO HOLD PLAVIX UNTIL THE US GUIDED THORACENTESIS IS DONE ON FRIDAY.
[2018-01-18 20:00] VITALS: BP 115/64
[2018-01-18] MEDS: ATORVASTATIN 40 MG TABLET PO SCH (21:24)
[2018-01-19] MEDS: MORPHINE SULFATE INJ 4 MG/ML DISP.SYRIN IV PRN ×3 (00:16→22:43)
[2018-01-19] MEDS: SUCRALFATE 1 G/10 ML UDC PO SCH ×4 (00:16→17:42)
[2018-01-19] MEDS: IPRATROPIUM NEB FS 0.5 MG/2.5 ML AMPUL.NEB IH SCH ×6 (03:00→23:28)
[2018-01-19] MEDS: ALBUTEROL FS 2.5 MG/0.5 ML VIAL.NEB IH SCH ×6 (03:00→23:28)
[2018-01-19 04:00] VITALS: BP 130/71
[2018-01-19 06:56] LABS: BASOPHILS % (AUTO) 0.3 % (0.0-2.0); HEMATOCRIT 25 % (39-51); HEMOGLOBIN 8.1 g/dL (13.5-17.5); LYMPHOCYTES # (AUTO) 0.7 /CMM (0.8-4.8); LYMPHOCYTES % (AUTO) 12.4 % (20.0-44.0); MEAN CORPUSCULAR HEMOGLOBIN 32 PG (26.0-33.0); MEAN CORPUSCULAR HGB CONC 32 g/dl (31.0-36.0); MEAN CORPUSCULAR VOLUME 99 fL (80-96); MONOCYTES # (AUTO) 0.4 /CMM (0.1-1.30); MONOCYTES % (AUTO) 7.4 % (2.0-12.0); NEUTROPHILS # (AUTO) 4.6 /CMM (1.8-8.9); NEUTROPHILS % (AUTO) 79.9 % (43.0-81.0); PLATELET COUNT (AUTO) 91 /CMM (150-450); RDW COEFFICIENT OF VARIATION 22.2 (11.5-15.0); RED BLOOD CELL COUNT(AUTO) 2.52 MIL/uL (4.5-6.0); WHITE BLOOD COUNT (AUTO) 5.7 K/uL (4.3-11.0)
[2018-01-19 07:01] LABS: INR 1.06 (0.87-1.13)
[2018-01-19 07:15] LABS: CARBON DIOXIDE 35 mmol/L (21-32); CHLORIDE 99 mmol/L (98-107); CREATININE 0.9 mg/dL (0.6-1.3); GLUCOSE 186 mg/dL (74-106); MAGNESIUM 1.4 mg/dL (1.8-2.4); PHOSPHORUS 1.8 mg/dL (2.5-4.9); POTASSIUM 4.1 mmol/L (3.5-5.1); SODIUM SERUM 138 mmol/L (136-145); UREA NITROGEN, BLOOD 16 mg/dL (7-18)
--- NOTE | 2018-01-19 07:30 | NUR ---
INITIAL PT ALERT AND ORIENTED X 4 ON BED TKO ON 5 LPM NC. 18 G LEFT ej FLUSHES WELL NO NOTE REDNESS, SWELLING OT PAIN. PT ON PUREE DIET CALL STILES NEXT TO PT BED IN LOW POSITION. ALARMS ON.
[2018-01-19 08:00] VITALS: BP_SYST 123; BP_DIAS 64; BP_DIAS 69
[2018-01-19] MEDS: INSULIN REGULAR, HUMAN 100 UNIT/ML 3 ML VIAL SQ PRN ×4 (08:18→22:32)
[2018-01-19] MEDS: ASPIRIN EC 81 MG TABLET.DR PO SCH (09:00)
[2018-01-19] MEDS: BOOST GLUCOSE CONTROL VANILLA 237 ML BOX PO SCH (09:00)
[2018-01-19] MEDS: CLOPIDOGREL BISULFATE 75 MG TABLET PO SCH (09:00)
[2018-01-19] MEDS: MULTIVITAMINS,THERAGRAN 1 UDTAB TABLET PO SCH (09:23)
[2018-01-19] MEDS: LEVOTHYROXINE SODIUM 175 MCG TABLET PO SCH (09:23)
[2018-01-19] MEDS: PANTOPRAZOLE 40 MG VIAL IV SCH (09:23)
[2018-01-19] MEDS: LEVETIRACETAM (250 MG) 250 MG TABLET PO SCH ×2 (09:23→22:07)
[2018-01-19] MEDS: GABAPENTIN 400 MG CAPSULE PO SCH ×3 (09:24→17:42)
[2018-01-19] MEDS: LORATADINE 10 MG TABLET PO SCH ×2 (09:24→17:42)
[2018-01-19] MEDS: DOCUSATE SODIUM 100 MG CAPSULE PO SCH ×2 (09:24→17:42)
[2018-01-19] MEDS: FLUCONAZOLE (100 MG) 100 MG TABLET PO SCH (09:25)
[2018-01-19] MEDS: CHOLECALCIFEROL 1,000 UNIT TABLET (VIT D3) PO SCH (09:25)
[2018-01-19] MEDS: ASCORBIC ACID 500 MG TABLET PO SCH (09:25)
[2018-01-19] MEDS: ZINC SULFATE 220 MG CAPSULE PO SCH (09:27)
[2018-01-19] MEDS: HYDROGEL DRESSING 90 GM TUBE TP SCH (09:28)
[2018-01-19] MEDS: BLOOD SUGAR DIAGNOSTIC 1 EACH STRIP IN SCH ×4 (09:29→22:28)
--- NOTE | 2018-01-19 09:30 | NUR ---
RN NOTES DUE MEDS GIVEN BY AMISHA VILLAVICENCIO
[2018-01-19 09:38] LABS: LYMPHOCYTES % (MANUAL) 8 % (16-48); NEUTROPHILS % (MANUAL) 92 (42-76)
--- NOTE | 2018-01-19 10:00 | NUR ---
MS VILLAVICENCIO NOTES RECEIVED REPORT FROM AMISHA VILLAVICENCIO FOR BERNA.
--- NOTE | 2018-01-19 11:00 | NUR ---
MS RN NOTES S/P THORACENTESIS, RIGHT. 1300 ML OUT. SPECIMEN SENT TO LABORATORY.
[2018-01-19] MEDS ORDERED: K PHOS NEUTRAL 250 MG TABLET PO ONE (12:00)
--- NOTE | 2018-01-19 12:06 | NUR ---
MS RN NOTES ACCUCHECK DONE. BS 223 MG/DL. ADMINISTERED 4 UNITS HUM R PER SS.
--- NOTE | 2018-01-19 12:56 | NUR ---
MS RN NOTES DR. SHAGUFTA CHADWICK NOTIFIED ABOUT LABORATORY CALLING FOR ORDERS FOR BODY FLUID ANALYSIS. SPECIMEN SENT TO LAB EARLIER.
[2018-01-19] MEDS: Magnesium 1GM/D5W 100ML PREMIX 100 ML IV SCH ×4 (13:03→17:43)
--- NOTE | 2018-01-19 13:03 | NUR ---
MS RN NOTES MAGNESIUM IV BAG #1 STARTED.
--- NOTE | 2018-01-19 14:03 | NUR ---
MS RN NOTE MAGNESIUM IV BAG #2 STARTED
--- NOTE | 2018-01-19 14:51 | NUR ---
MS RN NOTES REPORT GIVEN TO PAT CORONEL.
--- NOTE | 2018-01-19 14:55 | NUR ---
MS RN NOTES REPORT OBTAINED FROM RAS VILLAVICENCIO. PATIENT IN BED RESTING NO SOB OR ACUTE DISTRESS NOTED. PATIENT ALERT, ORIENTED X3. BED IN LOW LOCKED POSITION. CALL LIGHT WITHIN REACH. WILL CONTINUE TO MONITOR .
[2018-01-19 16:00] VITALS: BP 97/57
[2018-01-19] MEDS ORDERED: SUCRALFATE 1 G/10 ML UDC GT SCH (17:30)
--- NOTE | 2018-01-19 18:24 | NUR ---
MS RN NOTES PATIENT IN BED RESTING NO SOB OR ACUTE DISTRESS NOTED. ALL DUE MEDICATIONS ADMINISTERED. ALL NEEDS MET. PERIPHERAL IV INTACT PATENT. WILL ENDORSE TO PM SHIFT BERNA.
--- NOTE | 2018-01-19 19:32 | NUR ---
MS RN NOTES: RECEIVED PT AND IS ASLEEP IN BED AT THIS TIME. PT ON 5LPM VIA NC AND IS TOLERATING WELL. PT HAS DIEZ CATH AND IS ATTACHED TO DRAINAGE BAG WITH YELLOW URINE DRAINING. PT HAS IV ON L EXTERNAL JUGULAR AND IS BEING INFUSED WITH MAGNESIUM. CALL LIGHT WITHIN PT'S REACH. BED KEPT IN LOW, LOCKED POSITION, AND SIDE RAILS X 3UP. WILL CONTINUE TO MONITOR PT.
--- NOTE | 2018-01-19 19:49 | NUR ---
MS RN NOTES: GAVE REPORT TO RNIVÁN. WILL TRANSFER TO MS 2 TO ROOM 201.
[2018-01-19 20:00] VITALS: BP_SYST 114; BP_SYST 116; BP_DIAS 59; BP_DIAS 68
[2018-01-19 20:15] VITALS: BP 114/68
--- NOTE | 2018-01-19 21:00 | NUR ---
RECEIVED TH PT FROM MAKAYLA, ALERT, OX3. ON O2 AT 5LPM VIA MASK. BREATHING EVENLY. NO OSB. SKIN WARM AND DRY. F/C IN PLACE DRAINING . NEEDS ATTENDED. BED LOW LOCKED. CALL LIGHT WITHIN REACH. WILL CONT TO MONITOR.
[2018-01-19] MEDS: ATORVASTATIN 40 MG TABLET PO SCH (22:07)
--- NOTE | 2018-01-19 22:43 | NUR ---
MORPHINE GIVEN ORDERED PER PT'S REQUEST FOR C/O BACK AND SACRAL PAIN. ASSISTED W/ REPOSITIONING . WILL CONT TO MONITOR .
--- NOTE | 2018-01-19 23:35 | NUR ---
PT PLACED ON NOC BIPAP. RN NOTIFIED. WILL CONTINUE TO MONITOR.
[2018-01-20] MEDS: SUCRALFATE 1 G/10 ML UDC PO SCH ×5 (00:14→23:59)
[2018-01-20] MEDS: ALBUTEROL FS 2.5 MG/0.5 ML VIAL.NEB IH SCH ×6 (03:35→23:37)
[2018-01-20] MEDS: IPRATROPIUM NEB FS 0.5 MG/2.5 ML AMPUL.NEB IH SCH ×6 (03:35→23:37)
--- NOTE | 2018-01-20 06:20 | NUR ---
PT IN BED DOZING INTERMITTENTLY. BREATHING EVENLY. CURRENTLY ON 5L OF O2 VIA MASK. EVELIO WELL. ASSISTED W/ ADLS. NEEDS ATTENDED. CALL LIGHT WITHIN REACH . WILL CONT TO MONITOR AND WILL ENDORSE TO AM SHIFT FOR BERNA.
[2018-01-20] MEDS: BLOOD SUGAR DIAGNOSTIC 1 EACH STRIP IN SCH ×4 (06:53→21:26)
[2018-01-20] MEDS: INSULIN REGULAR, HUMAN 100 UNIT/ML 3 ML VIAL SQ PRN ×4 (06:55→21:27)
--- NOTE | 2018-01-20 07:30 | NUR ---
RN MS NOTES PT IN BED, AWAKE, ALERT AND ORIENTED, NOT IN DISTRESS, ON O2 VIA MASK AT 5LPM, NO SHORTNESS OF BREATH, CALL LIGHT WITHIN REACH, NEEDS ATTENDED.
[2018-01-20 07:49] LABS: BASOPHILS % (AUTO) 0.4 % (0.0-2.0); HEMATOCRIT 25 % (39-51); LYMPHOCYTES # (AUTO) 0.7 /CMM (0.8-4.8); LYMPHOCYTES % (AUTO) 11.9 % (20.0-44.0); MEAN CORPUSCULAR HEMOGLOBIN 31 PG (26.0-33.0); MEAN CORPUSCULAR HGB CONC 32 g/dl (31.0-36.0); MEAN CORPUSCULAR VOLUME 99 fL (80-96); MONOCYTES # (AUTO) 0.4 /CMM (0.1-1.30); MONOCYTES % (AUTO) 7.4 % (2.0-12.0); NEUTROPHILS # (AUTO) 4.5 /CMM (1.8-8.9); NEUTROPHILS % (AUTO) 80.3 % (43.0-81.0); PLATELET COUNT (AUTO) 114 /CMM (150-450); RDW COEFFICIENT OF VARIATION 21.9 (11.5-15.0); RED BLOOD CELL COUNT(AUTO) 2.56 MIL/uL (4.5-6.0); WHITE BLOOD COUNT (AUTO) 5.7 K/uL (4.3-11.0)
[2018-01-20 08:00] VITALS: BP 105/60
[2018-01-20 08:01] LABS: CALCIUM, SERUM 9.2 mg/dL (8.5-10.1); CARBON DIOXIDE 39 mmol/L (21-32); CHLORIDE 99 mmol/L (98-107); CREATININE 0.8 mg/dL (0.6-1.3); GLUCOSE 267 mg/dL (74-106); MAGNESIUM 1.7 mg/dL (1.8-2.4); POTASSIUM 4.6 mmol/L (3.5-5.1); SODIUM SERUM 137 mmol/L (136-145); UREA NITROGEN, BLOOD 18 mg/dL (7-18)
[2018-01-20] MEDS: GABAPENTIN 400 MG CAPSULE PO SCH ×3 (08:35→17:53)
[2018-01-20] MEDS: FLUCONAZOLE (100 MG) 100 MG TABLET PO SCH (08:35)
[2018-01-20] MEDS: ASPIRIN EC 81 MG TABLET.DR PO SCH (08:35)
[2018-01-20] MEDS: ZINC SULFATE 220 MG CAPSULE PO SCH (08:35)
[2018-01-20] MEDS: DOCUSATE SODIUM 100 MG CAPSULE PO SCH ×2 (08:35→17:53)
[2018-01-20] MEDS: LEVOTHYROXINE SODIUM 175 MCG TABLET PO SCH (08:35)
[2018-01-20] MEDS: CLOPIDOGREL BISULFATE 75 MG TABLET PO SCH (08:35)
[2018-01-20] MEDS: CHOLECALCIFEROL 1,000 UNIT TABLET (VIT D3) PO SCH (08:35)
[2018-01-20] MEDS: LORATADINE 10 MG TABLET PO SCH ×2 (08:35→17:53)
[2018-01-20] MEDS: MULTIVITAMINS,THERAGRAN 1 UDTAB TABLET PO SCH (08:35)
[2018-01-20] MEDS: LEVETIRACETAM (250 MG) 250 MG TABLET PO SCH ×2 (08:35→21:26)
[2018-01-20] MEDS: PANTOPRAZOLE 40 MG VIAL IV SCH (08:35)
[2018-01-20] MEDS: ASCORBIC ACID 500 MG TABLET PO SCH (08:35)
[2018-01-20] MEDS: Magnesium 1GM/D5W 100ML PREMIX 100 ML IV SCH ×2 (12:11→13:19)
[2018-01-20] MEDS: HYDROGEL DRESSING 90 GM TUBE TP SCH (12:12)
[2018-01-20] MEDS: BOOST GLUCOSE CONTROL VANILLA 237 ML BOX PO SCH (12:43)
[2018-01-20] MEDS ORDERED: PANT40TA2 PO (13:24)
[2018-01-20] MEDS ORDERED: SUCR1ORA6 PO (13:24)
[2018-01-20] MEDS ORDERED: FLUC100T8 PO (13:24)
[2018-01-20] MEDS: MORPHINE SULFATE INJ 4 MG/ML DISP.SYRIN IV PRN ×2 (14:08→19:03)
[2018-01-20 14:59] LABS: ABG OXYGEN SATURATION 88.2 % (92.0-98.5); ABG PCO2 63.6 mmHg (35.0-45.0); ABG PO2 59.6 mmHg (75.0-100.0); AaDO2 152.5 mmHg; MetHb 0.6 % (0.0-1.5); O2Hb 86.8 % (94.0-97.0); SITE, ABG Left Brachial; VENT MODE, BG nasal cannula
--- NOTE | 2018-01-20 15:00 | NUR ---
RN MS NOTES PT IN BED, AWAKE, ALERT AND ORIENTED, ON O2 AT 5LPM VIA MASK, O2 SAT BETWEEN 92%-96%, SEEN BY DR. CARBAJAL, ORDERS NOTED AND CARRIED OUT.
[2018-01-20] MEDS ORDERED: NEUTRA PHOS 1 POWD.PACKET PO ONE (15:30)
[2018-01-20 16:00] VITALS: BP 116/58
[2018-01-20] MEDS: ACETYLCYSTEINE 10% SOLN 400 MG/4 ML VIAL NEB SCH ×2 (16:00→23:37)
--- NOTE | 2018-01-20 18:30 | NUR ---
RN MS NOTES PT IN BED, AWAKE, ALERT AND ORIENTED, PAIN MEDICATION GIVEN FOR PAIN MANAGEMENT ORDERED, ON 5LPM VIA MASK, KEPT HOB ELEVATED, TOLERATING CURRENT DIET WELL, CALL LIGHT WITHIN REACH, ASSISTED IN TURNING AND REPOSITIONING, DISCHARGE WAS HELD TODAY DUE TO ABNORMAL ABG RESULT, BREATHING TREATMENT GIVEN ORDERED, ALL NEEDS ATTENDED.
--- NOTE | 2018-01-20 19:30 | NUR ---
RECEIVED PT IN BED, ALERT, OX3. ON O2 AT 5LPM VIA MASK. BREATHING EVENLY. NO SOB. SKIN WARM AND DRY. F/C IN PLACE DRAINING CLEAR YELLOW URINE. NO C/O PAIN OR DISCOMFORT. NEEDS ATTENDED. BED LOW LOCKED. CALL LIGHT WITHIN REACH. WILL CONT TO MONITOR.
[2018-01-20 20:00] VITALS: BP 122/67
--- NOTE | 2018-01-20 21:04 | NUR ---
PT PLACED ON NOC BIPAP. MAYE MERAZ NOTIFIED. WILL CONTINUE TO MONITOR THE PT.
[2018-01-20] MEDS: ATORVASTATIN 40 MG TABLET PO SCH (21:26)
[2018-01-21] MEDS: IPRATROPIUM NEB FS 0.5 MG/2.5 ML AMPUL.NEB IH SCH ×6 (03:27→23:42)
[2018-01-21] MEDS: ALBUTEROL FS 2.5 MG/0.5 ML VIAL.NEB IH SCH ×6 (03:27→23:42)
[2018-01-21] MEDS: SUCRALFATE 1 G/10 ML UDC PO SCH ×3 (05:21→17:40)
[2018-01-21] MEDS: BISACODYL SUPP (10 MG) 10 MG/SUPP.RECT SUPP.RECT RC PRN (06:26)
--- NOTE | 2018-01-21 06:46 | NUR ---
PT IN BED AWAKE N ALERT. STABLE. BREATHING EVENLY. O2 AT 5LPM VIA MASK EVELIO WELL. NO ACUTE EVENT DURING THE NIGHT,. NEEDS ATTENDED. CALL LIGHT WITHIN REACH. WILL CONT TO MONITOR AND WILL ENDORSE TO AM SHIFT FOR BERNA
[2018-01-21] MEDS: BLOOD SUGAR DIAGNOSTIC 1 EACH STRIP IN SCH ×4 (06:58→21:25)
[2018-01-21] MEDS: INSULIN REGULAR, HUMAN 100 UNIT/ML 3 ML VIAL SQ PRN ×4 (06:59→21:29)
--- NOTE | 2018-01-21 07:15 | NUR ---
RN NOTES PATIENT ASLEEP BUT EASILY AROUSABLE, ON O2 AT 5LPM VIA MASK, BREATHING EVEN AND UNLABORED, NO DISTRESS NOTED. NO SOB OBSERVED. NO S/SX OF PAIN OR DISCOMFORT NOTED. PATIENT KEPT COMFORTABLE, CALL LIGHT WITHIN REACH, WILL CONTINUE TO MONITOR.
[2018-01-21 08:00] VITALS: BP 96/64
[2018-01-21] MEDS: ACETYLCYSTEINE 10% SOLN 400 MG/4 ML VIAL NEB SCH ×3 (08:00→23:41)
[2018-01-21 08:45] LABS: BASOPHILS % (AUTO) 0.4 % (0.0-2.0); EOSINOPHILS % (AUTO) 0.6 % (0.0-6.0); HEMATOCRIT 26 % (39-51); HEMOGLOBIN 8.3 g/dL (13.5-17.5); LYMPHOCYTES # (AUTO) 0.6 /CMM (0.8-4.8); LYMPHOCYTES % (AUTO) 10.6 % (20.0-44.0); MEAN CORPUSCULAR HEMOGLOBIN 32 PG (26.0-33.0); MEAN CORPUSCULAR HGB CONC 32 g/dl (31.0-36.0); MEAN CORPUSCULAR VOLUME 98 fL (80-96); MONOCYTES # (AUTO) 0.4 /CMM (0.1-1.30); MONOCYTES % (AUTO) 7.9 % (2.0-12.0); NEUTROPHILS # (AUTO) 4.3 /CMM (1.8-8.9); NEUTROPHILS % (AUTO) 80.5 % (43.0-81.0); PLATELET COUNT (AUTO) 131 /CMM (150-450); RDW COEFFICIENT OF VARIATION 22.1 (11.5-15.0); RED BLOOD CELL COUNT(AUTO) 2.61 MIL/uL (4.5-6.0); WHITE BLOOD COUNT (AUTO) 5.4 K/uL (4.3-11.0)
[2018-01-21] MEDS: DOCUSATE SODIUM 100 MG CAPSULE PO SCH ×2 (09:29→16:30)
[2018-01-21] MEDS: ASCORBIC ACID 500 MG TABLET PO SCH (09:31)
[2018-01-21] MEDS: CHOLECALCIFEROL 1,000 UNIT TABLET (VIT D3) PO SCH (09:31)
[2018-01-21] MEDS: ASPIRIN EC 81 MG TABLET.DR PO SCH (09:31)
[2018-01-21] MEDS: LORATADINE 10 MG TABLET PO SCH ×2 (09:31→16:30)
[2018-01-21] MEDS: GABAPENTIN 400 MG CAPSULE PO SCH ×3 (09:31→16:30)
[2018-01-21] MEDS: CLOPIDOGREL BISULFATE 75 MG TABLET PO SCH (09:31)
[2018-01-21] MEDS: PANTOPRAZOLE 40 MG VIAL IV SCH (09:31)
[2018-01-21] MEDS: FLUCONAZOLE (100 MG) 100 MG TABLET PO SCH (09:31)
[2018-01-21] MEDS: ZINC SULFATE 220 MG CAPSULE PO SCH (09:31)
[2018-01-21] MEDS: LEVETIRACETAM (250 MG) 250 MG TABLET PO SCH ×2 (09:31→21:25)
[2018-01-21] MEDS: MULTIVITAMINS,THERAGRAN 1 UDTAB TABLET PO SCH (09:31)
[2018-01-21] MEDS: BOOST GLUCOSE CONTROL VANILLA 237 ML BOX PO SCH (09:44)
[2018-01-21] MEDS: HYDROGEL DRESSING 90 GM TUBE TP SCH (09:44)
[2018-01-21] MEDS: LEVOTHYROXINE SODIUM 175 MCG TABLET PO SCH (09:44)
[2018-01-21 09:47] LABS: CALCIUM, SERUM 9.3 mg/dL (8.5-10.1); CARBON DIOXIDE 35 mmol/L (21-32); CHLORIDE 98 mmol/L (98-107); CREATININE 0.8 mg/dL (0.6-1.3); GLUCOSE 216 mg/dL (74-106); MAGNESIUM 1.7 mg/dL (1.8-2.4); PHOSPHORUS 2.3 mg/dL (2.5-4.9); POTASSIUM 4.2 mmol/L (3.5-5.1); SODIUM SERUM 138 mmol/L (136-145); UREA NITROGEN, BLOOD 20 mg/dL (7-18)
[2018-01-21] MEDS: NA PHOS,M-B/NA PHOS,DI-BA 1 EA ENEMA RC PRN (10:16)
[2018-01-21] MEDS ORDERED: FEE PK DOSING 1 MIN EA MC ONE (11:46)
[2018-01-21] MEDS: MORPHINE SULFATE INJ 4 MG/ML DISP.SYRIN IV PRN ×2 (12:11→16:30)
[2018-01-21] MEDS: VANCOMYCIN 1.25 GM in IV D5W 500 ML IV SCH (12:30)
[2018-01-21] MEDS: Magnesium 1GM/D5W 100ML PREMIX 100 ML IV SCH ×2 (13:27→14:38)
[2018-01-21 14:27] LABS: ABG BASE EXCESS 11.3 mmol/L; ABG OXYGEN SATURATION 88.7 % (92.0-98.5); ABG PCO2 59.2 mmHg (35.0-45.0); ABG PH 7.418 (7.350-7.450); ABG PO2 58.9 mmHg (75.0-100.0); AaDO2 187.3 mmHg; COHb 0.6 % (0.5-1.5); MetHb 0.7 % (0.0-1.5); O2Hb 87.5 % (94.0-97.0); SITE, ABG Left Radial; VENT MODE, BG NASAL CANNULA
[2018-01-21] MEDS: PIPERACILLIN /TAZOBACTAM 3.375 G in IV D5W 50 ML IV SCH ×3 (14:41→23:17)
--- NOTE | 2018-01-21 14:53 | NUR ---
RN NOTES ABG RESULT RELAYED TO DR. CARBAJAL. PATIENT'S O2 SAT 95% ON 5LPM VIA NC. PATIENT BREATHING IS LABORED. NO CHANGE IN LOC. HEART RATE TACHYCARDIC RANGES FROM 100-130S. PATIENT DENIES CHEST PAIN. PAGED WILLARD ORR BALLOON DIPPER. NURSING INTERNATIONAL RELATIONS TEACHER MADE AWARE OF ORDER FOR TRANSFER TO MAKAYLA.
--- NOTE | 2018-01-21 15:16 | NUR ---
RN NOTES SPOKE WITH WILLARD ORR BERRY PICKER MACHINE OPERATOR, INFORMED OF PATIENT'S CHANGE IN CONDITION. PER BERRY PICKER MACHINE OPERATOR OK TO TRANSFER TO MAKAYLA. REPORT GIVEN TO PAT VILLAVICENCIO, WILL BE IN ROOM 111-1. PATIENT WILL BE TRANSFERRED PER ACLS PROTOCOL.
--- NOTE | 2018-01-21 15:45 | NUR ---
RN NOTES PATIENT TRANSFERRED TO MAKAYLA IN ROOM 111-1 PER ACLS PROTOCOL. PATIENT WITH LABORED BREATHING, O2 SATURATION > 92% AT 5LPM VIA NC. PATIENT PLACED ON TELE MONITOR. ENDORSED TO PAT VILLAVICENCIO.
[2018-01-21 16:00] VITALS: BP 124/52
[2018-01-21] MEDS ORDERED: K PHOS NEUTRAL 250 MG TABLET PO ONE (16:00)
--- NOTE | 2018-01-21 16:00 | NUR ---
RN NOTES RECEIVED PT FROM RN, A&0X3, PLACED ON 5L NC SATING WELL IN HIGH 90S. BREATHING LESS LABORED. A FIB ON THE TELE YAS HR 100. DIEZ DRAINING TO GRAVITY, YELLOW IN COLOR. LEJ 18G IV SITE INTACT NO IVF. PT COMPLAINED OF 7/10, MORPHINE ADMINISTERED. BED LOCKED AND IN LOWEST POSITION, CALL LIGHT WITHIN REACH, SIDE RIALS UPX3, WILL CONT TO YAS.
--- NOTE | 2018-01-21 19:32 | NUR ---
RCVD PT ON BIPAP 07/04, RATE 16, FIO2 40%
[2018-01-21 20:00] VITALS: BP 126/83
[2018-01-21] MEDS: ATORVASTATIN 40 MG TABLET PO SCH (21:25)
[2018-01-21] MEDS: HYDROCODONE/APAP 5/325MG 1 EACH TABLET PO PRN (21:28)
[2018-01-22] VITALS: BP 101/51
[2018-01-22] MEDS: VANCOMYCIN 1.25 GM in IV D5W 500 ML IV SCH ×3 (00:23→23:46)
[2018-01-22] MEDS: IPRATROPIUM NEB FS 0.5 MG/2.5 ML AMPUL.NEB IH SCH ×6 (03:32→23:22)
[2018-01-22] MEDS: ALBUTEROL FS 2.5 MG/0.5 ML VIAL.NEB IH SCH ×6 (03:32→23:22)
[2018-01-22 04:00] VITALS: BP 108/60
[2018-01-22] MEDS: SUCRALFATE 1 G/10 ML UDC PO SCH ×5 (06:05→23:48)
[2018-01-22] MEDS: PIPERACILLIN /TAZOBACTAM 3.375 G in IV D5W 50 ML IV SCH ×4 (06:05→23:09)
[2018-01-22] MEDS: ACETYLCYSTEINE 10% SOLN 400 MG/4 ML VIAL NEB SCH ×3 (07:35→23:22)
--- NOTE | 2018-01-22 07:43 | NUR ---
MAKAYLA RN NOTE PATINT IN BED , ALL NEEEDS ATTENDED, RESTIS COMFORTABLY AT THIS TIME , ON 5L NC, NO SOB NOTED , ON TELE MONITOR AFIB 100 WITH DIEZ CATH TO GRAVITY WITH YELLOW COLOR URINE , LT IG HL INTACT NO S\S INFECTION NOTED , BED IN LOWEST AND LOCKED POSITION, WILL CONT TO MONITOR CLOSELY CALL LIGHT WITHIN REACH
[2018-01-22 08:00] VITALS: BP 95/57
[2018-01-22 08:43] LABS: CALCIUM, SERUM 9.2 mg/dL (8.5-10.1); CARBON DIOXIDE 39 mmol/L (21-32); CHLORIDE 98 mmol/L (98-107); CREATININE 0.8 mg/dL (0.6-1.3); GLUCOSE 195 mg/dL (74-106); MAGNESIUM 1.6 mg/dL (1.8-2.4); PHOSPHORUS 2.3 mg/dL (2.5-4.9); SODIUM SERUM 140 mmol/L (136-145); UREA NITROGEN, BLOOD 20 mg/dL (7-18)
[2018-01-22] MEDS: CHOLECALCIFEROL 1,000 UNIT TABLET (VIT D3) PO SCH (08:54)
[2018-01-22] MEDS: ASCORBIC ACID 500 MG TABLET PO SCH (08:54)
[2018-01-22] MEDS: FLUCONAZOLE (100 MG) 100 MG TABLET PO SCH (08:54)
[2018-01-22] MEDS: LEVETIRACETAM (250 MG) 250 MG TABLET PO SCH ×2 (08:54→21:36)
[2018-01-22] MEDS: CLOPIDOGREL BISULFATE 75 MG TABLET PO SCH (08:54)
[2018-01-22] MEDS: ASPIRIN EC 81 MG TABLET.DR PO SCH (08:54)
[2018-01-22] MEDS: GABAPENTIN 400 MG CAPSULE PO SCH ×3 (08:54→16:13)
[2018-01-22] MEDS: ZINC SULFATE 220 MG CAPSULE PO SCH (08:54)
[2018-01-22] MEDS: DOCUSATE SODIUM 100 MG CAPSULE PO SCH ×2 (08:54→16:13)
[2018-01-22] MEDS: LEVOTHYROXINE SODIUM 175 MCG TABLET PO SCH (08:54)
[2018-01-22] MEDS: FUROSEMIDE 40 MG/4 ML VIAL IV SCH ×3 (08:55→16:13)
[2018-01-22] MEDS: PANTOPRAZOLE 40 MG VIAL IV SCH (08:55)
[2018-01-22] MEDS: BLOOD SUGAR DIAGNOSTIC 1 EACH STRIP IN SCH ×4 (08:55→21:41)
[2018-01-22] MEDS: LORATADINE 10 MG TABLET PO SCH ×2 (09:00→16:13)
[2018-01-22] MEDS: BOOST GLUCOSE CONTROL VANILLA 237 ML BOX PO SCH ×3 (09:00→16:15)
[2018-01-22] MEDS: MULTIVITAMINS,THERAGRAN 1 UDTAB TABLET PO SCH (09:00)
[2018-01-22] MEDS: HYDROGEL DRESSING 90 GM TUBE TP SCH (09:08)
[2018-01-22] MEDS: HYDROCODONE/APAP 5/325MG 1 EACH TABLET PO PRN (10:03)
[2018-01-22 10:33] LABS: ABG BASE EXCESS 9.1 mmol/L; ABG OXYGEN SATURATION 92.2 % (92.0-98.5); ABG PCO2 51.9 mmHg (35.0-45.0); ABG PH 7.439 (7.350-7.450); ABG PO2 70.4 mmHg (75.0-100.0); AaDO2 126.1 mmHg; COHb 0.6 % (0.5-1.5); MetHb 0.7 % (0.0-1.5); SITE, ABG Left Radial; VENT MODE, BG N/C
--- NOTE | 2018-01-22 11:30 | NUR ---
MAKAYLA RN NOTE SEEN BY DR CARBAJAL NOTIFIED THAT PATIENT WEEK AND AWARE ABG RESULT , STATED TO MONITOR CLOSELY ALSO AWARE THAT EARLIER NORCO WAS GIVEN SPATED ITS OK
[2018-01-22] MEDS: INSULIN REGULAR, HUMAN 100 UNIT/ML 3 ML VIAL SQ PRN ×3 (11:58→21:44)
[2018-01-22 12:00] VITALS: BP 121/56
[2018-01-22] MEDS ORDERED: K PHOS NEUTRAL 250 MG TABLET PO ONE (12:30)
[2018-01-22] MEDS: Magnesium 1GM/D5W 100ML PREMIX 100 ML IV SCH ×2 (13:16→14:15)
--- NOTE | 2018-01-22 15:00 | NUR ---
MAKAYLA RN NOTE SEEN B WILLARD BELLO AWARE OF ABD AND CEST X RAY , STATED CONT CARE AND MONITOR CLOSELY
[2018-01-22 16:00] VITALS: BP 114/69
--- NOTE | 2018-01-22 17:54 | NUR ---
MAKAYLA RN NOTE OK PER WILLARD RINCON PLACE MID LINE , ASIF FROM PICC LINE INSERTED LORIN 20 ON LT UPPER ARM MID LINE
--- NOTE | 2018-01-22 17:56 | NUR ---
ASHLEY VILLAVICENCIO NOTE CALLED TO WILLARD RINCON RN AIRLINE OPERATIONS AGENT NOTIFIED THAT NOTED DARK BROWN COLOR 80 ML RESIDUAL , STATED TO HOLD FO 2 HOUR G TUBE FEEDING AND RESTART FEEDING AT 20 ML PER HOUR, WILL MONITOR CLOSELY Addendum: 01/22/18 at 1802 by MARISSA GRIMALDO RN WRONG CHART , WRONG ENTRY
--- NOTE | 2018-01-22 18:47 | NUR ---
MAKAYLA RN NOTE NOT IN ACUTE DISTRESS ,NO C\O PAIN OR DISCOMFORT, ON 5L O2 VIA NC , NO SOB NOTED AT THIS TIME, BED IN LOWEST AND LOCKED POSITION , CALL LIGHT WITHIN REACH , WILL CONT TO MONITOR CLOSELY
--- NOTE | 2018-01-22 19:30 | NUR ---
MAKAYLA RN INITIAL NOTES RECEIVED PATIENT AWAKE A/OX4, ABLE TO MAKE NEEDS KNOWN. WITH FACIAL GRIMACING AND MOANING, STATES HE HAS 10/10 RECTAL PAIN. DENIES SOB. DENIES CHEST PAIN. DENIES N/V. SKIN WARM AND DRY TO TOUCH. ON 5LPMO2 VIA NC. ON TELE MOINTOR AFIB 102. SKIN WARM AND DRY TO TOUCH. WITH F/C PATENT AND INTACT, DRAINING BY GRAVITY. WITH QUINTON MIDLINE PATENT AND INTACT. HOB ELEVATED . SIDE RAILS UP AND LOCKED. BED KEPT AT LOWEST POSITION. CALL LIGHT KEPT WITHIN EASY REACH. WILL CONTINUE TO MONITOR.
[2018-01-22] MEDS: MORPHINE SULFATE INJ 4 MG/ML DISP.SYRIN IV PRN ×2 (19:46→23:47)
[2018-01-22 20:00] VITALS: BP 102/56
[2018-01-22] MEDS: ATORVASTATIN 40 MG TABLET PO SCH (21:36)
[2018-01-23] VITALS: BP 110/66
[2018-01-23] MEDS: ALBUTEROL FS 2.5 MG/0.5 ML VIAL.NEB IH SCH ×5 (03:32→19:45)
[2018-01-23] MEDS: IPRATROPIUM NEB FS 0.5 MG/2.5 ML AMPUL.NEB IH SCH ×5 (03:32→19:45)
[2018-01-23 04:00] VITALS: BP 129/69
[2018-01-23] MEDS: MORPHINE SULFATE INJ 4 MG/ML DISP.SYRIN IV PRN (04:39)
[2018-01-23] MEDS: PIPERACILLIN /TAZOBACTAM 3.375 G in IV D5W 50 ML IV SCH ×3 (05:43→18:12)
[2018-01-23] MEDS: SUCRALFATE 1 G/10 ML UDC PO SCH ×3 (05:43→18:12)
--- NOTE | 2018-01-23 07:30 | NUR ---
MAKAYLA RN CLOSING NOTES NO SIGNIFICANT CHANGES OVERNIGHT. ALL NEEDS ANTICIPATED AND MET. PAIN MONITORED AND MANAGED NEEDED. RESPIRATIONS EVEN AND UNLABORED ON 5LPMO2 VIA NC. SKIN WARM AND DRY TO TOUCH. F/C PATENT AND INTACT, DRAINING BY GRAVITY. KEPT CLEAN AND DRY. SIDE RAILS UP AND LOCKED. BED KEPT AT LOWEST POSITION. CALL LIGHT KEPT WITHIN EASY REACH. CONTINUITY OF CARE ENDORSED TO AM NURSE.
[2018-01-23] MEDS: ACETYLCYSTEINE 10% SOLN 400 MG/4 ML VIAL NEB SCH ×3 (07:35→23:30)
[2018-01-23 07:47] LABS: BASOPHILS % (AUTO) 0.5 % (0.0-2.0); EOSINOPHILS # (AUTO) 0.1 /CMM (0.0-0.7); EOSINOPHILS % (AUTO) 1.8 % (0.0-6.0); HEMATOCRIT 24 % (39-51); HEMOGLOBIN 7.7 g/dL (13.5-17.5); LYMPHOCYTES # (AUTO) 0.7 /CMM (0.8-4.8); LYMPHOCYTES % (AUTO) 15.3 % (20.0-44.0); MEAN CORPUSCULAR HEMOGLOBIN 31 PG (26.0-33.0); MEAN CORPUSCULAR HGB CONC 32 g/dl (31.0-36.0); MEAN CORPUSCULAR VOLUME 97 fL (80-96); MONOCYTES # (AUTO) 0.6 /CMM (0.1-1.30); MONOCYTES % (AUTO) 12.1 % (2.0-12.0); NEUTROPHILS # (AUTO) 3.3 /CMM (1.8-8.9); NEUTROPHILS % (AUTO) 70.3 % (43.0-81.0); PLATELET COUNT (AUTO) 191 /CMM (150-450); RDW COEFFICIENT OF VARIATION 21.7 (11.5-15.0); RED BLOOD CELL COUNT(AUTO) 2.46 MIL/uL (4.5-6.0); WHITE BLOOD COUNT (AUTO) 4.7 K/uL (4.3-11.0)
[2018-01-23 07:55] LABS: CARBON DIOXIDE 38 mmol/L (21-32); CHLORIDE 95 mmol/L (98-107); CREATININE 0.9 mg/dL (0.6-1.3); GLUCOSE 230 mg/dL (74-106); POTASSIUM 3.4 mmol/L (3.5-5.1); SODIUM SERUM 138 mmol/L (136-145); UREA NITROGEN, BLOOD 20 mg/dL (7-18)
[2018-01-23 08:00] VITALS: BP 124/64
--- NOTE | 2018-01-23 08:00 | NUR ---
TD/RN AM SHIFT INITIAL NOTES RECEIVED PT AWAKE IN BED, A/O X 4, PT DENIES ANY SYMPTOMS, VERBALIZED THAT THIS IS THE FIRST TIME HE HAS NOT FEEL PAIN. NO ACUTE CHANGE OF CONDITION NOTED, NO FEVER. PT ON 3L O2 VIA N/C SATURATING @ 98%, PT NOTED WITH RHONCHI LUNG SOUNDS. ON TELE MONITORING WITH UNCONTROLLED A-FIB, HR 108, ASYMPTOMATIC. IV SITES, FLUSHED, PATENT WITH NO S/S OF INFECTION, SL. DIEZ CATHETER INTACT NOTED WITH CLEAR YELLOW URINE OUTPUT. BLOOD GLUCOSE CHECKED, 251, PT GIVEN 6 UNITS OF REGULAR INSULIN, NO S/S OF HYPOGLYCEMIA. SCHEDULED AM MEDS GIVEN, PT IS COMFORTABLE. CL WITHIN REACHED AND SAFETY MAINTAINED. ON GOING MONITORING.
[2018-01-23] MEDS: BLOOD SUGAR DIAGNOSTIC 1 EACH STRIP IN SCH ×4 (08:54→21:53)
[2018-01-23] MEDS: DOCUSATE SODIUM 100 MG CAPSULE PO SCH ×2 (08:55→18:12)
[2018-01-23] MEDS: PANTOPRAZOLE 40 MG VIAL IV SCH (08:55)
[2018-01-23] MEDS: MULTIVITAMINS,THERAGRAN 1 UDTAB TABLET PO SCH (08:55)
[2018-01-23] MEDS: CLOPIDOGREL BISULFATE 75 MG TABLET PO SCH (08:55)
[2018-01-23] MEDS: GABAPENTIN 400 MG CAPSULE PO SCH ×3 (08:56→18:12)
[2018-01-23] MEDS: ASPIRIN EC 81 MG TABLET.DR PO SCH (08:56)
[2018-01-23] MEDS: ZINC SULFATE 220 MG CAPSULE PO SCH (08:56)
[2018-01-23] MEDS: ASCORBIC ACID 500 MG TABLET PO SCH (08:56)
[2018-01-23] MEDS: CHOLECALCIFEROL 1,000 UNIT TABLET (VIT D3) PO SCH (08:56)
[2018-01-23] MEDS: LEVETIRACETAM (250 MG) 250 MG TABLET PO SCH ×2 (08:56→21:44)
[2018-01-23] MEDS: BOOST GLUCOSE CONTROL VANILLA 237 ML BOX PO SCH ×3 (08:56→17:00)
[2018-01-23] MEDS: LORATADINE 10 MG TABLET PO SCH ×2 (08:56→18:12)
[2018-01-23] MEDS: FLUCONAZOLE (100 MG) 100 MG TABLET PO SCH (08:56)
[2018-01-23] MEDS: HYDROGEL DRESSING 90 GM TUBE TP SCH (08:59)
[2018-01-23] MEDS: LEVOTHYROXINE SODIUM 175 MCG TABLET PO SCH (08:59)
[2018-01-23] MEDS: INSULIN REGULAR, HUMAN 100 UNIT/ML 3 ML VIAL SQ PRN ×4 (09:02→21:57)
[2018-01-23 09:46] LABS: ABG BASE EXCESS 12.7 mmol/L; ABG OXYGEN SATURATION 91.7 % (92.0-98.5); ABG PCO2 55.9 mmHg (35.0-45.0); ABG PH 7.453 (7.350-7.450); AaDO2 124.8 mmHg; COHb 0.4 % (0.5-1.5); MetHb 0.8 % (0.0-1.5); O2Hb 90.6 % (94.0-97.0); SITE, ABG Left Radial; VENT MODE, BG Nasal Cannula
--- NOTE | 2018-01-23 10:25 | NUR ---
WOUND CARE RECEIVED CONSULT FOR ANAL PAIN. WOUND RN SPOKE TO MEDIA SALES REPRESENTATIVE AND WILL DEFER TO THE SURGICAL TEAM WHO ARE ALREADY FOLLOWING THIS PATIENT. WOUND CARE WILL DEFER TO GI AND SURGICAL TEAM AT THIS TIME.
[2018-01-23 12:00] VITALS: BP 130/66
[2018-01-23] MEDS: VANCOMYCIN 1.25 GM in IV D5W 500 ML IV SCH (12:00)
--- NOTE | 2018-01-23 12:00 | NUR ---
TD/RN VANCOMYCIN - HELD SCHEDULED VANCOMYCIN 1.25GM IV HELD D/T LEVEL 23. MONITORING CONTINUED.
[2018-01-23] MEDS: FUROSEMIDE 100 MG/10 ML VIAL IV SCH ×3 (12:35→18:18)
[2018-01-23] MEDS: HYDROCODONE/APAP 5/325MG 1 EACH TABLET PO PRN (12:36)
[2018-01-23] MEDS: POTASSIUM CHLORIDE 20 MEQ TAB.PRT.SR PO SCH ×3 (12:37→15:32)
[2018-01-23] MEDS: METOLAZONE 2.5 MG TABLET PO SCH (13:09)
[2018-01-23 16:00] VITALS: BP 124/75
[2018-01-23] MEDS: NA PHOS,M-B/NA PHOS,DI-BA 1 EA ENEMA RC PRN (16:07)
--- NOTE | 2018-01-23 19:47 | NUR ---
RN closing notes Patient alert and oriented, able to verbalize needs. Breathing even and unlabored currently on continuous O2 @3LPM via NC saturation at 95% with no distress noted. Skin warm to touch and dry. F/C intact and patent with adequate flow of clear, yellow urine. Patient complained for rectum pain and constipation, PRN enema was given with results of 2 large formed BM. Patient felt relieved and comfortable. Routine checks done, kept clean, dry and comfortable at all times. Will continue to provide comfort and safety. Will endorse to flour blender.
--- NOTE | 2018-01-23 19:50 | NUR ---
MAKAYLA RN: RECEIVED PT A/O X 4. ON 3L 02 VIA NC WT NO ACUTE DISTRESS. WILL BE PLACED OVERNIGHT ON BIPAP ORDERED. NO C/O PAIN OF THIS TIME. CONTROLLED A. FIB ON TELE MONITOR. AFEBRILE. QUINTON MIDLINE TO TKO WT NO S/S OF INFILTRATION. F/C PATENT AND INTACT DRAINING YELLOW URINE TO GRAVITY. HOB AT 35 DEGREES. SAFETY AND SEIZURE PRECAUTION NOTED AT ALL TIMES. WILL CONTINUE TO MONITOR.
[2018-01-23 20:00] VITALS: BP 104/52
[2018-01-23] MEDS: ATORVASTATIN 40 MG TABLET PO SCH (21:44)
[2018-01-24] VITALS: BP 98/54
[2018-01-24] MEDS: IPRATROPIUM NEB FS 0.5 MG/2.5 ML AMPUL.NEB IH SCH ×7 (00:03→22:36)
[2018-01-24] MEDS: ALBUTEROL FS 2.5 MG/0.5 ML VIAL.NEB IH SCH ×7 (00:03→22:36)
[2018-01-24] MEDS: PIPERACILLIN /TAZOBACTAM 3.375 G in IV D5W 50 ML IV SCH ×5 (00:20→23:02)
[2018-01-24] MEDS: SUCRALFATE 1 G/10 ML UDC PO SCH ×5 (00:21→23:04)
[2018-01-24] MEDS ORDERED: IV NS 0.9% 250 ML IV PRN (00:30)
--- NOTE | 2018-01-24 02:45 | NUR ---
MAKAYLA RN: PT REQUESTED TO BE OFF BIPAP AT THIS TIME. PLACED BACK ON 3L 02 VIA NC WT 02 SAT 96% AND ABOVE. WILL CONTINUE TO MONITOR.
[2018-01-24 04:00] VITALS: BP 101/48
--- NOTE | 2018-01-24 06:50 | NUR ---
MAKAYLA RN: NO BERNA DURING THE SHIFT. REMAINED A/O X 3. STILL ON 3L 02 VIA NC WT NO ACUTE DISTRESS, NO C/O PAIN. SAFETY PRECAUTION NOTED AT ALL TIMES.
[2018-01-24] MEDS: ACETYLCYSTEINE 10% SOLN 400 MG/4 ML VIAL NEB SCH ×3 (07:22→22:36)
[2018-01-24 07:30] LABS: BASOPHILS % (AUTO) 0.4 % (0.0-2.0); EOSINOPHILS # (AUTO) 0.1 /CMM (0.0-0.7); EOSINOPHILS % (AUTO) 1.1 % (0.0-6.0); HEMATOCRIT 24 % (39-51); HEMOGLOBIN 7.9 g/dL (13.5-17.5); LYMPHOCYTES # (AUTO) 0.9 /CMM (0.8-4.8); LYMPHOCYTES % (AUTO) 20.4 % (20.0-44.0); MEAN CORPUSCULAR HEMOGLOBIN 31 PG (26.0-33.0); MEAN CORPUSCULAR HGB CONC 33 g/dl (31.0-36.0); MEAN CORPUSCULAR VOLUME 96 fL (80-96); MONOCYTES # (AUTO) 0.7 /CMM (0.1-1.30); MONOCYTES % (AUTO) 15.2 % (2.0-12.0); NEUTROPHILS # (AUTO) 2.8 /CMM (1.8-8.9); NEUTROPHILS % (AUTO) 62.9 % (43.0-81.0); PLATELET COUNT (AUTO) 246 /CMM (150-450); RDW COEFFICIENT OF VARIATION 21.3 (11.5-15.0); WHITE BLOOD COUNT (AUTO) 4.5 K/uL (4.3-11.0)
--- NOTE | 2018-01-24 07:37 | NUR ---
RT NOTE: PATIENT REPORTS CHEST PAIN AND INCREASED SOB. RN(PHAN) NOTIFIED.
[2018-01-24 07:54] LABS: ALANINE AMINOTRANSFERASE 20 U/L (12-78); ALBUMIN 1.8 g/dL (3.4-5.0); ALKALINE PHOSPHATASE 165 U/L (46-116); ASPARTATE AMINOTRANSFERASE 19 U/L (15-37); BILIRUBIN,TOTAL 0.6 mg/dL (0.2-1.0); CHLORIDE 94 mmol/L (98-107); CREATININE 0.9 mg/dL (0.6-1.3); GLUCOSE 188 mg/dL (74-106); PHOSPHORUS 2.8 mg/dL (2.5-4.9); POTASSIUM 3.1 mmol/L (3.5-5.1); SODIUM SERUM 141 mmol/L (136-145); TOTAL PROTEIN, SERUM 5.7 g/dL (6.4-8.2); UREA NITROGEN, BLOOD 20 mg/dL (7-18)
[2018-01-24 08:00] VITALS: BP 97/58
--- NOTE | 2018-01-24 08:00 | NUR ---
TD/RN AM SHIFT INITIAL NOTES RECEIVED PT AWAKE IN BED, A/O X 4, PT DENIES ANY SYMPTOMS OR PAIN AT THIS TIME. NO ACUTE CHANGE OF CONDITION NOTED. ON 3L O2 VIA N/C SATURATING @ 94%, PT NOTED WITH RHONCHI LUNG SOUNDS. ON TELE MONITORING WITH CONTROLLED A-FIB, HR 87 AT THIS TIME. IV SITES, FLUSHED, PATENT WITH NO S/S OF INFECTION, SL. DIEZ CATHETER INTACT NOTED WITH CLEAR YELLOW URINE OUTPUT. BLOOD GLUCOSE CHECKED,186 NO S/S OF HYPOGLYCEMIA, GIVEN 3 UNITS OF REGULAR INSULIN. SCHEDULED AM MEDS GIVEN, PT IS COMFORTABLE. CL WITHIN REACHED AND SAFETY MAINTAINED. ON GOING MONITORING.
[2018-01-24] MEDS: Z GUARD REMEDY 2 OZ OINT TP PRN (09:02)
[2018-01-24] MEDS: VANCOMYCIN 1 GM in IV D5W 250 ML IV SCH ×2 (09:03→20:18)
[2018-01-24] MEDS: BOOST GLUCOSE CONTROL VANILLA 237 ML BOX PO SCH ×3 (09:04→17:09)
[2018-01-24] MEDS: PANTOPRAZOLE 40 MG VIAL IV SCH (09:04)
[2018-01-24] MEDS: MULTIVITAMINS,THERAGRAN 1 UDTAB TABLET PO SCH (09:10)
[2018-01-24] MEDS: ASCORBIC ACID 500 MG TABLET PO SCH (09:10)
[2018-01-24] MEDS: ASPIRIN EC 81 MG TABLET.DR PO SCH (09:11)
[2018-01-24] MEDS: CHOLECALCIFEROL 1,000 UNIT TABLET (VIT D3) PO SCH (09:11)
[2018-01-24] MEDS: GABAPENTIN 400 MG CAPSULE PO SCH ×3 (09:11→17:08)
[2018-01-24] MEDS: LEVOTHYROXINE SODIUM 175 MCG TABLET PO SCH (09:11)
[2018-01-24] MEDS: LORATADINE 10 MG TABLET PO SCH ×2 (09:11→17:08)
[2018-01-24] MEDS: ZINC SULFATE 220 MG CAPSULE PO SCH (09:11)
[2018-01-24] MEDS: DOCUSATE SODIUM 100 MG CAPSULE PO SCH ×2 (09:11→17:08)
[2018-01-24] MEDS: LEVETIRACETAM (250 MG) 250 MG TABLET PO SCH ×2 (09:11→20:30)
[2018-01-24] MEDS: FLUCONAZOLE (100 MG) 100 MG TABLET PO SCH (09:11)
[2018-01-24] MEDS: CLOPIDOGREL BISULFATE 75 MG TABLET PO SCH (09:11)
[2018-01-24] MEDS: METOLAZONE 2.5 MG TABLET PO SCH (09:11)
[2018-01-24] MEDS: HYDROGEL DRESSING 90 GM TUBE TP SCH (09:12)
[2018-01-24] MEDS: BLOOD SUGAR DIAGNOSTIC 1 EACH STRIP IN SCH ×4 (09:13→21:16)
[2018-01-24] MEDS: INSULIN REGULAR, HUMAN 100 UNIT/ML 3 ML VIAL SQ PRN ×4 (09:42→21:20)
[2018-01-24] MEDS: NA PHOS,M-B/NA PHOS,DI-BA 1 EA ENEMA RC PRN (09:44)
[2018-01-24 09:53] LABS: CARBON DIOXIDE 40 mmol/L (21-32)
[2018-01-24 09:54] LABS: MAGNESIUM 1.2 mg/dL (1.8-2.4)
[2018-01-24 12:00] VITALS: BP 108/66
--- NOTE | 2018-01-24 12:00 | NUR ---
TD/RN NOON ROUNDS NO ACUTE CHANGE OF CONDITION. PT HAD BOWEL MOVEMENT PASSED HARD STOOL. MONITORING.
[2018-01-24] MEDS: LIDOCAINE 2% JEL 5 ML TUBE MC PRN (12:49)
[2018-01-24 16:00] VITALS: BP_SYST 90; BP_SYST 99; BP_DIAS 51; BP_DIAS 55
--- NOTE | 2018-01-24 16:57 | NUR ---
RT NOTE: PHARMACY AWARE OF MUCOMYST ORDER. WAITING FOR IT TO BE DISPENSED. TREATMENT DIFFERED.
[2018-01-24] MEDS: POTASSIUM CHLORIDE 20 MEQ TAB.PRT.SR PO SCH ×3 (17:08→19:08)
[2018-01-24] MEDS: Magnesium 1GM/D5W 100ML PREMIX 100 ML IV SCH ×4 (17:09→20:22)
--- NOTE | 2018-01-24 17:30 | NUR ---
TD/RN AFTERNOON ROUNDS PM CARE PROVIDED, NO CHANGE OF CONDITION. ON GOING MONITORING.
--- NOTE | 2018-01-24 19:30 | NUR ---
MAKAYLA/RN NOTES: RECEIVED PT. IN BED W/ HOB ELEVATED. A/O X 4. DENIES ANY C/O ANY SOB OR PAIN AT THIS TIME. ON O2 @ 3LPM VIA N/C SAT. 96%.ON TELE MONITOR A-FIB CONTROLLED HR 88. FAUSTO MID LINE W/ DRESSING C/D/I W/ NO S/S OF INFECTION/INFILTRATION NOTED. F/C PATENT AND INTACT DRAINING VIA GRAVITY. BLOOD SUGAR 274 W/ SLIDING SCALE COVERAGE GIVEN PER ORDER. CALL LIGHT W/ REACH. ALL NEEDS MEET. WILL CONTINUE TO MONITOR. CPAP AT NIGHT TIME AT 2200.
--- NOTE | 2018-01-24 19:34 | NUR ---
TD/RN AM SHIFT END NOTES ALL NEEDS MET. NO ACUTE CHANGE OF CONDITION NOTED DURING THE SHIFT. PT ENDORSED TO PM NURSE TO CONTINUE CARE. CL WITHIN REACHED AND SAFETY MAINTAINED.
[2018-01-24 20:00] VITALS: BP 90/48
[2018-01-24] MEDS: ATORVASTATIN 40 MG TABLET PO SCH (21:18)
[2018-01-24] MEDS: HYDROCODONE/APAP 5/325MG 1 EACH TABLET PO PRN (21:43)
[2018-01-25] VITALS: BP_SYST 139; BP_SYST 90; BP_DIAS 48; BP_DIAS 67
[2018-01-25] MEDS: IPRATROPIUM NEB FS 0.5 MG/2.5 ML AMPUL.NEB IH SCH ×7 (03:05→23:30)
[2018-01-25] MEDS: ALBUTEROL FS 2.5 MG/0.5 ML VIAL.NEB IH SCH ×7 (03:05→23:30)
[2018-01-25 04:00] VITALS: BP 111/67
[2018-01-25] MEDS ORDERED: CEFEPIME 1 GM VIAL ONE (05:08)
[2018-01-25] MEDS: SUCRALFATE 1 G/10 ML UDC PO SCH ×3 (05:11→17:40)
[2018-01-25] MEDS: CEFEPIME 1 GM in IV D5W 50 ML IV SCH ×3 (05:19→21:37)
[2018-01-25] MEDS: ACETYLCYSTEINE 10% SOLN 400 MG/4 ML VIAL NEB SCH ×3 (07:35→23:30)
--- NOTE | 2018-01-25 07:36 | NUR ---
MAKAYLA/RN NOTES: NO ACUTE DISTRESS NOTED DURING THIS SHIFT. REPORT GIVEN TO NEXT SHIFT NURSE FOR BERNA.
[2018-01-25 08:00] VITALS: BP 101/55
--- NOTE | 2018-01-25 08:00 | NUR ---
TD/RN AM SHIFT INITIAL NOTES RECEIVED PT AWAKE IN BED, A/O X 4, PT DENIES PAIN AT THIS TIME. NO ACUTE CHANGE OF CONDITION NOTED. ON 3L O2 VIA N/C SATURATING @ 93%, PT NOTED WITH RHONCHI LUNG SOUNDS. ON TELE MONITORING WITH CONTROLLED A-FIB, HR 89 AT THIS TIME. IV SITES, ON TKO, NO S/S OF INFECTION. DIEZ CATHETER INTACT NOTED WITH CLEAR YELLOW URINE OUTPUT. SCHEDULED AM MEDS GIVEN, PT IS COMFORTABLE. CL WITHIN REACHED AND SAFETY MAINTAINED. ON GOING MONITORING.
[2018-01-25 08:01] LABS: BASOPHILS % (AUTO) 0.4 % (0.0-2.0); EOSINOPHILS # (AUTO) 0.1 /CMM (0.0-0.7); EOSINOPHILS % (AUTO) 1.1 % (0.0-6.0); HEMATOCRIT 26 % (39-51); HEMOGLOBIN 8.3 g/dL (13.5-17.5); LYMPHOCYTES # (AUTO) 0.9 /CMM (0.8-4.8); LYMPHOCYTES % (AUTO) 16.7 % (20.0-44.0); MEAN CORPUSCULAR HEMOGLOBIN 31 PG (26.0-33.0); MEAN CORPUSCULAR HGB CONC 32 g/dl (31.0-36.0); MEAN CORPUSCULAR VOLUME 97 fL (80-96); MONOCYTES # (AUTO) 0.8 /CMM (0.1-1.30); MONOCYTES % (AUTO) 14.8 % (2.0-12.0); NEUTROPHILS # (AUTO) 3.5 /CMM (1.8-8.9); PLATELET COUNT (AUTO) 283 /CMM (150-450); RDW COEFFICIENT OF VARIATION 21.5 (11.5-15.0); RED BLOOD CELL COUNT(AUTO) 2.66 MIL/uL (4.5-6.0); WHITE BLOOD COUNT (AUTO) 5.3 K/uL (4.3-11.0)
[2018-01-25 08:13] LABS: CALCIUM, SERUM 9.4 mg/dL (8.5-10.1); CHLORIDE 98 mmol/L (98-107); GLUCOSE 227 mg/dL (74-106); MAGNESIUM 1.8 mg/dL (1.8-2.4); POTASSIUM 3.8 mmol/L (3.5-5.1); SODIUM SERUM 144 mmol/L (136-145); UREA NITROGEN, BLOOD 19 mg/dL (7-18)
[2018-01-25 08:22] LABS: CARBON DIOXIDE 41 mmol/L (21-32)
[2018-01-25] MEDS: BLOOD SUGAR DIAGNOSTIC 1 EACH STRIP IN SCH ×4 (08:40→21:15)
[2018-01-25] MEDS: NA PHOS,M-B/NA PHOS,DI-BA 1 EA ENEMA RC PRN (08:43)
[2018-01-25] MEDS: INSULIN REGULAR, HUMAN 100 UNIT/ML 3 ML VIAL SQ PRN ×4 (08:43→21:25)
[2018-01-25] MEDS: PANTOPRAZOLE 40 MG VIAL IV SCH (08:44)
[2018-01-25] MEDS: CHOLECALCIFEROL 1,000 UNIT TABLET (VIT D3) PO SCH (08:44)
[2018-01-25] MEDS: DOCUSATE SODIUM 100 MG CAPSULE PO SCH ×2 (08:45→17:41)
[2018-01-25] MEDS: MULTIVITAMINS,THERAGRAN 1 UDTAB TABLET PO SCH (08:45)
[2018-01-25] MEDS: CLOPIDOGREL BISULFATE 75 MG TABLET PO SCH (08:45)
[2018-01-25] MEDS: FLUCONAZOLE (100 MG) 100 MG TABLET PO SCH (08:45)
[2018-01-25] MEDS: ASCORBIC ACID 500 MG TABLET PO SCH (08:45)
[2018-01-25] MEDS: ASPIRIN EC 81 MG TABLET.DR PO SCH (08:45)
[2018-01-25] MEDS: GABAPENTIN 400 MG CAPSULE PO SCH ×3 (08:45→17:41)
[2018-01-25] MEDS: LORATADINE 10 MG TABLET PO SCH ×2 (08:45→17:41)
[2018-01-25] MEDS: ZINC SULFATE 220 MG CAPSULE PO SCH (08:45)
[2018-01-25] MEDS: LEVOTHYROXINE SODIUM 175 MCG TABLET PO SCH (08:45)
[2018-01-25] MEDS: METOLAZONE 2.5 MG TABLET PO SCH (08:45)
[2018-01-25] MEDS: BOOST GLUCOSE CONTROL VANILLA 237 ML BOX PO SCH ×3 (08:46→17:40)
[2018-01-25] MEDS: HYDROGEL DRESSING 90 GM TUBE TP SCH (08:46)
[2018-01-25] MEDS: LEVETIRACETAM (250 MG) 250 MG TABLET PO SCH ×2 (08:46→21:15)
[2018-01-25] MEDS: VANCOMYCIN 1 GM in IV D5W 250 ML IV SCH ×2 (08:47→20:23)
[2018-01-25] MEDS: HYDROCODONE/APAP 5/325MG 1 EACH TABLET PO PRN ×2 (10:33→21:15)
--- NOTE | 2018-01-25 11:00 | NUR ---
TD/RN ROUNDS - SONIA ORR UPDATED PT'S CONDITION. PT SEEN & EXAMINED BY SONIA ORR, NO NEW ORDERS RECEIVED AT THIS TIME. MONITORING CONTINUED.
[2018-01-25 11:13] LABS: ABG BASE EXCESS 14.3 mmol/L; ABG OXYGEN SATURATION 79.3 % (92.0-98.5); ABG PH 7.464 (7.350-7.450); ABG PO2 44.6 mmHg (75.0-100.0); AaDO2 102.3 mmHg; COHb 0.5 % (0.5-1.5); MetHb 0.8 % (0.0-1.5); O2Hb 78.3 % (94.0-97.0); SITE, ABG Left Radial
--- NOTE | 2018-01-25 11:15 | NUR ---
TD/RN ROUNDS - DR. RAVEN CARBAJAL MADE AWARE OF RESULTS OF ABG AND CRITICAL LAB RESULT OF CO2 41, WITH ORDER TO INCREASED O2 FROM 3L TO 6L, NOTED AND CARRIED. ON GOING MONITORING.
[2018-01-25 12:00] VITALS: BP 92/55
[2018-01-25 16:00] VITALS: BP 106/56
--- NOTE | 2018-01-25 17:30 | NUR ---
TD/RN AFTERNOON ROUNDS PM CARE PROVIDED, PT PASSE SOFT STOOL. NO ACUTE CHANGE OF CONDITION. ON GOING MONITORING.
--- NOTE | 2018-01-25 19:26 | NUR ---
TD/RN AM SHIFT END NOTES NO ACUTE CHANGE OF CONDITION NOTED. ALL NEEDS MET. PT ENDORSED TO PM NURSE TO CONTINUE CARE. CL WITHIN REACHED AND SAFETY MAINTAINED.
[2018-01-25 20:00] VITALS: BP 126/69
[2018-01-25] MEDS: ATORVASTATIN 40 MG TABLET PO SCH (21:15)
[2018-01-26] VITALS: BP 134/72
[2018-01-26] MEDS: SUCRALFATE 1 G/10 ML UDC PO SCH ×5 (01:14→23:57)
[2018-01-26] MEDS: HYDROCODONE/APAP 5/325MG 1 EACH TABLET PO PRN (01:14)
[2018-01-26] MEDS: ALBUTEROL FS 2.5 MG/0.5 ML VIAL.NEB IH SCH ×6 (03:30→23:56)
[2018-01-26] MEDS: IPRATROPIUM NEB FS 0.5 MG/2.5 ML AMPUL.NEB IH SCH ×6 (03:30→23:56)
[2018-01-26 04:00] VITALS: BP 101/63
[2018-01-26] MEDS: CEFEPIME 1 GM in IV D5W 50 ML IV SCH ×3 (05:36→20:53)
--- NOTE | 2018-01-26 07:05 | NUR ---
RN Initial note Patient awake in bed alert and oriented, he is able to make things known. Breathing even and nonlabored with continuous O2 via NC @6LPM saturation at 95. All EKG leads intact with controlled A-fib 100. FC intact and patent with adequate flow if urine. Skin warm to touch. IV site intact and patent with no S/S of infection or infiltration, continue to monitor blood sugar checks throughout shift. All safety measures provided, bed lock in [id number] position. Will continue to provide care.
[2018-01-26 08:00] VITALS: BP 101/53
[2018-01-26] MEDS: ACETYLCYSTEINE 10% SOLN 400 MG/4 ML VIAL NEB SCH ×3 (08:11→23:30)
[2018-01-26 08:20] LABS: CALCIUM, SERUM 9.4 mg/dL (8.5-10.1); CARBON DIOXIDE 37 mmol/L (21-32); CHLORIDE 93 mmol/L (98-107); CREATININE 1.1 mg/dL (0.6-1.3); GLUCOSE 226 mg/dL (74-106); SODIUM SERUM 137 mmol/L (136-145); UREA NITROGEN, BLOOD 24 mg/dL (7-18)
[2018-01-26] MEDS: ASCORBIC ACID 500 MG TABLET PO SCH (08:46)
[2018-01-26] MEDS: ZINC SULFATE 220 MG CAPSULE PO SCH (08:46)
[2018-01-26] MEDS: MULTIVITAMINS,THERAGRAN 1 UDTAB TABLET PO SCH (08:46)
[2018-01-26] MEDS: LEVOTHYROXINE SODIUM 175 MCG TABLET PO SCH (08:46)
[2018-01-26] MEDS: DOCUSATE SODIUM 100 MG CAPSULE PO SCH ×2 (08:46→17:29)
[2018-01-26] MEDS: CHOLECALCIFEROL 1,000 UNIT TABLET (VIT D3) PO SCH (08:46)
[2018-01-26] MEDS: PANTOPRAZOLE 40 MG VIAL IV SCH (08:46)
[2018-01-26] MEDS: GABAPENTIN 400 MG CAPSULE PO SCH ×3 (08:46→17:29)
[2018-01-26] MEDS: CLOPIDOGREL BISULFATE 75 MG TABLET PO SCH (08:46)
[2018-01-26] MEDS: BLOOD SUGAR DIAGNOSTIC 1 EACH STRIP IN SCH ×4 (08:46→20:53)
[2018-01-26] MEDS: ASPIRIN EC 81 MG TABLET.DR PO SCH (08:47)
[2018-01-26] MEDS: FLUCONAZOLE (100 MG) 100 MG TABLET PO SCH (08:47)
[2018-01-26] MEDS: LEVETIRACETAM (250 MG) 250 MG TABLET PO SCH ×2 (08:47→20:53)
[2018-01-26] MEDS: LORATADINE 10 MG TABLET PO SCH ×2 (08:48→17:29)
[2018-01-26] MEDS: BOOST GLUCOSE CONTROL VANILLA 237 ML BOX PO SCH ×2 (08:48→12:01)
[2018-01-26] MEDS: HYDROGEL DRESSING 90 GM TUBE TP SCH (08:50)
[2018-01-26] MEDS: INSULIN REGULAR, HUMAN 100 UNIT/ML 3 ML VIAL SQ PRN ×4 (08:51→20:59)
[2018-01-26 12:00] VITALS: BP 99/57
--- NOTE | 2018-01-26 12:00 | NUR ---
RN NOTES PT ON 6L O2 N/C , NO DISTRESS NOTED , CONTINUE TO MONITOR.
--- NOTE | 2018-01-26 13:48 | NUR ---
AT 1330 PER RN [facility] CONSENT NOT SIGNED. PATIENT WAS GIVING PLAVIX AT 8AM. PER RADIOLOGY GUIDELINES PLAVIX MUST BE HELD 5 DYS PRIOR TO PROCEDURE. EXPLAINED TO RN IF PROCEDURE NEEDED SOONER ORDERING PHYSICIAN MUST DOCUMENT IN MEDITECH OR PATIENTS CHART EXPLAINING TO PROCEED WITH THORACENTESIS DESPITE THE RISKS, BLOOD THINNERS.
--- NOTE | 2018-01-26 14:00 | NUR ---
RN NOTES CALL RECEIVED FROM RADIOLOGY REGARDING US THORACENTESIS . RADIOLOGY IS UNABLE TO PERFORM ULTRASOUND AT THIS TIME DUE TO PT BEINING ON PLAVIX DAILY. DR DONNELLY NOTIFIED, MED STATED THAT HE WILL D/C THE ORDER FOR U/S AT THIS TIME.
[2018-01-26 16:00] VITALS: BP 124/59
--- NOTE | 2018-01-26 18:00 | NUR ---
RN NOTES PT REMAINS STABLE , NO SIGNIFICANT CHANGES NOTED ON THIS SHIFT , R UPPER ARM MIDLINE SITE AND LFA IV SITE CDI, DIEZ DRAINING TO GRAVITY , SR UP x3, CALL LIGHT WITHIN EASY REACH , WILL ENDORSE TO PM NURSE FOR BERNA
--- NOTE | 2018-01-26 19:30 | NUR ---
MAKAYLA RN INITIAL NOTES RECEIVED PATIENT AWAKE IN BED, A/OX4, ABLE TO VERBALIZE NEEDS. BREATHING EVEN, SLIGHTLY LABORED UPON EXERTION, ON O2 VIA NC @ 6LPM ON HUMIDIFIED OXYGEN. PATIENT ON TELEMETRY MONITORING, REVEALING AFIB, 102 BPM AT THIS TIME. DIEZ CATHETER PATENT AND INTACT, DRAINING CLEAR YELLOW URINE BY GRAVITY. NOTED WITH QUINTON MIDLINE, PATENT AND INTACT, FLUSHED WITH NS, NOTED WITH GOOD VENOUS RETURN, SITE FREE FROM ANY S/S OF INFILTRATION OR PHLEBITIS. ALSO NOTED WITH LEFT FOREARM #24 GAUGE, PATENT AND INTACT, FLUSHED WITH NS, FREE FROM ANY S/S OF INFILTRATION OR PHLEBITIS. PLAN OF CARE DISCUSSED WITH THE PATIENT, INCLUDING WHEN TO HE WOULD LIKE TO BE PLACED ON BIPAP, WILL COORDINATE WITH RT. CALL LIGHT LEFT WITHIN EASY REACH, BED IN LOWEST AND LOCKED POSITION. WILL CONTINUE TO CLOSELY MONITOR
[2018-01-26 20:00] VITALS: BP 105/67
--- NOTE | 2018-01-26 20:17 | NUR ---
RN NOTES PATIENT REQUESTING FOR "SOMETHING TO HELP WITH SLEEP." NOTIFIED LIAT JEFFERSON NP, ALL RELEVANT DETAILS GIVEN. SUPERVISOR SLASHING DEPARTMENT WITH NEW ORDER FOR AMBIEN 5MG PO ONE TIME. WILL ADMINISTER MEDICATION
[2018-01-26] MEDS ORDERED: ZOLPIDEM TARTRATE 10 MG TABLET PO ONE (20:30)
[2018-01-26] MEDS: ATORVASTATIN 40 MG TABLET PO SCH (20:53)
[2018-01-26] MEDS ORDERED: VANCOMYCIN 1 GM in IV D5W 250 ML IV SCH (21:00)
--- NOTE | 2018-01-26 21:30 | NUR ---
RN NOTES PATIENT PLACED ON BIPAP BY RT MARCO, TOLERATING WELL AT THIS TIME. WILL CONTINUE TO CLOSELY MONITOR
[2018-01-27] VITALS: BP 125/67
[2018-01-27] MEDS: ALBUTEROL FS 2.5 MG/0.5 ML VIAL.NEB IH SCH ×5 (03:38→20:01)
[2018-01-27] MEDS: IPRATROPIUM NEB FS 0.5 MG/2.5 ML AMPUL.NEB IH SCH ×5 (03:39→20:01)
[2018-01-27 04:00] VITALS: BP 115/57
--- NOTE | 2018-01-27 04:30 | NUR ---
RN NOTES BIPAP REMOVED PER PATIENT REQUEST, TOLERATED WELL, PLACED ON O2 VIA NC ON HUMIDIFIED O2 @ 6LPM, TOLERATING WELL. PATIENT STATES "I HAVEN'T HAD THAT MUCH SLEEP SINCE I GOT HERE IN SEPTEMBER." AMBIEN 5MG EFFECTIVE. WILL CONTINUE TO CLOSELY MONITOR
[2018-01-27] MEDS: CEFEPIME 1 GM in IV D5W 50 ML IV SCH ×3 (05:20→21:16)
[2018-01-27] MEDS: SUCRALFATE 1 G/10 ML UDC PO SCH ×3 (05:20→17:02)
[2018-01-27 07:00] LABS: BASOPHILS % (AUTO) 0.5 % (0.0-2.0); EOSINOPHILS # (AUTO) 0.1 /CMM (0.0-0.7); EOSINOPHILS % (AUTO) 2.3 % (0.0-6.0); HEMATOCRIT 26 % (39-51); HEMOGLOBIN 8.2 g/dL (13.5-17.5); LYMPHOCYTES # (AUTO) 1.1 /CMM (0.8-4.8); LYMPHOCYTES % (AUTO) 19.9 % (20.0-44.0); MEAN CORPUSCULAR HEMOGLOBIN 31 PG (26.0-33.0); MEAN CORPUSCULAR HGB CONC 32 g/dl (31.0-36.0); MEAN CORPUSCULAR VOLUME 97 fL (80-96); MONOCYTES # (AUTO) 0.9 /CMM (0.1-1.30); MONOCYTES % (AUTO) 16.3 % (2.0-12.0); NEUTROPHILS # (AUTO) 3.5 /CMM (1.8-8.9); PLATELET COUNT (AUTO) 331 /CMM (150-450); RDW COEFFICIENT OF VARIATION 20.9 (11.5-15.0); RED BLOOD CELL COUNT(AUTO) 2.65 MIL/uL (4.5-6.0); WHITE BLOOD COUNT (AUTO) 5.7 K/uL (4.3-11.0)
--- NOTE | 2018-01-27 07:00 | NUR ---
RN CLOSING NOTES PATIENT RESTING COMFORTABLY IN BED, ENDORSED TO THE AM SHIFT NURSE FOR BERNA.
--- NOTE | 2018-01-27 07:00 | NUR ---
RN NOTES RECEIVED PT ON BED,A/Ox3, on 6 L O2 N/C , O2 SAT 99% ,NO SOB NOTED, ON TELE A.FIB 97 , L UPPER ARM MIDLINE CDI, DIEZ DRAINING TO GRAVITY WITH YELLOW URINE, SR UPx3, CALL LIGHTS WITHIN EASY REACH, BED LOCKED AND IN LOWEST POSITION , CONTINUE TO MONITOR .
[2018-01-27 07:25] LABS: CHLORIDE 97 mmol/L (98-107); POTASSIUM 3.7 mmol/L (3.5-5.1); SODIUM SERUM 140 mmol/L (136-145)
[2018-01-27 07:26] LABS: CALCIUM, SERUM 9.5 mg/dL (8.5-10.1); CREATININE 0.9 mg/dL (0.6-1.3); GLUCOSE 186 mg/dL (74-106); UREA NITROGEN, BLOOD 22 mg/dL (7-18)
[2018-01-27] MEDS: ACETYLCYSTEINE 10% SOLN 400 MG/4 ML VIAL NEB SCH ×3 (07:35→23:30)
[2018-01-27] MEDS: MORPHINE SULFATE INJ 4 MG/ML DISP.SYRIN IV PRN ×2 (07:39→14:06)
--- NOTE | 2018-01-27 07:39 | NUR ---
RN NOTES PT RECEIVING BREATHING TX AT THIS TIME, O2 SAT 100%, STATED HE HAS HARD TIME TO BREATH , C/O MILD PAIN ON R SIDE OF THE CHEST , MORPHINE 2MG IV GIVEN x1, EKG ORDERED , WILLARD ORR SCRAPER BURRER PAGED. ON TELE HR IN 107, A. FIB , CONTINUE TO MONITOR PT CLSOELY .
[2018-01-27 08:00] VITALS: BP 112/63
[2018-01-27 08:00] LABS: CARBON DIOXIDE 42 mmol/L (21-32)
--- NOTE | 2018-01-27 08:05 | NUR ---
RN NOTES PT O2 SAT 98%, PT STATED FEELS BETTER, NO RETURN CALLS FROM KIRBY SCOTT. KIRBY SCOTT PAGED AGAIN ,
[2018-01-27 08:18] LABS: TROPONIN I 0.021 ng/mL (0.00-0.056)
[2018-01-27] MEDS: BLOOD SUGAR DIAGNOSTIC 1 EACH STRIP IN SCH ×4 (08:18→21:05)
[2018-01-27] MEDS: ZINC SULFATE 220 MG CAPSULE PO SCH (08:19)
[2018-01-27] MEDS: DOCUSATE SODIUM 100 MG CAPSULE PO SCH ×2 (08:20→16:32)
[2018-01-27] MEDS: PANTOPRAZOLE 40 MG VIAL IV SCH (08:20)
[2018-01-27] MEDS: LEVETIRACETAM (250 MG) 250 MG TABLET PO SCH ×2 (08:20→21:05)
[2018-01-27] MEDS: LORATADINE 10 MG TABLET PO SCH ×2 (08:20→16:32)
[2018-01-27] MEDS: ASPIRIN EC 81 MG TABLET.DR PO SCH (08:20)
[2018-01-27] MEDS: LEVOTHYROXINE SODIUM 175 MCG TABLET PO SCH (08:20)
[2018-01-27] MEDS: GABAPENTIN 400 MG CAPSULE PO SCH ×3 (08:20→16:32)
[2018-01-27] MEDS: CHOLECALCIFEROL 1,000 UNIT TABLET (VIT D3) PO SCH (08:20)
[2018-01-27] MEDS: MULTIVITAMINS,THERAGRAN 1 UDTAB TABLET PO SCH (08:20)
[2018-01-27] MEDS: FLUCONAZOLE (100 MG) 100 MG TABLET PO SCH (08:20)
[2018-01-27] MEDS: ASCORBIC ACID 500 MG TABLET PO SCH (08:20)
[2018-01-27] MEDS: HYDROGEL DRESSING 90 GM TUBE TP SCH (08:22)
[2018-01-27] MEDS: INSULIN REGULAR, HUMAN 100 UNIT/ML 3 ML VIAL SQ PRN ×4 (08:23→21:09)
--- NOTE | 2018-01-27 08:40 | NUR ---
RN NOTES NEW ORDER RECEIVED FROM KIRBY SCOTT FOR ABG AND CHEST X-RAY .PT AT REST , NO DISTRESS NOTED AT THIS TIME. CONTINUE TO MONITOR .
[2018-01-27 09:05] LABS: ABG BASE EXCESS 18.9 mmol/L; ABG OXYGEN SATURATION 88.4 % (92.0-98.5); ABG PCO2 64.4 mmHg (35.0-45.0); ABG PH 7.464 (7.350-7.450); ABG PO2 60.1 mmHg (75.0-100.0); AaDO2 129.2 mmHg; COHb 0.9 % (0.5-1.5); MetHb 0.4 % (0.0-1.5); O2Hb 87.3 % (94.0-97.0); SITE, ABG Left Radial; VENT MODE, BG NASAL CANNULA
[2018-01-27] MEDS: BOOST GLUCOSE CONTROL VANILLA 237 ML BOX PO SCH (09:21)
--- NOTE | 2018-01-27 10:00 | NUR ---
RN NOTES WILLARD ORR VENETIAN BLIND WORKER NOTIFIED REGARDING ABG AND EKG RESULTS , PT WILL HAVE US GUIDED THORACENTESIS TODAY PER VENETIAN BLIND WORKER ORDER . RADIOLOGY DEPARTMENT NOTIFIED . CONTINUE TO MONITOR .
[2018-01-27 10:17] LABS: BAND % (MANUAL) 5 % (0.0-5.0); EOSINOPHILS % (MANUAL) 1 % (0-4); LYMPHOCYTES % (MANUAL) 12 % (16-48); MONOCYTES % (MANUAL) 17 % (0-11.0); NEUTROPHILS % (MANUAL) 65 (42-76)
[2018-01-27 12:00] VITALS: BP 108/63
[2018-01-27 13:36] LABS: INR 1.1 (0.87-1.13)
--- NOTE | 2018-01-27 14:11 | NUR ---
RN NOTES PT IS HAVING US THORACENTESES AT THIS TIME , VSS STABLE , TOLERATING WELL , CONTINUE TO MONITOR .
--- NOTE | 2018-01-27 14:59 | NUR ---
RN NOTE S/P THORACENTESIS, PLEURAL FLUID OF 1000ML WAS REMOVED. SENT TO LAB FOR A PLEURAL CULTURE AND ANALYSIS
--- NOTE | 2018-01-27 15:00 | NUR ---
RN NOTES PT STATED THAT HIS BREATHING IS IMPROVED AND HE FEELS BETTER AFTER FLUID REMOVAL FROM R LUNG .
--- NOTE | 2018-01-27 15:17 | NUR ---
PER APPROVAL OF SONIA ORR US GUIDED THORACENTESIS PERFORMED DESPITE PLAVIX BEING GIVEN TO PATIENT ON 01/26/18.
[2018-01-27 16:00] VITALS: BP 115/67
--- NOTE | 2018-01-27 18:00 | NUR ---
RN NOTES PT STABLE , RESPIRATION EVEN AND UNLABORED, NO SOB NOTED, FATOUMATA ANY CHEST PAIN , DIEZ DRAINING TO GRAVITY. SR UP X3 , CALL LIGHT WITHIN EASY REACH, WILL ENDORSE TO DAY HABILITATION SPECIALIST NURSE FOR BERNA.
[2018-01-27 20:00] VITALS: BP 121/63
[2018-01-27] MEDS: ATORVASTATIN 40 MG TABLET PO SCH (21:05)
[2018-01-28] VITALS (8 sets, daily range): BP systolic 92–114; BP diastolic 54–71
[2018-01-28] MEDS: ALBUTEROL FS 2.5 MG/0.5 ML VIAL.NEB IH SCH ×7 (00:16→23:45)
[2018-01-28] MEDS: IPRATROPIUM NEB FS 0.5 MG/2.5 ML AMPUL.NEB IH SCH ×7 (00:16→23:45)
[2018-01-28] MEDS: SUCRALFATE 1 G/10 ML UDC PO SCH ×4 (00:37→17:20)
[2018-01-28] MEDS: CEFEPIME 1 GM in IV D5W 50 ML IV SCH ×3 (04:33→21:06)
--- NOTE | 2018-01-28 07:13 | NUR ---
RN NOTES RECEIVED PT FROM CLINIC SUPERVISOR, ON NOCTURNAL BIPAP, PUT ON 6L NC SATING WELL NO DISTRESS NOTED. A&0X3. A FIB ON THE TELE YAS HR 103. DIEZ DRAINING TO GRAVITY, YELLOW IN COLOR. QUINTON MIDLINE INTACT NO IVF. BED LOCKED AND IN LOWEST POSITION, CALL LIGHT WITHIN REACH, SIDE RAILS UPX3, WILL CONT TO YAS.
[2018-01-28] MEDS: ACETYLCYSTEINE 10% SOLN 400 MG/4 ML VIAL NEB SCH ×3 (07:35→23:30)
[2018-01-28] MEDS: BLOOD SUGAR DIAGNOSTIC 1 EACH STRIP IN SCH ×4 (07:47→21:07)
[2018-01-28] MEDS: INSULIN REGULAR, HUMAN 100 UNIT/ML 3 ML VIAL SQ PRN ×4 (07:48→21:20)
[2018-01-28] MEDS: PANTOPRAZOLE 40 MG VIAL IV SCH (08:13)
[2018-01-28] MEDS: GABAPENTIN 400 MG CAPSULE PO SCH ×3 (08:13→17:20)
[2018-01-28] MEDS: FLUCONAZOLE (100 MG) 100 MG TABLET PO SCH (08:13)
[2018-01-28] MEDS: LORATADINE 10 MG TABLET PO SCH ×2 (08:13→17:20)
[2018-01-28] MEDS: MULTIVITAMINS,THERAGRAN 1 UDTAB TABLET PO SCH (08:14)
[2018-01-28] MEDS: ASCORBIC ACID 500 MG TABLET PO SCH (08:14)
[2018-01-28] MEDS: DOCUSATE SODIUM 100 MG CAPSULE PO SCH ×2 (08:14→17:20)
[2018-01-28] MEDS: ZINC SULFATE 220 MG CAPSULE PO SCH (08:14)
[2018-01-28] MEDS: CHOLECALCIFEROL 1,000 UNIT TABLET (VIT D3) PO SCH (08:14)
[2018-01-28] MEDS: ASPIRIN EC 81 MG TABLET.DR PO SCH (08:14)
[2018-01-28] MEDS: HYDROGEL DRESSING 90 GM TUBE TP SCH (08:15)
[2018-01-28] MEDS: LEVOTHYROXINE SODIUM 175 MCG TABLET PO SCH (08:17)
[2018-01-28] MEDS: LEVETIRACETAM (250 MG) 250 MG TABLET PO SCH ×2 (08:17→21:07)
[2018-01-28] MEDS: BOOST GLUCOSE CONTROL VANILLA 237 ML BOX PO SCH (09:04)
[2018-01-28 09:14] LABS: CALCIUM, SERUM 9.5 mg/dL (8.5-10.1); CHLORIDE 95 mmol/L (98-107); CREATININE 0.8 mg/dL (0.6-1.3); GLUCOSE 253 mg/dL (74-106); POTASSIUM 4.1 mmol/L (3.5-5.1); SODIUM SERUM 138 mmol/L (136-145); UREA NITROGEN, BLOOD 23 mg/dL (7-18)
[2018-01-28 09:23] LABS: CARBON DIOXIDE 40 mmol/L (21-32)
[2018-01-28 09:33] LABS: BASOPHILS # (AUTO) 0.1 /CMM (0.0-0.2); BASOPHILS % (AUTO) 0.8 % (0.0-2.0); EOSINOPHILS # (AUTO) 0.1 /CMM (0.0-0.7); EOSINOPHILS % (AUTO) 1.5 % (0.0-6.0); HEMATOCRIT 26 % (39-51); HEMOGLOBIN 8.4 g/dL (13.5-17.5); LYMPHOCYTES # (AUTO) 1.2 /CMM (0.8-4.8); LYMPHOCYTES % (AUTO) 16.9 % (20.0-44.0); MEAN CORPUSCULAR HEMOGLOBIN 31 PG (26.0-33.0); MEAN CORPUSCULAR HGB CONC 32 g/dl (31.0-36.0); MEAN CORPUSCULAR VOLUME 96 fL (80-96); MONOCYTES # (AUTO) 0.9 /CMM (0.1-1.30); MONOCYTES % (AUTO) 13.3 % (2.0-12.0); NEUTROPHILS # (AUTO) 4.6 /CMM (1.8-8.9); NEUTROPHILS % (AUTO) 67.5 % (43.0-81.0); PLATELET COUNT (AUTO) 354 /CMM (150-450); RDW COEFFICIENT OF VARIATION 20.3 (11.5-15.0); RED BLOOD CELL COUNT(AUTO) 2.72 MIL/uL (4.5-6.0); WHITE BLOOD COUNT (AUTO) 6.8 K/uL (4.3-11.0)
--- NOTE | 2018-01-28 18:39 | NUR ---
RN NOTES PT REMAINED IN STABLE CONDITION THROUGHOUT SHIFT, ALL NEEDS MET. WILL ENDORSE TO ONCOMING SHIFT.
[2018-01-28] MEDS: HYDROCODONE/APAP 5/325MG 1 EACH TABLET PO PRN (21:07)
[2018-01-28] MEDS: ATORVASTATIN 40 MG TABLET PO SCH (21:07)
[2018-01-29] VITALS: BP 117/73
[2018-01-29] MEDS: NA PHOS,M-B/NA PHOS,DI-BA 1 EA ENEMA RC PRN (03:07)
[2018-01-29] MEDS: ALBUTEROL FS 2.5 MG/0.5 ML VIAL.NEB IH SCH ×6 (03:48→23:58)
[2018-01-29] MEDS: IPRATROPIUM NEB FS 0.5 MG/2.5 ML AMPUL.NEB IH SCH ×6 (03:48→23:58)
[2018-01-29 04:00] VITALS: BP 120/62
[2018-01-29] MEDS: SUCRALFATE 1 G/10 ML UDC PO SCH ×5 (05:18→23:24)
[2018-01-29] MEDS: CEFEPIME 1 GM in IV D5W 50 ML IV SCH ×3 (05:18→21:14)
--- NOTE | 2018-01-29 07:30 | NUR ---
DEPOSIT CLERK AM NOTES RECEIVED PT FROM IRB COMPLIANCE COORDINATOR, AAO X 3, ON 6L NC SATING WELL NO DISTRESS NOTED AND USES NOCTURNAL BIPAP, TELEMETRY READS AFIB HR 102, DENEIS ANY CHEST PAIN OR DISCOMFORT, WITH LEFT FA G24 IV ACCESS AND QUINTON MIDLINE, BOTH FLUSHES WELL, BOTH SITES CLEAR. DIEZ DRAINING TO GRAVITY, YELLOW IN COLOR, ADEQUATE AMOUNT. SEE NURSING FLOWSHEET FOR SKIN ISSUES. KETTERING [facility] DIET. WILL ASSIST IN TURNING AND REPOSITIONING Q 2 HOURS. BED LOCKED AND IN LOWEST POSITION, CALL LIGHT WITHIN REACH, SIDE RAILS UPX3, WILL CONT TO YAS.
[2018-01-29] MEDS: ACETYLCYSTEINE 10% SOLN 400 MG/4 ML VIAL NEB SCH ×3 (07:35→23:30)
[2018-01-29 08:00] VITALS: BP 114/72
[2018-01-29] MEDS: BLOOD SUGAR DIAGNOSTIC 1 EACH STRIP IN SCH ×4 (08:58→21:28)
[2018-01-29] MEDS: MULTIVITAMINS,THERAGRAN 1 UDTAB TABLET PO SCH (08:59)
[2018-01-29] MEDS: LEVOTHYROXINE SODIUM 175 MCG TABLET PO SCH (08:59)
[2018-01-29] MEDS: LEVETIRACETAM (250 MG) 250 MG TABLET PO SCH ×2 (08:59→21:13)
[2018-01-29] MEDS: FLUCONAZOLE (100 MG) 100 MG TABLET PO SCH (08:59)
[2018-01-29] MEDS: ASPIRIN EC 81 MG TABLET.DR PO SCH (08:59)
[2018-01-29] MEDS: DOCUSATE SODIUM 100 MG CAPSULE PO SCH ×2 (08:59→16:59)
[2018-01-29] MEDS: ASCORBIC ACID 500 MG TABLET PO SCH (08:59)
[2018-01-29] MEDS: PANTOPRAZOLE 40 MG VIAL IV SCH (08:59)
[2018-01-29] MEDS: BOOST GLUCOSE CONTROL VANILLA 237 ML BOX PO SCH (09:00)
[2018-01-29] MEDS: HYDROGEL DRESSING 90 GM TUBE TP SCH (09:00)
[2018-01-29] MEDS: ZINC SULFATE 220 MG CAPSULE PO SCH (09:00)
[2018-01-29] MEDS: CHOLECALCIFEROL 1,000 UNIT TABLET (VIT D3) PO SCH (09:00)
[2018-01-29] MEDS: LORATADINE 10 MG TABLET PO SCH ×2 (09:00→16:59)
[2018-01-29] MEDS: GABAPENTIN 400 MG CAPSULE PO SCH ×3 (09:00→16:59)
[2018-01-29] MEDS: INSULIN REGULAR, HUMAN 100 UNIT/ML 3 ML VIAL SQ PRN ×4 (09:12→21:30)
--- NOTE | 2018-01-29 09:30 | NUR ---
DISTRICT PLANT ENGINEER NOTES DUE MEDS GIVEN ACCCUCHECK DONE. BS 266 MG/DL. ADMINISTERED 6 UNITS HUM R PER SS.
[2018-01-29 12:00] VITALS: BP 103/52
--- NOTE | 2018-01-29 12:00 | NUR ---
ROTARY DRUM TANNER NOTES STARTED MAXIPIME IV. ACCCUCHECK DONE. BS 268 MG/DL. ADMINISTERED 6 UNITS HUM R PER SS.
[2018-01-29 16:00] VITALS: BP 126/75
[2018-01-29] MEDS: BISACODYL SUPP (10 MG) 10 MG/SUPP.RECT SUPP.RECT RC PRN (16:59)
--- NOTE | 2018-01-29 17:00 | NUR ---
TRANSPORTATION DESIGN ENGINEER NOTES JOCELYNN MATTING PRESS TENDER ORDERED FOR TAP ENEMA, BUT PATIENT ALREADY HAD A BOWEL MOVEMENT - LARGE AMOUNT. DID NOT ADMINISTER TAP ENEMA. CHARGE NURSE SOON AWARE.
--- NOTE | 2018-01-29 17:06 | NUR ---
BUTTON ATTACHING MACHINE OPERATOR NOTES ACCUCHECK DONE. BS 226 MG/DL. ADMINISTERED 4 UNITS HUM R PER SS.
--- NOTE | 2018-01-29 19:18 | NUR ---
SOFTWARE ENGINEERING ASSOCIATE MANAGER CLOSING NOTES PT RESTING IN BED, AAO X 3, ON 6L NC SATING WELL NO DISTRESS NOTED AND USES NOCTURNAL BIPAP, TELEMETRY READS AFIB HR 105, DENIES ANY CHEST PAIN OR DISCOMFORT, WITH LEFT FA G24 IV ACCESS AND QUINTON MIDLINE, BOTH FLUSHES WELL, BOTH SITES CLEAR. DIEZ DRAINING TO GRAVITY, YELLOW IN COLOR, 850 ML OUTPUT. CCHO DIET. PM CARE DONE AND PERFORMED PRESCRIBED WOUND TREATMENT. TURNED AND REPOSITIONED Q 2HOURS. BED LOCKED AND IN LOWEST POSITION, CALL LIGHT WITHIN REACH, SIDE RAILS UPX3, ALL NEEDS MET. NO OTHER SIGNIFICANT CHANGE IN CONDITION. WILL ENDORSE TO NEXT SHIFT FOR BERNA.
[2018-01-29 20:00] VITALS: BP 146/61
--- NOTE | 2018-01-29 20:00 | NUR ---
RN NOTES RESTING COMFORTABLY IN BED WATCHING TV WITH NO RESPIRATORY DISTRESS OR SHORTNESS OF BREATH. BREATHING EVEN AND UNLABORED. O2 AT 6LPM VIA NASAL CANULA TOLERATING WELL. ALERT AND ORIENTED. ABLE TO VERB NABIL NEEDS. NO COMPLAINT OF PAIN OR DISCOMFORT. FC PATENT AND INTACT DRAINING CLEAR YELLOW WITH NO FOUL ODOR URINE. KEPT CLEAN AND DRY. WILL CONTINUE TO MONITOR.
[2018-01-29] MEDS: POLYETHYLENE GLYCOL 3350 17 GM POWD.PACK PO SCH (21:13)
[2018-01-29] MEDS: ATORVASTATIN 40 MG TABLET PO SCH (21:13)
[2018-01-30] VITALS (8 sets, daily range): BP systolic 92–120; BP diastolic 48–65
[2018-01-30] MEDS: IPRATROPIUM NEB FS 0.5 MG/2.5 ML AMPUL.NEB IH SCH ×6 (03:17→23:39)
[2018-01-30] MEDS: ALBUTEROL FS 2.5 MG/0.5 ML VIAL.NEB IH SCH ×6 (03:17→23:39)
[2018-01-30] MEDS: CEFEPIME 1 GM in IV D5W 50 ML IV SCH ×2 (06:38→12:47)
[2018-01-30] MEDS: BLOOD SUGAR DIAGNOSTIC 1 EACH STRIP IN SCH ×4 (06:38→22:05)
[2018-01-30] MEDS: SUCRALFATE 1 G/10 ML UDC PO SCH ×3 (06:44→17:09)
[2018-01-30 07:03] LABS: CARBON DIOXIDE 39 mmol/L (21-32); CHLORIDE 96 mmol/L (98-107); GLUCOSE 203 mg/dL (74-106); POTASSIUM 4.4 mmol/L (3.5-5.1); SODIUM SERUM 138 mmol/L (136-145); UREA NITROGEN, BLOOD 30 mg/dL (7-18)
[2018-01-30 07:12] LABS: BASOPHILS # (AUTO) 0.1 /CMM (0.0-0.2); BASOPHILS % (AUTO) 0.8 % (0.0-2.0); EOSINOPHILS # (AUTO) 0.1 /CMM (0.0-0.7); EOSINOPHILS % (AUTO) 1.7 % (0.0-6.0); HEMATOCRIT 27 % (39-51); HEMOGLOBIN 8.6 g/dL (13.5-17.5); LYMPHOCYTES # (AUTO) 1.2 /CMM (0.8-4.8); LYMPHOCYTES % (AUTO) 15.7 % (20.0-44.0); MEAN CORPUSCULAR HEMOGLOBIN 31 PG (26.0-33.0); MEAN CORPUSCULAR HGB CONC 32 g/dl (31.0-36.0); MEAN CORPUSCULAR VOLUME 96 fL (80-96); MONOCYTES # (AUTO) 1.2 /CMM (0.1-1.30); MONOCYTES % (AUTO) 15.4 % (2.0-12.0); NEUTROPHILS # (AUTO) 5.3 /CMM (1.8-8.9); NEUTROPHILS % (AUTO) 66.4 % (43.0-81.0); PLATELET COUNT (AUTO) 299 /CMM (150-450); RDW COEFFICIENT OF VARIATION 20.3 (11.5-15.0); RED BLOOD CELL COUNT(AUTO) 2.82 MIL/uL (4.5-6.0); WHITE BLOOD COUNT (AUTO) 7.9 K/uL (4.3-11.0)
[2018-01-30] MEDS: ACETYLCYSTEINE 10% SOLN 400 MG/4 ML VIAL NEB SCH ×3 (07:16→23:30)
[2018-01-30] MEDS: BOOST GLUCOSE CONTROL VANILLA 237 ML BOX PO SCH (08:43)
[2018-01-30] MEDS: PANTOPRAZOLE 40 MG VIAL IV SCH (08:51)
[2018-01-30] MEDS: CHOLECALCIFEROL 1,000 UNIT TABLET (VIT D3) PO SCH (08:52)
[2018-01-30] MEDS: MULTIVITAMINS,THERAGRAN 1 UDTAB TABLET PO SCH (08:52)
[2018-01-30] MEDS: FLUCONAZOLE (100 MG) 100 MG TABLET PO SCH (08:52)
[2018-01-30] MEDS: LEVETIRACETAM (250 MG) 250 MG TABLET PO SCH ×2 (08:52→21:44)
[2018-01-30] MEDS: GABAPENTIN 400 MG CAPSULE PO SCH ×3 (08:52→17:09)
[2018-01-30] MEDS: LORATADINE 10 MG TABLET PO SCH ×2 (08:52→17:09)
[2018-01-30] MEDS: DOCUSATE SODIUM 100 MG CAPSULE PO SCH ×2 (08:52→17:09)
[2018-01-30] MEDS: ASPIRIN EC 81 MG TABLET.DR PO SCH (08:52)
[2018-01-30] MEDS: ASCORBIC ACID 500 MG TABLET PO SCH (08:52)
[2018-01-30] MEDS: LEVOTHYROXINE SODIUM 175 MCG TABLET PO SCH (08:52)
[2018-01-30] MEDS: ZINC SULFATE 220 MG CAPSULE PO SCH (08:54)
[2018-01-30] MEDS: Z GUARD REMEDY 2 OZ OINT TP PRN (08:55)
[2018-01-30] MEDS: HYDROGEL DRESSING 90 GM TUBE TP SCH (08:55)
--- NOTE | 2018-01-30 09:00 | NUR ---
Assumed care of pt. Pt alert, awake and oriented. On 02 at 4L NC. Sat 97%. No noted SOB. QUINTON Midline cath. LFA SL. Mason cath in place. BLE edema. will cont to monitor.
--- NOTE | 2018-01-30 12:00 | NUR ---
Noted SOB on exertion and when talking. O2 sat 93% on 4L sat 93%. Informed pt to relax and rest. Offered HHN but refused. will cont to monitor.
[2018-01-30] MEDS: INSULIN REGULAR, HUMAN 100 UNIT/ML 3 ML VIAL SQ PRN ×3 (12:43→21:59)
--- NOTE | 2018-01-30 13:00 | NUR ---
ML cath not flushing. noticed kinked in the angio cath unable to flush. notified charge nurse and stated will notify supervisor mail carriers.
[2018-01-30] MEDS: FUROSEMIDE 40 MG/4 ML VIAL IV SCH (17:09)
--- NOTE | 2018-01-30 18:46 | NUR ---
Resting well. No noted SOB. wound dressings done, perineal care done. Turned and repositioned for comfort. blood sugars monitored. liriano cath draining yellow color urine. bed low and locked. call light within reached. will cont to monitor.
[2018-01-30] MEDS: ATORVASTATIN 40 MG TABLET PO SCH (21:44)
[2018-01-30] MEDS: POLYETHYLENE GLYCOL 3350 17 GM POWD.PACK PO SCH (21:44)
--- NOTE | 2018-01-30 22:51 | NUR ---
RN NOTES IN BED AWAKE WATCHING TV WITH NO RESPIRATORY DISTRESS OR SHORTNESS OF BREATH. BREATHING EVEN AND UNLABORED. NO COMPLAINT OF PAIN OF THIS TIME. HEAD OF BED ELEVATED. DIEZ CATH IN PLACE AND INTACT DRAINING CLEAR YELLOW WITH NO FOUL ODOR URINE. KEPT CLEAN AND DRY. WILL CONTINUE TO MONITOR.
[2018-01-31] VITALS (7 sets, daily range): BP systolic 105–138; BP diastolic 53–75
[2018-01-31] MEDS: SUCRALFATE 1 G/10 ML UDC PO SCH ×4 (01:18→18:15)
[2018-01-31] MEDS: ALBUTEROL FS 2.5 MG/0.5 ML VIAL.NEB IH SCH ×6 (03:14→23:40)
[2018-01-31] MEDS: IPRATROPIUM NEB FS 0.5 MG/2.5 ML AMPUL.NEB IH SCH ×6 (03:14→23:40)
[2018-01-31] MEDS: INSULIN REGULAR, HUMAN 100 UNIT/ML 3 ML VIAL SQ PRN ×4 (06:34→21:48)
[2018-01-31] MEDS: BLOOD SUGAR DIAGNOSTIC 1 EACH STRIP IN SCH ×4 (06:35→21:41)
[2018-01-31] MEDS: ACETYLCYSTEINE 10% SOLN 400 MG/4 ML VIAL NEB SCH ×3 (07:31→23:40)
[2018-01-31 07:38] LABS: BASOPHILS # (AUTO) 0.1 /CMM (0.0-0.2); BASOPHILS % (AUTO) 1.3 % (0.0-2.0); EOSINOPHILS # (AUTO) 0.1 /CMM (0.0-0.7); EOSINOPHILS % (AUTO) 1.1 % (0.0-6.0); HEMATOCRIT 27 % (39-51); HEMOGLOBIN 8.3 g/dL (13.5-17.5); LYMPHOCYTES # (AUTO) 1.5 /CMM (0.8-4.8); LYMPHOCYTES % (AUTO) 19.6 % (20.0-44.0); MEAN CORPUSCULAR HEMOGLOBIN 30 PG (26.0-33.0); MEAN CORPUSCULAR HGB CONC 31 g/dl (31.0-36.0); MEAN CORPUSCULAR VOLUME 96 fL (80-96); MONOCYTES # (AUTO) 1.3 /CMM (0.1-1.30); MONOCYTES % (AUTO) 16.8 % (2.0-12.0); NEUTROPHILS # (AUTO) 4.8 /CMM (1.8-8.9); NEUTROPHILS % (AUTO) 61.2 % (43.0-81.0); PLATELET COUNT (AUTO) 290 /CMM (150-450); RDW COEFFICIENT OF VARIATION 20.3 (11.5-15.0); RED BLOOD CELL COUNT(AUTO) 2.74 MIL/uL (4.5-6.0); WHITE BLOOD COUNT (AUTO) 7.8 K/uL (4.3-11.0)
[2018-01-31 07:57] LABS: MAGNESIUM 1.4 mg/dL (1.8-2.4); PHOSPHORUS 2.4 mg/dL (2.5-4.9)
--- NOTE | 2018-01-31 08:00 | NUR ---
VP BUSINESS DEVELOPMENT NOTES RECIEVED PT ON BED SLEEPING. ALERT ORIENTED X4. ON NASAL CANNULA 4L SATURATING WELL. HEAD OF BED ELEVATED. SIDE RAILS UP. CALL LIGHT WITHIN REACH. BED ALARM ON. WILL CONTINUE TO MONITOR PT CLOSELY.
[2018-01-31 08:40] LABS: CALCIUM, SERUM 9.8 mg/dL (8.5-10.1); CARBON DIOXIDE 37 mmol/L (21-32); CHLORIDE 96 mmol/L (98-107); GLUCOSE 171 mg/dL (74-106); SODIUM SERUM 139 mmol/L (136-145); UREA NITROGEN, BLOOD 29 mg/dL (7-18)
[2018-01-31] MEDS: HYDROGEL DRESSING 90 GM TUBE TP SCH (09:00)
[2018-01-31] MEDS: BOOST GLUCOSE CONTROL VANILLA 237 ML BOX PO SCH (09:00)
[2018-01-31] MEDS: GABAPENTIN 400 MG CAPSULE PO SCH ×3 (10:34→18:12)
[2018-01-31] MEDS: ASCORBIC ACID 500 MG TABLET PO SCH (10:34)
[2018-01-31] MEDS: LORATADINE 10 MG TABLET PO SCH ×2 (10:34→18:12)
[2018-01-31] MEDS: PANTOPRAZOLE 40 MG VIAL IV SCH (10:34)
[2018-01-31] MEDS: LEVETIRACETAM (250 MG) 250 MG TABLET PO SCH ×2 (10:34→20:36)
[2018-01-31] MEDS: LEVOTHYROXINE SODIUM 175 MCG TABLET PO SCH (10:35)
[2018-01-31] MEDS: FLUCONAZOLE (100 MG) 100 MG TABLET PO SCH (10:35)
[2018-01-31] MEDS: ZINC SULFATE 220 MG CAPSULE PO SCH (10:35)
[2018-01-31] MEDS: FUROSEMIDE 40 MG/4 ML VIAL IV SCH ×2 (10:35→18:12)
[2018-01-31] MEDS: ASPIRIN EC 81 MG TABLET.DR PO SCH (10:35)
[2018-01-31] MEDS: DOCUSATE SODIUM 100 MG CAPSULE PO SCH ×2 (10:35→18:12)
[2018-01-31] MEDS: MULTIVITAMINS,THERAGRAN 1 UDTAB TABLET PO SCH (10:35)
[2018-01-31] MEDS: CHOLECALCIFEROL 1,000 UNIT TABLET (VIT D3) PO SCH (10:36)
[2018-01-31] MEDS ORDERED: FURO40TA5 PO (14:01)
--- NOTE | 2018-01-31 18:44 | NUR ---
OPTICAL ELEMENT COATER NOTES NO ACUTE CHANGES NOTED DURING THE SHIFT. WILL ENDORSE TO THE PM NURSE FOR BERNA.
--- NOTE | 2018-01-31 20:00 | NUR ---
RN NOTES PATIENT AWAKE IN BED WATCHING TV. NO DISTRESS NOTED. BREATHING EVEN AND UNLABORED. ALERT AND ORIENTED. VERBALIZES NEEDS. NO COMPLAINT OF PAIN OR DISCOMFORT. DIEZ CATH IN PLACE DRAINING CLEAR YELLOW WITH NO FOUL ODOR URINE. VITAL SIGNS WNL. KEPT CLEAN AND DRY.
[2018-01-31] MEDS: ATORVASTATIN 40 MG TABLET PO SCH (21:50)
[2018-01-31] MEDS: POLYETHYLENE GLYCOL 3350 17 GM POWD.PACK PO SCH (21:50)
[2018-02-01] VITALS: BP_SYST 119; BP_DIAS 64; BP_DIAS 69
[2018-02-01] MEDS: SUCRALFATE 1 G/10 ML UDC PO SCH ×4 (00:32→17:16)
[2018-02-01] MEDS: IPRATROPIUM NEB FS 0.5 MG/2.5 ML AMPUL.NEB IH SCH ×4 (03:37→15:30)
[2018-02-01] MEDS: ALBUTEROL FS 2.5 MG/0.5 ML VIAL.NEB IH SCH ×4 (03:37→15:29)
[2018-02-01 04:00] VITALS: BP 121/70
--- NOTE | 2018-02-01 04:00 | NUR ---
RN NOTES RECEIVED REPORT & PATIENT FROM JT VILLAVICENCIO FOR BERNA. PATIENT CURRENTLY SLEEPING & TOLERATING BIPAP. NO RESPIRATORY DISTRESS NOTED. WILL CONTINUE TO MONITOR.
--- NOTE | 2018-02-01 06:49 | NUR ---
RN NOTES PATIENT REFUSED BATH, OFFERED X2. PER PATIENT, HE WANTED TO SLEEP & DID NOT WANT TO TAKE OFF BIPAP.
[2018-02-01] MEDS: ACETYLCYSTEINE 10% SOLN 400 MG/4 ML VIAL NEB SCH ×2 (07:26→15:30)
[2018-02-01] MEDS: BLOOD SUGAR DIAGNOSTIC 1 EACH STRIP IN SCH ×3 (07:30→17:20)
--- NOTE | 2018-02-01 07:32 | NUR ---
WAREHOUSE ORDER PULLER NOTES RECEIVED PT ON BED ALERT ORIENTED X3. ON TELE MONITOR AFIB. IV ACCESS QUINTON MIDLINE SATURATING WELL. HEAD OF BED ELEVATED. SIDE RAILS UP. CALL LIGHT WITHIN REACH. WILL CONTINUE TO MONITOR PT CLOSELY.
[2018-02-01 08:00] VITALS: BP_SYST 144; BP_DIAS 57; BP_DIAS 67
[2018-02-01] MEDS: INSULIN REGULAR, HUMAN 100 UNIT/ML 3 ML VIAL SQ PRN ×3 (09:08→17:19)
[2018-02-01] MEDS: PANTOPRAZOLE 40 MG VIAL IV SCH (09:09)
[2018-02-01] MEDS: LORATADINE 10 MG TABLET PO SCH ×2 (09:09→17:17)
[2018-02-01] MEDS: GABAPENTIN 400 MG CAPSULE PO SCH ×3 (09:10→17:17)
[2018-02-01] MEDS: FLUCONAZOLE (100 MG) 100 MG TABLET PO SCH (09:10)
[2018-02-01] MEDS: CHOLECALCIFEROL 1,000 UNIT TABLET (VIT D3) PO SCH (09:10)
[2018-02-01] MEDS: ASCORBIC ACID 500 MG TABLET PO SCH (09:10)
[2018-02-01] MEDS: LEVETIRACETAM (250 MG) 250 MG TABLET PO SCH (09:10)
[2018-02-01] MEDS: MULTIVITAMINS,THERAGRAN 1 UDTAB TABLET PO SCH (09:10)
[2018-02-01] MEDS: ZINC SULFATE 220 MG CAPSULE PO SCH (09:10)
[2018-02-01] MEDS: LEVOTHYROXINE SODIUM 175 MCG TABLET PO SCH (09:10)
[2018-02-01] MEDS: ASPIRIN EC 81 MG TABLET.DR PO SCH (09:10)
[2018-02-01] MEDS: DOCUSATE SODIUM 100 MG CAPSULE PO SCH ×2 (09:10→17:16)
[2018-02-01] MEDS: FUROSEMIDE 40 MG/4 ML VIAL IV SCH ×2 (09:10→17:16)
[2018-02-01] MEDS: BOOST GLUCOSE CONTROL VANILLA 237 ML BOX PO SCH (09:11)
[2018-02-01] MEDS: Z GUARD REMEDY 2 OZ OINT TP PRN (09:11)
[2018-02-01] MEDS: HYDROGEL DRESSING 90 GM TUBE TP SCH (09:11)
[2018-02-01 12:00] VITALS: BP 117/64
--- NOTE | 2018-02-01 15:18 | NUR ---
CHIPS SCREEN TENDER NOTES REPORT GIVEN TO
[2018-02-01 16:00] VITALS: BP 97/56
--- NOTE | 2018-02-01 18:58 | NUR ---
CATERING TRUCK OPERATOR NOTES NO ACUTE CHANGES NOTED DURING THE SHIFT. PROVIDED COMFORT AND SAFETY. DUE MEDS GIVEN. WILL ENDORSE TO THE PM NURSE FOR BERNA.
== END 2018-02-01 19:51 | DRG 871 ==
LOC: ER 00:54 → ICU 02:33 → TELE-TD 01-14 21:36 → TELE1 01-14 22:54 → MEDSG1 01-15 13:27 → MEDSG2 01-19 20:12 → MEDSG1 01-21 15:57 → TELE-TD 01-21 16:04 → TELE1 01-27 13:44
PROVIDERS: ADMIT Nurse Practitioner Acute Care; ATTEND Nurse Practitioner Acute Care
PROC: 5A1945Z Respiratory Ventilation, 24-96 Consecutive Hours (ICD-10-PCS; principal; 2018-01-12)
PROC: 0BH17EZ Insertion of Endotracheal Airway into Trachea, Via Natural or Artificial Opening (ICD-10-PCS; 2018-01-12)
PROC: 0DB78ZX Excision of Stomach, Pylorus, Via Natural or Artificial Opening Endoscopic, Diagnostic (ICD-10-PCS; 2018-01-16)
PROC: 0W993ZZ Drainage of Right Pleural Cavity, Percutaneous Approach (ICD-10-PCS; 2018-01-19)
PROC: 05H633Z Insertion of Infusion Device into Left Subclavian Vein, Percutaneous Approach (ICD-10-PCS; 2018-01-22)
PROC: 5A09357 Assistance with Respiratory Ventilation, Less than 24 Consecutive Hours, Continuous Positive Airway Pressure (ICD-10-PCS; 2018-01-23)
PROC: 5A09357 Assistance with Respiratory Ventilation, Less than 24 Consecutive Hours, Continuous Positive Airway Pressure (ICD-10-PCS; 2018-01-26)
PROC: 0W993ZZ Drainage of Right Pleural Cavity, Percutaneous Approach (ICD-10-PCS; 2018-01-27)
PROC: 5A09357 Assistance with Respiratory Ventilation, Less than 24 Consecutive Hours, Continuous Positive Airway Pressure (ICD-10-PCS; 2018-01-27)
DX: A41.9 Sepsis, unspecified organism (principal); I21.A1 Myocardial infarction type 2; J69.0 Pneumonitis due to inhalation of food and vomit; E43 Unspecified severe protein-calorie malnutrition; L89.153 Pressure ulcer of sacral region, stage 3; N17.0 Acute kidney failure with tubular necrosis; J96.01 Acute respiratory failure with hypoxia; J96.02 Acute respiratory failure with hypercapnia; L89.323 Pressure ulcer of left buttock, stage 3; D69.6 Thrombocytopenia, unspecified; E11.22 Type 2 diabetes mellitus with diabetic chronic kidney disease; I50.33 Acute on chronic diastolic (congestive) heart failure; R65.21 Severe sepsis with septic shock; L89.313 Pressure ulcer of right buttock, stage 3; J90 Pleural effusion, not elsewhere classified; I13.0 Hypertensive heart and chronic kidney disease with heart failure and stage 1 through stage 4 chronic kidney disease, or unspecified chronic kidney disease; E66.2 Morbid (severe) obesity with alveolar hypoventilation; N39.0 Urinary tract infection, site not specified; K92.2 Gastrointestinal hemorrhage, unspecified; J44.0 Chronic obstructive pulmonary disease with (acute) lower respiratory infection; B37.49 Other urogenital candidiasis; D53.9 Nutritional anemia, unspecified; F03.90 Unspecified dementia, unspecified severity, without behavioral disturbance, psychotic disturbance, mood disturbance, and anxiety; E03.9 Hypothyroidism, unspecified; E78.5 Hyperlipidemia, unspecified; E83.42 Hypomagnesemia; E86.0 Dehydration; E87.6 Hypokalemia; G40.909 Epilepsy, unspecified, not intractable, without status epilepticus; I25.2 Old myocardial infarction; I25.10 Atherosclerotic heart disease of native coronary artery without angina pectoris; K21.9 Gastro-esophageal reflux disease without esophagitis; N18.9 Chronic kidney disease, unspecified; Z87.01 Personal history of pneumonia (recurrent); Z86.73 Personal history of transient ischemic attack (TIA), and cerebral infarction without residual deficits; Z95.1 Presence of aortocoronary bypass graft; D63.8 Anemia in other chronic diseases classified elsewhere; I48.2 Chronic atrial fibrillation; E88.09 Other disorders of plasma-protein metabolism, not elsewhere classified; L98.8 Other specified disorders of the skin and subcutaneous tissue; R13.10 Dysphagia, unspecified; K44.9 Diaphragmatic hernia without obstruction or gangrene; K27.9 Peptic ulcer, site unspecified, unspecified as acute or chronic, without hemorrhage or perforation; K29.80 Duodenitis without bleeding; K56.41 Fecal impaction; Z68.30 Body mass index [BMI] 30.0-30.9, adult; G89.29 Other chronic pain; B96.89 Other specified bacterial agents as the cause of diseases classified elsewhere; S81.802A Unspecified open wound, left lower leg, initial encounter; S81.801A Unspecified open wound, right lower leg, initial encounter; X58.XXXA Exposure to other specified factors, initial encounter; Y93.9 Activity, unspecified; Y92.129 Unspecified place in nursing home as the place of occurrence of the external cause
CPT/HCPCS: 31720; 36415; 36600; 70450-TC; 71045-TC; 74018; 76942-TC; 80048-TC; 80053-TC; 80061-TC; 80076-TC; 80202-TC; 81000-TC; 82272-TC; 82803-TC; 82947-TC; 82962-TC; 83540-TC; 83605-TC; 83735-TC; 83880; 84100-TC; 84439-TC; 84443-TC; 84484-TC; 85025-TC; 85610-TC; 85730-TC; 87040-TC; 87070-TC; 87081-TC; 87086-TC; 87186-TC; 87400; 88305-TC; 88313-TC; 88342; 89051-TC; 92526; 92611-TC; 93307-TC; 94002-TC; 94003-TC; 94640-TC; 94668-TC; 94760-TC; 94762-TC; 94799-TC; 99082-TC; A4216; A4217; A4606; A6248; A6253; A6402; A6403; C9113; J0330; J0456; J0692; J0713; J1815; J1940; J1956; J2001; J2270; J2405; J2543; J2704; J3370; J3475; J3490; J7030; J7040; J7050; J7060; Z7610